=== PATIENT | male | born 1940 | race Caucasian/White ===

== ENCOUNTER → 2023-12-08 12:10 | Outpatient (REF) | payer MEDICARE, SELFPAY ==
[2023-12-08 13:30] LABS: INR 2.54; PT 27.3 Sec (11.4-14.6)
== END ==
LOC: OLABPV 12:10
PROVIDERS: ATTENDING PHYSICIAN Internal Medicine Geriatric Medicine
DX: Z79.01 Long term (current) use of anticoagulants (principal)
CPT/HCPCS: 36415; 85610

== ENCOUNTER → 2023-12-15 11:01 | Outpatient (REF) | payer MEDICARE, SELFPAY ==
[2023-12-15 11:54] LABS: % Eosinophils 4.8 % (0-6); % Immature Granulocytes 0.5 % (0-0.5); % Monocytes 12.6 % (1.7-9.3); % Neutrophils 71.1 % (42.2-75.2); Absolute Basophils 0.1 10^3/uL (0-0.2); Absolute Eosinophils 0.3 10^3/uL (0-0.7); Absolute Lymphocytes 0.6 10^3/uL (1.2-3.4); Absolute Monocytes 0.8 10^3/uL (0.1-0.6); Absolute Neutrophils 4.5 10^3/uL (1.4-6.5); Hematocrit 31.3 % (39.0-52.0); Hemoglobin 10.1 g/dL (13.0-18.0); Mean Corp Hgb Conc. 32.3 g/dL (33.0-37.0); Mean Corpuscular Hgb 29.7 pg (27.0-31.0); Mean Corpuscular Volume 92.1 fL (80.0-94.0); Mean Platelet Volume 11.3 fL (7.4-10.4); Nucleated Red Blood Cells % 0 % (-); Platelet Count 177 10^3/uL (130-400); Red Cell Dist. Width 18.1 % (11.5-14.5); White Blood Cell Count 6.3 10^3/uL (4.8-10.8)
[2023-12-15 12:10] LABS: ALT (SGPT) 73 U/L (0-50); AST (SGOT) 64 U/L (17-59); Albumin 3.7 g/dl (3.5-5.0); Alkaline Phosphatase 239 U/L (38-126); Blood Urea Nitrogen 58 mg/dl (9-20); Calcium 9.5 mg/dl (8.4-10.2); Carbon Dioxide 27 mmol/L (22-30); Chloride 99 mmol/L (98-107); Glucose 149 mg/dl (70-99); Potassium 3.6 mmol/L (3.5-5.1); Sodium 138 mmol/L (135-145); Total Protein 7.4 g/dl (6.3-8.2); eGFR 41.96
[2023-12-18 01:44] LABS: Albumin 3.95 g/dL (3.75-5.01); Alpha 1 Globulin 0.39 g/dL (0.19-0.46); Alpha 2 Globulin 0.58 g/dL (0.48-1.05); Free Kappa Light Chains,Quant 111.04 mg/L (3.30-19.40); Free Lambda Light Chains,Quant 53.42 mg/L (5.71-26.30); IgA 496 mg/dL (68-408); IgG 1403 mg/dL (768-1632); IgM 90 mg/dL (35-263); Immunofixation Electrophoresis IFE Done; Kappa/Lambda Fr Light Ratio 2.08 (0.26-1.65); Total Protein-Electrophoresis 7.4 g/dL (6.3-8.2)
== END ==
LOC: OLABPV 11:01
PROVIDERS: ATTENDING PHYSICIAN Internal Medicine Cardiovascular Disease; REFERRING PHYSICIAN Internal Medicine Hematology & Oncology
DX: I50.32 Chronic diastolic (congestive) heart failure (principal); D63.1 Anemia in chronic kidney disease; D47.2 Monoclonal gammopathy
CPT/HCPCS: 36415; 80053; 82232; 82784; 83521; 84155; 84165; 85025; 86334

== ENCOUNTER → 2024-01-05 09:55 | Outpatient (REF) | payer MEDICARE, SELFPAY ==
[2024-01-05 13:33] LABS: INR 3.33; PT 33.8 Sec (11.4-14.6)
[2024-01-05 13:36] LABS: % Basophils 0.7 % (0-2); % Eosinophils 3.7 % (0-6); % Immature Granulocytes 0.6 % (0-0.5); % Lymphocytes 7.6 % (20.5-51.1); % Monocytes 11.6 % (1.7-9.3); % Neutrophils 75.8 % (42.2-75.2); ALT (SGPT) 18 U/L (0-50); AST (SGOT) 35 U/L (17-59); Absolute Basophils 0.1 10^3/uL (0-0.2); Absolute Eosinophils 0.3 10^3/uL (0-0.7); Absolute Lymphocytes 0.6 10^3/uL (1.2-3.4); Absolute Monocytes 0.8 10^3/uL (0.1-0.6); Absolute Neutrophils 5.5 10^3/uL (1.4-6.5); Albumin 3.7 g/dl (3.5-5.0); Alkaline Phosphatase 212 U/L (38-126); Blood Urea Nitrogen 34 mg/dl (9-20); Calcium 7.8 mg/dl (8.4-10.2); Carbon Dioxide 21 mmol/L (22-30); Chloride 107 mmol/L (98-107); Glucose 151 mg/dl (70-99); HDL Cholesterol 45 mg/dl; Hematocrit 30.5 % (39.0-52.0); Hemoglobin 9.7 g/dL (13.0-18.0); LDL Cholesterol, Calculated 82 mg/dl; Mean Corp Hgb Conc. 31.8 g/dL (33.0-37.0); Mean Corpuscular Hgb 29.3 pg (27.0-31.0); Mean Corpuscular Volume 92.1 fL (80.0-94.0); Mean Platelet Volume 9.4 fL (7.4-10.4); Nucleated Red Blood Cells % 0 % (-); Platelet Count 171 10^3/uL (130-400); Potassium 4.3 mmol/L (3.5-5.1); Red Blood Cell Count 3.31 10^6/uL (4.70-6.10); Red Cell Dist. Width 21.4 % (11.5-14.5); Sodium 134 mmol/L (135-145); Total Bilirubin 2.2 mg/dl (0.2-1.3); Total Cholesterol 150 mg/dl (50-199); Total Protein 7.1 g/dl (6.3-8.2); Triglyceride 118 mg/dl (10-149); Very Low Density Lipoprotein 23 mg/dl (0-30); White Blood Cell Count 7.2 10^3/uL (4.8-10.8); eGFR 53.84
== END ==
LOC: OLABPV 09:55
PROVIDERS: ATTENDING PHYSICIAN Internal Medicine Geriatric Medicine
DX: Z79.01 Long term (current) use of anticoagulants (principal); E78.2 Mixed hyperlipidemia; I10 Essential (primary) hypertension; I48.21 Permanent atrial fibrillation; I50.32 Chronic diastolic (congestive) heart failure; N18.32 Chronic kidney disease, stage 3b; E11.9 Type 2 diabetes mellitus without complications; F41.9 Anxiety disorder, unspecified; I34.2 Nonrheumatic mitral (valve) stenosis; M81.0 Age-related osteoporosis without current pathological fracture; R17 Unspecified jaundice; K21.9 Gastro-esophageal reflux disease without esophagitis
CPT/HCPCS: 36415; 80053; 80061; 85025; 85610

== ENCOUNTER → 2024-02-19 10:32 | Outpatient (REF) | payer MEDICARE, SELFPAY ==
[2024-02-19 11:33] LABS: INR 2.06; PT 23.1 Sec (11.4-14.6)
== END ==
LOC: OLABPV 10:32
PROVIDERS: ATTENDING PHYSICIAN Internal Medicine Geriatric Medicine
DX: Z79.01 Long term (current) use of anticoagulants (principal)
CPT/HCPCS: 36415; 85610

== ENCOUNTER → 2024-02-25 10:05 | Outpatient (REF) | payer MEDICARE, SELFPAY | LOC: RAD 10:05 | PROVIDERS: ATTENDING PHYSICIAN Psychiatry & Neurology Neurology; FAMILY PHYSICIAN Internal Medicine Geriatric Medicine | DX: M54.6 Pain in thoracic spine (principal); M54.14 Radiculopathy, thoracic region; M47.816 Spondylosis without myelopathy or radiculopathy, lumbar region; M47.817 Spondylosis without myelopathy or radiculopathy, lumbosacral region; M54.50 Low back pain, unspecified | CPT/HCPCS: 72128; 72131 ==

== ENCOUNTER → 2024-03-04 09:53 | Outpatient (REF) | payer MEDICARE, SELFPAY ==
[2024-03-04 10:14] LABS: INR 2.44; PT 26.4 Sec (11.4-14.6)
== END ==
LOC: OLABPV 09:53
PROVIDERS: ATTENDING PHYSICIAN Family Medicine
DX: Z79.01 Long term (current) use of anticoagulants (principal)
CPT/HCPCS: 36415; 85610

== ENCOUNTER 2024-03-24 17:14 | Inpatient (IN) | payer MEDICARE, SELFPAY ==
[2024-03-24] VITALS (11 sets, daily range): BP systolic 105–128; BP diastolic 52–83; BMI 21.9; BMI 21.4
[2024-03-24 08:31] LABS: % Basophils 1.3 % (0-2); % Eosinophils 3.2 % (0-6); % Immature Granulocytes 0.6 % (0-0.5); % Lymphocytes 7.6 % (20.5-51.1); % Monocytes 12.3 % (1.7-9.3); Absolute Basophils 0.1 10^3/uL (0-0.2); Absolute Eosinophils 0.2 10^3/uL (0-0.7); Absolute Lymphocytes 0.5 10^3/uL (1.2-3.4); Absolute Monocytes 0.8 10^3/uL (0.1-0.6); Absolute Neutrophils 4.8 10^3/uL (1.4-6.5); Hematocrit 33.5 % (39.0-52.0); Mean Corp Hgb Conc. 29.9 g/dL (33.0-37.0); Mean Corpuscular Hgb 27.8 pg (27.0-31.0); Mean Corpuscular Volume 93.1 fL (80.0-94.0); Mean Platelet Volume 10.9 fL (7.4-10.4); Nucleated Red Blood Cells % 0.6 % (-); Platelet Count 160 10^3/uL (130-400); Red Cell Dist. Width 18.6 % (11.5-14.5); White Blood Cell Count 6.3 10^3/uL (4.8-10.8)
[2024-03-24 08:40] LABS: PT 40.4 Sec (11.4-14.6)
[2024-03-24 08:49] LABS: ALT (SGPT) 12 U/L (0-50); AST (SGOT) 22 U/L (17-59); Albumin 3.8 g/dl (3.5-5.0); Alkaline Phosphatase 127 U/L (38-126); Blood Urea Nitrogen 47 mg/dl (9-20); Calcium 8.6 mg/dl (8.4-10.2); Carbon Dioxide 23 mmol/L (22-30); Chloride 100 mmol/L (98-107); Glucose 243 mg/dl (70-99); Potassium 5.3 mmol/L (3.5-5.1); Sodium 135 mmol/L (135-145); Total Bilirubin 1.5 mg/dl (0.2-1.3); eGFR 39.02
[2024-03-24 08:51] LABS: Digoxin < 0.4 ng/ml (0.8-2.0)
[2024-03-24 08:58] LABS: NT-proBNP 4880 pg/ml; Troponin I 0.043 ng/ml
--- NOTE | 2024-03-24 11:33 | ED.GENMED ---
History of Present Illness
General
Chief Complaint: Breathing Problem
Source: patient and family
Exam Limitations: none
Time Seen by Provider: 03/24/24 11:04
Nursing documentation reviewed up to this point in time: agreed with
Travel History
Have you had any contact with someone who has COVID-19?: No
Do you have any symptoms of coronavirus? Fever > 100 degrees, chills, cough, shortness of breath, sore throat, loss of taste or smell, muscle aches, or headache?: No
History of Present Illness
History of Present Illness:
83-year-old male presenting to the emergency department today with concerns of worsening shortness of breath over the past few days. Has had some increasing nasal congestion as well. Upon arrival here and during initial assessment patient's pulse
ox in the 80s requiring 4 L nasal cannula but does not use oxygen at baseline. Does have a significant heart history of A-fib currently on Coumadin CHF hyperlipidemia. Patient was additionally seen in triage and had assessment ordered. Labs
showing slightly elevated troponin level however patient's chronically elevated in this regard patient's EKG without acute changes, ACS seems to be less likely. Patient did have an elevated BNP but below most of his previous levels over the past
few years. The daughter was concerned that she has noticed some weight gain over the past week or so. Patient was given dose of Lasix as well as an antibiotic for possible pneumonia seen on his x-ray.
Past History
Past History
ED Past Medical History: Arrthythmia (Atrial fibrillation), Cancer (Prostate), CHF, HTN, Hypercholesterolemia, Renal failure (Stage IIIb chronic kidney disease), Valvular disease, Psychiatric (Generalized anxiety disorder), Other (Rheumatoid
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
Negative COPD
ED Past Surgical History: Cardiac (Mitral valve repair, pacemaker October 2022)
Social History
Tobacco: Non-smoker
Alcohol: None
Drug: None
Personal: Single
Living: alone
Employment: Retired
Family History
Family History: Other (Reviewed and noncontributory)
Review of Systems
Review of Systems
Allergies reviewed?: Yes
All Other Systems: ROS reviewed and negative except as documented in HPI and ROS
Phy Exam
Physical Exam
Physical Exam:
GENERAL: Alert , in no apparent distress
EYE: pupils equal and reactive
NECK: Supple, no significant adenopathy.
ENT: o/p clr, mmm.
CARDIAC: Regular rate and rhythm .
LUNGS: Clear breath sounds bilaterally, no acute respiratory distress, no wheezes/rales/rhonchi
ABDOMEN: Soft, without focal tenderness, no r/g, no cvat
NEUROLOGICAL: Alert and oriented, no focal neuro deficits
SKIN: Warm and dry, skin intact.
MUSCULOSKELETAL: No edema, well perfused.
PSYCH: Normal and appropriate interaction.
Scores
Heart Failure Risk
Heart Failure Risk Score: Not Applicable
Course
Orders/Labs/Results
Orders:
Orders
03/24/24 08:15
Electrocardiogram (*1) Urgent
Reason for Study: Shortness of Breath
EKG- Treatment ONCE
CXR2 [CR Chest - 2 Views ] Urgent
Comment:
Reason For Exam: sob
03/24/24 08:18
Complete Blood Count/With Diff Urgent
Comprehensive Metabolic Panel Urgent
Digoxin Urgent
NT-proBNP Urgent
PT/INR [Prothrombin Time] Urgent
Troponin I Urgent
03/24/24 11:32
Azithromycin [Zithromax] 500 mg PO NOW STA
CefTRIAXone [Rocephin] 2,000 mg IV NOW STA
Furosemide [Lasix] 40 mg IV NOW STA
Abnormal Lab Results
03/24/24
08:18
RBC 3.60 L 10^6/uL
(4.70-6.10)
Hgb 10.0 L g/dL
(13.0-18.0)
Hct 33.5 L %
(39.0-52.0)
MCHC 29.9 L g/dL
(33.0-37.0)
RDW 18.6 H %
(11.5-14.5)
MPV 10.9 H fL
(7.4-10.4)
Absolute Lymphs (auto) 0.5 L 10^3/uL
(1.2-3.4)
Absolute Monos (auto) 0.8 H 10^3/uL
(0.1-0.6)
Immature Gran % 0.6 H %
(0-0.5)
Lymphocytes % 7.6 L %
(20.5-51.1)
Monocytes % 12.3 H %
(1.7-9.3)
PT 40.4 H Sec
(11.4-14.6)
Potassium 5.3 H mmol/L
(3.5-5.1)
BUN 47 H mg/dl
(9-20)
Creatinine 1.7 H mg/dL
(0.7-1.3)
Glucose 243 H mg/dl
(70-99)
Total Bilirubin 1.5 H mg/dl
(0.2-1.3)
Alkaline Phosphatase 127 H U/L
(38-126)
Troponin I 0.043 H* ng/ml
Digoxin < 0.4 L ng/ml
(0.8-2.0)
03/24/24 08:18
03/24/24 08:18
Vital Signs
Initial and Last Documented VS:
Initial Vital Signs
Temp Pulse Resp BP Pulse Ox
97.7 F 70 16 116/52 98
03/24/24 08:10 03/24/24 08:10 03/24/24 08:10 03/24/24 08:10 03/24/24 08:10
Last Documented Vital Signs
Temp Pulse Resp BP Pulse Ox
97.7 F 70 16 116/52 98
03/24/24 08:10 03/24/24 08:10 03/24/24 08:10 03/24/24 08:10 03/24/24 08:10
MDM/Problems Addressed
MDM/Problems Addressed:
83-year-old male presenting to the emergency department today with concerns of worsening shortness of breath. Here he was found to have potential pneumonia on the right side was started on antibiotics. Additionally had pleural effusions previously
has needed drainage of these in the past. He had elevations of troponin and BNP but at patient's baseline EKG without acute findings. Patient was hypoxic responding well to nasal cannula oxygen but does not use oxygen at baseline. Patient will be
admitted for further treatment and monitoring.
*Critical Care Note
Total Time (30-74mins, 75-104mins- exclusive of procedures): Not Applicable
ED Attending Note
-
Portions of this chart may have been created with voice recognition software.� Occasional wrong word or��sound alike� substitutions may have occurred due to the inherent limitations of voice recognition software.
Discharge Plan
Departure
Patient Disposition: Admit
Date of Disposition: 03/24/24
Time of Disposition: 11:38
Admit to: Telemetry
Admit to doctor: Chris
Presentation/result/management discussed w/ accepting MD/DO: Hospitalist
Patient with high blood pressure during this ER visit?: No
Condition: Good
Covid-19: Not Applicable
Discharge Problem:
Hypoxemia, Pneumonia, Pleural effusion
Prescriptions:
No Action
allopurinol 100 mg Tablet
450 mg PO DAILY
carvedilol 3.125 mg Tablet
3.125 mg PO BID Qty: 60 0RF
pantoprazole 40 mg Tablet,Delayed Release (Dr/Ec)
40 mg PO DAILY Qty: 30 0RF
docusate sodium [Colace] 100 mg Capsule
100 mg PO DAILY@1300
calcium carbonate-vitamin D3 600 mg-20 mcg (800 unit) Tablet
1 tab PO DAILY
warfarin 5 mg tablet
5 mg PO SUTUTHSA 30 Days Qty: 30 2RF
Patient Comments:
10/05/2023, patient takes this medication at bedtime on SuTuThSa.
warfarin 2.5 mg tablet
2.5 mg PO MOWEFR 30 Days Qty: 20 2RF
Patient Comments:
10/05/2023, patient takes this medication at bedtime on MoWeFr.
melatonin 5 mg Tablet
5 mg PO HS PRN (Reason: sleep)
cholestyramine (with sugar) [Questran] 4 gram Powder In Packet
4 g PO TID
hydroxyzine HCl 25 mg Tablet
25 mg PO QID PRN (Reason: itchy) Qty: 90 0RF
ursodiol 500 mg Tablet
500 mg PO BID Qty: 60 0RF
duloxetine [Cymbalta] 30 mg Capsule,Delayed Release(Dr/Ec)
30 mg PO DAILY
potassium chloride 20 mEq tablet,ER particles/crystals
20 meq PO QPM
polyethylene glycol 3350 [Miralax] 17 gram Powder In Packet
17 g PO DAILY
oxycodone-acetaminophen 5-325 mg tablet
1 tab PO TID
[place] Nasal Mist 0.65 % Aerosol,[place]
1 spray INTRANASAL BID
potassium chloride 20 mEq Tablet Extended Release
40 meq PO DAILY
torsemide 20 mg tablet
20 mg PO BID@0800,1600
Interventions
Interventions:
*ED COVID-19 Vaccine History Last Done: 03/24/24 08:10
Discharge Date and Time
Print Language: CYMRAES
[2024-03-24] MEDS: ZITHROMAX 500 MG PO (12:39)
[2024-03-24] MEDS: ROCEPHIN 2000 MG IV (12:39)
[2024-03-24] MEDS: LASIX 40 MG IV (12:39)
--- NOTE | 2024-03-24 16:02 | HPS.HSE ---
Addendum entered and electronically signed by Andrew Ley MD 03/24/24 22:21:
Attending Addendum-
I performed a history and physical exam of the patient and discussed his management with the resident. I reviewed the resident's note and agree with the documented findings and plan of care Came to ED for 10lb weight gain RITTER and extreme weakness.
seen with daughter and son present. Full 12 point ROS reviewed and negative except as documented Exam- vitals reviewed in chart GEN-NAD left JVD heart SM @ RUSB / SM @ apex lungs crackles at abses abd soft no HJR LE no edema Plan:
# AE HFpEF-
lasix IV BID
hold torsemide and metolazone for now
daily weights and strict I and Os
repeat BMP in am
cont coreg
echo 09/10 ef 44%
# RLL PNA-
start Rocephin/doxy
speech eval
# Supratherapeutic INR/A fib
- cont Coreg
- hold Coumadin
- repeat INR in am
# Non ischemic Myocardial injury
- trend trops
# Acute Hypoxemic Respiratory Failure-
wean o2 for sats > 94%
# Hyperkalemia
- hold k supplements
- repeat BMP in am
# MVR with TMRV
# Gout
- cont allopurinol
# Peripheral Neuropathy
- cont cymbalta
# Chronic Back Pain with Lumbar Compression fx-
- for vertebroplasty as OP
- cont percocet 1 po TID - reviewed PDMP
- add morphine prn
# CKD 3b-
- baseline cr @ 1.6
- avoid nephrotoxic agenets
- repeat BMP in am
CODE- Full- daughter and son present
DVTp- coumadin on hold
Dispo Eventual DC back to [place] SNF then back to [place]
Time spent coordinating care, review of plan of care with resident, review of records, med rec, consults, notes, labs, rads, d/w nursing, ED staff, POA - 80 mins
Original Note:
Family Physician
-
Family Physician: Min Curry
Chief Complaint
-
Monitor I's/O, weight daily
IV Lasix
IV ceftriaxone and p.o. doxycycline
History of Present Illness
83 year old male with history of atrial fibrillation, CHF, mitral valve repair, CKD stage IIIb, hypertension, HLD, pacemaker placed in 10/2022 presented to the ED with concerns of worsening shortness of breath over the past few days. He lives in
independent living facility at [facility]. The daughter is present in the room with the patient and she states that he has been having increasing nasal congestion along with cough. Cough is dry. Patient states that he is dyspneic on exertion,
orthopnea, while speaking. He denies RITTER at rest. Patient denies chest pain, palpitations, any recent illnesses. The daughter states that patient has gained some weight over the past week around 10 pounds his dry weight is 142 pounds and when he
weighed this week it was around 152. The daughter also stated that patient had compression fracture in his lower back in November due to which she has started using a walker. Patient denies history of COPD, smoking, using oxygen at home. Patient
sees a wastewater project engineer Dr. Weeks for history of CHF, A-fib. He was admitted to the ED in August 2023 for liver and kidney failure. Patient was switched from Lasix to oral torsemide 20 mg twice a day. Patient's daughter states that he usually has
fluid retention in his abdomen and not in his lower extremities.
Medical History
Past Medical History
Past Medical History: Reports Asthma, Cancer (Prostate), CHF, HTN, Hypercholesterolemia, Renal Failure and Valvular Disease; Denies COPD
Past Surgical History: Reports Cardiac (TAVR, mitral valve repair, pacemaker placement)
Social History
Tobacco: Non-smoker
Alcohol: None
Drug: None
Personal: Single
Living: Assisted Living
Employment: Retired
Family History
Family History: Not pertinent
Allergies / Home Medications
Allergies reflects when Allergies were last updated in [employer].
Home Medications with original date entered in [employer]
Allergy/Medication List:
Home Medications Table - record
�Medication �Instructions �Recorded �Confirmed
allopurinol 100 mg tablet 450 mg PO DAILY Gout 07/08/23 03/24/24
carvedilol 3.125 mg tablet 3.125 mg PO BID #60 tabs 07/20/23 03/24/24
pantoprazole 40 mg tablet,delayed 40 mg PO DAILY #30 tabs 07/20/23 03/24/24
release
calcium carbonate 600 mg-vitamin 1 tab PO DAILY Supplement 09/02/23 03/24/24
D3 20 mcg (800 unit) tablet
docusate sodium 100 mg capsule 100 mg PO DAILY@1300 09/02/23 03/24/24
(Colace)
melatonin 5 mg tablet 5 mg PO HSPRN PRN sleep 10/05/23 03/24/24
ursodiol 500 mg tablet 500 mg PO BID #60 tabs 10/10/23 03/24/24
acetaminophen 650 mg 1,300 mg PO Q8HPRN PRN mild pain 03/24/24 03/24/24
tablet,extended release (Tylenol
Arthritis Pain)
ceramides 1,3,6-II (CeraVe topical 1 applic topical DAILY 03/24/24 03/24/24
cream)
denosumab 60 mg/mL subcutaneous 60 mg SC [id number] 03/24/24 03/24/24
syringe
duloxetine 30 mg capsule,delayed 30 mg PO DAILY 03/24/24 03/24/24
release (Cymbalta)
oxycodone-acetaminophen 5 mg-325 1 tab PO TID 03/24/24 03/24/24
mg tablet
polyethylene glycol 3350 17 gram 17 g PO DAILY 03/24/24 03/24/24
oral powder packet (Miralax)
potassium chloride 20 mEq 40 meq PO DAILY 03/24/24 03/24/24
tablet,extended release
potassium chloride 20 mEq 20 meq PO QPM 03/24/24 03/24/24
tablet,extended release(part/cryst)
sodium chloride 0.65 % nasal spray 1 spray intranasal BID 03/24/24 03/24/24
aerosol
torsemide 20 mg tablet 20 mg PO BID@0800,1600 03/24/24 03/24/24
warfarin 2.5 mg tablet 2.5 mg PO SUTUWETHSA@1800 03/24/24 03/24/24
warfarin 5 mg tablet 5 mg PO MOFR@1800 03/24/24 03/24/24
Allergies
Allergy/AdvReac Type Severity Reaction Status Date / Time
No Known Allergies Allergy Verified 03/24/24 08:12
Review of Systems
-
History Source: Patient and Family
Constitutional: Reports Fatigue
Respiratory: Reports Trouble Breathing
Skin: Reports Itching
Physical Exam
Vital Signs
Vital Signs
Temp Pulse Resp BP Pulse Ox
97.7 F 70 19 125/83 96
03/24/24 08:10 03/24/24 14:45 03/24/24 14:45 03/24/24 14:00 03/24/24 14:15
Physical Exam
General: No Apparent Distress and Conversant
HEENT: NormoCephalic, Anicteric and Other (JVD on left, HJR while pressing on the abdomen )
Respiratory: Decreased Breath Sounds (Right lower base)
Cardiac: S1/S2, Regular Rhythm and Murmur
GI: Non Tender, Normal Bowel Sounds and Distended; No Soft (Fullness to palpation)
Musculoskeletal: No Edema
Neuro: AO x 3
Psych: Calm
Laboratory Results
-
03/24/24 08:18
03/24/24 08:18
Laboratory Results
PT 40.4 Sec (11.4-14.6) H 03/24/24 08:18
INR 4.10 03/24/24 08:18
Total Bilirubin 1.5 mg/dl (0.2-1.3) H 03/24/24 08:18
AST 22 U/L (17-59) 03/24/24 08:18
ALT 12 U/L (0-50) 03/24/24 08:18
Alkaline Phosphatase 127 U/L (38-126) H 03/24/24 08:18
Troponin I 0.043 ng/ml H* 03/24/24 08:18
Impression/Plan
-
IMPRESSION:
Acute congestive heart failure due to volume overload
Right lower lobe pneumonia
Acute hypoxic respiratory failure
Hyperkalemia
Atrial fibrillation
CKD stage IIIb
Hyperglycemia
Hyperbilirubinemia
PLAN:
Acute congestive heart failure due to volume overload/HFrEF
Patient is in mild apparent distress, comfortable conversant, looks fatigue
proBNP and Trop levels elevated
Start IV Lasix 40 mg daily
Continue to monitor I's/O's Daily
Continue to monitor weight, dry weight is 142 pounds. Patient has gained around 7 to 10 pounds in the past week
Trend troponin levels
Right lower lobe pneumonia
Confirmed with chest x-ray
Ordered strep pneumonia antigen, Legionella urine antigen, blood cultures x 2
IV ceftriaxone plus doxycycline p.o. to cover community-acquired pneumonia
Continue to monitor temperature curve and WBC count
Acute hypoxic respiratory failure
Possibly due to right lower lobe pneumonia
Plan to wean off oxygen
Currently on 3 L of oxygen
Hyperkalemia
Hold potassium chloride, patient was taking 60 mEq of KCl
Monitor BMP in a.m.
Atrial fibrillation/mitral valve repair
Continue Coumadin 2.5 and 5 mg
Monitor PT/INR
Hyperglycemia
Start low-dose ISS
Monitor glucose level
Check A1c
CKD stage IIIb
Current creatinine 1.7
Trend levels
Hyperbilirubinemia
Suspect due to acute CHF
Will trend down with diuresis
Continue ursodiol
If the LFTs are still elevated then we would do a liver ultrasound
DVT prophylaxis-warfarin
CODE STATUS-full code
[2024-03-24 16:47] LABS: Troponin I < 0.012 ng/ml
--- NOTE | 2024-03-24 20:30 | W.PN.UPDATE ---
Update Note
Progress Note Update
INR 4.1, INR goal per [employer] Person note from last admission is 2-3, will hold Coumadin.
[2024-03-24 21:18] LABS: Glucose - Point of Care 136 mg/dl (70-99)
[2024-03-24] MEDS: OCEAN, SALINE MIST 1 SPRAYS NASAL (21:44)
[2024-03-24] MEDS: VIBRAMYCIN 100 MG PO (21:45)
[2024-03-24] MEDS: COREG 3.125 MG PO (21:45)
[2024-03-24] MEDS: URSO 500 MG PO (21:46)
[2024-03-24] MEDS: COUMADIN PO (22:01)
[2024-03-24] MEDS: PERCOCET 5/325 1 TABLET PO (22:12)
[2024-03-24] MEDS: MELATONIN 5 MG PO (22:44)
[2024-03-24 22:50] LABS: Troponin I 0.046 ng/ml
[2024-03-25 03:51] VITALS: BP 112/64
[2024-03-25 04:36] LABS: % Basophils 1.3 % (0-2); % Immature Granulocytes 0.6 % (0-0.5); % Lymphocytes 10.7 % (20.5-51.1); % Monocytes 12.9 % (1.7-9.3); % Neutrophils 71.5 % (42.2-75.2); Absolute Basophils 0.1 10^3/uL (0-0.2); Absolute Eosinophils 0.2 10^3/uL (0-0.7); Absolute Lymphocytes 0.6 10^3/uL (1.2-3.4); Absolute Monocytes 0.7 10^3/uL (0.1-0.6); Absolute Neutrophils 3.8 10^3/uL (1.4-6.5); Hematocrit 30.7 % (39.0-52.0); Hemoglobin 9.7 g/dL (13.0-18.0); Mean Corp Hgb Conc. 31.6 g/dL (33.0-37.0); Mean Corpuscular Volume 88.5 fL (80.0-94.0); Mean Platelet Volume 10.5 fL (7.4-10.4); Nucleated Red Blood Cells % 0.4 % (-); Platelet Count 153 10^3/uL (130-400); Red Blood Cell Count 3.47 10^6/uL (4.70-6.10); Red Cell Dist. Width 18.6 % (11.5-14.5); White Blood Cell Count 5.4 10^3/uL (4.8-10.8)
[2024-03-25 04:42] LABS: ALT (SGPT) 10 U/L (0-50); AST (SGOT) 23 U/L (17-59); Albumin 3.5 g/dl (3.5-5.0); Alkaline Phosphatase 123 U/L (38-126); Blood Urea Nitrogen 50 mg/dl (9-20); Calcium 8.6 mg/dl (8.4-10.2); Carbon Dioxide 22 mmol/L (22-30); Chloride 102 mmol/L (98-107); Estimated Creatinine Clearance 30 ml/min; Glucose 176 mg/dl (70-99); Potassium 4.3 mmol/L (3.5-5.1); Sodium 137 mmol/L (135-145); Total Bilirubin 1.2 mg/dl (0.2-1.3); Total Protein 6.6 g/dl (6.3-8.2); eGFR 39.02
[2024-03-25 04:45] LABS: INR 3.68; PT 37.1 Sec (11.4-14.6)
[2024-03-25 04:46] LABS: APTT 63.6 Sec (23.4-35.0)
[2024-03-25 04:54] LABS: Troponin I 0.046 ng/ml
[2024-03-25 05:27] VITALS: BMI 21.4
--- NOTE | 2024-03-25 05:52 | PTCARENOTE ---
Patient received from ED via stretcher and was assisted to bed by staff. He was oriented to room and surroundings. Tele SR with PAC HRR irregular. +RITTER, 100% on 3lpm nasal cannula, breath sounds are decreased. Abdomen round and full. 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
covering house regarding Coumadin with INR 4.1 Coumadin placed on hold. Critical Troponin of 0.46 also TT to MINE [employer] DISPATCHER. Continue to trend. VSS. Call larios in reach
--- NOTE | 2024-03-25 07:29 | W.PN.HOSP.TC ---
Addendum entered and electronically signed by Andrew Ley MD 03/25/24 14:06:
Attending Addendum-I saw and evaluated the patient. I reviewed the resident�s note and agree with findings and plan as documented in the resident�s note. feels fatigued. still SOB 'i dont feel myself'. Full 12 point ROS reviewed and negative
except as documented Exam- vitals reviewed in chart GEN-NAD left JVD heart 3/6 SM @ RUSB 2/6 SM @ apex lungs crackles at bases abd soft no HJR distended with fluid wave. LE no edema Plan:
# AE HFmrEF-
lasix IV BID
hold torsemide and metolazone for now
daily weights and strict I and Os
repeat BMP in am
cont coreg
echo 09/10 ef 44%
c/s cards for eval
# RLL PNA
cont Rocephin/doxy day #2
speech eval
# Supratherapeutic INR/A fib
- cont Coreg
- hold Coumadin again tonight (2nd night)
- repeat INR in am
# Abdominal Distention
- check abd US
- check LFT's
- check ammonia
# Non ischemic Myocardial injury
- trend trops
# Acute Hypoxemic Respiratory Failure-
- wean o2 for sats > 94%
- on 3L
# Hyperkalemia
- resolved
- hold k supplements
- repeat BMP in am
# MVR with TMRV
# Gout
- cont allopurinol
# Peripheral Neuropathy
- cont cymbalta
# Chronic Back Pain with Lumbar Compression fx-
- for vertebroplasty as OP
- cont Percocet 1 po TID - reviewed PDMP
- cont morphine prn
# CKD 3b-
- baseline cr @ 1.6
- avoid nephrotoxic agenets
- repeat BMP in am
CODE- Full- daughter and son present
DVTp- Coumadin on hold
Dispo Eventual DC to [place] SNF then back to [place]
Time spent coordinating care, review of plan of care with resident, review of records, med rec, consults, notes, labs, rads, d/w nursing, POA - 56 mins
Original Note:
Today's Communication/Plan
-
Consult cardiology
Continue IV antibiotics
Daily weights and I's/O's
Complete abdominal ultrasound
Check ammonia levels
Hold Coumadin for tonight
INR in a.m.
Assessment / Plan
Assessment / Plan
IMPRESSION:
Acute exacerbation HFpEF
Right lower lobe pneumonia
Acute hypoxic respiratory failure
Hyperkalemia
Atrial fibrillation/ Subtherapeutic INR
TMVR
CKD stage IIIb
Hyperglycemia
Hyperbilirubinemia
Gout
Low back pain with lumbar compression fractures
PLAN:
Acute exacerbation HFpEF
Patient is in mild apparent distress, comfortable conversant, looks fatigue
proBNP and Trop levels elevated
IV Lasix 40 mg BID
Continue to monitor I's/O's Daily
Continue to monitor weight, dry weight is 142 pounds. Patient has gained around 7 to 10 pounds in the past week
Trend troponin levels
Right lower lobe pneumonia
Confirmed with chest x-ray
Pending strep pneumonia antigen, Legionella urine antigen, blood cultures x 2
IV ceftriaxone plus doxycycline p.o. to cover community-acquired pneumonia
Continue to monitor temperature curve and WBC count
Acute hypoxic respiratory failure
Possibly due to right lower lobe pneumonia
Plan to wean off oxygen
Currently on 3 L of oxygen
Hyperkalemia---- resolved
Hold potassium chloride, patient was taking 60 mEq of KCl
Monitor BMP in a.m.
Atrial fibrillation/Supratherapeutic INR
Goal INR 2-3
Hold Coumadin tonight, check INR in a.m.
If the INR is close to 3 then we could start with half the original dose
INR today is 3.68
MVR with TMRV
Hyperglycemia
Start low-dose ISS
Monitor glucose level
Check A1c
CKD stage IIIb
Current creatinine 1.7
Trend levels
Hyperbilirubinemia----- resolved
Suspect due to acute CHF
Will trend down with diuresis
Continue ursodiol
Alk phos 123- normal
Gout
Continue allopurinol
Chronic low back pain with lumbar compression fractures
Continue Percocet 1 p.o. 3 times daily
Morphine as needed
Abdominal distention
Suspect ongoing liver disease
Fetor Hepaticus
Check ammonia level
LFTs were normal but due to significant distention of the abdomen will order complete abdominal ultrasound
DVT prophylaxis-warfarin
CODE STATUS-full code
Anticipated Discharge: > 48 hours
Subjective/Interval History
-
Date of Service: March 25, 2024
Patient complains of feeling fatigued, low back pain.
Objective Data
-
Labs:
Laboratory Results
03/25/24
04:20
WBC 5.4
Hgb 9.7 L
Hct 30.7 L
Plt Count 153
PT 37.1 H
INR 3.68
APTT 63.6 H
Sodium 137
Potassium 4.3
Chloride 102
Carbon Dioxide 22
BUN 50 H
Creatinine 1.7 H
Glucose 176 H
Calcium 8.6
Total Bilirubin 1.2
AST 23
ALT 10
Alkaline Phosphatase 123
Vital Signs:
Vital Signs
Temp Pulse Resp BP Pulse Ox
97.5 F 72 18 112/64 95
03/25/24 03:51 03/25/24 03:51 03/25/24 03:51 03/25/24 03:51 03/25/24 03:51
I&O
03/24/24 03/25/24 03/26/24
06:59 06:59 06:59
Output Total 750 / 750
Balance -750 / -750
Review of Systems
-
History Source: Patient
All other systems: Reviewed and negative (Except mentioned)
Constitutional: Reports Fatigue
Physical Exam
-
General: Appears in Distress, Pain and Other (Distinctive breath odor )
HEENT: Normocephalic and Atraumatic
Respiratory: Crackles (Bilateral lung bases)
Cardiac: Regular Rhythm and S1/S2
GI: Nontender and Distended
Musculoskeletal: No Edema
Neuro: AO x 3
Psych: Calm
Data Reviewed
-
Labs: Labs Reviewed by me and Discussed with Physician
[2024-03-25 07:35] VITALS: BP 120/69
[2024-03-25 07:38] LABS: Glucose - Point of Care 218 mg/dl (70-99)
[2024-03-25] MEDS: PERCOCET 5/325 1 TABLET PO ×3 (09:31→22:44)
[2024-03-25] MEDS: PROTONIX 40 MG PO (09:31)
[2024-03-25] MEDS: COREG 3.125 MG PO ×2 (09:31→20:10)
[2024-03-25] MEDS: CYMBALTA DELAYED RELEASE 30 MG PO (09:31)
[2024-03-25] MEDS: URSO 500 MG PO ×2 (09:31→20:10)
[2024-03-25] MEDS: VIBRAMYCIN 100 MG PO ×2 (09:31→20:10)
[2024-03-25] MEDS: MIRALAX 17 GRAMS PO (09:31)
[2024-03-25] MEDS: OSCAL 500 + D 500 MG PO (09:32)
[2024-03-25] MEDS: ZYLOPRIM 450 MG PO (09:32)
[2024-03-25] MEDS: LASIX 40 MG IV (09:34)
[2024-03-25] MEDS: FLUSH (NSS) 1 FLUSH IV ×2 (09:35→12:17)
[2024-03-25] MEDS: NOVOLOG FLEXPEN-LOW RESISTANCE 2 UNITS SC ×2 (09:42→18:34)
[2024-03-25] MEDS: OCEAN, SALINE MIST 1 SPRAYS NASAL ×2 (09:45→20:10)
[2024-03-25 09:47] LABS: Glycohemoglobin (HgbA1c) 7.7 % (4.0-5.6)
[2024-03-25 11:11] VITALS: BP 116/65
[2024-03-25 11:30] LABS: Troponin I 0.041 ng/ml
[2024-03-25 11:47] LABS: Glucose - Point of Care 263 mg/dl (70-99)
[2024-03-25 12:01] VITALS: BMI 21.4
[2024-03-25] MEDS: COLACE 100 MG PO (12:17)
[2024-03-25] MEDS: STERILE WATER FOR INJECTION 10 ML IV (12:17)
[2024-03-25] MEDS: ROCEPHIN 1000 MG IV (12:17)
[2024-03-25] MEDS: NOVOLOG FLEXPEN-LOW RESISTANCE 3 UNITS SC (13:38)
[2024-03-25 14:00] LABS: Ammonia 10 umol/L (9-30)
--- NOTE | 2024-03-25 14:28 | CON.CAR ---
Addendum entered and electronically signed by Vishal Manzano MD 03/25/24 15:50:
I saw and examined the patient.
The Supervisor Corduroy Cutting's note was reviewed and I agree with the note.
Comment: Briefly, 83-year-old man past medical history of heart failure with mildly reduced ejection fraction, permanent atrial fibrillation on Coumadin and CKD 3 who presents with worsening dyspnea and weight gain concerning for acute decompensated
heart failure
Agree with IV diuresis, would increase dosing to 80 mg IV lasix twice daily
Wean oxygen as able
Monitor daily weights and I's/O's
For completeness, check transthoracic echocardiogram
On discharge we will plan to send on an increased dose of torsemide - consider 40mg torsemide qAM and 20mg qPM
Original Note:
Consultation
Consultation Request
Date/Time Consultation Performed: 03/25/24
Requesting Provider: Dr. Tobin
Performing Provider: Iva Jack PA-C for Dr. Manzano
Reason for Consultation: CHF
Medical History
-
Chief Complaint: weight gain, weakness
History of Present Illness:
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, single-chamber pacemaker placement 10/2022, permanent atrial fibrillation on chronic Coumadin therapy, cardiomyopathy
with EF 40 to 45%, chronic heart failure with mildly reduced EF, CKD stage III, chronic right bundle branch block who presents to [facility] due to worsening shortness of breath, weight gain, and fatigue. He does not believe he has had
recent changes in his medications. His torsemide was decreased from 40 mg twice daily to 20 mg twice daily after admission in September 2023. He denies chest discomfort or lower extremity edema. He does report some abdominal bloating. Denies
fever. proBNP 4880. Chest x-ray with evidence of a right-sided pneumonia as well as bilateral pleural effusions, right greater than left. Cardiology consulted for evaluation for acute CHF
PMH:
chronic HFmrEF
CM, EF 40-45% by echo Jun 2023
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 10/29/2022
CHB s/p single chamber Verma PPM placement 10/30/22
permanent atrial fibrillation on chronic Coumadin therapy for 31 years, managed by PCP
hypertension
mild aortic stenosis
CKD 3B
chronic right bundle branch block
PAD
MGUS
Osteoarthritis
Chronic back pain with lumbar compression fracture
Gout
Rheumatoid arthritis
History of liver injury from [facility] 08/2023
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
JESSY on CPAP
Past Medical History
Past Medical History: Other (in HPI)
Social History
Tobacco: Non-Smoker
Living: Alone (independent apartment at [facility])
Employment: Retired
Allergies / Home Medications
Allergy/AdvReac Type Severity Reaction Status Date / Time
No Known Allergies Allergy Verified 03/24/24 08:12
�Medication �Instructions �Recorded �Confirmed �Type
allopurinol 100 mg tablet 450 mg PO DAILY Gout 07/08/23 03/24/24 History
carvedilol 3.125 mg tablet 3.125 mg PO BID #60 tabs 07/20/23 03/24/24 Rx
pantoprazole 40 mg tablet,delayed 40 mg PO DAILY #30 tabs 07/20/23 03/24/24 Rx
release
calcium carbonate 600 mg-vitamin 1 tab PO DAILY Supplement 09/02/23 03/24/24 History
D3 20 mcg (800 unit) tablet
docusate sodium 100 mg capsule 100 mg PO DAILY@1300 Constipation 09/02/23 03/24/24 History
(Colace)
melatonin 5 mg tablet 5 mg PO HSPRN PRN sleep 10/05/23 03/24/24 History
ursodiol 500 mg tablet 500 mg PO BID #60 tabs 10/10/23 03/24/24 Rx
acetaminophen 650 mg 1,300 mg PO Q8HPRN PRN mild pain 03/24/24 03/24/24 History
tablet,extended release (Tylenol
Arthritis Pain)
ceramides 1,3,6-II (CeraVe topical 1 applic topical DAILY Skin Issues 03/24/24 03/24/24 History
cream)
denosumab 60 mg/mL subcutaneous 60 mg SC [id number] 03/24/24 03/24/24 History
syringe
duloxetine 30 mg capsule,delayed 30 mg PO DAILY Mental 03/24/24 03/24/24 History
release (Cymbalta) Health/Anxiety
metolazone 2.5 mg tablet 2.5 mg PO Q OTHER DAY PRN weight 03/24/24 03/24/24 History
gain
oxycodone-acetaminophen 5 mg-325 1 tab PO TID Pain 03/24/24 03/24/24 History
mg tablet
polyethylene glycol 3350 17 gram 17 g PO DAILY Constipation 03/24/24 03/24/24 History
oral powder packet (Miralax)
potassium chloride 20 mEq 40 meq PO DAILY Supplement 03/24/24 03/24/24 History
tablet,extended release
potassium chloride 20 mEq 20 meq PO QPM Supplement 03/24/24 03/24/24 History
tablet,extended release(part/cryst)
sodium chloride 0.65 % nasal spray 1 spray intranasal BID 03/24/24 03/24/24 History
aerosol
torsemide 20 mg tablet 20 mg PO BID@0800,1600 Fluid 03/24/24 03/24/24 History
Retention/Swelling
warfarin 2.5 mg tablet 2.5 mg PO SUTUWETHSA@1800 Blood 03/24/24 03/24/24 History
Clot Prevention/Tx
warfarin 5 mg tablet 5 mg PO MOFR@1800 Blood Clot 03/24/24 03/24/24 History
Prevention/Tx
Review of Systems
-
History Source: Patient and Family
All other systems: Negative unless noted
Physical Exam
Vital Signs
Temp Pulse Resp BP Pulse Ox
98.7 F 71 18 116/65 96
03/25/24 11:11 03/25/24 11:11 03/25/24 11:11 03/25/24 11:11 03/25/24 11:11
Lab Results
03/25/24 04:20
03/25/24 04:20
Troponin I 0.041 ng/ml H* 03/25/24 10:55
Vtf-[id number]-[id number] Pept 4880 pg/ml 03/24/24 08:18
Physical Exam
General: Other (appears chronically ill. breathing somewhat labored. on supp O2. sitting in chair)
HEENT: Normocephalic, Anicteric and Moist Mucous Membranes
Respiratory: Non Labored Respirations and Other (decreased BS B/L bases)
Cardiac: S1/S2, Irregular Rhythm and Murmur
GI: Soft, Non Tender and Distended (mild)
Musculoskeletal: No Clubbing, No Cyanosis and No Edema
Skin: Warm and Dry
Neuro: AO x 3
Impression / Plan
-
Primary Instructional Leader: Dr. GERRI Weeks
Assessment:
Presentation with weight gain, weakness
Acute on chronic HFmrEF
RLL PNA
Acute hypoxemic resp failure secondary to above
Hyperkalemia
Supratherapeutic INR
Elevated troponin, suspected nonischemic myocardial injury
CM, EF 40-45% by echo Jun 2023
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 10/29/2022
CHB s/p single chamber Verma PPM placement 10/30/22
permanent atrial fibrillation on chronic Coumadin therapy for 31 years, managed by PCP
hypertension
mild aortic stenosis
CKD 3B
chronic right bundle branch block
PAD
MGUS
Osteoarthritis
Chronic back pain with lumbar compression fracture, scheduled for upcoming vertebroplasty
Gout
Rheumatoid arthritis
History of hepatic failure from [facility] with peak bilirubin of 30 08/2023
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
JESSY on CPAP
ECHO 06/25/22: EF 50 to 55%, grade 3 diastolic dysfunction, septal contraction abnormality, severe biatrial enlargement, reduced RV function, status post full mitral annuloplasty ring from 1992, mean mitral gradient at average of 10 mmHg, concern for
possible moderate to severe MS, at least moderate MR noted, moderate to severe TR, severe pulmonary hypertension, PAP 69 mmHg, aortic sclerosis, ascites present
ECHO 01/20/23:�EF 35 to 40%, abnormal septal motion, moderate concentric LVH, enlarged RV size, pacer wire in right ventricle, status post #29 ANTONY mitral valve replacement with peak/mean gradients across valve of / with no MR seen, mild to
moderate eccentric AR, mild with peak mean gradients 23/12 mmHg, mild to moderate TR, PAP 52 mmHg, small ASD/PFO with [id number] shunt
Echo 07/09/2023:�EF 40-45%, dilated and hypokinetic RV, severe PAT, s/p� #29 Antony TMVR mean MV grad of 5 mmHg. No MR. Mild with peak/mean AV grad of 33/17 mmHg. Severe TR with dilated TV annulus, Severe PHTN with severely elevated pulmonary
pressures PasP 75-80 mmHg.
Plan:
-Patient presents with weight gain and weakness. He is noted by chest x-ray to have bilateral pleural effusions right greater than left as well as evidence of a right-sided pneumonia
-He is requiring supplemental oxygen, which he does not need at baseline. Continue to wean as able
-Treatment of pneumonia per primary service
-Cardiology consulted for evaluation of component of acute heart failure. proBNP 4880. Will attempt diuresis with IV Lasix. Is on torsemide 20 mg p.o. twice daily with metolazone 2.5 mg every other day PRN for weight gain. Presently on IV Lasix
40 mg twice daily without significant response per patient. Will increase IV dose to his outpatient equivalent of IV Lasix 80 mg twice daily. Follow creatinine closely, 1.7 on 03/25, approximately baseline
-Last echo from 06/2023 with results as above, EF 40 to 45%. Will repeat this admission to reassess
-CHF education
-Would consider placing on torsemide 40 mg every morning and 20 mg every afternoon versus 30 mg twice daily upon discharge
-In V paced rhythm on review of telemetry with PVCs and occasional couplets. Potassium stable. Consider device interrogation
-Continue Coreg. Not felt to be candidate for GARRICK/ARB/ARNI/SGLT2/aldactone due to baseline renal insufficiency
-INR elevated on arrival at 4.1, trending down today. Coumadin remains on hold. could consider for thoracentesis when INR normalizes
-Troponin stable at 0.04. No chest pain. Suspected non ischemic myocardial injury
-d/w patient and son at bedside
Data Reviewed
-
EKG: Tracing Personally Visualized and interpreted
Radiology: Report Reviewed by me
Medical Tests (Nuc Med, Echo etc): Report Reviewed by me
Labs: Labs Reviewed by me
Old Records: Reviewed
[2024-03-25 15:30] VITALS: BP 109/56
--- NOTE | 2024-03-25 16:08 | PTCARENOTE ---
Pt AAO x3, JOHN, OOB to BSC/chair with assist x1; kasie well. VSS. Telemetry: V-paced rhythm with PVC's. On nc 3 lpm- pulse ox 97%, pt with (+) slight RITTER/tachypnea; denies SOB. Abd large, soft, kasie PO well; pt aware of NPO past midnight for abd US
6/8. Voiding mod amts clear yellow urine in urinal. Resting in bed at present. Will continue to monitor.
[2024-03-25] MEDS: LASIX 80 MG IV (16:10)
[2024-03-25 16:42] LABS: Troponin I 0.039 ng/ml
[2024-03-25 16:46] LABS: Glucose - Point of Care 220 mg/dl (70-99)
[2024-03-25 19:49] VITALS: BP 117/70
[2024-03-25 21:19] LABS: Glucose - Point of Care 156 mg/dl (70-99)
[2024-03-25] MEDS: MELATONIN 5 MG PO (22:44)
[2024-03-25 23:39] VITALS: BP 113/60
[2024-03-26 03:18] VITALS: BP 108/61
[2024-03-26 06:00] VITALS: BMI 21.8
[2024-03-26 06:04] LABS: Glucose - Point of Care 151 mg/dl (70-99)
[2024-03-26 07:16] VITALS: BP 114/65
[2024-03-26 07:37] LABS: % Basophils 1.3 % (0-2); % Eosinophils 6.2 % (0-6); % Immature Granulocytes 0.5 % (0-0.5); % Lymphocytes 9.3 % (20.5-51.1); % Monocytes 13.3 % (1.7-9.3); % Neutrophils 69.4 % (42.2-75.2); Absolute Basophils 0.1 10^3/uL (0-0.2); Absolute Eosinophils 0.4 10^3/uL (0-0.7); Absolute Lymphocytes 0.6 10^3/uL (1.2-3.4); Absolute Monocytes 0.8 10^3/uL (0.1-0.6); Absolute Neutrophils 4.3 10^3/uL (1.4-6.5); Hematocrit 32.2 % (39.0-52.0); Hemoglobin 9.6 g/dL (13.0-18.0); Mean Corp Hgb Conc. 29.8 g/dL (33.0-37.0); Mean Corpuscular Hgb 27.7 pg (27.0-31.0); Mean Corpuscular Volume 93.1 fL (80.0-94.0); Mean Platelet Volume 10.6 fL (7.4-10.4); Nucleated Red Blood Cells % 0 % (-); Platelet Count 151 10^3/uL (130-400); Red Blood Cell Count 3.46 10^6/uL (4.70-6.10); Red Cell Dist. Width 18.6 % (11.5-14.5); White Blood Cell Count 6.2 10^3/uL (4.8-10.8)
[2024-03-26 07:40] LABS: INR 2.96; PT 31.2 Sec (11.4-14.6)
[2024-03-26 08:06] LABS: Blood Urea Nitrogen 48 mg/dl (9-20); Calcium 8.4 mg/dl (8.4-10.2); Carbon Dioxide 28 mmol/L (22-30); Chloride 102 mmol/L (98-107); Estimated Creatinine Clearance 35 ml/min; Glucose 144 mg/dl (70-99); Sodium 139 mmol/L (135-145); eGFR 45.34
--- NOTE | 2024-03-26 08:20 | W.PN.HOSP.TC ---
Today's Communication/Plan
-
diuresis
Assessment / Plan
Assessment / Plan
IMPRESSION:
Acute exacerbation HFpEF
Right lower lobe pneumonia
Acute hypoxic respiratory failure
Hyperkalemia
Atrial fibrillation/ Subtherapeutic INR
TMVR
CKD stage IIIb
Hyperglycemia
Hyperbilirubinemia
Gout
Low back pain with lumbar compression fractures
Echo 09/07/2023-normal LV size, mildly reduced LV systolic function. EF 44%. Global hypokinesis. T MVR, trace MR, severely dilated LA, mild , mild AI, severe TR, pulmonary pressure of 62 mmHg, severely dilated RA, enlarged RV with reduced RV
function
CVS: S1-S2 irregular
Chest: few rales
Abdomen: Soft, NT / Bowel sounds present
Extremities: edema
PLAN:
#Acute exacerbation HFREF
proBNP and Trop levels elevated
Continue IV Lasix 80 mg BID
Hold outpatient torsemide and metolazone
Continue to monitor I's/O's Daily and weight
Dry weight is 142 pounds.
Follow BMP
Nonischemic myocardial injury
On Coreg
# Valvular heart disease
History of mitral valve repair 29 years ago at [place]
This resulted in iatrogenic mitral stenosis and severe MR with TMVR at [facility] 10/29/2022
Mild aortic stenosis
Severe pulmonary hypertension
Severe TR
# Pacemaker placement October 2022
# Permanent atrial fibrillation/Supratherapeutic INR on admission
Goal INR 2-3
Follow daily INR and dose Coumadin
# Chronic RBBB
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
#Acute hypoxic respiratory insufficiency
Possibly due to right lower lobe pneumonia
Plan to wean off oxygen
Currently on 3 L of oxygen
# Right lower lobe pneumonia
Unclear whether this is consolidation because of pleural effusion versus other
Confirmed with chest x-ray
Strep pneumonia antigen, Legionella urine antigen, blood cultures x 2 -all negative
IV ceftriaxone plus doxycycline p.o. to cover community-acquired pneumonia
# Bilateral pleural effusions
follow with diuresis
#Abdominal distention
Possible ascites from CHF
ultrasound already ordered-will follow
History of liver injury from [facility] August 2023
On ursodiol
#Hyperkalemia-resolved
Hold potassium chloride, patient was taking 60 mEq of KCl
Monitor BMP in a.m.
# Permanent atrial fibrillation/Supratherapeutic INR on admission
Goal INR 2-3
Follow daily INR and dose Coumadin
# Hyperglycemia
Diabetes with hemoglobin A1c 7.7
Monitor glucose level and sliding scale
# Anemia-chronic
Check iron studies
#CKD stage IIIb
Current creatinine 1.7
Trend levels with the diuresis
#Gout
Continue allopurinol
# MGUS
# PAD
#Chronic low back pain with T12, L1 compression fractures
Continue Percocet 1 p.o. 3 times daily
Opiate dependence for pain control
# Rheumatoid arthritis
# Bilateral pleural calcifications
# Sleep apnea-on CPAP
# History of prostate cancer
# Insomnia-on melatonin
# Anxiety and depression-continue Cymbalta
# Hypoalbuminemia
#DVT prophylaxis-warfarin
#CODE STATUS-full code
D/W Son at bed side
Anticipated Discharge: 24 - 48 hours
Subjective/Interval History
-
Date of Service: March 26, 2024
Objective Data
-
Labs:
Laboratory Results
03/26/24
06:58
WBC 6.2
Hgb 9.6 L
Hct 32.2 L
Plt Count 151
PT 31.2 H
INR 2.96
Sodium 139
Potassium 4.0
Chloride 102
Carbon Dioxide 28
BUN 48 H
Creatinine 1.5 H
Glucose 144 H
Calcium 8.4
Vital Signs:
Vital Signs
Temp Pulse Resp BP Pulse Ox
97.5 F 75 16 114/65 100
03/26/24 07:16 03/26/24 07:16 03/26/24 07:16 03/26/24 07:16 03/26/24 07:16
I&O
03/25/24 03/26/24 03/27/24
06:59 06:59 06:59
Intake Total 1380 / 1380
Output Total 750 / 750 1655 / 1655
Balance -750 / -750 -275 / -275
[2024-03-26 09:15] LABS: Glucose - Point of Care 147 mg/dl (70-99)
[2024-03-26] MEDS: OCEAN, SALINE MIST 1 SPRAYS NASAL ×2 (09:19→20:41)
[2024-03-26] MEDS: MIRALAX PO (09:19)
[2024-03-26] MEDS: PROTONIX 40 MG PO (09:20)
[2024-03-26] MEDS: ZYLOPRIM 450 MG PO (09:20)
[2024-03-26] MEDS: NOVOLOG FLEXPEN-LOW RESISTANCE SC (09:23)
[2024-03-26] MEDS: COREG 3.125 MG PO ×2 (09:23→20:40)
[2024-03-26] MEDS: VIBRAMYCIN 100 MG PO ×2 (09:24→20:40)
[2024-03-26] MEDS: CYMBALTA DELAYED RELEASE 30 MG PO (09:24)
[2024-03-26] MEDS: URSO 500 MG PO ×2 (09:24→20:40)
[2024-03-26] MEDS: PERCOCET 5/325 1 TABLET PO ×3 (09:25→21:46)
[2024-03-26] MEDS: OSCAL 500 + D 500 MG PO (09:25)
[2024-03-26] MEDS: LASIX 80 MG IV ×2 (09:25→16:18)
[2024-03-26 09:54] LABS: Iron 30 ug/dl (49-181)
[2024-03-26 10:03] LABS: Percent Saturation 7 % (20-50); Total Iron Binding Capacity 398 ug/dl (261-462)
[2024-03-26 11:27] VITALS: BP 112/57
[2024-03-26 11:31] LABS: Ferritin 20.7 ng/ml (17.9-464.0)
[2024-03-26 11:40] LABS: Glucose - Point of Care 272 mg/dl (70-99)
--- NOTE | 2024-03-26 11:45 | CM ---
CM met with patient and daughter bedside, initial assessment completed. Patient resides in independent apartments at [facility], has been to [facility] in past. Patient history with [facility]. Patient currently on O2, not on home O2. Patient reports he
would like to go home, if recommended SNF, he does not want to go to [facility] and would prefer to go elsewhere. Patient confirms PCP Dr. Ignacio, pharmacy [facility] on [address] in [place]. Patient has prescription coverage. CM will continue to
follow for all discharge planning needs.
Plan; return to [facility] vs SNF, watch for PT/OT recommendations.
[2024-03-26] MEDS: NOVOLOG FLEXPEN-LOW RESISTANCE 3 UNITS SC (11:51)
[2024-03-26] MEDS: STERILE WATER FOR INJECTION 10 ML IV (12:33)
[2024-03-26] MEDS: ROCEPHIN 1000 MG IV (12:33)
[2024-03-26] MEDS: COLACE 100 MG PO (12:33)
[2024-03-26 12:44] LABS: Vitamin B12 916 pg/ml (239-931)
--- NOTE | 2024-03-26 13:31 | W.PN.CARDCBS ---
Today's Communication / Plan
-
Continue IV Lasix 80 mg twice daily
Wean oxygen as able
Resume home warfarin dosing
Impression / Plan
-
Primary Hand Cloth Folder: Dr. GERRI Weeks
Assessment:
Presentation with weight gain, weakness
Acute on chronic HFmrEF
RLL PNA
Acute hypoxemic resp failure secondary to above
Hyperkalemia
Supratherapeutic INR
Elevated troponin, suspected nonischemic myocardial injury
CM, EF 40-45% by echo Jun 2023
history of remote mitral valve repair surgery 1992 at [place] with iatrogenic mitral stenosis and recurrent severe MR status post TMVR (Antony valve placement x2) at [facility] 10/29/2022
CHB s/p single chamber Verma PPM placement 10/30/22
permanent atrial fibrillation on chronic Coumadin therapy for 31 years, managed by PCP
hypertension
mild aortic stenosis
CKD 3B
chronic right bundle branch block
PAD
MGUS
Osteoarthritis
Chronic back pain with lumbar compression fracture, scheduled for upcoming vertebroplasty
Gout
Rheumatoid arthritis
History of hepatic failure from [facility] with peak bilirubin of 30 08/2023
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
JESSY on CPAP
ECHO 06/25/22: EF 50 to 55%, grade 3 diastolic dysfunction, septal contraction abnormality, severe biatrial enlargement, reduced RV function, status post full mitral annuloplasty ring from 1992, mean mitral gradient at average of 10 mmHg, concern for
possible moderate to severe MS, at least moderate MR noted, moderate to severe TR, severe pulmonary hypertension, PAP 69 mmHg, aortic sclerosis, ascites present
ECHO 01/20/23:�EF 35 to 40%, abnormal septal motion, moderate concentric LVH, enlarged RV size, pacer wire in right ventricle, status post #29 ANTONY mitral valve replacement with peak/mean gradients across valve of / with no MR seen, mild to
moderate eccentric AR, mild with peak mean gradients 23/12 mmHg, mild to moderate TR, PAP 52 mmHg, small ASD/PFO with [id number] shunt
Echo 07/09/2023:�EF 40-45%, dilated and hypokinetic RV, severe PAT, s/p� #29 Antony TMVR mean MV grad of 5 mmHg. No MR. Mild with peak/mean AV grad of 33/17 mmHg. Severe TR with dilated TV annulus, Severe PHTN with severely elevated pulmonary
pressures PasP 75-80 mmHg.
Plan:
-Patient presents with weight gain and weakness. He is noted by chest x-ray to have bilateral pleural effusions right greater than left as well as possible right-sided pneumonia.
-He is requiring supplemental oxygen, which he does not need at baseline. Continue to wean as able.
-Plan for IV lasix 80mg BID
-Consider metolazone 2.5mg tomorrow is no significant improvement in volume status
-Follow Cr electrolytes and daily weights
-Last echo from 06/2023 with results as above, EF 40 to 45%. Will repeat this admission to reassess.
-Would consider placing on torsemide 40 mg every morning and 20 mg every afternoon on discharge
-Continue Coreg. Not felt to be candidate for GARRICK/ARB/ARNI/SGLT2/aldactone due to baseline renal insufficiency
-INR elevated on arrival at 4.1, back in therapeutic range, would resume home dosing and monitor going forward
-Troponin stable at 0.04. No chest pain. Suspected non ischemic myocardial injury
Progress Note - Hand Cloth Folder
Subjective
Date of Service: March 26, 2024
No acute overnight events. Tells me his breathing is improved today. Still requiring supplemental oxygen.
Objective
Labs:
03/26/24 06:58
03/26/24 06:58
Labs
Hgb 9.6 g/dL (13.0-18.0) L 03/26/24 06:58
Hct 32.2 % (39.0-52.0) L 03/26/24 06:58
Plt Count 151 10^3/uL (130-400) 03/26/24 06:58
PT 31.2 Sec (11.4-14.6) H 03/26/24 06:58
INR 2.96 03/26/24 06:58
APTT 63.6 Sec (23.4-35.0) H 03/25/24 04:20
Sodium 139 mmol/L (135-145) 03/26/24 06:58
Potassium 4.0 mmol/L (3.5-5.1) 03/26/24 06:58
BUN 48 mg/dl (9-20) H 03/26/24 06:58
Creatinine 1.5 mg/dL (0.7-1.3) H 03/26/24 06:58
Glucose 144 mg/dl (70-99) H 03/26/24 06:58
Digoxin < 0.4 ng/ml (0.8-2.0) L 03/24/24 08:18
Troponins
03/24/24 03/24/24 03/24/24
08:18 16:13 17:45
Troponin I 0.043 H* < 0.012 D Cancelled
03/24/24 03/24/24 03/24/24
19:24 22:14 23:45
Troponin I Cancelled 0.046 H* D Cancelled
03/25/24 03/25/24 03/25/24
04:20 10:55 16:08
Troponin I 0.046 H* 0.041 H* 0.039 H*
Vital Signs and I&O:
Vital Signs
Temp Pulse Resp BP Pulse Ox
97.4 F 70 16 112/57 98
03/26/24 11:27 03/26/24 11:27 03/26/24 11:27 03/26/24 11:27 03/26/24 11:27
Vital Signs
Temp Pulse Resp BP Pulse Ox
97.4 F 70 16 112/57 98
03/26/24 11:27 03/26/24 11:27 03/26/24 11:27 03/26/24 11:27 03/26/24 11:27
Intake & Output
03/24/24 03/25/24 03/26/24 03/27/24
06:59 06:59 06:59 06:59
Intake Total 1380 / 1380
Output Total 750 / 750 1655 / 1655
Balance -750 / -750 -275 / -275
Physical Exam
Physical Exam
Gen: NAD, AA
HEENT: NC/AT, sclera anicteric
Neck: No JVD
CV: RRR, NL s1/s2
Lungs: Crackles at the bases bilaterally on 3 L nasal cannula
Abd: S/distended
Ext: No LE edema
Skin: Warm, dry
Neuro: Non-focal
[2024-03-26 15:39] VITALS: BP 104/63
[2024-03-26 16:37] LABS: Glucose - Point of Care 176 mg/dl (70-99)
[2024-03-26] MEDS: NOVOLOG FLEXPEN-LOW RESISTANCE 1 UNITS SC (16:38)
[2024-03-26] MEDS: COUMADIN 2.5 MG PO (17:12)
[2024-03-26 19:31] VITALS: BP 106/56
[2024-03-26 21:39] LABS: Glucose - Point of Care 185 mg/dl (70-99)
[2024-03-26 23:32] VITALS: BP 117/68
[2024-03-27] VITALS (8 sets, daily range): BP systolic 105–123; BP diastolic 54–70; PULSE 72–83; BMI 21.5
[2024-03-27] MEDS: MELATONIN 5 MG PO (00:25)
[2024-03-27 07:22] LABS: Glucose - Point of Care 142 mg/dl (70-99)
[2024-03-27] MEDS: NOVOLOG FLEXPEN-LOW RESISTANCE SC (08:04)
[2024-03-27 08:12] LABS: PT 29.4 Sec (11.4-14.6)
[2024-03-27 08:20] LABS: Blood Urea Nitrogen 46 mg/dl (9-20); Calcium 8.5 mg/dl (8.4-10.2); Carbon Dioxide 24 mmol/L (22-30); Chloride 103 mmol/L (98-107); Estimated Creatinine Clearance 43 ml/min; Glucose 137 mg/dl (70-99); Magnesium 2.3 mg/dl (1.6-2.3); Potassium 3.4 mmol/L (3.5-5.1); Sodium 140 mmol/L (135-145); eGFR 59.26
[2024-03-27] MEDS: OSCAL 500 + D 500 MG PO (08:26)
[2024-03-27] MEDS: PROTONIX 40 MG PO (08:26)
[2024-03-27] MEDS: OCEAN, SALINE MIST 1 SPRAYS NASAL ×2 (08:27→19:57)
[2024-03-27] MEDS: MIRALAX PO (08:27)
[2024-03-27] MEDS: CYMBALTA DELAYED RELEASE 30 MG PO (08:27)
[2024-03-27] MEDS: VIBRAMYCIN 100 MG PO ×2 (08:28→19:56)
[2024-03-27] MEDS: URSO 500 MG PO ×2 (08:28→19:56)
[2024-03-27] MEDS: ZYLOPRIM 450 MG PO (08:33)
[2024-03-27] MEDS: PERCOCET 5/325 1 TABLET PO ×3 (08:35→21:59)
[2024-03-27] MEDS: COREG 3.125 MG PO ×2 (08:35→19:56)
[2024-03-27] MEDS: KCL 40 MEQ PO (09:49)
[2024-03-27] MEDS: LASIX IV ×2 (09:50→12:41)
[2024-03-27 11:09] LABS: Glucose - Point of Care 249 mg/dl (70-99)
[2024-03-27] MEDS: NOVOLOG FLEXPEN-LOW RESISTANCE 2 UNITS SC (12:04)
[2024-03-27] MEDS: STERILE WATER FOR INJECTION 10 ML IV (12:04)
[2024-03-27] MEDS: ROCEPHIN 1000 MG IV (12:04)
[2024-03-27] MEDS: COLACE PO (12:06)
--- NOTE | 2024-03-27 12:53 | W.PN.HOSP.TC ---
Today's Communication/Plan
-
orthostatic VS BID
ECHO in AM
follow labs
Assessment / Plan
Assessment / Plan
IMPRESSION:
Acute exacerbation HFpEF
Right lower lobe pneumonia--despite CXR result, not convinced pt has true pna--no cough, WBC WNL, not on O2--suspect more due to pleural effusion and CHF
Acute hypoxic respiratory failure
Hyperkalemia
Atrial fibrillation/ Subtherapeutic INR
TMVR
CKD stage IIIb
Hyperglycemia
Hyperbilirubinemia
Gout
Low back pain with lumbar compression fractures
Echo 09/07/2023-normal LV size, mildly reduced LV systolic function. EF 44%. Global hypokinesis. T MVR, trace MR, severely dilated LA, mild , mild AI, severe TR, pulmonary pressure of 62 mmHg, severely dilated RA, enlarged RV with reduced RV
function
PLAN:
#Acute exacerbation HFREF
proBNP and Trop levels elevated
Continue IV Lasix 80 mg BID-- weights not decreasing as expected--ECHO ordered--consideration for changing to another loop diuretic (i.e bumex) if CHF not improving with current treatments--check orthostatic BPs--await cards input
Hold outpatient torsemide and metolazone--maybe needs metolazone back
Continue to monitor I's/O's Daily and weight
Dry weight is 142 pounds.
Follow BMP
Nonischemic myocardial injury
On Coreg
# Valvular heart disease
History of mitral valve repair 29 years ago at [place]
This resulted in iatrogenic mitral stenosis and severe MR with TMVR at [facility] 10/29/2022
Mild aortic stenosis
Severe pulmonary hypertension
Severe TR
# Pacemaker placement October 2022
# Permanent atrial fibrillation/Supratherapeutic INR on admission
Goal INR 2-3
Follow daily INR and dose Coumadin
# Chronic RBBB
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
#Acute hypoxic respiratory insufficiency
Possibly due to right lower lobe pneumonia
Plan to wean off oxygen
Currently on 3 L of oxygen
# Right lower lobe pneumonia--consider stopping ABX
Unclear whether this is consolidation because of pleural effusion versus other
Confirmed with chest x-ray
Strep pneumonia antigen, Legionella urine antigen, blood cultures x 2 -all negative
IV ceftriaxone plus doxycycline p.o. to cover community-acquired pneumonia
# Bilateral pleural effusions--consider IR for thoracentesis
follow with diuresis
#Abdominal distention
Possible ascites from CHF
ultrasound already ordered-will follow
History of liver injury from [place] August 2023
On ursodiol
#Hyperkalemia-resolved
Hold potassium chloride, patient was taking 60 mEq of KCl--now hypokalemia--replete
Monitor BMP in a.m.
# Permanent atrial fibrillation/Supratherapeutic INR on admission
Goal INR 2-3
Follow daily INR and dose Coumadin
# Hyperglycemia
Diabetes with hemoglobin A1c 7.7
Monitor glucose level and sliding scale
# Anemia-chronic
Check iron studies
#CKD stage IIIb
Current creatinine 1.7--down to 1.2
Trend levels with the diuresis
#Gout
Continue allopurinol
# MGUS
# PAD
#Chronic low back pain with T12, L1 compression fractures
Continue Percocet 1 p.o. 3 times daily
Opiate dependence for pain control
# Rheumatoid arthritis
# Bilateral pleural calcifications
# Sleep apnea-on CPAP
# History of prostate cancer
# Insomnia-on melatonin
# Anxiety and depression-continue Cymbalta
# Hypoalbuminemia
#DVT prophylaxis-warfarin
#CODE STATUS-full code
Anticipated Discharge: > 48 hours
Subjective/Interval History
-
Date of Service: March 27, 2024
pt feels dizzy when he gets up--family at bedside indicates that his weight is NOT decreasing as expected, waiting on ECHO, and wants to know how pna is doing
Objective Data
-
Labs:
Laboratory Results
03/27/24
07:30
PT 29.4 H
INR 2.80
Sodium 140
Potassium 3.4 L
Chloride 103
Carbon Dioxide 24
BUN 46 H
Creatinine 1.2
Glucose 137 H
Calcium 8.5
Vital Signs:
max temp for 24 hours
03/26/24
15:39
Temp 98.2 F
Vital Signs
Temp Pulse Resp BP Pulse Ox
98.5 F 70 16 118/61 98
03/27/24 11:38 03/27/24 11:38 03/27/24 11:38 03/27/24 11:38 03/27/24 11:38
I&O
03/26/24 03/27/24 03/28/24
06:59 06:59 06:59
Intake Total 1380 / 1380 1680 / 1680
Output Total 1655 / 1655 1550 / 1550
Balance -275 / -275 130 / 130
Review of Systems
-
All other systems: Reviewed and negative
Neuro: Reports Dizzy (with standing)
Physical Exam
-
General: Well Developed, Well Nourished and No Apparent Distress
HEENT: Normocephalic and Atraumatic
Respiratory: Clear to Auscultation; Negative Wheezes, Rales, Rhonchi or Crackles
Cardiac: Regular Rhythm and S1/S2; Negative Murmur
GI: Soft, Nontender, Normal Bowel Sounds and Distended
Musculoskeletal: No Clubbing, No Cyanosis and No Edema
Neuro: Awake and Alert
Psych: Calm
--- NOTE | 2024-03-27 14:26 | W.PN.CARDCBS ---
Today's Communication / Plan
-
Continue IV diuresis, add metolazone today and monitor response
Impression / Plan
-
Primary Service Delivery Supervisor: Dr. GERRI Weeks
Assessment:
Presentation with weight gain, weakness
Acute on chronic HFmrEF
RLL PNA
Acute hypoxemic resp failure secondary to above
Hyperkalemia
Supratherapeutic INR
Elevated troponin, suspected nonischemic myocardial injury
CM, EF 40-45% by echo Jun 2023
history of remote mitral valve repair surgery 1992 at [place] with iatrogenic mitral stenosis and recurrent severe MR status post TMVR (Antony valve placement x2) at [facility] 10/29/2022
CHB s/p single chamber Verma PPM placement 10/30/22
permanent atrial fibrillation on chronic Coumadin therapy for 31 years, managed by PCP
hypertension
mild aortic stenosis
CKD 3B
chronic right bundle branch block
PAD
MGUS
Osteoarthritis
Chronic back pain with lumbar compression fracture, scheduled for upcoming vertebroplasty
Gout
Rheumatoid arthritis
History of hepatic failure from [facility] with peak bilirubin of 30 08/2023
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
JESSY on CPAP
ECHO 06/25/22: EF 50 to 55%, grade 3 diastolic dysfunction, septal contraction abnormality, severe biatrial enlargement, reduced RV function, status post full mitral annuloplasty ring from 1992, mean mitral gradient at average of 10 mmHg, concern for
possible moderate to severe MS, at least moderate MR noted, moderate to severe TR, severe pulmonary hypertension, PAP 69 mmHg, aortic sclerosis, ascites present
ECHO 01/20/23:�EF 35 to 40%, abnormal septal motion, moderate concentric LVH, enlarged RV size, pacer wire in right ventricle, status post #29 ANTONY mitral valve replacement with peak/mean gradients across valve of / with no MR seen, mild to
moderate eccentric AR, mild with peak mean gradients 23/12 mmHg, mild to moderate TR, PAP 52 mmHg, small ASD/PFO with inmr-rd-dfojj shunt
Echo 07/09/2023:�EF 40-45%, dilated and hypokinetic RV, severe PAT, s/p� #29 Antony TMVR mean MV grad of 5 mmHg. No MR. Mild with peak/mean AV grad of 33/17 mmHg. Severe TR with dilated TV annulus, Severe PHTN with severely elevated pulmonary
pressures PasP 75-80 mmHg.
Plan:
-Patient presents with weight gain and weakness. He is noted by chest x-ray to have bilateral pleural effusions right greater than left as well as possible right-sided pneumonia.
-Was requiring supplemental oxygen which has been weaned off
-With IV diuresis weight has not improved significantly
-Cont IV lasix 80mg BID
-Add metolazone 2.5mg today
-Would consider switch to IV bumex is not response today
-Follow Cr - improving with diuresis suggestive of cardiorenal syndrome
-Last echo from 06/2023 with results as above, EF 40 to 45%. Will repeat this admission to reassess.
-Would consider placing on torsemide 40 mg every morning and 20 mg every afternoon on discharge
-Continue Coreg. Not felt to be candidate for GARRICK/ARB/ARNI/SGLT2/aldactone due to baseline renal insufficiency
-INR elevated on arrival at 4.1, back in therapeutic range, would resume home warfarin dosing and monitor INR going forward
-Troponin stable at 0.04. No chest pain. Suspected non ischemic myocardial injury
Progress Note - Service Delivery Supervisor
Subjective
Date of Service: March 27, 2024
No acute overnight events. Patient's resting comfortably out of bed to chair this morning. Tells me no shortness of breath off of oxygen. No lower extremity edema however remains with significant abdominal distention.
Objective
Labs:
03/26/24 06:58
03/27/24 07:30
Labs
Hgb 9.6 g/dL (13.0-18.0) L 03/26/24 06:58
Hct 32.2 % (39.0-52.0) L 03/26/24 06:58
Plt Count 151 10^3/uL (130-400) 03/26/24 06:58
PT 29.4 Sec (11.4-14.6) H 03/27/24 07:30
INR 2.80 03/27/24 07:30
APTT 63.6 Sec (23.4-35.0) H 03/25/24 04:20
Sodium 140 mmol/L (135-145) 03/27/24 07:30
Potassium 3.4 mmol/L (3.5-5.1) L 03/27/24 07:30
BUN 46 mg/dl (9-20) H 03/27/24 07:30
Creatinine 1.2 mg/dL (0.7-1.3) 03/27/24 07:30
Glucose 137 mg/dl (70-99) H 03/27/24 07:30
Digoxin < 0.4 ng/ml (0.8-2.0) L 03/24/24 08:18
Troponins
03/24/24 03/24/24 03/24/24
16:13 17:45 19:24
Troponin I < 0.012 D Cancelled Cancelled
03/24/24 03/24/24 03/25/24
22:14 23:45 04:20
Troponin I 0.046 H* D Cancelled 0.046 H*
03/25/24 03/25/24
10:55 16:08
Troponin I 0.041 H* 0.039 H*
Vital Signs and I&O:
Vital Signs
Temp Pulse Resp BP Pulse Ox
98.5 F 70 16 118/61 98
03/27/24 11:38 03/27/24 11:38 03/27/24 11:38 03/27/24 11:38 03/27/24 11:38
Vital Signs
Temp Pulse Resp BP Pulse Ox
98.5 F 70 16 118/61 98
03/27/24 11:38 03/27/24 11:38 03/27/24 11:38 03/27/24 11:38 03/27/24 11:38
Intake & Output
03/25/24 03/26/24 03/27/24 03/28/24
06:59 06:59 06:59 06:59
Intake Total 1380 / 1380 1680 / 1680
Output Total 750 / 750 1655 / 1655 1550 / 1550
Balance -750 / -750 -275 / -275 130 / 130
Physical Exam
Physical Exam
Gen: NAD, AA
HEENT: NC/AT, sclera anicteric
Neck: No JVD
CV: RRR, NL s1/s2
Lungs: No increased work of breathing on room air, faint crackles at the bases bilaterally
Abd: S/distended
Ext: No LE edema
Skin: Warm, dry
Neuro: Non-focal
[2024-03-27] MEDS: ZAROXOLYN 2.5 MG PO (15:05)
[2024-03-27] MEDS: LASIX 80 MG IV (16:02)
[2024-03-27 16:07] LABS: Glucose - Point of Care 196 mg/dl (70-99)
[2024-03-27] MEDS: NOVOLOG FLEXPEN-LOW RESISTANCE 1 UNITS SC (16:08)
--- NOTE | 2024-03-27 16:22 | PTCARENOTE ---
Pt c/o this am of dizziness laying in bed, no worsening with change in position, OOBTC for most of the morning. Pt continued with dizziness throughout day orthostatic vitals negative, primary team and cards aware, morning lasix held and patient
given metolazone with 4pm lasix dose per cards to improve output/weight loss. Pt and family updated, Vitals stable continues on RA 96-98%. Pt wears Cpap at HS and when resting during the day, plan of care continues.
[2024-03-27] MEDS: COUMADIN 2.5 MG PO (17:09)
[2024-03-27 21:10] LABS: Glucose - Point of Care 203 mg/dl (70-99)
[2024-03-28] VITALS (7 sets, daily range): BP systolic 97–132; BP diastolic 56–77; PULSE 70–87; BMI 21.7
[2024-03-28] MEDS: OCEAN, SALINE MIST 1 SPRAYS NASAL ×2 (06:17→20:03)
--- NOTE | 2024-03-28 06:29 | PTCARENOTE ---
PT with frequent PVCs and runs of PVCs throughout the night. House WAREHOUSE EXAMINER aware- no new orders.
[2024-03-28 06:31] LABS: Hematocrit 30.7 % (39.0-52.0); Hemoglobin 9.5 g/dL (13.0-18.0); Mean Corp Hgb Conc. 30.9 g/dL (33.0-37.0); Mean Corpuscular Hgb 27.7 pg (27.0-31.0); Mean Corpuscular Volume 89.5 fL (80.0-94.0); Mean Platelet Volume 10.6 fL (7.4-10.4); Platelet Count 145 10^3/uL (130-400); Red Blood Cell Count 3.43 10^6/uL (4.70-6.10); Red Cell Dist. Width 18.6 % (11.5-14.5); White Blood Cell Count 6.1 10^3/uL (4.8-10.8)
[2024-03-28 06:40] LABS: INR 2.68; PT 28.4 Sec (11.4-14.6)
[2024-03-28 06:55] LABS: NT-proBNP 3960 pg/ml
[2024-03-28 07:01] LABS: ALT (SGPT) < 10 U/L (0-50); AST (SGOT) 22 U/L (17-59); Albumin 3.4 g/dl (3.5-5.0); Alkaline Phosphatase 123 U/L (38-126); Blood Urea Nitrogen 43 mg/dl (9-20); Calcium 8.7 mg/dl (8.4-10.2); Carbon Dioxide 30 mmol/L (22-30); Chloride 101 mmol/L (98-107); Estimated Creatinine Clearance 40 ml/min; Glucose 133 mg/dl (70-99); Magnesium 2.2 mg/dl (1.6-2.3); Potassium 3.2 mmol/L (3.5-5.1); Sodium 140 mmol/L (135-145); Total Protein 6.4 g/dl (6.3-8.2); eGFR 53.84
[2024-03-28 07:15] LABS: Glucose - Point of Care 136 mg/dl (70-99)
[2024-03-28] MEDS: NOVOLOG FLEXPEN-LOW RESISTANCE SC (08:26)
[2024-03-28] MEDS: MIRALAX PO (10:08)
[2024-03-28] MEDS: LASIX 80 MG IV ×2 (10:09→16:12)
[2024-03-28] MEDS: CYMBALTA DELAYED RELEASE 30 MG PO (10:09)
[2024-03-28] MEDS: COREG 3.125 MG PO (10:09)
[2024-03-28] MEDS: VIBRAMYCIN 100 MG PO ×2 (10:10→20:02)
[2024-03-28] MEDS: URSO 500 MG PO ×2 (10:10→20:02)
[2024-03-28] MEDS: PERCOCET 5/325 1 TABLET PO ×3 (10:10→21:45)
[2024-03-28] MEDS: ZYLOPRIM 450 MG PO (10:10)
[2024-03-28] MEDS: PROTONIX 40 MG PO (10:10)
[2024-03-28] MEDS: OSCAL 500 + D 500 MG PO (10:10)
[2024-03-28] MEDS: KCL 270 MEQ IV (10:12)
[2024-03-28 11:36] LABS: Glucose - Point of Care 241 mg/dl (70-99)
[2024-03-28] MEDS: NOVOLOG FLEXPEN-LOW RESISTANCE 2 UNITS SC (12:05)
[2024-03-28] MEDS: ROCEPHIN 1000 MG IV (12:06)
[2024-03-28] MEDS: STERILE WATER FOR INJECTION 10 ML IV (12:06)
--- NOTE | 2024-03-28 12:17 | W.PN.CARDCBS ---
Addendum entered and electronically signed by Morgan Zhang MD 03/28/24 13:19:
I saw and examined the patient.
The OPERATIONS MANAGER ASSISTANT or PA's note was reviewed and I agree with the note.
Comment: General: Well developed, well nourished in NAD.
Neck: Supple, no JVD, HJR, carotids +2 B/L, no bruits bilaterally.
Heart: Non displaced PMI, RRR, no murmurs, No S3, S4, no rubs.
Lungs: Scattered rhonchi at the bases
Extremities: No clubbing, cyanosis or edema bilaterally.
Neuro: Grossly nonfocal, awake, alert and oriented x3.
Discussed with patient and daughter in detail. Unclear if there is an element of CHF. Chest x-ray with persistent right pleural effusion and possible pneumonia. Will try higher dose of IV Lasix today and metolazone. Primary service to decide
about possible thoracentesis and/or antibiotic coverage.
Original Note:
Today's Communication / Plan
-
Replete K+ (ongoing)
Given additional dose of Metolazone this afternoon
Consider thoracentesis given moderate right pleural effusion
Impression / Plan
-
Primary Hide And Skin Classer: Dr. GERRI Weeks
Assessment:
Presentation with weight gain, weakness
Acute on chronic HFmrEF
RLL PNA
Acute hypoxemic resp failure secondary to above
Hyperkalemia
Supratherapeutic INR
Elevated troponin, suspected nonischemic myocardial injury
CM, EF 40-45% by echo Jun 2023
history of remote mitral valve repair surgery 1992 at [place] with iatrogenic mitral stenosis and recurrent severe MR status post TMVR (Atnony valve placement x2) at [facility] 10/29/2022
CHB s/p single chamber Verma PPM placement 10/30/22
permanent atrial fibrillation on chronic Coumadin therapy for 31 years, managed by PCP
hypertension
mild aortic stenosis
CKD 3B
chronic right bundle branch block
PAD
MGUS
Osteoarthritis
Chronic back pain with lumbar compression fracture, scheduled for upcoming vertebroplasty
Gout
Rheumatoid arthritis
History of hepatic failure from [facility] with peak bilirubin of 30 08/2023
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
JESSY on CPAP
ECHO 06/25/22: EF 50 to 55%, grade 3 diastolic dysfunction, septal contraction abnormality, severe biatrial enlargement, reduced RV function, status post full mitral annuloplasty ring from 1992, mean mitral gradient at average of 10 mmHg, concern for
possible moderate to severe MS, at least moderate MR noted, moderate to severe TR, severe pulmonary hypertension, PAP 69 mmHg, aortic sclerosis, ascites present
ECHO 01/20/23:�EF 35 to 40%, abnormal septal motion, moderate concentric LVH, enlarged RV size, pacer wire in right ventricle, status post #29 ANTONY mitral valve replacement with peak/mean gradients across valve of 08/23 with no MR seen, mild to
moderate eccentric AR, mild with peak mean gradients 23/12 mmHg, mild to moderate TR, PAP 52 mmHg, small ASD/PFO with hrbo-ni-rdabg shunt
Echo 07/09/2023:�EF 40-45%, dilated and hypokinetic RV, severe PAT, s/p� #29 Antony TMVR mean MV grad of 5 mmHg. No MR. Mild with peak/mean AV grad of 33/17 mmHg. Severe TR with dilated TV annulus, Severe PHTN with severely elevated pulmonary
pressures PasP 75-80 mmHg.
Echo 03/28/24: pending
Plan:
-Patient presents with weight gain and weakness. He is noted by chest x-ray to have bilateral pleural effusions right greater than left as well as possible right-sided pneumonia.
-Was requiring supplemental oxygen which has been weaned off
-With IV diuresis weight has not improved significantly; Did get a dose of Metolazone on 03/27/24 with little response.
-ProBNP was 4880, now improved to 3960 which is lower than recent/previous readings
-CXR with moderate right pleural effusion; still SOB consider thoracentesis
-Cont IV lasix 80mg BID; give additional dose of Metolazone 30 minutes this afternoon before pm lasix
-Follow Cr - improving with diuresis suggestive of cardiorenal syndrome, 1.7->1.5->1.2->1.3
-Last echo from 06/2023 with results as above, EF 40 to 45%. Will repeat this admission - pending
-Would consider placing on torsemide 40 mg every morning and 20 mg every afternoon on discharge
-Continue Coreg. Not felt to be candidate for GARRICK/ARB/ARNI/SGLT2/aldactone due to baseline renal insufficiency
-INR elevated on arrival at 4.1, back in therapeutic range, 2.68. Back on home warfarin dosing and monitor INR going forward
-Troponin stable at 0.04. No chest pain. Suspected non ischemic myocardial injury
Progress Note - Hide And Skin Classer
Subjective
Date of Service: March 28, 2024
Still SOB despite dose of zaroxolyn 03/27
Objective
Labs:
03/28/24 04:34
03/28/24 04:34
Labs
Hgb 9.5 g/dL (13.0-18.0) L 03/28/24 04:34
Hct 30.7 % (39.0-52.0) L 03/28/24 04:34
Plt Count 145 10^3/uL (130-400) 03/28/24 04:34
PT 28.4 Sec (11.4-14.6) H 03/28/24 04:34
INR 2.68 03/28/24 04:34
APTT 63.6 Sec (23.4-35.0) H 03/25/24 04:20
Sodium 140 mmol/L (135-145) 03/28/24 04:34
Potassium 3.2 mmol/L (3.5-5.1) L 03/28/24 04:34
BUN 43 mg/dl (9-20) H 03/28/24 04:34
Creatinine 1.3 mg/dL (0.7-1.3) 03/28/24 04:34
Glucose 133 mg/dl (70-99) H 03/28/24 04:34
Digoxin < 0.4 ng/ml (0.8-2.0) L 03/24/24 08:18
Troponins
03/25/24
16:08
Troponin I 0.039 H*
Vital Signs and I&O:
Vital Signs
Temp Pulse Resp BP Pulse Ox
97.4 F 81 16 117/72 98
03/28/24 11:55 03/28/24 11:55 03/28/24 11:55 03/28/24 11:55 03/28/24 11:55
Vital Signs
Temp Pulse Resp BP Pulse Ox
97.4 F 81 16 117/72 98
03/28/24 11:55 03/28/24 11:55 03/28/24 11:55 03/28/24 11:55 03/28/24 11:55
Intake & Output
03/26/24 03/27/24 03/28/24 03/29/24
06:59 06:59 06:59 06:59
Intake Total 1380 / 1380 1680 / 1680 1410 / 1410
Output Total 1655 / 1655 1550 / 1550 800 / 800
Balance -275 / -275 130 / 130 610 / 610
[2024-03-28] MEDS: COLACE PO (12:34)
--- NOTE | 2024-03-28 14:58 | W.PN.HOSP.TC ---
Today's Communication/Plan
-
USS chest
Diuresis
Assessment / Plan
Assessment / Plan
Echo 09/07/2023-normal LV size, mildly reduced LV systolic function. EF 44%. Global hypokinesis. T MVR, trace MR, severely dilated LA, mild , mild AI, severe TR, pulmonary pressure of 62 mmHg, severely dilated RA, enlarged RV with reduced RV
function
CVS: S1-S2 irregular
Chest: few rales
Abdomen: Soft, NT / Bowel sounds present
Extremities: edema
PLAN:
#Acute exacerbation HFREF
proBNP and Trop levels elevated
Continue IV Lasix 80 mg BID and metolazone
Hold outpatient torsemide
Continue to monitor I's/O's Daily and weight
Dry weight is 142 pounds.
Follow BMP
Nonischemic myocardial injury
On Coreg
USS chest and Get Thoracentesis if needed- Pt and son agreeing
# Valvular heart disease
History of mitral valve repair 29 years ago at [place]
This resulted in iatrogenic mitral stenosis and severe MR with TMVR at [facility] 10/29/2022
Mild aortic stenosis
Severe pulmonary hypertension
Severe TR
# Pacemaker placementt October 2022
# Permanent atrial fibrillation/Supratherapeutic INR on admission
Goal INR 2-3
Follow daily INR and dose Coumadin
# Chronic RBBB
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
#Acute hypoxic respiratory insufficiency
Possibly due to right lower lobe pneumonia
Plan to wean off oxygen
Currently on 3 L of oxygen
# Right lower lobe pneumonia
Unclear whether this is consolidation because of pleural effusion versus other
Confirmed with chest x-ray
Strep pneumonia antigen, Legionella urine antigen, blood cultures x 2 -all negative
IV ceftriaxone plus doxycycline p.o. to cover community-acquired pneumonia
# Bilateral pleural effusions
follow with diuresis
#Abdominal distention
Possible ascites from CHF
ultrasound already ordered-will follow
History of liver injury from [facility] August 2023
On ursodiol
#Hyperkalemia-resolved
Hold potassium chloride, patient was taking 60 mEq of KCl
Monitor BMP in a.m.
# Permanent atrial fibrillation/Supratherapeutic INR on admission
Goal INR 2-3
Follow daily INR and dose Coumadin
# Hyperglycemia
Diabetes with hemoglobin A1c 7.7
Monitor glucose level and sliding scale
# Anemia-chronic
Check iron studies
#CKD stage IIIb
Current creatinine 1.7
Trend levels with the diuresis
#Gout
Continue allopurinol
# MGUS
# PAD
#Chronic low back pain with T12, L1 compression fractures
Continue Percocet 1 p.o. 3 times daily
Opiate dependence for pain control
# Rheumatoid arthritis
# Bilateral pleural calcifications
# Sleep apnea-on CPAP
# History of prostate cancer
# Insomnia-on melatonin
# Anxiety and depression-continue Cymbalta
# Hypoalbuminemia
#DVT prophylaxis-warfarin
#CODE STATUS-full code
D/W Son at bed side
D/W cards
Anticipated Discharge: 24 - 48 hours
Subjective/Interval History
-
Date of Service: March 28, 2024
Objective Data
-
Labs:
Laboratory Results
03/28/24
04:34
WBC 6.1
Hgb 9.5 L
Hct 30.7 L
Plt Count 145
PT 28.4 H
INR 2.68
Sodium 140
Potassium 3.2 L
Chloride 101
Carbon Dioxide 30
BUN 43 H
Creatinine 1.3
Glucose 133 H
Calcium 8.7
Total Bilirubin 1.0
AST 22
ALT < 10
Alkaline Phosphatase 123
Vital Signs:
Vital Signs
Temp Pulse Resp BP Pulse Ox
97.4 F 81 16 117/72 98
03/28/24 11:55 03/28/24 11:55 03/28/24 11:55 03/28/24 11:55 03/28/24 11:55
I&O
03/27/24 03/28/24 03/29/24
06:59 06:59 06:59
Intake Total 1680 / 1680 1410 / 1410
Output Total 1550 / 1550 800 / 800
Balance 130 / 130 610 / 610
[2024-03-28] MEDS: ZAROXOLYN 2.5 MG PO (15:38)
[2024-03-28 16:17] LABS: Glucose - Point of Care 169 mg/dl (70-99)
[2024-03-28] MEDS: NOVOLOG FLEXPEN-LOW RESISTANCE 1 UNITS SC (16:17)
[2024-03-28] MEDS: COUMADIN 5 MG PO (18:40)
[2024-03-28] MEDS: KCL 20 MEQ PO (20:03)
[2024-03-28] MEDS: COREG PO (20:03)
[2024-03-28 21:06] LABS: Glucose - Point of Care 200 mg/dl (70-99)
[2024-03-28] MEDS: MELATONIN 5 MG PO (21:45)
[2024-03-29] VITALS (8 sets, daily range): BP systolic 63–144; BP diastolic 59–80; BMI 21.1
[2024-03-29 06:15] LABS: INR 2.86; PT 29.9 Sec (11.4-14.6)
[2024-03-29 06:31] LABS: Hematocrit 31.9 % (39.0-52.0); Hemoglobin 9.9 g/dL (13.0-18.0); Mean Corpuscular Hgb 27.4 pg (27.0-31.0); Mean Corpuscular Volume 88.4 fL (80.0-94.0); Mean Platelet Volume 11.4 fL (7.4-10.4); Platelet Count 171 10^3/uL (130-400); Red Blood Cell Count 3.61 10^6/uL (4.70-6.10); Red Cell Dist. Width 18.5 % (11.5-14.5); White Blood Cell Count 5.9 10^3/uL (4.8-10.8)
[2024-03-29 06:43] LABS: Blood Urea Nitrogen 43 mg/dl (9-20); Carbon Dioxide 28 mmol/L (22-30); Chloride 96 mmol/L (98-107); Estimated Creatinine Clearance 43 ml/min; Glucose 132 mg/dl (70-99); Potassium 2.9 mmol/L (3.5-5.1); Sodium 138 mmol/L (135-145); eGFR 59.26
[2024-03-29 07:35] LABS: Glucose - Point of Care 143 mg/dl (70-99)
[2024-03-29] MEDS: NOVOLOG FLEXPEN-LOW RESISTANCE SC (08:00)
[2024-03-29] MEDS: VIBRAMYCIN 100 MG PO ×2 (08:02→19:46)
[2024-03-29] MEDS: COREG 3.125 MG PO ×2 (08:02→19:46)
[2024-03-29] MEDS: PERCOCET 5/325 1 TABLET PO ×3 (08:02→21:51)
[2024-03-29] MEDS: ZYLOPRIM 450 MG PO (08:02)
[2024-03-29] MEDS: CYMBALTA DELAYED RELEASE 30 MG PO (08:02)
[2024-03-29] MEDS: URSO 500 MG PO ×2 (08:02→19:46)
[2024-03-29] MEDS: PROTONIX 40 MG PO (08:03)
[2024-03-29] MEDS: OSCAL 500 + D 500 MG PO (08:03)
[2024-03-29] MEDS: KCL 40 MEQ PO ×3 (08:04→21:51)
[2024-03-29] MEDS: KCL 20 MEQ PO ×2 (08:04→19:46)
[2024-03-29] MEDS: LASIX 80 MG IV ×2 (08:09→16:24)
[2024-03-29] MEDS: KCL 270 MEQ IV (08:11)
[2024-03-29] MEDS: OCEAN, SALINE MIST NASAL (08:18)
[2024-03-29] MEDS: MIRALAX PO (08:18)
--- NOTE | 2024-03-29 10:37 | W.PN.CARDCBS ---
Addendum entered and electronically signed by Morgan Zhang MD 03/29/24 13:46:
I saw and examined the patient.
The TREAD TUBER MACHINE OPERATOR or PA's note was reviewed and I agree with the note.
Comment: General: Well developed, well nourished in NAD.
Neck: Supple, no JVD, HJR, carotids +2 B/L, no bruits bilaterally.
Heart: Non displaced PMI, RRR, no murmurs, No S3, S4, no rubs.
Lungs: Decreased breath sounds at right base
Extremities: No clubbing, cyanosis or edema bilaterally.
Neuro: Grossly nonfocal, awake, alert and oriented x3.
Weight is down 4 pounds in the past 24 hours and feels better. Will give another dose of 160 mg IV Lasix with metolazone today. Will check renal profile in a.m. Will replete potassium. Ultrasound with moderate right pleural effusion and small
left pleural effusion. Consider thoracentesis. Consider change to oral Lasix on 03/30.
Original Note:
Today's Communication / Plan
-
Aggressively replete potassium
Continue diuresis with additional dose of metolazone prior to p.m. Lasix
PT/OT consultation
Impression / Plan
-
Primary Truck Driver Supervisor: Dr. GERRI Weeks
Assessment:
Presentation with weight gain, weakness
Acute on chronic HFmrEF
RLL PNA
Acute hypoxemic resp failure secondary to above
Hyperkalemia
Supratherapeutic INR
Elevated troponin, suspected nonischemic myocardial injury
CM, EF 40-45% by echo Jun 2023
history of remote mitral valve repair surgery 1992 at [place] with iatrogenic mitral stenosis and recurrent severe MR status post TMVR (Antony valve placement x2) at [facility] 10/29/2022
CHB s/p single chamber Verma PPM placement 10/30/22
permanent atrial fibrillation on chronic Coumadin therapy for 31 years, managed by PCP
hypertension
mild aortic stenosis
CKD 3B
chronic right bundle branch block
PAD
MGUS
Osteoarthritis
Chronic back pain with lumbar compression fracture, scheduled for upcoming vertebroplasty
Gout
Rheumatoid arthritis
History of hepatic failure from [facility] with peak bilirubin of 30 08/2023
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
JESSY on CPAP
ECHO 06/25/22: EF 50 to 55%, grade 3 diastolic dysfunction, septal contraction abnormality, severe biatrial enlargement, reduced RV function, status post full mitral annuloplasty ring from 1992, mean mitral gradient at average of 10 mmHg, concern for
possible moderate to severe MS, at least moderate MR noted, moderate to severe TR, severe pulmonary hypertension, PAP 69 mmHg, aortic sclerosis, ascites present
ECHO 01/20/23:�EF 35 to 40%, abnormal septal motion, moderate concentric LVH, enlarged RV size, pacer wire in right ventricle, status post #29 ANTONY mitral valve replacement with peak/mean gradients across valve of 08/23 with no MR seen, mild to
moderate eccentric AR, mild with peak mean gradients 23/12 mmHg, mild to moderate TR, PAP 52 mmHg, small ASD/PFO with uaoc-gd-djtih shunt
Echo 07/09/2023:�EF 40-45%, dilated and hypokinetic RV, severe PAT, s/p� #29 Antony TMVR mean MV grad of 5 mmHg. No MR. Mild with peak/mean AV grad of 33/17 mmHg. Severe TR with dilated TV annulus, Severe PHTN with severely elevated pulmonary
pressures PasP 75-80 mmHg.
Echo 03/28/24: EF 30-35%, Severely biatrial enlargement. S/p #21 Antony TMVR with peak/mean gradients of 13/6 mmHg respectively. No mitral regurgitation. Indexed LA volume is severely abnormal (> 48 mL/m2). Mild aortic stenosis. Peak/mean
gradients 18/9 mmHg respectively. Mild aortic regurgitation. Moderate tricuspid regurgitation. PAP 53 mmHg assuming mmHg .
Plan:
-Patient presented 03/24/24 with weight gain and weakness. He is noted by chest x-ray to have bilateral pleural effusions right greater than left as well as possible right-sided pneumonia.
-Was requiring supplemental oxygen which has been weaned off
-Weight down 4 lbs overnight after Metolazone 2.5 mg given 03/27 and 03/28 along with IV diuresis.
-Cont IV lasix 80mg BID; give additional dose of Metolazone 30 minutes this afternoon before pm lasix (this will be third dose)
-ProBNP was 4880, now improved to 3960 which is lower than recent/previous readings
-CXR with moderate right pleural effusion; still SOB consider thoracentesis
-Follow Cr - improving with diuresis suggestive of cardiorenal syndrome, 1.7->1.5->1.2->1.3->1.2
-Last echo from 06/2023 with results as above, EF 40 to 45%. EF now 30 to 35%. Appears to be waxing and waning.
-Continue Coreg. Previously not felt to be candidate for GARRICK/ARB/ARNI/SGLT2/aldactone due to baseline renal insufficiency; Consider addition of Aldactone or GARRICK-I if renal function remains stable and blood pressure allows
-INR elevated on arrival at 4.1, back in therapeutic range, 2.86. Back on home warfarin dosing and monitor INR going forward
-Troponin stable at 0.04. No chest pain. Suspected non ischemic myocardial injury
Discussed and updated with nursing and his daughter
Progress Note - Truck Driver Supervisor
Subjective
Date of Service: March 29, 2024
Patient seen and examined. Patient reports improved shortness of breath and is now off oxygen. Still feels a little bloated in the abdomen.
Objective
Labs:
03/29/24 05:14
03/29/24 05:14
Labs
Hgb 9.9 g/dL (13.0-18.0) L 03/29/24 05:14
Hct 31.9 % (39.0-52.0) L 03/29/24 05:14
Plt Count 171 10^3/uL (130-400) 03/29/24 05:14
PT 29.9 Sec (11.4-14.6) H 03/29/24 05:14
INR 2.86 03/29/24 05:14
APTT 63.6 Sec (23.4-35.0) H 03/25/24 04:20
Sodium 138 mmol/L (135-145) 03/29/24 05:14
Potassium 2.9 mmol/L (3.5-5.1) L 03/29/24 05:14
BUN 43 mg/dl (9-20) H 03/29/24 05:14
Creatinine 1.2 mg/dL (0.7-1.3) 03/29/24 05:14
Glucose 132 mg/dl (70-99) H 03/29/24 05:14
Digoxin < 0.4 ng/ml (0.8-2.0) L 03/24/24 08:18
Vital Signs and I&O:
Vital Signs
Temp Pulse Resp BP Pulse Ox
97.6 F 72 16 144/72 96
03/29/24 07:20 03/29/24 07:20 03/29/24 07:20 03/29/24 08:02 03/29/24 08:00
Vital Signs
Temp Pulse Resp BP Pulse Ox
97.6 F 72 16 144/72 96
03/29/24 07:20 03/29/24 07:20 03/29/24 07:20 03/29/24 08:02 03/29/24 08:00
Intake & Output
03/27/24 03/28/24 03/29/24 03/30/24
06:59 06:59 06:59 06:59
Intake Total 1680 / 1680 1410 / 1410 1230 / 1230
Output Total 1550 / 1550 800 / 800 2420 / 2420
Balance 130 / 130 610 / 610 -1190 / -1190
Physical Exam
Physical Exam
GEN: No distress, awake, Ox3
HEENT: supple, anicteric, mmm
LUNGS: Decreased breath sound at right base otherwise CTA, no wheezes/rales
CV: Reg, S1/S2, 2/6 syst murmur, no rubs or gallop
ABD: Mildly distended and firm, positive bowel sounds
EXT: No edema clubbing or cyanosis
NEURO: Gross non-focal
SKIN: No rash, warm, dry,
[2024-03-29 11:47] LABS: Glucose - Point of Care 231 mg/dl (70-99)
[2024-03-29] MEDS: NOVOLOG FLEXPEN-LOW RESISTANCE 2 UNITS SC (12:02)
[2024-03-29] MEDS: ROCEPHIN 1000 MG IV (12:04)
[2024-03-29] MEDS: STERILE WATER FOR INJECTION 10 ML IV (12:04)
[2024-03-29] MEDS: COLACE PO (12:14)
--- NOTE | 2024-03-29 13:34 | W.PN.HOSP.TC ---
Today's Communication/Plan
-
Thoracentesis
IV Diuretics
Consider additional imaging of GB if he has pain or LFTS go up.
Assessment / Plan
Assessment / Plan
Echo 09/07/2023-normal LV size, mildly reduced LV systolic function. EF 44%. Global hypokinesis. T MVR, trace MR, severely dilated LA, mild , mild AI, severe TR, pulmonary pressure of 62 mmHg, severely dilated RA, enlarged RV with reduced RV
function
CVS: S1-S2 irregular
Chest: few rales left , decreased right base
Abdomen: Soft, NT / Bowel sounds present
Extremities: No pedal edema
PLAN:
#Acute exacerbation HFREF
proBNP and Trop levels elevated
Continue IV Lasix 80 mg BID and metolazone
Hold outpatient torsemide
Continue to monitor I's/O's Daily and weight
Dry weight is 142 pounds.
Follow BMP
Nonischemic myocardial injury
On Coreg
USS chest noted- IR consult for Right Thoracentesis
Fluid studies ordered.
# Valvular heart disease
History of mitral valve repair 29 years ago at [place]
This resulted in iatrogenic mitral stenosis and severe MR with TMVR at [facility] 10/29/2022
Mild aortic stenosis
Severe pulmonary hypertension
Severe TR
# Permanent atrial fibrillation/Supratherapeutic INR on admission
Goal INR 2-3
Follow daily INR and dose Coumadin
#Hypokalemia- Replace
#Acute hypoxic respiratory insufficiency
Possibly due to right lower lobe pneumonia
Plan to wean off oxygen
Currently off O2
# Right lower lobe pneumonia
Unclear whether this is consolidation because of pleural effusion versus other
Confirmed with chest x-ray
Strep pneumonia antigen, Legionella urine antigen, blood cultures x 2 -all negative
IV ceftriaxone plus doxycycline p.o. to cover community-acquired pneumonia
# Bilateral pleural effusions-follow with diuresis
Right thoracentesis as above
# Boiwfe-buowbfa-MNP IV iron
#Abdominal distention
Ultrasound-CT with passive hepatic venous congestion with mild cardiogenic cirrhosis. Minimal perihepatic ascites. Mild diffuse gallbladder wall thickening and small gallbladder polyps. Mild chronic bilateral kidney disease.
No right upper quadrant tenderness.
LFTs are stable
History of liver injury from [place] August 2023
On ursodiol
# Pacemaker placementt October 2022
# Chronic RBBB
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
# Hyperglycemia-Hemoglobin A1c 7.7
#CKD stage IIIb-Trend levels with the diuresis
#Gout-Continue allopurinol
# MGUS
# PAD
#Chronic low back pain with T12, L1 compression fractures-Continue Percocet 1 p.o. 3 times daily.Opiate dependence for pain control
# Rheumatoid arthritis
# Bilateral pleural calcifications
# Sleep apnea-on CPAP
# History of prostate cancer
# Insomnia-on melatonin
# Anxiety and depression-continue Cymbalta
# Hypoalbuminemia
#DVT prophylaxis-warfarin
#CODE STATUS-full code
D/W Daughter at bed side
D/W cards
Anticipated Discharge: > 48 hours
Subjective/Interval History
-
Date of Service: March 29, 2024
Objective Data
-
Labs:
Laboratory Results
03/29/24
05:14
WBC 5.9
Hgb 9.9 L
Hct 31.9 L
Plt Count 171
PT 29.9 H
INR 2.86
Sodium 138
Potassium 2.9 L
Chloride 96 L
Carbon Dioxide 28
BUN 43 H
Creatinine 1.2
Glucose 132 H
Calcium 9.0
Vital Signs:
Vital Signs
Temp Pulse Resp BP Pulse Ox
97.7 F 73 16 125/60 99
06/11/24 11:05 03/29/24 11:05 03/29/24 11:05 03/29/24 11:05 03/29/24 11:05
I&O
03/28/24 03/29/24 03/30/24
06:59 06:59 06:59
Intake Total 1410 / 1410 1230 / 1230
Output Total 800 / 800 2420 / 2420
Balance 610 / 610 -1190 / -1190
[2024-03-29 14:14] LABS: LDH 246 U/L (120-246); Total Protein 6.7 g/dl (6.3-8.2)
[2024-03-29 15:10] LABS: Body Fluid pH 7.47
[2024-03-29 15:31] LABS: Body Fluid Glucose 174 mg/dl; Body Fluid LDH 107 U/L; Body Fluid Protein 2.7 g/dl
--- NOTE | 2024-03-29 15:41 | PTCARENOTE ---
Arrived from IR post R sided thoracentesis with site CHRISTOPHER. Band aid placed. Call larios with patient. Family at bedside.
[2024-03-29] MEDS: FERRLECIT 110 MG IV (15:52)
[2024-03-29] MEDS: ZAROXOLYN 2.5 MG PO (15:56)
[2024-03-29 16:10] LABS: Body Fluid WBC 105 /CUMM
[2024-03-29 16:11] LABS: Body Fluid Mononuclear 83.9 %; Body Fluid Polymorphonuclear 16.1 %
[2024-03-29 16:39] LABS: Glucose - Point of Care 197 mg/dl (70-99)
[2024-03-29] MEDS: NOVOLOG FLEXPEN-LOW RESISTANCE 1 UNITS SC (16:47)
[2024-03-29 17:01] LABS: Body Fluid Second Tech EYM
[2024-03-29] MEDS: COUMADIN 2.5 MG PO (17:10)
[2024-03-29] MEDS: OCEAN, SALINE MIST 1 SPRAYS NASAL (19:46)
[2024-03-29] MEDS: MELATONIN 5 MG PO (21:51)
[2024-03-29 21:52] LABS: Glucose - Point of Care 153 mg/dl (70-99)
[2024-03-30] VITALS (7 sets, daily range): BP systolic 94–124; BP diastolic 49–80; PULSE 74–80; O2SAT 98; BMI 20.4
[2024-03-30 05:35] LABS: Hematocrit 32.3 % (39.0-52.0); Hemoglobin 10.1 g/dL (13.0-18.0); Mean Corp Hgb Conc. 31.3 g/dL (33.0-37.0); Mean Corpuscular Hgb 27.3 pg (27.0-31.0); Mean Corpuscular Volume 87.3 fL (80.0-94.0); Mean Platelet Volume 11.2 fL (7.4-10.4); Platelet Count 158 10^3/uL (130-400); Red Cell Dist. Width 18.6 % (11.5-14.5); White Blood Cell Count 6.9 10^3/uL (4.8-10.8)
[2024-03-30 06:10] LABS: ALT (SGPT) 11 U/L (0-50); AST (SGOT) 25 U/L (17-59); Albumin 3.5 g/dl (3.5-5.0); Alkaline Phosphatase 128 U/L (38-126); Direct Bilirubin 1.2 mg/dl (0.0-0.4); Total Bilirubin 1.3 mg/dl (0.2-1.3); Total Protein 6.7 g/dl (6.3-8.2)
[2024-03-30 07:37] LABS: Glucose - Point of Care 142 mg/dl (70-99)
[2024-03-30] MEDS: NOVOLOG FLEXPEN-LOW RESISTANCE SC ×2 (07:40→16:21)
[2024-03-30 08:51] LABS: Blood Urea Nitrogen 45 mg/dl (9-20); Calcium 9.4 mg/dl (8.4-10.2); Carbon Dioxide 28 mmol/L (22-30); Chloride 97 mmol/L (98-107); Estimated Creatinine Clearance 38 ml/min; Glucose 142 mg/dl (70-99); Potassium 4.1 mmol/L (3.5-5.1); Sodium 136 mmol/L (135-145); eGFR 53.84
[2024-03-30] MEDS: OSCAL 500 + D 500 MG PO (08:59)
[2024-03-30] MEDS: VIBRAMYCIN 100 MG PO (08:59)
[2024-03-30] MEDS: URSO 500 MG PO ×2 (08:59→20:51)
[2024-03-30] MEDS: PROTONIX 40 MG PO (08:59)
[2024-03-30] MEDS: CYMBALTA DELAYED RELEASE 30 MG PO (09:00)
[2024-03-30] MEDS: COREG 3.125 MG PO ×2 (09:00→20:55)
[2024-03-30] MEDS: PERCOCET 5/325 1 TABLET PO ×3 (09:01→21:03)
[2024-03-30] MEDS: KCL 20 MEQ PO ×2 (09:01→20:51)
[2024-03-30] MEDS: MIRALAX PO (09:02)
[2024-03-30] MEDS: OCEAN, SALINE MIST 2 SPRAYS NASAL ×2 (09:03→20:51)
[2024-03-30] MEDS: ZYLOPRIM 450 MG PO (09:03)
--- NOTE | 2024-03-30 09:19 | W.PN.CARDCBS ---
Addendum entered and electronically signed by Marcio Montanez MD 03/30/24 12:29:
I saw and examined the patient.
The Escrow Closer's note was reviewed and I agree with the note.
Comment:
GEN: No distress, awake, Ox3
HEENT: supple, anicteric, mmm
LUNGS: scatt rhonchi
CV: Reg, S1/S2, 10/24 syst LSB, no gallop
ABD: soft, BS+, NT/ND
EXT: No edema
NEURO: Gross non-focal
SKIN: No rash
Plan:
Improved status post thoracentesis. Will switch over to torsemide 40 mg in the a.m. and 20 mg in the p.m.
Creatinine stable at 1.3. Potassium normal at 4.1.
Continue Coreg. If renal function remains stable could consider GARRICK/ARB as outpatient
Original Note:
Today's Communication / Plan
-
Transition to oral torsemide 40 mg in a.m. and 20 mg p.m.
Continue to monitor renal function and electrolytes
Consider addition of GARRICK/ARB if renal function remains stable
Impression / Plan
-
Primary Tinner Helper: Dr. GERRI Weeks
Assessment:
Presentation 03/24/24 with weight gain, weakness
Acute on chronic HFmrEF, proBNP 4880->3960
RLL PNA
Acute hypoxemic resp failure secondary to above
right pleural effusion s/p Rt thoracentesis 03/29/24 ~1400 cc clear yellow pleural flu
Hyperkalemia
Supratherapeutic INR
Elevated troponin, suspected nonischemic myocardial injury
CM, EF 40-45% by echo Jun 2023
history of remote mitral valve repair surgery 1992 at [place] with iatrogenic mitral stenosis and recurrent severe MR status post TMVR (Antony valve placement x2) at [facility] 10/29/2022
CHB s/p single chamber Verma PPM placement 10/30/22
permanent atrial fibrillation on chronic Coumadin therapy for 31 years, managed by PCP
hypertension
mild aortic stenosis
CKD 3B
chronic right bundle branch block
PAD
MGUS
Osteoarthritis
Chronic back pain with lumbar compression fracture, scheduled for upcoming vertebroplasty
Gout
Rheumatoid arthritis
History of hepatic failure from [facility] with peak bilirubin of 30 08/2023
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
JESSY on CPAP
ECHO 06/25/22: EF 50 to 55%, grade 3 diastolic dysfunction, septal contraction abnormality, severe biatrial enlargement, reduced RV function, status post full mitral annuloplasty ring from 1992, mean mitral gradient at average of 10 mmHg, concern for
possible moderate to severe MS, at least moderate MR noted, moderate to severe TR, severe pulmonary hypertension, PAP 69 mmHg, aortic sclerosis, ascites present
ECHO 01/20/23:�EF 35 to 40%, abnormal septal motion, moderate concentric LVH, enlarged RV size, pacer wire in right ventricle, status post #29 ANTONY mitral valve replacement with peak/mean gradients across valve of 08/23 with no MR seen, mild to
moderate eccentric AR, mild with peak mean gradients 23/12 mmHg, mild to moderate TR, PAP 52 mmHg, small ASD/PFO with [id number] shunt
Echo 07/09/2023:�EF 40-45%, dilated and hypokinetic RV, severe PAT, s/p� #29 Antony TMVR mean MV grad of 5 mmHg. No MR. Mild with peak/mean AV grad of 33/17 mmHg. Severe TR with dilated TV annulus, Severe PHTN with severely elevated pulmonary
pressures PasP 75-80 mmHg.
Echo 03/28/24: EF 30-35%, Severely biatrial enlargement. S/p #21 Antony TMVR with peak/mean gradients of 13/6 mmHg respectively. No mitral regurgitation. Indexed LA volume is severely abnormal (> 48 mL/m2). Mild aortic stenosis. Peak/mean
gradients 18/9 mmHg respectively. Mild aortic regurgitation. Moderate tricuspid regurgitation. PAP 53 mmHg assuming mmHg .
Plan:
-Patient presented 03/24/24 with weight gain and weakness. He is noted by chest x-ray to have bilateral pleural effusions right greater than left as well as possible right-sided pneumonia.
-Was requiring supplemental oxygen which has been weaned off
-Weight down 5 lbs overnight and ~10 lbs since admission after Metolazone 2.5 mg given 03/27, 03/28, 03/29 along with IV diuresis. Current weight 142 lbs. Hold on additional Zaroxolyn at this time.
-Transition to oral Torsemide 40 mg in and 20 mg in PM; May benefit from once a week Zaroxolyn 2.5 mg as outpt
-CXR with moderate right pleural effusion s/p Rt thoracentesis 03/29/24 ~1400 cc clear yellow pleural fluid
-Follow Cr - improving with diuresis suggestive of cardiorenal syndrome, 1.7->1.5->1.2->1.3->1.2->1.3
-Last echo from 06/2023 with results as above, EF 40 to 45%. EF now 30 to 35%. Appears to be waxing and waning EF
-Continue Coreg. Previously not felt to be candidate for GARRICK/ARB/ARNI/SGLT2/aldactone due to baseline renal insufficiency; Consider addition of Aldactone or GARRICK-I if renal function remains stable and blood pressure allows
-INR elevated on arrival at 4.1, back in therapeutic range, 2.86. Back on home warfarin dosing and monitor INR going forward; Goal INR 2-3 for Permanent Afib
-Troponin stable at 0.04. No chest pain. Suspected non ischemic myocardial injury due to acute HF
Discussed and updated with nursing
Progress Note - Tinner Helper
Subjective
Date of Service: March 30, 2024
Patient seen and examined. Patient sitting up in bed reporting he is feeling well. He is off oxygen and less short of breath status post right thoracentesis
Objective
Labs:
03/30/24 05:18
03/30/24 07:57
Labs
Hgb 10.1 g/dL (13.0-18.0) L 03/30/24 05:18
Hct 32.3 % (39.0-52.0) L 03/30/24 05:18
Plt Count 158 10^3/uL (130-400) 03/30/24 05:18
PT 29.9 Sec (11.4-14.6) H 03/29/24 05:14
INR 2.86 03/29/24 05:14
APTT 63.6 Sec (23.4-35.0) H 03/25/24 04:20
Sodium Cancelled 03/30/24 07:57
Potassium Cancelled 03/30/24 07:57
BUN Cancelled 03/30/24 07:57
Creatinine Cancelled 03/30/24 07:57
Glucose Cancelled 03/30/24 07:57
Digoxin < 0.4 ng/ml (0.8-2.0) L 03/24/24 08:18
Vital Signs and I&O:
Vital Signs
Temp Pulse Resp BP Pulse Ox
98.6 F 85 16 118/58 99
03/30/24 07:55 03/30/24 07:55 03/30/24 07:55 03/30/24 07:55 03/30/24 07:55
Vital Signs
Temp Pulse Resp BP Pulse Ox
98.6 F 85 16 118/58 99
03/30/24 07:55 03/30/24 07:55 03/30/24 07:55 03/30/24 07:55 03/30/24 07:55
Intake & Output
03/28/24 03/29/24 03/30/24 03/31/24
06:59 06:59 06:59 06:59
Intake Total 1410 / 1410 1230 / 1230 840 / 840
Output Total 800 / 800 2420 / 2420 1800 / 1800
Balance 610 / 610 -1190 / -1190 -960 / -960
Physical Exam
Physical Exam
GEN: No distress, awake, Ox3, sitting up in bed
HEENT: supple, anicteric, mmm
LUNGS: Crackles at bilateral bases otherwise CTA, no wheezes/rales
CV: Reg, S1/S2, 2/6 syst murmur, no rubs or gallop
ABD: Mildly distended and firm, positive bowel sounds
EXT: No edema clubbing or cyanosis
NEURO: Gross non-focal
SKIN: No rash, warm, dry, pink
--- NOTE | 2024-03-30 09:33 | W.PN.HOSP.TC ---
Today's Communication/Plan
-
see A/P
Assessment / Plan
Assessment / Plan
A/P:
# Acute exacerbation HFrEF
# Nonischemic myocardial injury
IV Lasix 80 mg BID -> PO torsemide 40 mg daily and 20 mg pm
s/p metolazone x3 doses
Continue to monitor I's/O's Daily and weight (142 pounds).
Follow BMP
Echo this admission 03/28: EF 30-35%. Diastolic function indeterminate. S/p #21 Antony TMVR. No mitral regurgitation.
Cont Coreg 3.125 BID
# BL pleural effusion, moderate right and small left pleural effusions.
s/p Right Thoracentesis 03/29 , removed 1400 cc of clear yellow pleural fluid.
Fluid studies suggest transudative effusion
# History of mitral valve repair 29 years ago at [place], this resulted in iatrogenic mitral stenosis and severe MR with TMVR (Antony valve placement x2) at [facility] 10/29/2022
# Mild aortic stenosis
# Severe pulmonary hypertension
# Severe TR
# Permanent atrial fibrillation
# Supratherapeutic INR on admission
INR goal per paper inspector
Follow daily INR and dose Coumadin
# Hypokalemia
Replaced
# Acute hypoxic respiratory insufficiency, resolved
Pt has been weaned off oxygen
# Possible Right lower lobe pneumonia on admission
Unclear whether this is consolidation versus pleural effusion
Strep pneumonia antigen, Legionella urine antigen, blood cultures x 2 all negative
Pt has received IV ceftriaxone plus doxycycline x6 days, he has completed course, stop further Abx
# Anemia, chronic
ALICIA IV iron
# Abdominal distention
Ultrasound noted passive hepatic venous congestion with mild cardiogenic cirrhosis. Minimal perihepatic ascites. Mild diffuse gallbladder wall thickening and small gallbladder polyps. Mild chronic bilateral renal disease.
LFTs are stable
History of liver injury from [place] August 2023
On ursodiol
# Pacemaker placementt October 2022
# Chronic RBBB
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
# Hyperglycemia-Hemoglobin A1c 7.7
# CKD stage IIIb-Trend levels with the diuresis
# Gout-Continue allopurinol
# MGUS
# PAD
# Chronic low back pain with T12, L1 compression fractures-Continue Percocet 1 p.o. 3 times daily.Opiate dependence for pain control
# Rheumatoid arthritis
# Bilateral pleural calcifications
# Sleep apnea-on CPAP
# History of prostate cancer
# Insomnia-on melatonin
# Anxiety and depression-continue Cymbalta
# Hypoalbuminemia
DVT prophylaxis-warfarin with daily INR
CODE STATUS-full code
D/W cards team
total time spent 51 min
Anticipated Discharge: 24 - 48 hours
Subjective/Interval History
-
Date of Service: March 30, 2024
Objective Data
-
Labs:
Laboratory Results
03/30/24 03/30/24
05:18 07:57
WBC 6.9
Hgb 10.1 L
Hct 32.3 L
Plt Count 158
Sodium 136 Cancelled
Potassium 4.1 D Cancelled
Chloride 97 L Cancelled
Carbon Dioxide 28 Cancelled
BUN 45 H Cancelled
Creatinine 1.3 Cancelled
Glucose 142 H Cancelled
Calcium 9.4 Cancelled
Total Bilirubin 1.3
AST 25
ALT 11
Alkaline Phosphatase 128 H
Vital Signs:
Vital Signs
Temp Pulse Resp BP Pulse Ox
37.0 C 85 16 118/58 99
03/30/24 07:55 03/30/24 07:55 03/30/24 07:55 03/30/24 07:55 03/30/24 07:55
I&O
03/29/24 03/30/24 03/31/24
06:59 06:59 06:59
Intake Total 1230 / 1230 840 / 840
Output Total 2420 / 2420 1800 / 1800
Balance -1190 / -1190 -960 / -960
Review of Systems
-
All other systems: Reviewed and negative
Physical Exam
-
General: Well Developed, Well Nourished, No Apparent Distress, Comfortable and Conversant
HEENT: Normocephalic, Atraumatic, Nose Appears Normal and Ears Appear Normal
Respiratory: Clear to Auscultation and Non Labored Respirations; Negative Accessory Resp Muscle Use
Cardiac: S1/S2 and Irregular Rhythm
GI: Soft, Nontender, Normal Bowel Sounds and Distended
Musculoskeletal: No Clubbing, No Cyanosis and No Edema
Neuro: Awake and Alert
Psych: Calm and Intact Judgement/Insight
Data Reviewed
-
Ultrasound: Report Reviewed by me
Labs: Labs Reviewed by me
[2024-03-30] MEDS: LASIX IV (09:47)
[2024-03-30] MEDS: DEMADEX 40 MG PO (09:47)
[2024-03-30 10:12] LABS: INR 3.36; PT 34.5 Sec (11.4-14.6)
[2024-03-30 11:49] LABS: Glucose - Point of Care 214 mg/dl (70-99)
[2024-03-30] MEDS: NOVOLOG FLEXPEN-LOW RESISTANCE 2 UNITS SC (11:51)
[2024-03-30] MEDS: STERILE WATER FOR INJECTION IV (11:55)
[2024-03-30] MEDS: COLACE PO (12:13)
[2024-03-30] MEDS: FERRLECIT 110 MG IV (13:19)
--- NOTE | 2024-03-30 15:10 | W.HF.CON ---
Heart Failure
- LV Function
Left ventricular function study result: LV Ejection fraction </= 35%
Ejection Fraction Percentage: 30-35
- ARNI
Patient already on ARNI: No
Heart Failure ARNI Contraindication: Acute Renal Failure, Hypotension
- ACEI/ARB
Patient already on ACEI/ARB: No
Heart Failure ACEI/ARB Contraindication: Acute Renal Failure, Hypotension
- Beta Myriam
Patient already on Evidence Based Beta Myriam: Yes
- Mineralocorticord Receptor Antagonist
Patient already on MRA: No
Heart Failure MRA Contraindication: Acute Renal Insufficiency, Hypotension
- SGLT-2 Inhibitor
Patient already on SGLT-2 Inhibitor: No
Heart Failure SGLT-2 Inhibitor Contraindication: Patient Refusal
- Afib Anticoagulation
Patient already on Anticoagulation for Afib: Yes
- NYHA CHF Classification
NYHA CHF Classification Level: Class III - Symptoms w/ min exertion, interferes w/ nml daily activity
- ACC/AHA Stage
ACC/AHA Stage: Stage C: Symptomatic Heart Failure
[2024-03-30] MEDS: DEMADEX 20 MG PO (15:57)
[2024-03-30 16:19] LABS: Glucose - Point of Care 136 mg/dl (70-99)
[2024-03-30 21:27] LABS: Glucose - Point of Care 172 mg/dl (70-99)
[2024-03-31 03:56] VITALS: BP 110/64
[2024-03-31 04:11] VITALS: BMI 20.7
[2024-03-31 05:42] LABS: Blood Urea Nitrogen 54 mg/dl (9-20); Calcium 9.3 mg/dl (8.4-10.2); Carbon Dioxide 30 mmol/L (22-30); Chloride 94 mmol/L (98-107); Estimated Creatinine Clearance 33 ml/min; Glucose 142 mg/dl (70-99); Potassium 3.3 mmol/L (3.5-5.1); Sodium 134 mmol/L (135-145); eGFR 45.34
[2024-03-31 07:48] LABS: Glucose - Point of Care 124 mg/dl (70-99)
[2024-03-31 07:55] VITALS: BP 133/66
[2024-03-31] MEDS: NOVOLOG FLEXPEN-LOW RESISTANCE SC (08:19)
[2024-03-31] MEDS: CYMBALTA DELAYED RELEASE 30 MG PO (08:26)
[2024-03-31] MEDS: ZYLOPRIM 450 MG PO (08:26)
[2024-03-31] MEDS: COREG 3.125 MG PO (08:27)
[2024-03-31] MEDS: KCL 20 MEQ PO (08:28)
[2024-03-31] MEDS: DEMADEX 40 MG PO (08:28)
[2024-03-31] MEDS: URSO 500 MG PO (08:28)
[2024-03-31] MEDS: PERCOCET 5/325 1 TABLET PO (08:28)
[2024-03-31] MEDS: PROTONIX 40 MG PO (08:28)
[2024-03-31] MEDS: OSCAL 500 + D 500 MG PO (08:28)
[2024-03-31] MEDS: OCEAN, SALINE MIST 1 SPRAYS NASAL (08:29)
--- NOTE | 2024-03-31 08:31 | W.PN.HOSP.TC ---
Addendum entered and electronically signed by Pamela Mercedes MD 03/31/24 18:12:
# RIGOBERTO
Addendum entered and electronically signed by Pamela Mercedes MD 03/31/24 15:55:
total DC time 45 min
Original Note:
Today's Communication/Plan
-
see A/P
DC after seen and cleared by card
Assessment / Plan
Assessment / Plan
A/P:
# Acute on chronic HFrEF
# Nonischemic myocardial injury
IV Lasix 80 mg BID -> PO torsemide 40 mg daily and 20 mg pm
s/p metolazone x3 doses
Continue to monitor I's/O's Daily and weight (142 pounds).
Follow BMP
Echo this admission 03/28: EF 30-35%. Diastolic function indeterminate. S/p #21 Antony TMVR. No mitral regurgitation.
Cont Coreg 3.125 BID
# BL pleural effusion, moderate right and small left pleural effusions.
s/p Right Thoracentesis 03/29 , removed 1400 cc of clear yellow pleural fluid.
Fluid studies suggest transudative effusion
# History of mitral valve repair 29 years ago at [place], this resulted in iatrogenic mitral stenosis and severe MR with TMVR (Antony valve placement x2) at [facility] 10/29/2022
# Mild aortic stenosis
# Severe pulmonary hypertension
# Severe TR
# Permanent atrial fibrillation
# Supratherapeutic INR on admission
INR goal 2-3 for Permanent Afib
Follow daily INR and dose Coumadin, would continue 2.5 mg HS going forward
# Hypokalemia
Replace
# Acute hypoxic respiratory insufficiency, resolved
Pt has been weaned off oxygen
# Possible Right lower lobe pneumonia on admission
Unclear whether this is consolidation versus pleural effusion
Strep pneumonia antigen, Legionella urine antigen, blood cultures x 2 all negative
Pt has received IV ceftriaxone plus doxycycline x6 days, he has completed course, stop further Abx
# Anemia, chronic
ALICIA IV iron
# Abdominal distention
Ultrasound noted passive hepatic venous congestion with mild cardiogenic cirrhosis. Minimal perihepatic ascites. Mild diffuse gallbladder wall thickening and small gallbladder polyps. Mild chronic bilateral renal disease.
LFTs are stable
History of liver injury from [place] August 2023
On ursodiol
# Pacemaker placementt October 2022
# Chronic RBBB
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
# Hyperglycemia-Hemoglobin A1c 7.7
# CKD stage IIIb-Trend levels with the diuresis
# Gout-Continue allopurinol
# MGUS
# PAD
# Chronic low back pain with T12, L1 compression fractures-Continue Percocet 1 p.o. 3 times daily.Opiate dependence for pain control
# Rheumatoid arthritis
# Bilateral pleural calcifications
# Sleep apnea-on CPAP
# History of prostate cancer
# Insomnia-on melatonin
# Anxiety and depression-continue Cymbalta
# Hypoalbuminemia
DVT prophylaxis-warfarin with daily INR
CODE STATUS-full code
DW Card
Anticipated Discharge: Today
Subjective/Interval History
-
Date of Service: March 31, 2024
Objective Data
-
Labs:
Laboratory Results
03/31/24
05:01
PT Pending
INR Pending
Sodium 134 L
Potassium 3.3 L
Chloride 94 L
Carbon Dioxide 30
BUN 54 H
Creatinine 1.5 H
Glucose 142 H
Calcium 9.3
Vital Signs:
Vital Signs
Temp Pulse Resp BP Pulse Ox
36.4 C 80 18 110/64 97
03/31/24 03:56 03/31/24 03:56 03/31/24 03:56 03/31/24 03:56 03/31/24 03:56
I&O
03/30/24 03/31/24 04/01/24
06:59 06:59 06:59
Intake Total 840 / 840 1260 / 1260
Output Total 1800 / 1800 950 / 950
Balance -960 / -960 310 / 310
Review of Systems
-
All other systems: Reviewed and negative
Physical Exam
-
General: Well Developed, Well Nourished, No Apparent Distress, Comfortable and Conversant
HEENT: Normocephalic, Atraumatic, Nose Appears Normal and Ears Appear Normal
Respiratory: Clear to Auscultation and Non Labored Respirations; Negative Accessory Resp Muscle Use
Cardiac: S1/S2 and Irregular Rhythm
GI: Soft, Nontender, Normal Bowel Sounds and Distended
Musculoskeletal: No Clubbing, No Cyanosis and No Edema
Neuro: Awake and Alert
Psych: Calm and Intact Judgement/Insight
Data Reviewed
-
Ultrasound: Report Reviewed by me
Labs: Labs Reviewed by me
[2024-03-31] MEDS: MIRALAX PO (08:34)
--- NOTE | 2024-03-31 08:39 | W.PN.CARDCBS ---
Addendum entered and electronically signed by Herb Weeks MD 03/31/24 12:29:
He offers no complaints
PMH/PSH/FH/SH: Reviewed
Allergies: None
Outpatient cardiac meds: Carvedilol 3.125 twice daily, metolazone 2.5 mg every other day, potassium 20 mill equivalents daily and 40 mill equivalents daily, torsemide 20 mg p.o. twice daily, warfarin
Current cardiac meds: Reviewed
ROS: Negative except as above
113/64, pulse 65, respirate 18, afebrile, weight is 65.4 kg, was 69.1 on admission, chronically ill-appearing, but no distress, head neck exam unremarkable, lungs are clear, cardiac regular rate and rhythm, systolic murmur, JVD okay, extremities
without edema
Hemoglobin 10.1 yesterday, BUN and creatinine 54 and 1.5, potassium 3.3, INR is 3.6
Chest x-ray cardiomegaly mild vascular congestion, left effusion,
Thoracentesis tapped for 1400 mL on right on the
Assessment:
Presentation 03/24/24 with weight gain, weakness
Acute on chronic HFmrEF, proBNP 4880->3960
RLL PNA
Acute hypoxemic resp failure secondary to above
right pleural effusion s/p Rt thoracentesis 03/29/24 ~1400 cc clear yellow pleural flu
Hyperkalemia
Supratherapeutic INR
Elevated troponin, suspected nonischemic myocardial injury
CM, EF 40-45% by echo Jun 2023
history of remote mitral valve repair surgery 1992 at [place] with iatrogenic mitral stenosis and recurrent severe MR status post TMVR (Antony valve placement x2) at [facility] 10/29/2022
CHB s/p single chamber Verma PPM placement 10/30/22
permanent atrial fibrillation on chronic Coumadin therapy for 31 years, managed by PCP
hypertension
mild aortic stenosis
CKD 3B
chronic right bundle branch block
PAD
MGUS
Osteoarthritis
Chronic back pain with lumbar compression fracture, scheduled for upcoming vertebroplasty
Gout
Rheumatoid arthritis
History of hepatic failure from [facility] with peak bilirubin of 30 08/2023
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
JESSY on CPAP
Plan:
Overall he looks well, okay for discharge. Discussed with daughter Sabiha.
Recommended cardiac medications at discharge:
Carvedilol 3.125 mg twice daily
Potassium 40 mEq twice daily on Thursday and , potassium 40 mg a.m., 20 mg p.m. other days of the week
Metolazone 2.5 mg on Mondays and
Torsemide 20 mg twice daily
No warfarin tonight
Warfarin 2.5 mg Thursday, Thursday, Thursday, Thursday
Warfarin 1.25 mg Thursday and
Please have patient get INR on Thursday
BMP in 1 week
Patient has follow-up to our office.
Original Note:
Today's Communication / Plan
-
Continue toresmide 40mg QAM, 20mg QPM
BMP in 1 week
Continue Coumadin 2.5mg QHS
Recheck INR in 3 days
Continue Coreg 3.125mg BID
Impression / Plan
-
Primary Nuclear Radiologist: Dr. GERRI Weeks
Assessment:
Presentation 03/24/24 with weight gain, weakness
Acute on chronic HFmrEF, proBNP 4880->3960
RLL PNA
Acute hypoxemic resp failure secondary to above
right pleural effusion s/p Rt thoracentesis 03/29/24 ~1400 cc clear yellow pleural flu
Hyperkalemia
Supratherapeutic INR
Elevated troponin, suspected nonischemic myocardial injury
CM, EF 40-45% by echo Jun 2023
history of remote mitral valve repair surgery 1992 at [place] with iatrogenic mitral stenosis and recurrent severe MR status post TMVR (Antony valve placement x2) at [facility] 10/29/2022
CHB s/p single chamber Verma PPM placement 10/30/22
permanent atrial fibrillation on chronic Coumadin therapy for 31 years, managed by PCP
hypertension
mild aortic stenosis
CKD 3B
chronic right bundle branch block
PAD
MGUS
Osteoarthritis
Chronic back pain with lumbar compression fracture, scheduled for upcoming vertebroplasty
Gout
Rheumatoid arthritis
History of hepatic failure from [facility] with peak bilirubin of 30 08/2023
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
JESSY on CPAP
ECHO 06/25/22: EF 50 to 55%, grade 3 diastolic dysfunction, septal contraction abnormality, severe biatrial enlargement, reduced RV function, status post full mitral annuloplasty ring from 1992, mean mitral gradient at average of 10 mmHg, concern for
possible moderate to severe MS, at least moderate MR noted, moderate to severe TR, severe pulmonary hypertension, PAP 69 mmHg, aortic sclerosis, ascites present
ECHO 01/20/23:�EF 35 to 40%, abnormal septal motion, moderate concentric LVH, enlarged RV size, pacer wire in right ventricle, status post #29 ANTONY mitral valve replacement with peak/mean gradients across valve of 08/23 with no MR seen, mild to
moderate eccentric AR, mild with peak mean gradients 23/12 mmHg, mild to moderate TR, PAP 52 mmHg, small ASD/PFO with [id number] shunt
Echo 07/09/2023:�EF 40-45%, dilated and hypokinetic RV, severe PAT, s/p� #29 Antony TMVR mean MV grad of 5 mmHg. No MR. Mild with peak/mean AV grad of 33/17 mmHg. Severe TR with dilated TV annulus, Severe PHTN with severely elevated pulmonary
pressures PasP 75-80 mmHg.
Echo 03/28/24: EF 30-35%, Severely biatrial enlargement. S/p #21 Antony TMVR with peak/mean gradients of 13/6 mmHg respectively. No mitral regurgitation. Indexed LA volume is severely abnormal (> 48 mL/m2). Mild aortic stenosis. Peak/mean
gradients 18/9 mmHg respectively. Mild aortic regurgitation. Moderate tricuspid regurgitation. PAP 53 mmHg assuming mmHg .
Plan:
-Patient presented 03/24/24 with weight gain and weakness. Was requiring supplemental oxygen which has been weaned off
-Weight down 8lbs this admission after Metolazone 2.5 mg given 03/27, 03/28, 03/29 along with IV diuresis. Current weight 144 lbs.
-Transitioned to PO Torsemide 40mg AM, 20mg PM. May benefit from once weekly Zaroxolyn 2.5 mg as OP, however will reassess at follow up appt.
-Creat 1.5 today. Has been fluctuating this admission. Repeat BMP in 1 week.
-EF now 30 to 35% by echo 03/28, continue to follow.
-Continue Coreg. Previously not felt to be candidate for GARRICK/ARB/ARNI/SGLT2/aldactone due to baseline renal insufficiency.
-INR elevated on arrival at 4.1, improved this admission, INR pending today, 03/31. Agree w/ discharging on Coumadin 2.5mg QHS. Goal INR 2-3 for Permanent Afib. Repeat INR in 3 days w/ PCP.
-Troponin stable at 0.04. No chest pain. Suspected non ischemic myocardial injury due to acute HF
-K 3.3, agree w/ repletion
-Follow up arranged
Progress Note - Nuclear Radiologist
Subjective
Date of Service: March 31, 2024
No complaints. Breathing improved
Objective
Labs:
03/30/24 05:18
03/31/24 05:01
Labs
Hgb 10.1 g/dL (13.0-18.0) L 03/30/24 05:18
Hct 32.3 % (39.0-52.0) L 03/30/24 05:18
Plt Count 158 10^3/uL (130-400) 03/30/24 05:18
PT 34.5 Sec (11.4-14.6) H 03/30/24 09:55
INR 3.36 03/30/24 09:55
APTT 63.6 Sec (23.4-35.0) H 03/25/24 04:20
Sodium 134 mmol/L (135-145) L 03/31/24 05:01
Potassium 3.3 mmol/L (3.5-5.1) L 03/31/24 05:01
BUN 54 mg/dl (9-20) H 03/31/24 05:01
Creatinine 1.5 mg/dL (0.7-1.3) H 03/31/24 05:01
Glucose 142 mg/dl (70-99) H 03/31/24 05:01
Digoxin < 0.4 ng/ml (0.8-2.0) L 03/24/24 08:18
Vital Signs and I&O:
Vital Signs
Temp Pulse Resp BP Pulse Ox
97.6 F 80 18 110/64 97
03/31/24 03:56 03/31/24 03:56 03/31/24 03:56 03/31/24 03:56 03/31/24 03:56
Vital Signs
Temp Pulse Resp BP Pulse Ox
97.6 F 80 18 110/64 97
03/31/24 03:56 03/31/24 03:56 03/31/24 03:56 03/31/24 03:56 03/31/24 03:56
Intake & Output
03/29/24 03/30/24 03/31/24 04/01/24
06:59 06:59 06:59 06:59
Intake Total 1230 / 1230 840 / 840 1260 / 1260
Output Total 2420 / 2420 1800 / 1800 950 / 950
Balance -1190 / -1190 -960 / -960 310 / 310
Physical Exam
Physical Exam
GEN: No distress, awake, alert, oriented x3
HEENT: supple, anicteric, mmm
LUNGS: Crackles at bilateral bases otherwise CTA, no wheezes/rales
CV: Reg, S1/S2, 2/6 syst murmur, no rubs or gallop
EXT: No edema, clubbing, or cyanosis
NEURO: Gross non-focal
SKIN: No rash, warm, dry, pink
[2024-03-31 09:13] LABS: PT 36.4 Sec (11.4-14.6)
--- NOTE | 2024-03-31 09:22 | CM ---
Addendum entered by Ashley Stahl 03/31/24 10:53:
Bryan's daughter is at bedside and will transport him home. Afia at [facility] ([phone]) is aware of planned return.
Original Note:
Bryan is being discharged to his ID apartment at [facility] today. Glenny Rizvi ([facility]) made aware of need for home care services.
Plan: Return to ID apartment at [facility] with [facility]. Family will transport home.
Patient confirms PCP:Dr. Ignacio
Pharmacy: [facility] on [address]
[2024-03-31 09:24] LABS: Magnesium 1.9 mg/dl (1.6-2.3)
--- NOTE | 2024-03-31 10:55 | VNURNOTE ---
Home Health Liaison met with patient at 1015 to discuss [facility] nurse/therapy, visits, schedule and homebound status. Patient is agreeable and understands that visits at home will be 2-3 x per week to assess and teach medical management. Patient has a
scale and is able to log a daily weight. Patient's daughter Sabiha entered at end of discussion and she is agreeable to above.
[facility] brochure provided with contact information. Patient is aware that [facility] will contact them for start of care in 1-2 days after discharge from .
[facility] referral completed in [facility].
[2024-03-31 11:00] VITALS: BP 117/67
[2024-03-31] MEDS: KCL 40 MEQ PO (11:32)
[2024-03-31 11:36] LABS: Glucose - Point of Care 276 mg/dl (70-99)
[2024-03-31] MEDS: NOVOLOG FLEXPEN-LOW RESISTANCE 3 UNITS SC (11:56)
--- NOTE | 2024-03-31 13:42 | PN.CDI ---
CDI
- -
CDI:
Physician Documentation Request
Admit Date: 03/24/24 17:14
Dear Doctor Mago,
Patient admitted for acute heart failure.
Laboratory Tests
03/29/24 03/30/24 03/31/24
05:14 05:18 05:01
Creatinine 1.2 1.3 1.5 H
Clarify which of the following accurately represents the patient's renal status:
RIGOBERTO
Rise in creatinine
Other
Criteria for RIGOBERTO*
1 Increase in serum creatinine by > or = to 0.3 mg/dL (> or = to 26.5 micromol/L) within 48 hours, OR
2 Increase in serum creatinine to > or = to 1.5 times baseline, which is known or presumed to have occurred within 7 days, OR
3 Urine volume < 0.5 nL/kg/hour for six hours
Use of terms such as suspected, likely, concern for, or probable (associated with a specific diagnosis that is being evaluated, monitored, or treated as if it exists) are acceptable and can be coded in the inpatient setting, when documented at the
time of discharge.
Thank you,
Darlene Villasenor RN, BSN
CDI Specialist
Available via [employer] text
Please use your independent medical judgment in providing your response.
*Source: Kidney Disease: Improving Global Outcomes (KDIGO) 2012
--- NOTE | 2024-03-31 14:48 | W.DCSUMMARY ---
Discharge Summary
Discharge Data
Date of Admission: 03/24/24
Date of Discharge: 03/31/24
-
Pending Results: No
Hospital Course
Principal Diagnosis:
Acute hypoxic respiratory insufficiency, resolved
Acute on chronic heart failure with reduced ejection fraction (HFrEF)
Abdominal distention due to heart failure
Bilateral pleural effusion, moderate right and small left pleural effusions, status post Right Thoracentesis 03/29
Supratherapeutic INR on admission, resolved
Chronic Diagnoses:�
Pacemaker placement October 2022
Chronic right bundle branch block
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
Chronic kidney disease stage IIIb
Gout on allopurinol
Monoclonal gammopathy of undetermined significance
Peripheral artery disease
Chronic low back pain with T12, L1 compression fractures
Rheumatoid arthritis
Bilateral pleural calcifications
Sleep apnea on CPAP
History of prostate cancer
Anxiety and depression on continue Cymbalta
History of mitral valve repair 29 years ago at [place], this resulted in iatrogenic mitral stenosis and severe mitral regurgitation with transcatheter mitral valve replacement (Antony valve placement x2) at [facility] 10/29/2022
Severe pulmonary hypertension
Permanent atrial fibrillation
Consultations:�
Cardiology
Procedures:�
Right Thoracentesis 03/29, removed 1400 cc of clear yellow pleural fluid.
Clinical course:�
This is a 83-year-old male, with past medical history as stated above, who presented with worsening shortness of breath.
Problem 1:
Acute hypoxic respiratory insufficiency, resolved.
Patient was weaned off of oxygen support prior to discharge.
Problem 2:
Acute on chronic HFrEF.
This was associated with nonischemic myocardial injury.
His echo this admission 03/28 noted: EF 30-35%. Diastolic function indeterminate. S/p #21 Antony TMVR. No mitral regurgitation.
The patient received IV Lasix 80 mg BID while in the hospital, and was discharged with Torsemide 20 mg twice daily along with Metolazone 2.5 mg on Mondays and .
He can continue Potassium supplement at 40 mEq twice daily on Thursday and , and potassium 40 mg a.m., 20 mg p.m. other days of the week.
He can also continue with Coreg 3.125 mg twice daily.
Follow-up with cardiology outpatient
Problem 3:
Abdominal distention due to acute CHF.
His abdominal ultrasound noted passive hepatic venous congestion with mild cardiogenic cirrhosis. Minimal perihepatic ascites. Mild diffuse gallbladder wall thickening and small gallbladder polyps. Mild chronic bilateral renal disease.
His LFTs were stable
Problem 4:
Bilateral pleural effusion, moderate right and small left pleural effusions.
He underwent Right Thoracentesis 03/29 and 1400 cc of clear yellow pleural fluid was removed.
Fluid studies suggest transudative effusion.
Problem 5:
Possible Right lower lobe pneumonia on admission.
His Strep pneumonia antigen, Legionella urine antigen, blood cultures x 2 were all negative.
He did receive IV ceftriaxone plus doxycycline x6 days and completed course.
Problem 6:
Permanent atrial fibrillation with Supratherapeutic INR on admission.
His INR was at 4.1 on admission.
Per cardiology, his INR goal is between 2-3 for Permanent Afib.
He can resume Warfarin 2.5 mg Thursday, Thursday, Thursday, Thursday, and Warfarin 1.25 mg Thursday and
He can check INR on Thursday.
As for the rest of his medical problems, they were stable during his hospital stay.
Discharge Plan
-
Patient Disposition: Home with Home Care
Discharge Diagnosis/Procedures: Acute on chronic heart failure with reduced ejection fraction; moderate right and small left pleural effusions status post right thoracentesis; Hypokalemia; resolved acute hypoxic respiratory insufficiency; Possible
Right lower lobe pneumonia on admission- completed antibiotic treatment
Condition: Fair
Diet: As tolerated, Low Fat, Low Cholesterol, Low Sodium and Restrict fluids to 48 oz
Activity: As tolerated
Driving Restrictions: Not until seen by your Dr
Blood Work: BMP in 1 week, result to PCP
INR on 04/04
Specialty Instructions: Weigh Daily- Call MD for wt gain/loss 3 lbs overnight/5 lbs in 1 week
Instructions: *[facility] Heart Failure Instructions
Referrals:
Min Curry MD [Family Provider] - 04/05/24 12:00 pm
Herb Weeks MD [Active] - 04/13/24 10:00 am (You have cardiology follow up with Dr. Weeks on April 13 at 10 am in [address] [facility] [address] [facility]. If you are unable to make this appointment please call [phone] to reschedule. )
Additional Discharge Medication Instructions: Torsemide will be 20mg twice daily
Take Metolazone 2.5mg on Mondays and ONLY
Do NOT take Warfarin tonight, (03/31).
Resume Warfain tomorrow, (04/01) and dosing will be 2.5mg Thursday, Thursday, Thursday, Thursday, and Thursday. On Thursday and , will take 1.25mg (0.5 tablet).
Potassium dosage will be 40 mEq on Mondays and (When taking metolazone). All other days, Potassium dosage will be 40 mEq in AM and 20 mEq in PM.
Recheck INR on 04/04.
Prescriptions:
New
torsemide 20 mg tablet
20 mg PO BID Qty: 60 0RF
warfarin 2.5 mg tablet
1.25 mg PO MOTH Qty: 60 4RF
Rx Instructions:
Take warfarin 2.5mg Thursday, Thursday, Thursday, Thursday, and Thursday. Take 1.25mg Thursday and .
potassium chloride 20 mEq Tablet,Er Particles/Crystals
See Rx Instructions .ROUTE .COMPLEX Qty: 1 0RF
Rx Instructions:
40 mEq orally twice daily on Thursday and . 40 mEq in AM, 20 mEq in PM Thursday, Thursday, Thursday, Thursday, and Thursday.
Continued
allopurinol 100 mg Tablet
450 mg PO DAILY
carvedilol 3.125 mg Tablet
3.125 mg PO BID Qty: 60 0RF
pantoprazole 40 mg Tablet,Delayed Release (Dr/Ec)
40 mg PO DAILY Qty: 30 0RF
docusate sodium [Colace] 100 mg Capsule
100 mg PO DAILY@1300
calcium carbonate-vitamin D3 600 mg-20 mcg (800 unit) Tablet
1 tab PO DAILY
melatonin 5 mg Tablet
5 mg PO HSPRN PRN (Reason: sleep)
ursodiol 500 mg Tablet
500 mg PO BID Qty: 60 0RF
duloxetine [Cymbalta] 30 mg Capsule,Delayed Release(Dr/Ec)
30 mg PO DAILY
potassium chloride 20 mEq tablet,ER particles/crystals
20 meq PO QPM
polyethylene glycol 3350 [Miralax] 17 gram Powder In Packet
17 g PO DAILY
oxycodone-acetaminophen 5-325 mg tablet
1 tab PO TID
sodium chloride 0.65 % Aerosol,Tyrone
1 spray INTRANASAL BID
potassium chloride 20 mEq Tablet Extended Release
40 meq PO DAILY
acetaminophen [Tylenol Arthritis Pain] 650 mg Tablet Extended Release
1,300 mg PO Q8HPRN PRN (Reason: mild pain)
ceramides 1,3,6-II [CeraVe] Cream
1 applic TOPICAL DAILY
denosumab 60 mg/mL Syringe
60 mg SC [id number]
Changed
metolazone 2.5 mg Tablet
2.5 mg PO MOTH Qty: 0 0RF
Rx Instructions:
Give weekly for CHF weight gain
warfarin 2.5 mg tablet
2.5 mg PO SUTUWEFRSA Qty: 0 0RF
Discontinued
torsemide 20 mg tablet
20 mg PO BID@0800,1600
warfarin 5 mg tablet
5 mg PO MOFR@1800
Discharge Orders:
Discharge Patient (As Directed); Ordered 03/31/24
Ordered By: Pamela Mercedes
Discharge Date and Time
Discharge Date/Time: 03/31/24 13:40
Print Language: URDU
== END 2024-03-31 13:40 | disposition home health service (06) | DRG 291 ==
LOC: 4 EAST ACU 17:14
PROVIDERS: Emergency Medicine; Hospitalist; Internal Medicine; Nurse Practitioner Family; Radiology Diagnostic Radiology; Student in an Organized Health Care Education/Training Program; ADMITTING PHYSICIAN Family Medicine; ATTENDING PHYSICIAN Internal Medicine; CONSULT PHYSICIAN Internal Medicine Cardiovascular Disease; EMERGENCY PHYSICIAN Student in an Organized Health Care Education/Training Program; FAMILY PHYSICIAN Internal Medicine Geriatric Medicine
PROC: 5A09357 Assistance with Respiratory Ventilation, Less than 24 Consecutive Hours, Continuous Positive Airway Pressure (ICD-10-PCS; 2024-03-27)
PROC: 0W993ZZ Drainage of Right Pleural Cavity, Percutaneous Approach (ICD-10-PCS; 2024-03-29)
DX: I13.0 Hypertensive heart and chronic kidney disease with heart failure and stage 1 through stage 4 chronic kidney disease, or unspecified chronic kidney disease (principal); I50.23 Acute on chronic systolic (congestive) heart failure; J18.9 Pneumonia, unspecified organism; I48.21 Permanent atrial fibrillation; J90 Pleural effusion, not elsewhere classified; M48.56XA Collapsed vertebra, not elsewhere classified, lumbar region, initial encounter for fracture; F11.20 Opioid dependence, uncomplicated; N17.9 Acute kidney failure, unspecified; E78.00 Pure hypercholesterolemia, unspecified; F41.1 Generalized anxiety disorder; N18.32 Chronic kidney disease, stage 3b; M06.9 Rheumatoid arthritis, unspecified; D47.2 Monoclonal gammopathy; G62.9 Polyneuropathy, unspecified; I27.20 Pulmonary hypertension, unspecified; I73.9 Peripheral vascular disease, unspecified; G47.33 Obstructive sleep apnea (adult) (pediatric); M10.9 Gout, unspecified; Z79.01 Long term (current) use of anticoagulants; Z87.19 Personal history of other diseases of the digestive system; I5A Non-ischemic myocardial injury (non-traumatic); R79.1 Abnormal coagulation profile; E87.5 Hyperkalemia; G89.29 Other chronic pain; R06.89 Other abnormalities of breathing; R09.02 Hypoxemia; G47.00 Insomnia, unspecified; D64.9 Anemia, unspecified; J45.909 Unspecified asthma, uncomplicated; E88.09 Other disorders of plasma-protein metabolism, not elsewhere classified; E87.6 Hypokalemia; I07.1 Rheumatic tricuspid insufficiency; R73.9 Hyperglycemia, unspecified; I45.10 Unspecified right bundle-branch block; M19.90 Unspecified osteoarthritis, unspecified site; Z60.2 Problems related to living alone; Z95.0 Presence of cardiac pacemaker; Z95.2 Presence of prosthetic heart valve; Z86.79 Personal history of other diseases of the circulatory system; Z85.46 Personal history of malignant neoplasm of prostate
CPT/HCPCS: 88305; 32555; 71045; 71046; 76604; 76700; 80048; 80053; 80076; 80162; 82140; 82607; 82728; 82945; 82962; 83036; 83540; 83550; 83615; 83735; 83880; 83986; 84155; 84157; 84484; 85025; 85027; 85610; 85730; 87015; 87040; 87070; 87116; 87205; 87449; 87899; 88112; 88341; 88342; 89051; 93005; 93306; 96374; 96375; 97162; 97166; 99285; J2916

== ENCOUNTER → 2024-04-05 09:18 | Outpatient (REF) | payer MEDICARE, SELFPAY ==
[2024-04-05 11:37] LABS: Blood Urea Nitrogen 68 mg/dl (9-20); Calcium 8.7 mg/dl (8.4-10.2); Carbon Dioxide 31 mmol/L (22-30); Chloride 90 mmol/L (98-107); Glucose 163 mg/dl (70-99); Potassium 3.1 mmol/L (3.5-5.1); Sodium 134 mmol/L (135-145); eGFR 36.43
[2024-04-05 11:38] LABS: INR 1.89; PT 21.5 Sec (11.4-14.6)
== END ==
LOC: OLABPV 09:18
PROVIDERS: ATTENDING PHYSICIAN Internal Medicine Geriatric Medicine
DX: I13.0 Hypertensive heart and chronic kidney disease with heart failure and stage 1 through stage 4 chronic kidney disease, or unspecified chronic kidney disease (principal); I48.21 Permanent atrial fibrillation
CPT/HCPCS: 36415; 80048; 85610

== ENCOUNTER → 2024-04-13 11:49 | Outpatient (REF) | payer MEDICARE, SELFPAY ==
[2024-04-13 13:58] LABS: % Basophils 0.9 % (0-2); % Eosinophils 7.2 % (0-6); % Immature Granulocytes 0.4 % (0-0.5); % Lymphocytes 11.3 % (20.5-51.1); % Monocytes 13.3 % (1.7-9.3); % Neutrophils 66.9 % (42.2-75.2); Absolute Basophils 0.1 10^3/uL (0-0.2); Absolute Eosinophils 0.5 10^3/uL (0-0.7); Absolute Lymphocytes 0.8 10^3/uL (1.2-3.4); Absolute Monocytes 0.9 10^3/uL (0.1-0.6); Absolute Neutrophils 4.5 10^3/uL (1.4-6.5); Hematocrit 34.9 % (39.0-52.0); Hemoglobin 10.3 g/dL (13.0-18.0); Mean Corp Hgb Conc. 29.5 g/dL (33.0-37.0); Mean Corpuscular Hgb 27.5 pg (27.0-31.0); Mean Corpuscular Volume 93.1 fL (80.0-94.0); Mean Platelet Volume 10.2 fL (7.4-10.4); Nucleated Red Blood Cells % 0.3 % (-); Platelet Count 179 10^3/uL (130-400); Red Blood Cell Count 3.75 10^6/uL (4.70-6.10); White Blood Cell Count 6.7 10^3/uL (4.8-10.8)
[2024-04-13 14:05] LABS: INR 2.79; PT 29.8 Sec (11.4-14.6)
[2024-04-13 14:06] LABS: Blood Urea Nitrogen 62 mg/dl (9-20); Calcium 9.3 mg/dl (8.4-10.2); Carbon Dioxide 35 mmol/L (22-30); Chloride 88 mmol/L (98-107); Glucose 143 mg/dl (70-99); Potassium 3.9 mmol/L (3.5-5.1); Sodium 134 mmol/L (135-145)
[2024-04-13 14:15] LABS: NT-proBNP 4360 pg/ml
[2024-04-13 14:34] LABS: Glycohemoglobin (HgbA1c) 7.6 % (4.0-5.6)
[2024-04-13 16:04] LABS: Microalbumin, Random Urine < 0.6 mg/dl (0.6-1.7)
== END ==
LOC: OLABPV 11:49
PROVIDERS: ATTENDING PHYSICIAN Internal Medicine Cardiovascular Disease; FAMILY PHYSICIAN Internal Medicine Geriatric Medicine
DX: I50.20 Unspecified systolic (congestive) heart failure (principal); Z79.01 Long term (current) use of anticoagulants; M06.9 Rheumatoid arthritis, unspecified; E11.9 Type 2 diabetes mellitus without complications; E78.2 Mixed hyperlipidemia; I10 Essential (primary) hypertension; I48.21 Permanent atrial fibrillation; I50.32 Chronic diastolic (congestive) heart failure; N18.32 Chronic kidney disease, stage 3b; F41.9 Anxiety disorder, unspecified; I34.2 Nonrheumatic mitral (valve) stenosis; M81.0 Age-related osteoporosis without current pathological fracture; R17 Unspecified jaundice; K21.9 Gastro-esophageal reflux disease without esophagitis
CPT/HCPCS: 36415; 80048; 82043; 82570; 83036; 83880; 85025; 85610

== ENCOUNTER → 2024-04-18 14:30 | Outpatient (REF) | payer MEDICARE, SELFPAY | LOC: RAD 14:30 | PROVIDERS: ATTENDING PHYSICIAN Internal Medicine Cardiovascular Disease; FAMILY PHYSICIAN Internal Medicine Geriatric Medicine | DX: I50.20 Unspecified systolic (congestive) heart failure (principal) | CPT/HCPCS: 71046 ==

== ENCOUNTER → 2024-04-19 08:33 | Outpatient (REF) | payer MEDICARE, SELFPAY ==
[2024-04-19 09:04] LABS: PT 17.9 Sec (11.4-14.6)
== END ==
LOC: REG 08:33
PROVIDERS: ATTENDING PHYSICIAN Psychiatry & Neurology Neurology; FAMILY PHYSICIAN Internal Medicine Geriatric Medicine
DX: Z79.01 Long term (current) use of anticoagulants (principal)
CPT/HCPCS: 36415; 85610

== ENCOUNTER 2024-04-25 18:58 | Inpatient (IN) | payer MEDICARE, SELFPAY ==
[2024-04-25] VITALS (15 sets, daily range): BP systolic 86–107; BP diastolic 57–84; PULSE 71–80; O2SAT 96; BMI 21.5
[2024-04-25 09:53] LABS: % Basophils 0.3 % (0-2); % Eosinophils 5.7 % (0-6); % Lymphocytes 5.4 % (20.5-51.1); % Monocytes 12.4 % (1.7-9.3); % Neutrophils 75.2 % (42.2-75.2); Absolute Eosinophils 0.4 10^3/uL (0-0.7); Absolute Immature Granulocytes 0.1 10^3/uL (0-0.05); Absolute Lymphocytes 0.4 10^3/uL (1.2-3.4); Absolute Monocytes 0.9 10^3/uL (0.1-0.6); Absolute Neutrophils 5.3 10^3/uL (1.4-6.5); Hematocrit 32.5 % (39.0-52.0); Hemoglobin 9.8 g/dL (13.0-18.0); Mean Corp Hgb Conc. 30.2 g/dL (33.0-37.0); Mean Corpuscular Hgb 27.5 pg (27.0-31.0); Mean Platelet Volume 10.4 fL (7.4-10.4); Nucleated Red Blood Cells % 1.7 % (-); Platelet Count 159 10^3/uL (130-400); Red Blood Cell Count 3.57 10^6/uL (4.70-6.10); Red Cell Dist. Width 23.1 % (11.5-14.5)
[2024-04-25 10:02] LABS: ALT (SGPT) 12 U/L (0-50); APTT 37.6 Sec (23.4-35.0); AST (SGOT) 24 U/L (17-59); Albumin 3.7 g/dl (3.5-5.0); Alkaline Phosphatase 139 U/L (38-126); Blood Urea Nitrogen 77 mg/dl (9-20); Calcium 9.3 mg/dl (8.4-10.2); Carbon Dioxide 26 mmol/L (22-30); Chloride 93 mmol/L (98-107); Glucose 183 mg/dl (70-99); Potassium 5.7 mmol/L (3.5-5.1); Sodium 131 mmol/L (135-145); Total Bilirubin 2.7 mg/dl (0.2-1.3); Total Protein 6.7 g/dl (6.3-8.2); eGFR 26.98
[2024-04-25 10:12] LABS: Troponin I 0.034 ng/ml
--- NOTE | 2024-04-25 10:21 | ED.GENMED ---
History of Present Illness
General
Chief Complaint: Failure to Thrive
Source: patient, family, ambulance crew and intermediate
Exam Limitations: none
Time Seen by Provider: 04/25/24 10:01
Nursing documentation reviewed up to this point in time: agreed with
History of Present Illness
History of Present Illness:
84-year-old male with past medical history of A-fib currently paced, typically taking Coumadin and has been on Lovenox due to recent epidural for back pain, CHF hypertension, diabetes presenting to the emergency department with multiple concerns
patient claims that over the past 4 days or so he is felt increasingly weak tired he has had tremors of his hands bilaterally that he typically does not have. Additionally claims that he had 3 minor falls over the past 3 days he believes he also
hit his left flank yesterday and is having some ongoing discomfort to the area. He does not claims that he been feeling some lightheadedness and some room spinning dizziness occasionally seems to be worse with movement not currently present at
rest. Patient also claims he is has some difficulty speaking and believes that his speech is slurred and this is confirmed by the family members at that his speech is less intelligible than usual. He claims that he lives independently but had
significant difficulty ambulating since. The family also claims that 2 days ago they went to wake him up at his home and he had difficulty waking up. Denies specific fevers vomiting chest pain, shortness of breath. He denies changes in bowel
movements or blood in the stool. Denies any focal numbness or weakness..
Past History
Past History
ED Past Medical History: Arrthythmia (Atrial fibrillation), Cancer (Prostate), CHF, HTN, Hypercholesterolemia, Renal failure (Stage IIIb chronic kidney disease), Valvular disease, Psychiatric (Generalized anxiety disorder), Other (Rheumatoid
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
Negative COPD
ED Past Surgical History: Cardiac (Mitral valve repair, pacemaker October 2022)
Social History
Tobacco: Non-smoker
Alcohol: None
Drug: None
Personal: Single
Living: alone
Employment: Retired
Family History
Family History: Other (Reviewed and noncontributory)
Review of Systems
Review of Systems
Allergies reviewed?: Yes
All Other Systems: ROS reviewed and negative except as documented in HPI and ROS
Phy Exam
Physical Exam
Physical Exam:
GENERAL: Alert , patient is slurring his speech claims that this is not typical for him.
EYE: pupils equal and reactive
NECK: Supple, no significant adenopathy.
ENT: o/p clr, mmm.
CARDIAC: Regular rate and rhythm .
LUNGS: Clear breath sounds bilaterally, no acute respiratory distress, no wheezes/rales/rhonchi
ABDOMEN: Discomfort to the left flank no overlying skin changes. There are some superficial bruising to the anterior abdomen at sites where he uses Lovenox otherwise the abdomen soft, without focal tenderness, no r/g, no cvat
NEUROLOGICAL: Alert and oriented, no focal neuro deficits, 5 out of 5 upper and lower extremity strength normal sensation palpated bilaterally.
SKIN: Warm and dry, skin intact.
MUSCULOSKELETAL: No edema, well perfused.
PSYCH: Normal and appropriate interaction.
Course
Orders/Labs/Results
Orders:
Orders
04/25/24 09:38
Electrocardiogram (*1) Urgent
Reason for Study: Vertigo / Dizzy
04/25/24 09:39
EKG- Treatment ONCE
04/25/24 09:40
CMP [Comprehensive Metabolic Panel] Urgent
Complete Blood Count/With Diff Urgent
Free T4 Urgent
Magnesium Urgent
Comment: ADD ON
PTT Urgent
Prothrombin Time Urgent
Comment: ADD ON
TSH Reflex To Free T4 Urgent
Comment: ADD ON
Troponin I Urgent
04/25/24 10:19
Add On- LAB Urgent
Tests Added?: PT inr
Add On- LAB Urgent
Tests Added?: tsh free t4, magnesium level
CT Head W/o Iv Contrast Urgent
Comment:
Reason For Exam: fall slurred speech on coumadin
Chest [CR Chest - 2 Views ] Urgent
Comment:
Reason For Exam: sob
04/25/24 10:20
Interrogate Pacemaker- Treatment ONCE
04/25/24 11:01
Urinalysis Reflex To Culture Urgent
Date Specimen was Collected: 04/25/24
Time Specimen was Collected: 10:49
04/25/24 11:04
0.9% Sodium Chloride 500 ml [Nss] 500 ml IV BOLUS
04/25/24 13:09
BMP [Basic Metabolic Panel] Urgent
04/25/24 13:58
CT Chest/abd/pel Wo Iv Cont Urgent
Comment:
Reason For Exam: fall left flank pain, left chest pain
04/25/24 14:18
Pt Eval And Treat Urgent
Activity Level: Ambulate
04/25/24 16:37
Sodium Zirconium Cyclosilicate [Lokelma] 10 gram PO NOW STA
Abnormal Lab Results
04/25/24 04/25/24 04/25/24
09:40 11:01 13:09
RBC 3.57 L 10^6/uL
(4.70-6.10)
Hgb 9.8 L g/dL
(13.0-18.0)
Hct 32.5 L %
(39.0-52.0)
MCHC 30.2 L g/dL
(33.0-37.0)
RDW 23.1 H %
(11.5-14.5)
Abs Immat Gran (auto) 0.1 H 10^3/uL
(0-0.05)
Absolute Lymphs (auto) 0.4 L 10^3/uL
(1.2-3.4)
Absolute Monos (auto) 0.9 H 10^3/uL
(0.1-0.6)
Immature Gran % 1.0 H %
(0-0.5)
Lymphocytes % 5.4 L %
(20.5-51.1)
Monocytes % 12.4 H %
(1.7-9.3)
PT 15.0 H Sec
(11.4-14.6)
APTT 37.6 H Sec
(23.4-35.0)
Sodium 131 L mmol/L 131 L mmol/L
(135-145) (135-145)
Potassium 5.7 H mmol/L 5.7 H mmol/L
(3.5-5.1) (3.5-5.1)
Chloride 93 L mmol/L 93 L mmol/L
(98-107) (98-107)
BUN 77 H mg/dl 79 H mg/dl
(9-20) (9-20)
Creatinine 2.3 H mg/dL 2.2 H mg/dL
(0.7-1.3) (0.7-1.3)
Glucose 183 H mg/dl 136 H mg/dl
(70-99) (70-99)
Magnesium 2.4 H mg/dl
(1.6-2.3)
Total Bilirubin 2.7 H mg/dl
(0.2-1.3)
Alkaline Phosphatase 139 H U/L
(38-126)
TSH (Reflex) 9.15 H uIU/ml
(0.47-4.68)
Urine Glucose Trace A
(Negative)
04/25/24 09:40
04/25/24 13:09
Vital Signs
Initial and Last Documented VS:
Initial Vital Signs
Temp Pulse Resp BP Pulse Ox
97.9 F 70 16 100/66 92
04/25/24 09:26 04/25/24 09:26 04/25/24 09:26 04/25/24 09:26 04/25/24 09:26
Last Documented Vital Signs
Temp Pulse Resp BP Pulse Ox
97.9 F 74 16 102/65 95
04/25/24 09:26 04/25/24 14:15 04/25/24 14:15 04/25/24 15:03 04/25/24 16:19
MDM/Problems Addressed
MDM/Problems Addressed:
84-year-old male presenting to the emergency department with multiple concerns mainly generalized weakness fatigue slurred multiple falls in the last few days difficulty ambulating also apparently had a pulse ox in the high 80s via EMS and upon
arrival here off of oxygen his pulse ox remains in the low 90s. Denies oxygen use at home. Patient does have reproducible tenderness to the left flank where he had a fall yesterday. Considering his anticoagulant plan for CT scan for assessment of
this as well as a CT scan of his head. Additionally we did a chest x-ray concerning the patient's hypoxemia. Initial labs showing elevated potassium 5.7 slightly low sodium of 131 creatinine 2.3 which is above patient's baseline. Patient
additionally had a head CT without acute abnormalities CT chest abdomen pelvis was performed that showed a left-sided rib fracture as well as a compression fracture of the lumbar spine additionally is a pericardial effusion and pleural effusion.
Patient has multiple abnormalities on labs as well as imaging patient will need to be admitted for further specialty consultation and management of these issues as well as potential placement of symptoms or not improving and ambulation has not
improved as well.
*Critical Care Note
Total Time (30-74mins, 75-104mins- exclusive of procedures): Not Applicable
ED Attending Note
-
Portions of this chart may have been created with voice recognition software.� Occasional wrong word or��sound alike� substitutions may have occurred due to the inherent limitations of voice recognition software.
Discharge Plan
Departure
Patient Disposition: Admit
Date of Disposition: 04/25/24
Time of Disposition: 17:12
Admit to: Med/Surg
Admit to doctor: Faisla
Presentation/result/management discussed w/ accepting MD/DO: Hospitalist
Patient with high blood pressure during this ER visit?: No
Condition: Good
Covid-19: Not Applicable
Discharge Problem:
Acute hyperkalemia, Elevated serum creatinine, Fracture of rib, Compression fx, lumbar spine, Ambulatory dysfunction
Prescriptions:
No Action
allopurinol 100 mg Tablet
450 mg PO DAILY
carvedilol 3.125 mg Tablet
3.125 mg PO BID Qty: 60 0RF
pantoprazole 40 mg Tablet,Delayed Release (Dr/Ec)
40 mg PO DAILY Qty: 30 0RF
docusate sodium [Colace] 100 mg Capsule
100 mg PO DAILYPRN PRN (Reason: constipation)
calcium carbonate-vitamin D3 600 mg-20 mcg (800 unit) Tablet
1 tab PO DAILY
melatonin 5 mg Tablet
5 mg PO HSPRN PRN (Reason: sleep)
ursodiol 500 mg Tablet
500 mg PO BID Qty: 60 0RF
duloxetine [Cymbalta] 30 mg Capsule,Delayed Release(Dr/Ec)
30 mg PO DAILY
potassium chloride 20 mEq tablet,ER particles/crystals
20 meq PO SUTUWEFRSA@1400
polyethylene glycol 3350 [Miralax] 17 gram Powder In Packet
17 g PO DAILYPRN PRN (Reason: constipation)
oxycodone-acetaminophen 5-325 mg tablet
1 tab PO TID
sodium chloride 0.65 % Aerosol,[facility] [place]
1 spray INTRANASAL DAILYPRN PRN (Reason: dry nose)
potassium chloride 20 mEq Tablet Extended Release
40 meq PO DAILY
acetaminophen [Tylenol Arthritis Pain] 650 mg Tablet Extended Release
1,300 mg PO Q8HPRN PRN (Reason: mild pain)
ceramides 1,3,6-II [CeraVe] Cream
1 applic TOPICAL DAILYPRN PRN (Reason: dry skin)
denosumab 60 mg/mL Syringe
60 mg SC [id number]
torsemide 20 mg tablet
20 mg PO BID Qty: 60 0RF
metolazone 2.5 mg Tablet
2.5 mg PO MOTH Qty: 0 0RF
enoxaparin 40 mg/0.4 mL Syringe
40 mg SC DAILY
digoxin 62.5 mcg (0.0625 mg) Tablet
62.5 mcg PO SUTUWEFRSA
Jardiance 10 mg Tablet
10 mg PO DAILY
potassium chloride 20 mEq tablet,ER particles/crystals
40 meq PO MOTH@1400
gabapentin 300 mg Capsule
300 mg PO TID
Referrals:
Ravi Kirk MD [Family Provider] -
Interventions
Interventions:
*Risk Screen - Suicide Last Done: 04/25/24 09:26
*General Assessment Last Done: 04/25/24 09:26
*Neglect/Abuse Screening Last Done: 04/25/24 12:25
ED- Fall Risk Assessment Last Done: 04/25/24 09:36
*ED COVID-19 Vaccine History Last Done: 04/25/24 09:26
Discharge Date and Time
Print Language: SENEGALESE
[2024-04-25 10:31] LABS: Anisocytosis 1+; Hypochromasia 1+; Normal RBC Morphology No; Ovalocytes 1+; Polychromasia 1+; Stomatocytes 1+; Target Cells FEW
[2024-04-25 10:32] LABS: INR 1.18
[2024-04-25 10:37] LABS: Magnesium 2.4 mg/dl (1.6-2.3)
[2024-04-25] MEDS: NSS 500 IV (11:24)
[2024-04-25 11:26] LABS: Urine Albumin Negative (Neg - Trace); Urine Bilirubin Negative (Negative); Urine Character Clear (Clear); Urine Color Yellow; Urine Glucose Trace (Negative); Urine Ketone Negative (Negative); Urine Leukocyte Negative (Negative); Urine Nitrite Negative (Negative); Urine Occult Blood Negative (Negative); Urine Specific Gravity 1.005 (<1.030); Urine Urobilinogen 1+ (Neg - 1+)
[2024-04-25 11:36] LABS: TSH Reflex To Free T4 9.15 uIU/ml (0.47-4.68)
[2024-04-25 12:06] LABS: Free T4 1.11 ng/dl (0.78-2.19)
[2024-04-25 13:39] LABS: Blood Urea Nitrogen 79 mg/dl (9-20); Calcium 9.2 mg/dl (8.4-10.2); Carbon Dioxide 29 mmol/L (22-30); Chloride 93 mmol/L (98-107); Glucose 136 mg/dl (70-99); Potassium 5.7 mmol/L (3.5-5.1); Sodium 131 mmol/L (135-145); eGFR 28.46
--- NOTE | 2024-04-25 17:15 | HPS.HSE ---
Addendum entered and electronically signed by Bud Edward MD 04/25/24 18:47:
I saw and examined the patient.
The AGRONOMY TEACHER or PA's note was reviewed and I agree with the note.
Comment:
see separate addendum
Original Note:
Family Physician
<DUSTY Verdin - Last Filed: 04/25/24 18:42>
-
Family Physician: Ravi Kirk MD
Chief Complaint
<DUSTY Verdin - Last Filed: 04/25/24 18:42>
-
Fall, bilateral leg weakness, left hip pain
History of Present Illness
84-year-old male from home who states he typically takes Coumadin for permanent A-fib although has been on Lovenox due to recent epidural injection for his back that was due today. He took his last dose of Lovenox on Thursday 2 days ago. He
presents to the ER claiming of feeling weak, tired with tremors to hands bilaterally over the past 4 days. He also reports 3 minor falls over the past 3 days was complaining of some left-sided buttocks, pelvic pain, feeling lightheaded and dizzy.
He reports when he stands he has weakness to his lower extremities and he feels dizzy. He reports he lives independently and uses a walker to walk. His family states that he is slightly more slurred today with talking. Patient denies head injury
, headache or one-sided deficit
The patient had a recent admission 03/24 - 03/31/2024 for acute on chronic heart failure with chronic hypoxic respiratory insufficiency bilateral pleural effusions moderate right small left status post right thoracentesis 03/29 along with
supratherapeutic INR on admission resolved. During this admission he had metolazone added to his diuretic regimen. It was noted in the ER his systolic pressures are 95-102 systolic. Likely contributing to lightheadedness and falls
He has past medical history of permanent pacemaker October 2022, chronic RBBB, endocarditis in his 50s, CKD stage IIIb, gout, monoclonal gammopathy of undetermined significance, PAD, chronic low back pain with T12, L1 compression fractures, RA,
bilateral pleural calcifications, sleep apnea on CPAP, prostate cancer, anxiety/depression, mitral valve repair 29 years ago at [place] mitral stenosis and severe mitral regurgitation with transcatheter MVR ANTONY valve replacement x 2 [facility]
10/29/2022, severe pulm HTN, permanent A-fib
Medical History
<DUSTY Verdin - Last Filed: 04/25/24 18:42>
Past Medical History
Past Medical History: Reports Other
Additional Past Medical History:
Acute hypoxic respiratory insufficiency, resolved
Acute on chronic heart failure with reduced ejection fraction (HFrEF)
Abdominal distention due to heart failure 04/07/2024
Bilateral pleural effusion, moderate right and small left pleural effusions, status post Right Thoracentesis 03/29/2024
Supratherapeutic INR on admission, resolved
Pacemaker placement October 2022
Chronic right bundle branch block
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
Chronic kidney disease stage IIIb
Gout on allopurinol
Monoclonal gammopathy of undetermined significance
Peripheral artery disease
Chronic low back pain with T12, L1 compression fractures
Rheumatoid arthritis
Bilateral pleural calcifications
Sleep apnea on CPAP
History of prostate cancer
Anxiety and depression on continue Cymbalta
History of mitral valve repair 29 years ago at [place], this resulted in iatrogenic mitral stenosis and severe mitral regurgitation with transcatheter mitral valve replacement (Antony valve placement x2) at [facility] 10/29/2022
Severe pulmonary hypertension
Permanent atrial fibrillation
Past Surgical History: Reports Other
Additional Past Surgical History:
History of mitral valve repair 29 years ago at [place], this resulted in iatrogenic mitral stenosis and severe mitral regurgitation with transcatheter mitral valve replacement (Antony valve placement x2) at [facility] 10/29/2022
Hernia repair
Permanent pacemaker
Social History
Tobacco: Non-smoker
Alcohol: None
Drug: None
Personal: Single
Living: Alone
Employment: Retired
Family History
Family History: Not pertinent
Allergies / Home Medications
Allergies reflects when Allergies were last updated in [employer].
Home Medications with original date entered in [employer]
Allergy/Medication List:
Allergies
Allergy/AdvReac Type Severity Reaction Status Date / Time
No Known Allergies Allergy Verified 03/24/24 08:12
Home Medications
allopurinol 100 mg tablet 450 mg PO DAILY Gout 07/08/23
carvedilol 3.125 mg tablet 3.125 mg PO BID #60 tabs 07/20/23
pantoprazole 40 mg tablet,delayed release 40 mg PO DAILY #30 tabs 07/20/23
calcium carbonate 600 mg-vitamin D3 20 mcg (800 unit) tablet 1 tab PO DAILY Supplement 09/02/23
docusate sodium 100 mg capsule (Colace) 100 mg PO DAILYPRN PRN constipation 09/02/23
melatonin 5 mg tablet 5 mg PO HSPRN PRN sleep 10/05/23
ursodiol 500 mg tablet 500 mg PO BID #60 tabs 10/10/23
acetaminophen 650 mg tablet,extended release (Tylenol Arthritis Pain) 1,300 mg PO Q8HPRN PRN mild pain 03/24/24
ceramides 1,3,6-II (CeraVe topical cream) 1 applic topical DAILYPRN PRN dry skin 03/24/24
denosumab 60 mg/mL subcutaneous syringe 60 mg SC [id number] 03/24/24
duloxetine 30 mg capsule,delayed release (Cymbalta) 30 mg PO DAILY Mental Health/Anxiety 03/24/24
oxycodone-acetaminophen 5 mg-325 mg tablet 1 tab PO TID severe pain 03/24/24
polyethylene glycol 3350 17 gram oral powder packet (Miralax) 17 g PO DAILYPRN PRN constipation 03/24/24
potassium chloride 20 mEq tablet,extended release 40 meq PO DAILY Supplement 03/24/24
potassium chloride 20 mEq tablet,extended release(part/cryst) 20 meq PO SUTUWEFRSA@1400 Supplement 03/24/24
sodium chloride 0.65 % nasal spray aerosol 1 spray intranasal DAILYPRN PRN dry nose 03/24/24
metolazone 2.5 mg tablet 2.5 mg PO MOTH #0 tabs 03/31/24
torsemide 20 mg tablet 20 mg PO BID #60 tabs 03/31/24
digoxin 62.5 mcg (0.0625 mg) tablet 62.5 mcg PO SUTUWEFRSA 04/25/24
empagliflozin 10 mg tablet (Jardiance) 10 mg PO DAILY 04/25/24
enoxaparin 40 mg/0.4 mL subcutaneous syringe 40 mg SC DAILY 04/25/24
gabapentin 300 mg capsule 300 mg PO TID 04/25/24
potassium chloride 20 mEq tablet,extended release(part/cryst) 40 meq PO MOTH@1400 04/25/24
Review of Systems
<DUSTY Verdin - Last Filed: 04/25/24 18:42>
-
History Source: Patient and Family (sofie and duagther )
Constitutional: Reports Fatigue; Denies Fever
EENT: Denies Sore Throat or Runny Nose
Respiratory: Denies Cough
Cardiac: Reports Other; Denies Chest Pain, Diaphoresis, Palpitations or Syncope
Abdomen/GI: Denies Abdominal Pain, Nausea, Vomiting, Diarrhea, Constipated or Bloody Stools
: Denies Dysuria, Frequency, Flank Pain or Incontinence
Musculoskeletal: Reports Joint Pain (Left hip pain to left buttocks); Denies Joint Swelling or Edema
Skin: Denies Itching or Rash
Neurological: Reports Dizzy and Weakness (Generalized); Denies Headache
Endocrine: Reports No Symptoms
Hematologic/Lymphatic: Reports No Symptoms
Psych: Reports Calm
<Bud Edward MD - Last Filed: 04/25/24 18:47>
-
A 12 point ROS was completed and negative except as noted: Yes
Physical Exam
<DUSTY Verdin - Last Filed: 04/25/24 18:42>
Vital Signs
Vital Signs
Temp Pulse Resp BP Pulse Ox
97.9 F 74 16 102/65 95
04/25/24 09:26 04/25/24 14:15 04/25/24 14:15 04/25/24 15:03 04/25/24 16:19
Physical Exam
General: Comfortable, Conversant and Obese; No Pain, Fever or Chills
HEENT: NormoCephalic, Anicteric, Moist mucous membranes, PERRLA, [place] Conjunctivae and No Ptosis
Respiratory: Clear and Other (Diminished throughout right lung field); No Wheezes, Rales or Rhonchi
Cardiac: S1/S2 and Other (Paced on rhythm); No Murmur, Rub, Gallop, Peripheral Edema or JVD
Breast: Deferred by me
GI: Soft, Non Tender, Non Distended and Normal Bowel Sounds
Rectal: Deferred by Provider
Genito-urinary: Deferred by me
Musculoskeletal: No Clubbing, No Cyanosis and No Edema
Skin: Warm and Dry; No Rash or Jaundice
Neuro: AO x 3, No Motor Deficits, Nonfocal/grossly intact, Cranial Nerves Intact, No Sensory Deficits and Other; No Slurred Speech, Facial Droop or Tremors
Psych: Calm
Laboratory Results
<DUSTY Verdin - Last Filed: 04/25/24 18:42>
-
04/25/24 09:40
04/25/24 13:09
Laboratory Results
PT 15.0 Sec (11.4-14.6) H 04/25/24 09:40
INR 1.18 04/25/24 09:40
APTT 37.6 Sec (23.4-35.0) H 04/25/24 09:40
Total Bilirubin 2.7 mg/dl (0.2-1.3) H 04/25/24 09:40
AST 24 U/L (17-59) 04/25/24 09:40
ALT 12 U/L (0-50) 04/25/24 09:40
Alkaline Phosphatase 139 U/L (38-126) H 04/25/24 09:40
Troponin I 0.034 ng/ml 04/25/24 09:40
Data Reviewed
<DUSTY Verdin - Last Filed: 04/25/24 18:42>
-
Diagnostic Radiology: Report Reviewed by me
CT Scan: Report Reviewed by me
Lab Data: Labs Reviewed by me
Impression/Plan
<DUSTY Verdin - Last Filed: 04/25/24 18:42>
-
Impression/plan:
Admit to telemetry
#Weakness/fatigue with falls likely secondary to orthostatic hypotension
BP systolic 95�102
-IV NSS 1 L given in ER
Follow orthostatic vital signs
-Hold diuretics,
Continue Coreg, carvedilol with hold parameters SBP less than 95
-PT/OT/case management consult
#Fall with Left-sided 11th posterior rib fracture
�Apply lidoderm patch
-Use Tylenol as needed oxycodone for severe pain
#Recurrent right-sided pleural effusion
s/p right thoracentesis 03/29 1400 cc yellow pleural fluid
Monitor pulse ox
-Ultrasound thorax to assess fluid volume
PT/OT/case management consult
#New small to moderate pericardial effusion
EKG: Ventricular paced with PVCs 72 bpm
-Check 2D echo he followed
-Consult [facility]ology
#RIGOBERTO on CKD 3B
Creat 2.2/bun 79�baseline appears 1
0.9 NSS 1 L given in ER, follow BMP
-Hold metolazone, torsemide 20 mg twice daily
#Acute hyperkalemia 2/2 KCl supplementation, volume depletion
K5.7 given Lokelma 10 g in ER
-Follow BMP
-Hold potassium supplementation
#Mechanical fall with L1., L3 vertebral compression fracture and Known T12 vertebral compression fracture
-was due for epidural injection today by Dr. Mccoy
Has been taking Lovenox 40 mg until 04/23/[address] Coumadin
-Place patient on IV heparin drip
May follow-up with Dr. Mccoy as outpatient to be scheduled procedure
#Elevated TSH
TSH 9.15, free T4 was 1.11
Chronic heart failure with reduced EF
#Weight 68.3 > 65.4 on 03/31/2024 wt gain 3.1 kg in 3 weeks
I/O, daily weights
-Consult [facility]
-Hold torsemide 20 mg twice daily with potassium supplementation, metolazone 2.5 mg Thursday
Hx MVR 29 years ago [place] resulted in iatrogenic mitral stenosis and severe MR with ANTONY valve placement x 2 at [facility] 10/29/2022
Hx mild aortic stenosis
Hx severe pulm HTN
Hx severe TR
#Permanent A-fib
-Follow INR daily with goal of 2-3
Coumadin has been on hold supplementing with Lovenox 40 mg daily last dose 04/23/2024 for upcoming lumbar epidural injection today 04/26/2024 that did not occur
-IV heparin drip no bolus
#Permanent pacemaker October 2022
-Continue digoxin 62.5 mcg p.o. Thursday, with hold parameters
-Hold carvedilol 3.125 mg p.o. twice daily with hold parameters
#Chronic RBBB
#History of endocarditis in his 50s
#DM 2
Recent A1c 7.25 March 2024
Accu-Cheks with SSI
-Continue Jardiance 10 mg daily
#Gout continue allopurinol
#Hx liver injury from [place] August 2023
-Continue Uracid [place]
Had ultrasound abdomen March 2024 showing hepatic venous congestion mild cardiogenic cirrhosis minimal perihepatic ascites mild chronic bilateral renal disease
#Chronic anemia/iron deficiency
-Status post IV iron recent admission
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
#PAD
#Chronic low back pain with T12, L1 compression fractures
Continue Tylenol arthritis, gabapentin 300 mg p.o. 3 times daily
Continue oxycodone/acetaminophen 1 tab p.o. 3 times daily severe pain
#Chronic anemia normocytic
Hgb 9.8
#Rheumatoid arthritis
#Bilateral pleural calcifications
#Sleep apnea on CPAP
-Uses nasal CPAP unsure setting
#Anxiety/depression
-Continue Cymbalta
#Hx prostate cancer
#Hx insomnia
-Continue melatonin
DVT prophylaxis
IV heparin drip
Full code
--- NOTE | 2024-04-25 17:18 | W.PN.UPDATE ---
Update Note
Progress Note Update
84-year-old male came to the hospital feeling tired and weak. He has had 3 falls , last one today, His tone of voice was low. Shaking on the hands .
CT scan of the chest abdomen pelvis without contrast-nondisplaced left posterior 11th rib fracture. Marked T12 vertebral compression fracture. Small to moderate right pleural effusion with accompanying right lower lobe consolidation/atelectasis.
I saw and examined the patient.
The STOCK COUNTER or PA's note was reviewed and I agree with the note.
Comment:
CVS: S1-S2 normal sm at apex and RHB
Chest: Decreased right base, rales left side
Chest wall tenderness left.
Abdomen: Soft, mild left sided tenderness, Bowel sounds present
Extremities: No edema
NAPKIN MACHINE OPERATOR: Non focal exam,asterixis, confused
# Falls- Likely from orthostatic Hypotension vs mechanical
# Asterixis from uremia- Watch with renal function getting better. Also check Ammonia.
# TME-Likely from Above. Check ammonia
# Left posterior 11th rib fracture-Traumatic
Pain control, incentive spirometry
# Small to moderate right pleural effusion-May need thoracentesis
Traumatic vs other
# Moderate pericardial effusion-check echo
# Acute kidney injury creatinine has been rising since March 2024
CKD stage 3
Check urine sodium
Metabolic acidosis noted
Bladder scan
Hold torsemide, Jardiance, metolazone
# Hyperkalemia-Lokelma given
Repeat BMP
Hold potassium
# Hyponatremia- Hypovolumic Hyponatremia. IVF
# Chronic heart failure with preserved ejection fraction
Continue Coreg. Hold torsemide and potassium
# Permanent atrial fibrillation-on Coumadin normally on bridging with Lovenox because of epidural injection to the back.
Also on digoxin as outpatient. Check levels
With acute kidney injury will switch to heparin drip
# Valvular heart disease
Mitral valve repair 29 years ago at [place],Mitral stenosis and severe MR with transcatheter mitral valve replacement at [facility] [address] 10/29/2022
Severe pulmonary hypertension
# Elevated TSH-repeat before adding medicines. Normal T4. Repeat .
# Anemia-check iron studies
# DM- Hold Jardiance . SSI
# Chronic right bundle branch block
# Permanent pacemaker placement October 2022
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
# MGUS
# History of gout-continue allopurinol. Check uric acid level.
# Gastroesophageal reflux disease--PPI
# Chronic back pain with T12 and L1 compression fractures. On Cymbalta, Neurontin. Narcotic dependent.
# Rheumatoid arthritis
# Bilateral pleural calcifications
# Sleep apnea on CPAP
# History of prostate cancer
# Anxiety depression-Cymbalta
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
# Insomnia on melatonin
# Hypoalbuminemia
# DVT prophylaxis-Heparin drip
# CODE STATUS-FULL CODE
Discussed with 2 daughters at bed side in detail
Time spent over 75 min
[2024-04-25] MEDS: LOKELMA 10 GRAM PO (17:56)
[2024-04-25 18:07] LABS: Osmolality Serum 308 mOsm/kg (275-300)
[2024-04-25 18:11] LABS: Osmolality Urine 333 mOsm/kg (300-900); Urine Sodium < 5 mmol/L (30-90)
[2024-04-25 18:23] LABS: Total Iron Binding Capacity 384 ug/dl (261-462)
[2024-04-25 18:35] LABS: Uric Acid 3.5 mg/dl (3.5-8.5)
[2024-04-25 18:36] LABS: Digoxin < 0.4 ng/ml (0.8-2.0)
[2024-04-25 18:40] LABS: Cortisol, Random 24.9 ug/dl
[2024-04-25 18:43] LABS: Ferritin 19.9 ng/ml (17.9-464.0)
[2024-04-25 18:59] LABS: Vitamin B12 873 pg/ml (239-931)
[2024-04-25 19:20] LABS: NT-proBNP 6360 pg/ml
[2024-04-25 19:57] LABS: Hematocrit 31.3 % (39.0-52.0); Hemoglobin 9.7 g/dL (13.0-18.0); Mean Corpuscular Hgb 28.1 pg (27.0-31.0); Mean Corpuscular Volume 90.7 fL (80.0-94.0); Mean Platelet Volume 10.8 fL (7.4-10.4); Platelet Count 151 10^3/uL (130-400); Red Blood Cell Count 3.45 10^6/uL (4.70-6.10); Red Cell Dist. Width 23.4 % (11.5-14.5); White Blood Cell Count 7.1 10^3/uL (4.8-10.8)
[2024-04-25 20:13] LABS: Ammonia < 9 umol/L (9-30)
[2024-04-25] MEDS: NSS 1000 IV (20:20)
[2024-04-25 20:27] LABS: APTT 38.6 Sec (23.4-35.0)
[2024-04-25] MEDS: COREG PO (21:18)
[2024-04-25] MEDS: PERCOCET 5/325 1 TABLET PO (21:19)
[2024-04-25] MEDS: NEURONTIN 300 MG PO (21:19)
[2024-04-25] MEDS: HEPARIN 25000 UNITS/250 ML IV (21:21)
[2024-04-25] MEDS: URSO 500 MG PO (21:22)
[2024-04-25] MEDS: LIDOCAINE 4% PATCH 1 PATCH TOPICAL (21:23)
[2024-04-25 22:48] LABS: Glucose - Point of Care 219 mg/dl (70-99)
[2024-04-26] VITALS (14 sets, daily range): BP systolic 78–117; BP diastolic 47–70; PULSE 73–86; BMI 20.9
[2024-04-26 03:30] LABS: % Basophils 0.3 % (0-2); % Eosinophils 8.5 % (0-6); % Lymphocytes 7.7 % (20.5-51.1); % Neutrophils 70.5 % (42.2-75.2); Absolute Eosinophils 0.5 10^3/uL (0-0.7); Absolute Immature Granulocytes 0.1 10^3/uL (0-0.05); Absolute Lymphocytes 0.5 10^3/uL (1.2-3.4); Absolute Monocytes 0.7 10^3/uL (0.1-0.6); Absolute Neutrophils 4.2 10^3/uL (1.4-6.5); Hematocrit 29.9 % (39.0-52.0); Hemoglobin 9.3 g/dL (13.0-18.0); Mean Corp Hgb Conc. 31.1 g/dL (33.0-37.0); Mean Corpuscular Hgb 27.8 pg (27.0-31.0); Mean Corpuscular Volume 89.5 fL (80.0-94.0); Mean Platelet Volume 9.4 fL (7.4-10.4); Nucleated Red Blood Cells % 2.2 % (-); Platelet Count 136 10^3/uL (130-400); Red Blood Cell Count 3.34 10^6/uL (4.70-6.10); Red Cell Dist. Width 23.2 % (11.5-14.5)
[2024-04-26 03:48] LABS: APTT 54.6 Sec (23.4-35.0)
[2024-04-26 04:00] LABS: ALT (SGPT) 10 U/L (0-50); AST (SGOT) 24 U/L (17-59); Albumin 3.4 g/dl (3.5-5.0); Alkaline Phosphatase 134 U/L (38-126); Blood Urea Nitrogen 76 mg/dl (9-20); Carbon Dioxide 28 mmol/L (22-30); Chloride 94 mmol/L (98-107); Estimated Creatinine Clearance 24 ml/min; Glucose 126 mg/dl (70-99); HDL Cholesterol 17 mg/dl; LDL Cholesterol, Calculated 47 mg/dl; Potassium 4.5 mmol/L (3.5-5.1); Sodium 132 mmol/L (135-145); Total Bilirubin 2.5 mg/dl (0.2-1.3); Total Cholesterol 82 mg/dl (50-199); Total Protein 6.2 g/dl (6.3-8.2); Triglyceride 93 mg/dl (10-149); Very Low Density Lipoprotein 18 mg/dl (0-30); eGFR 30.09
--- NOTE | 2024-04-26 04:35 | PTCARENOTE ---
Pt. arrived to unit on 2L NC at beginning of shift. Pt. AOx3, HR in the 80s, BP and O2 stable with complaints of 10/10 lower left hip and back pain r/t pre-admission fall. Pt. assessed and taken to xray. Pt. back on unit, received pain medication
and lidocaine patch placed on lower left hip and back. Continuing to monitor the patient.
--- NOTE | 2024-04-26 07:31 | CON.CAR ---
Addendum entered and electronically signed by Marcio Montanez MD 04/26/24 09:57:
I saw and examined the patient.
The Dam Operator's note was reviewed and I agree with the note.
Comment:
GEN: No distress, awake, tired
HEENT: supple, anicteric, mmm
LUNGS: dec BS R base
CV: irreg, S1/S2, / syst LSB, S3+
ABD: soft, BS+, NT, mild distended
EXT: No edema
NEURO: Gross non-focal
SKIN: No rash
Plan:
He is a complex patient with mitral valve repair and then subsequent TMVR October 2022 at [facility], permanent A-fib, pacemaker, chronic heart failure with reduced ejection fraction, CKD 3 who presents to the hospital status post multiple falls,
hyperkalemia, and progressive acute on chronic renal failure. He was taking torsemide and metolazone as an outpatient. Last admission he had a thoracentesis and digoxin was added.
CT scan reveals recurrent right pleural effusion and small to moderate pericardial effusion.
Would hold diuretics for 24 hours and then reassess electrolytes and volume status. He will need to have his diuretics restarted over the next 24 hours.
Potassium is now improved status post Lokelma. Creatinine is slightly improved at 2.1
Will repeat echocardiogram to reevaluate for pericardial effusion.
Continue carvedilol. Okay to continue low-dose digoxin but if has recurrent hyperkalemia would stop.
Coumadin on hold with plans for another attempt at epidural. Continue IV heparin for now.
Original Note:
Consultation
Consultation Request
Date/Time Consultation Performed: 04/26/24
Requesting Provider: Dr. Edward
Performing Provider: Iva Jack PA-C for Dr. Braden
Reason for Consultation: falls, pericardial effusion by CT
Medical History
-
Chief Complaint: weight gain, weakness
History of Present Illness:
Patient is an 83 yo M with PMH of remote mitral valve repair in 1992 with recurrent severe MR status post TMVR 10/2022 at [facility], single-chamber pacemaker placement 10/2022, permanent atrial fibrillation on chronic Coumadin therapy, cardiomyopathy
with EF 35% by most recent echo 03/2024, chronic heart failure with reduced EF, CKD stage III, chronic right bundle branch block who presents to [facility] due to falls. He was supposed to have an epidural injection with Dr. Mccoy
yesterday however upon arriving to office reported multiple falls and was tremulous and procedure was cancelled. He was brought to [facility] for evaluation. Patient is unable to provide much history at this time. He believes at least his most recent fall
was related to tripping although he cannot recall details. On arrival, noted to have RIGOBERTO with hyperkalemia. He is listed as taking torsemide 20mg BID with metolazone 2.5mg MoTh. CT in ER shows small to mod pericardial effusion and R pleural
effusion. He was treated for acute CHF and did undergo R thora last admission 03/2024 and digoxin was added to med regimen. dig level low. He reports back pain but otherwise cannot answer ROS questions.
PMH:
chronic HFrEF
CM, EF 35% by echo 03/2024
s/p R thoracentesis 03/29/24
history of remote mitral valve repair surgery 1992 at [place] with iatrogenic mitral stenosis and recurrent severe MR status post TMVR (Antoyn valve placement x2) at [facility] 10/29/2022
CHB s/p single chamber Verma PPM placement 10/30/22
permanent atrial fibrillation on chronic Coumadin therapy for 31 years, managed by PCP
hypertension
mild aortic stenosis
CKD 3B
chronic right bundle branch block
PAD
MGUS
Osteoarthritis
Chronic back pain with lumbar compression fracture
Gout
Rheumatoid arthritis
History of liver injury from [facility] 08/2023
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
JESSY on CPAP
Past Medical History
Past Medical History: Other (in HPI)
Social History
Tobacco: Non-Smoker
Living: Alone (independent apartment at [address])
Employment: Retired
Allergies / Home Medications
Allergy/AdvReac Type Severity Reaction Status Date / Time
No Known Allergies Allergy Verified 03/24/24 08:12
�Medication �Instructions �Recorded �Confirmed �Type
allopurinol 100 mg tablet 450 mg PO DAILY Gout 07/08/23 04/25/24 History
carvedilol 3.125 mg tablet 3.125 mg PO BID #60 tabs 07/20/23 04/25/24 Rx
pantoprazole 40 mg tablet,delayed 40 mg PO DAILY #30 tabs 07/20/23 04/25/24 Rx
release
calcium carbonate 600 mg-vitamin 1 tab PO DAILY Supplement 09/02/23 04/25/24 History
D3 20 mcg (800 unit) tablet
docusate sodium 100 mg capsule 100 mg PO DAILYPRN PRN constipation 09/02/23 04/25/24 History
(Colace)
melatonin 5 mg tablet 5 mg PO HSPRN PRN sleep 10/05/23 04/25/24 History
ursodiol 500 mg tablet 500 mg PO BID #60 tabs 10/10/23 04/25/24 Rx
acetaminophen 650 mg 1,300 mg PO Q8HPRN PRN mild pain 03/24/24 04/25/24 History
tablet,extended release (Tylenol
Arthritis Pain)
ceramides 1,3,6-II (CeraVe topical 1 applic topical DAILYPRN PRN dry 03/24/24 04/25/24 History
cream) skin
denosumab 60 mg/mL subcutaneous 60 mg SC [id number] 03/24/24 04/25/24 History
syringe
duloxetine 30 mg capsule,delayed 30 mg PO DAILY Mental 03/24/24 04/25/24 History
release (Cymbalta) Health/Anxiety
oxycodone-acetaminophen 5 mg-325 1 tab PO TID severe pain 03/24/24 04/25/24 History
mg tablet
polyethylene glycol 3350 17 gram 17 g PO DAILYPRN PRN constipation 03/24/24 04/25/24 History
oral powder packet (Miralax)
potassium chloride 20 mEq 40 meq PO DAILY Supplement 03/24/24 04/25/24 History
tablet,extended release
potassium chloride 20 mEq 20 meq PO SUTUWEFRSA@1400 03/24/24 04/25/24 History
tablet,extended release(part/cryst) Supplement
sodium chloride 0.65 % nasal spray 1 spray intranasal DAILYPRN PRN 03/24/24 04/25/24 History
aerosol dry nose
metolazone 2.5 mg tablet 2.5 mg PO MOTH #0 tabs 03/31/24 04/25/24 Rx
torsemide 20 mg tablet 20 mg PO BID #60 tabs 03/31/24 04/25/24 Rx
digoxin 62.5 mcg (0.0625 mg) tablet 62.5 mcg PO SUTUWEFRSA 04/25/24 04/25/24 History
empagliflozin 10 mg tablet 10 mg PO DAILY 04/25/24 04/25/24 History
(Jardiance)
enoxaparin 40 mg/0.4 mL 40 mg SC DAILY 04/25/24 04/25/24 History
subcutaneous syringe
gabapentin 300 mg capsule 300 mg PO TID 04/25/24 04/25/24 History
potassium chloride 20 mEq 40 meq PO MOTH@1400 04/25/24 04/25/24 History
tablet,extended release(part/cryst)
Review of Systems
-
History Source: Patient
All other systems: Negative unless noted
Physical Exam
Vital Signs
Temp Pulse Resp BP Pulse Ox
98.8 F 82 20 99/63 95
04/26/24 03:42 04/26/24 03:30 04/26/24 03:42 04/26/24 03:29 04/26/24 03:42
Lab Results
04/26/24 03:22
04/26/24 03:22
Troponin I 0.034 ng/ml 04/25/24 09:40
Arv-I-Opvsrxbvxzl Pept 6360 pg/ml 04/25/24 09:40
Physical Exam
General: Other (appears frail. chronically ill appearing. on supp O2)
HEENT: Normocephalic, Anicteric and Moist Mucous Membranes
Respiratory: Non Labored Respirations and Other (decreased BS RLB)
Cardiac: S1/S2, Irregular Rhythm and Murmur
GI: Soft, Non Tender, Non Distended and Normal Bowel Sounds
Musculoskeletal: No Clubbing, No Cyanosis and No Edema
Skin: Warm and Dry
Neuro: Awake
Impression / Plan
-
Primary Pig Sticker: Dr. GERRI Weeks
Assessment:
Presentation with falls
Asterixis
Posterior 11th rib fracture
T12 compression fracture
L1 compression fracture
Right pleural effusion s/p Rt thoracentesis 03/29/24 ~1400 cc clear yellow pleural flu, recurrent by imaging 04/25/24
Small to mod pericardial effusion by CT
Hyperkalemia
Hyponatremia
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
CM, EF 30-35% by echo 03/2024
history of remote mitral valve repair surgery 1992 at [place] with iatrogenic mitral stenosis and recurrent severe MR status post TMVR (Antony valve placement x2) at [facility] 10/29/2022
CHB s/p single chamber Verma PPM placement 10/30/22
permanent atrial fibrillation on chronic Coumadin therapy for 31 years, managed by PCP
hypertension
mild aortic stenosis
chronic right bundle branch block
PAD
MGUS/Chronic anemia
Osteoarthritis
Chronic back pain with lumbar compression fracture, scheduled for upcoming vertebroplasty
Gout
Rheumatoid arthritis
History of hepatic failure from [facility] with peak bilirubin of 30 08/2023
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
JESSY on CPAP
ECHO 06/25/22: EF 50 to 55%, grade 3 diastolic dysfunction, septal contraction abnormality, severe biatrial enlargement, reduced RV function, status post full mitral annuloplasty ring from 1992, mean mitral gradient at average of 10 mmHg, concern for
possible moderate to severe MS, at least moderate MR noted, moderate to severe TR, severe pulmonary hypertension, PAP 69 mmHg, aortic sclerosis, ascites present
ECHO 01/20/23:�EF 35 to 40%, abnormal septal motion, moderate concentric LVH, enlarged RV size, pacer wire in right ventricle, status post #29 ANTONY mitral valve replacement with peak/mean gradients across valve of 11/5 with no MR seen, mild to
moderate eccentric AR, mild with peak mean gradients 23/12 mmHg, mild to moderate TR, PAP 52 mmHg, small ASD/PFO with [id number]-gd-[id number] shunt
Echo 07/09/2023:�EF 40-45%, dilated and hypokinetic RV, severe PAT, s/p� #29 Antony TMVR mean MV grad of 5 mmHg. No MR. Mild with peak/mean AV grad of 33/17 mmHg. Severe TR with dilated TV annulus, Severe PHTN with severely elevated pulmonary
pressures PasP 75-80 mmHg.
Echo 03/28/24: EF 30-35%, Severely biatrial enlargement. S/p #21 Antony TMVR with peak/mean gradients of 13/6 mmHg respectively. No mitral regurgitation. Indexed LA volume is severely abnormal (> 48 mL/m2). Mild aortic stenosis. Peak/mean
gradients 18/9 mmHg respectively. Mild aortic regurgitation. Moderate tricuspid regurgitation. PAP 53 mmHg assuming mmHg .
Plan:
-Patient presented from Dr. Mccoy's office due to falls and tremors. He was supposed to have a back injection yesterday, however instead was referred to ER
-Noted to have hyperkalemia, hyponatremia, RIGOBERTO on arrival. seems to be failing at home
-Volume status difficult to determine, and patient unable to provide much detail on recent weight changes, edema, symptoms at this time. follow mental status
-proBNP higher than last admission at 6300. OP diuretics and jardiance currently on hold, follow volume status.
-CT with evidence of recurrent R pleural effusion. for US to assess fluid volume and determine if candidate for repeat thora (last was 03/29/24).
-K improved s/p lokelma 04/25
-check echo to eval pericardial effusion noted on CT, small to moderate. last echo from 03/2024 with new EF reduction, 30-35%
-coumadin on hold due to recent plan for epidural. started on IV heparin in ER, continue for now
-remains in vpaced rhythm with PVCs on review of EKG and tele overnight
-dig level <0.4, unclear if best drug for patient given recent worsening of renal status. continue OP coreg with hold parameters
-PT/OT evals
-check ortho VS
-pain mgmt of fractures, back pain
-will likely need placement upon DC
-d/w nursing
Data Reviewed
-
EKG: Tracing Personally Visualized and interpreted
CT Scan: Report Reviewed by me
Medical Tests (Nuc Med, Echo etc): Report Reviewed by me
Labs: Labs Reviewed by me
Old Records: Reviewed
[2024-04-26 08:18] LABS: Glucose - Point of Care 147 mg/dl (70-99)
[2024-04-26] MEDS: NOVOLOG FLEXPEN-LOW RESISTANCE SC (08:22)
[2024-04-26] MEDS: NEURONTIN 300 MG PO ×2 (08:22→20:12)
[2024-04-26] MEDS: PROTONIX 40 MG PO (08:23)
[2024-04-26] MEDS: OSCAL 500 + D 500 MG PO (08:23)
[2024-04-26] MEDS: PERCOCET 5/325 1 TABLET PO ×3 (08:23→23:22)
[2024-04-26] MEDS: ZYLOPRIM 450 MG PO (08:24)
[2024-04-26] MEDS: CYMBALTA DELAYED RELEASE 30 MG PO (08:27)
[2024-04-26] MEDS: COREG 3.125 MG PO (08:27)
[2024-04-26] MEDS: LIDOCAINE 4% PATCH 1 PATCH TOPICAL ×2 (09:22)
[2024-04-26] MEDS: URSO 500 MG PO ×2 (10:52→20:12)
--- NOTE | 2024-04-26 11:16 | CM ---
Reviewed chart. Met with Mr. Posadas to review discharge plans. He states prior to admission he resides alone at [facility]. He staes he has been there for three years. He states prior to admission he ambulates with a rolling
walker. He states he has been at [facility] in the past. Telephone call to [facility] Admission to make the referral. Sent referral. Medical work-up in progress. The discharge plan is to go to [facility] if bed available
when medically stable.
[2024-04-26 11:25] LABS: APTT 81.4 Sec (23.4-35.0)
--- NOTE | 2024-04-26 11:45 | PTCARENOTE ---
Pt very weak, unable to keep his eyes open for long periods of time. He is unable to feed himself. Pt had good appetite and ate 80% of breakfast when assisted with eating. He is JOHN, but his arms and legs are weak. He said this weakness has been
going on for days and maybe a week. He answers questions appropriately, pleasant and cooperative, but falls asleep at times. 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 His abdomen is
distended, soft, + BS. He has pain in his L side and back upon movement. He is incontinent at times.
--- NOTE | 2024-04-26 13:13 | W.PN.HOSP.TC ---
Today's Communication/Plan
-
Monitor vitals
See plan
Continue IV heparin
Echo
Ultrasound chest
PT/OT
Assessment / Plan
Assessment / Plan
CVS: S1-S2 normal,+murmur
Chest: Decreased right base, rales left side
Chest wall tenderness left.
Abdomen: Soft, mild left sided tenderness, Bowel sounds present
Extremities: No edema
HOSPITAL UNIT COORDINATOR: Non focal exam,asterixis, confused
Falls- Likely from orthostatic Hypotension vs mechanical
check orthos
monitor
Asterixis from uremia-ammonia normal
Continue to monitor renal function
TME-Likely from Above. Ammonia normal
Left posterior 11th rib fracture-Traumatic
Pain control, incentive spirometry
Small to moderate right pleural effusion-May need thoracentesis
Traumatic vs other
Ultrasound chest
Moderate pericardial effusion-check echo
Cardiology following
Acute kidney injury creatinine has been rising since March 2024
CKD stage 3
Metabolic acidosis noted
Bladder scan
Hold torsemide, Jardiance, metolazone
Hyperkalemia-Lokelma given
Hold potassium
Hyponatremia- Hypovolumic Hyponatremia. IVF
Chronic heart failure with preserved ejection fraction
Continue Coreg. Hold torsemide and potassium
Permanent atrial fibrillation-on Coumadin normally which is on hold; on bridging with Lovenox because of epidural injection to the back.
Also on digoxin as outpatient.
With acute kidney injury will switch to heparin drip
Valvular heart disease
Mitral valve repair 29 years ago at [place],Mitral stenosis and severe MR with transcatheter mitral valve replacement at [facility] 10/29/2022
Severe pulmonary hypertension
# Elevated TSH-repeat before adding medicines. Normal T4. Repeat .
# Anemia-check iron studies
# DM- Hold Jardiance . SSI
# Chronic right bundle branch block
# Permanent pacemaker placement October 2022
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
# MGUS
# History of gout-continue allopurinol. Check uric acid level.
# Gastroesophageal reflux disease--PPI
# Chronic back pain with T12 and L1 compression fractures. On Cymbalta, Neurontin. Narcotic dependent.
# Rheumatoid arthritis
# Bilateral pleural calcifications
# Sleep apnea on CPAP
# History of prostate cancer
# Anxiety depression-Cymbalta
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 August 2023,on ursodiol
# Insomnia on melatonin
# Hypoalbuminemia
# DVT prophylaxis-Heparin drip
# CODE STATUS-FULL CODE
I spent a total of 53 minutes with the patient or on the floor. More than 50% of this time involved counseling and coordination of care.
Anticipated Discharge: > 48 hours
Subjective/Interval History
-
Date of Service: April 26, 2024
denies pain
Objective Data
-
Labs:
Laboratory Results
04/26/24 04/26/24
03:22 10:49
WBC 6.0
Hgb 9.3 L
Hct 29.9 L
Plt Count 136
APTT 54.6 H 81.4 H
Sodium 132 L
Potassium 4.5
Chloride 94 L
Carbon Dioxide 28
BUN 76 H
Creatinine 2.1 H
Glucose 126 H
Calcium 9.0
Total Bilirubin 2.5 H
AST 24
ALT 10
Alkaline Phosphatase 134 H
Vital Signs:
Vital Signs
Temp Pulse Resp BP Pulse Ox
97.7 F 82 18 117/60 95
04/26/24 11:14 04/26/24 11:15 04/26/24 11:14 04/26/24 10:54 04/26/24 11:21
I&O
07/06/1104/26/24 04/27/24
06:59 06:59 06:59
Intake Total 500 / 500
Output Total 550 / 550
Balance -50 / -50
[2024-04-26] MEDS: LANOXIN 62.5 MCG PO (13:45)
[2024-04-26 14:13] LABS: Glucose - Point of Care 200 mg/dl (70-99)
[2024-04-26] MEDS: NOVOLOG FLEXPEN-LOW RESISTANCE 2 UNITS SC ×2 (14:52→17:42)
[2024-04-26 17:36] LABS: Glucose - Point of Care 220 mg/dl (70-99)
[2024-04-26] MEDS: NSS IV (17:44)
--- NOTE | 2024-04-26 19:11 | PTCARENOTE ---
Attempted to obtain Orthostatic VS. VS supine BP 95/60, HR 71, VS sitting BP 78/47, HR 72, Pt feeling slightly dizzy, did not stand for VS.
[2024-04-26] MEDS: COREG PO (20:11)
[2024-04-26] MEDS: TYLENOL 650 MG PO (20:12)
[2024-04-26] MEDS: HEPARIN 25000 UNITS/250 ML IV (20:15)
[2024-04-26 22:03] LABS: Glucose - Point of Care 131 mg/dl (70-99)
--- NOTE | 2024-04-26 22:38 | PTCARENOTE ---
Pt seems more confused this evening. AAOx2- not to time. BP soft. Pt resting intermittent thought shift so far. Bedrest. bed alarm in place for safety. POC discussed- Heparin gtt running as documented.
[2024-04-27] VITALS (15 sets, daily range): BP systolic 84–121; BP diastolic 47–79; PULSE 75–89; O2SAT 95; BMI 21.4
[2024-04-27] MEDS: TYLENOL 650 MG PO (01:46)
[2024-04-27 03:13] LABS: % Basophils 0.6 % (0-2); % Eosinophils 9.9 % (0-6); % Immature Granulocytes 0.9 % (0-0.5); % Lymphocytes 9.6 % (20.5-51.1); % Monocytes 11.3 % (1.7-9.3); % Neutrophils 67.7 % (42.2-75.2); Absolute Eosinophils 0.6 10^3/uL (0-0.7); Absolute Immature Granulocytes 0.1 10^3/uL (0-0.05); Absolute Lymphocytes 0.6 10^3/uL (1.2-3.4); Absolute Monocytes 0.7 10^3/uL (0.1-0.6); Absolute Neutrophils 4.4 10^3/uL (1.4-6.5); Hematocrit 30.5 % (39.0-52.0); Hemoglobin 9.4 g/dL (13.0-18.0); Mean Corp Hgb Conc. 30.8 g/dL (33.0-37.0); Mean Corpuscular Hgb 27.9 pg (27.0-31.0); Mean Corpuscular Volume 90.5 fL (80.0-94.0); Mean Platelet Volume 10.2 fL (7.4-10.4); Nucleated Red Blood Cells % 1.9 % (-); Platelet Count 138 10^3/uL (130-400); Red Blood Cell Count 3.37 10^6/uL (4.70-6.10); Red Cell Dist. Width 23.7 % (11.5-14.5); White Blood Cell Count 6.5 10^3/uL (4.8-10.8)
[2024-04-27 03:27] LABS: APTT 119.7 Sec (23.4-35.0)
[2024-04-27 03:37] LABS: ALT (SGPT) 10 U/L (0-50); AST (SGOT) 24 U/L (17-59); Albumin 3.4 g/dl (3.5-5.0); Alkaline Phosphatase 136 U/L (38-126); Blood Urea Nitrogen 71 mg/dl (9-20); Calcium 8.6 mg/dl (8.4-10.2); Carbon Dioxide 26 mmol/L (22-30); Chloride 93 mmol/L (98-107); Estimated Creatinine Clearance 23 ml/min; Glucose 128 mg/dl (70-99); Potassium 4.2 mmol/L (3.5-5.1); Sodium 131 mmol/L (135-145); Total Bilirubin 2.6 mg/dl (0.2-1.3); Total Protein 6.3 g/dl (6.3-8.2); eGFR 28.46
[2024-04-27 06:50] LABS: Glucose - Point of Care 150 mg/dl (70-99)
[2024-04-27] MEDS: CYMBALTA DELAYED RELEASE 30 MG PO (09:18)
[2024-04-27] MEDS: NEURONTIN 300 MG PO ×2 (09:18→21:36)
[2024-04-27] MEDS: LIDOCAINE 4% PATCH 1 PATCH TOPICAL ×2 (09:18)
[2024-04-27] MEDS: PERCOCET 5/325 1 TABLET PO ×3 (09:18→23:18)
[2024-04-27] MEDS: NOVOLOG FLEXPEN-LOW RESISTANCE 1 UNITS SC ×3 (09:19→16:53)
[2024-04-27] MEDS: OSCAL 500 + D 500 MG PO (09:19)
[2024-04-27] MEDS: PROTONIX 40 MG PO (09:19)
[2024-04-27] MEDS: URSO 500 MG PO ×2 (09:19→21:36)
[2024-04-27] MEDS: COREG 3.125 MG PO ×2 (09:19→21:36)
[2024-04-27] MEDS: ZYLOPRIM 450 MG PO (09:20)
--- NOTE | 2024-04-27 09:44 | W.PN.CARDCBS ---
Addendum entered and electronically signed by Marcio Montanez MD 04/27/24 13:20:
I saw and examined the patient.
The Organizational Effectiveness Director's note was reviewed and I agree with the note.
Comment:
GEN: No distress, awake, Ox3
HEENT: supple, anicteric, mmm
LUNGS: dec Bs at bases R>L
CV: Irreg, S1/S2, 10/24 syst LSB, no gallop
ABD: soft, BS+, NT/ND
EXT: No edema
NEURO: Gross non-focal
SKIN: No rash
Plan:
Plan for thoracentesis today.
Creatinine remains about the same at 2.2. Will plan for right heart catheterization in a.m. to better assess volume status.
Will add midodrine to help with renal perfusion.
Agree with plan to stop digoxin, Jardiance and reduce gabapentin.
Continue to hold diuretics. Volume status is difficult to assess although I suspect he is volume overloaded.
Remains off full anticoagulation and will continue IV heparin for now.
Original Note:
Today's Communication / Plan
-
IRAD consult for R kath, may consider US to assess for paracentesis due to free fluid noted in abd on CT imaging 04/25
consider stopping dig given RI. also consider benefit of jardiance in setting of RI
consider midodrine
consider benefit of amiodarone for rate/rhythm control with afib and PVCs
interrogate device
diuretics remain on hold
PT/OT
IV heparin for now
Impression / Plan
-
Primary Osteopathic Physician: Dr. GERRI Weeks
Assessment:
Presentation with falls
Asterixis
Posterior 11th rib fracture
T12 compression fracture
L1 compression fracture
Right pleural effusion s/p Rt thoracentesis 03/29/24 ~1400 cc clear yellow pleural flu, recurrent by imaging 04/25/24
Small to mod pericardial effusion by CT
Hyperkalemia
Hyponatremia
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
CM, EF 30-35% by echo 03/2024
history of remote mitral valve repair surgery 1992 at [place] with iatrogenic mitral stenosis and recurrent severe MR status post TMVR (Antony valve placement x2) at [facility] 10/29/2022
CHB s/p single chamber Verma PPM placement 10/30/22
permanent atrial fibrillation on chronic Coumadin therapy for 31 years, managed by PCP
hypertension
mild aortic stenosis
chronic right bundle branch block
PAD
MGUS/Chronic anemia
Osteoarthritis
Chronic back pain with lumbar compression fracture, scheduled for upcoming vertebroplasty
Gout
Rheumatoid arthritis
History of hepatic failure from [facility] with peak bilirubin of 30 08/2023
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
JESSY on CPAP
ECHO 06/25/22: EF 50 to 55%, grade 3 diastolic dysfunction, septal contraction abnormality, severe biatrial enlargement, reduced RV function, status post full mitral annuloplasty ring from 1992, mean mitral gradient at average of 10 mmHg, concern for
possible moderate to severe MS, at least moderate MR noted, moderate to severe TR, severe pulmonary hypertension, PAP 69 mmHg, aortic sclerosis, ascites present
ECHO 01/20/23:�EF 35 to 40%, abnormal septal motion, moderate concentric LVH, enlarged RV size, pacer wire in right ventricle, status post #29 ANTONY mitral valve replacement with peak/mean gradients across valve of 08/23 with no MR seen, mild to
moderate eccentric AR, mild with peak mean gradients 23/12 mmHg, mild to moderate TR, PAP 52 mmHg, small ASD/PFO with [id number] shunt
Echo 07/09/2023:�EF 40-45%, dilated and hypokinetic RV, severe PAT, s/p� #29 Antony TMVR mean MV grad of 5 mmHg. No MR. Mild with peak/mean AV grad of 33/17 mmHg. Severe TR with dilated TV annulus, Severe PHTN with severely elevated pulmonary
pressures PasP 75-80 mmHg.
Echo 03/28/24: EF 30-35%, Severely biatrial enlargement. S/p #21 Antony TMVR with peak/mean gradients of 13/6 mmHg respectively. No mitral regurgitation. Indexed LA volume is severely abnormal (> 48 mL/m2). Mild aortic stenosis. Peak/mean
gradients 18/9 mmHg respectively. Mild aortic regurgitation. Moderate tricuspid regurgitation. PAP 53 mmHg assuming mmHg
ECHO 04/26/24: EF 30 to 35%, global hypokinesis, enlarged RV size, severe biatrial enlargement, TMVR with peak/mean gradient 8/4 mmHg, no MR, mild , peak/mean gradient 21/30 mmHg, mild AR, moderate TR, PAP 45 to 50 mmHg, small pericardial effusion,
pleural effusion present.
Plan:
-Patient presented from Dr. Mccoy's office due to falls and tremors. He was supposed to have a back injection 04/25, however instead was referred to ER. seems to be failing at home
-he appears clearer today. off supp O2. he states he has been having issues with dizziness and falls at home, no syncope
-ortho VS positive from lying to sitting. standing not completed due to SBP drop to 70s with sitting. may need to consider addition of midodrine
-Cr 2.2 on 04/27. holding OP diuretics, jardiance.
-echo with results as above. EF 30-35%, no significant change compared to prior
-imaging with mod R pleural effusion by chest US. would complete thoracentesis if able by IRAD. also with evidence by imaging of free fluid in abd/pelvis by CT. ? eval for paracentesis, patient does complain of some abd bloating
-in vpaced rhythm with frequent PVCs. one 10-beat run of NSVT this AM, asymptomatic. will interrogate device. K stable. check mag. continue low dose coreg with hold parameters
-dig level <0.4, but unclear if best drug for patient given recent worsening of renal status.
-coumadin on hold due to recent plan for epidural. started on IV heparin in ER, continue for now. hgb stable at 9.4
-PT/OT evals
-pain mgmt of fractures, back/hip pain
-will likely need placement upon DC, he was living alone independently prior to admission
-snf prognosis appears poor. presently full code
-d/w nursing
Progress Note - Osteopathic Physician
Subjective
Date of Service: April 27, 2024
Reports left hip as well as back pain. Denies chest pain, shortness of breath, palpitations. Does report some abdominal bloating
Objective
Labs:
04/27/24 02:52
04/27/24 02:52
Labs
Hgb 9.4 g/dL (13.0-18.0) L 04/27/24 02:52
Hct 30.5 % (39.0-52.0) L 04/27/24 02:52
Plt Count 138 10^3/uL (130-400) 04/27/24 02:52
PT 15.0 Sec (11.4-14.6) H 04/25/24 09:40
INR 1.18 04/25/24 09:40
APTT 119.7 Sec (23.4-35.0) H 04/27/24 02:52
Sodium 131 mmol/L (135-145) L 04/27/24 02:52
Potassium 4.2 mmol/L (3.5-5.1) 04/27/24 02:52
BUN 71 mg/dl (9-20) H 04/27/24 02:52
Creatinine 2.2 mg/dL (0.7-1.3) H 04/27/24 02:52
Glucose 128 mg/dl (70-99) H 04/27/24 02:52
Digoxin < 0.4 ng/ml (0.8-2.0) L 04/25/24 13:09
Troponins
04/25/24
09:40
Troponin I 0.034
Vital Signs and I&O:
Vital Signs
Temp Pulse Resp BP Pulse Ox
97.8 F 84 20 98/58 93
04/27/24 06:45 04/27/24 09:19 04/27/24 06:45 04/27/24 09:19 04/27/24 06:45
Vital Signs
Temp Pulse Resp BP Pulse Ox
97.8 F 84 20 98/58 93
04/27/24 06:45 04/27/24 09:19 04/27/24 06:45 04/27/24 09:19 04/27/24 06:45
Intake & Output
04/25/24 04/26/24 04/27/24 04/28/24
07:59 07:59 07:59 07:59
Intake Total 500 / 500 1040 / 1040
Output Total 550 / 550 1050 / 1050
Balance -50 / -50 -10 / -10
Physical Exam
Physical Exam
GEN: No distress, awake, alert, oriented x3. chronically ill appearing, frail
HEENT: supple, anicteric, mmm, eomi
LUNGS: Decreased RLB, no wheezes
CV: Irreg, S1/S2, 1/6 syst LSB
ABD: soft, BS+, mild distended
EXT: No cyanosis, clubbing, edema
NEURO: Gross non-focal
SKIN: Warm, pink, dry. No rash. Scattered ecchymoses of B/L UE
[2024-04-27 09:52] LABS: Magnesium 2.4 mg/dl (1.6-2.3)
--- NOTE | 2024-04-27 10:19 | PN.CDI ---
CDI
- -
CDI:
Physician Documentation Request
Admit Date: 04/25/24 18:58
Dear Chris,
Patient admitted with fall and RIGOBERTO.
04/25 Nursing skin assessment, 'Stage 1 sacral pressure injury, POA.'
Physician documentation of the type and location of wounds is required for compliant documentation. Based on the above clinical findings and your assessment, please provide the following in your progress note:
Type (etiology) of ulcer/wound:
- Pressure (decubitus) ulcer
- Other
- Unable to determine
If a pressure ulcer, please also include the stage* of the ulcer:
- Stage 1 - Skin intact, non-blanchable redness
- Stage 2 - Partial thickness loss of dermis, includes intact or open blister
- Stage 3 - Full thickness tissue not including bone, tendon or muscle
- Stage 4 - Full thickness tissue loss, including exposed bone, tendon or muscle
- Unstageable - Full thickness loss in which the base of the ulcer is covered by slough (yellow, ibarra, frank, green or brown) and/or eschar (ibarra, brown or black) in the wound bed.
- Unable to determine
Use of terms such as suspected, likely, concern for, or probable (associated with a specific diagnosis that is being evaluated, monitored, or treated as if it exists) are acceptable and can be coded in the inpatient setting, when documented at the
time of discharge.
Thank you,
Mckenzie JONES,RN,CCDS
CDI Specialist
Available via [place] text
Please use your independent medical judgment in providing your response.
*Source: National Pressure Ulcer Advisory Panel (NPUAP)
--- NOTE | 2024-04-27 10:33 | W.CON.NEPH ---
Consultation
-
Date/Time Consultation Requested: 04/27/2024 9:00AM
Date/Time Consultation Performed: 04/27/2024 10:30 AM
Requesting Provider: Dr. Perez
Performing Provider: Dr. Craig
Reason for Consultation: Acute kidney injury
Medical History
-
Chief Complaint: Acute kidney injury
History of Present Illness:
The patient is an 84-year-old male with a past medical history of congestive heart failure. His EF is between 30 to 35% and in the outpatient setting he is maintained on the combination of carvedilol digoxin, Jardiance, and torsemide 20 mg twice
daily and metolazone, in the setting of his congestive heart failure. He has a history of chronic kidney disease and maintains a baseline creatinine of 2.0 (6.24) who is followed by myself. He has a history of severe MR has undergone previous
mitral valve replacement and also has indwelling single chamber pacemaker placement since October 2022. He presents to the hospital due to falls. He was supposed to have an epidural injection with Dr. Mccoy yesterday however upon arriving to
office reported multiple falls and was tremulous and procedure was cancelled. He was brought to [facility] for evaluation. Patient is unable to provide much history at this time. He believes at least his most recent fall was related to tripping although
he cannot recall details. On arrival, noted to have RIGOBERTO with hyperkalemia.. CT of chest in ER shows small to mod pericardial effusion and R pleural effusion. Nephrology was consulted for acute renal failure with a creatinine of 2.2 and a potassium
of 5.7.
Past Medical History
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
CKD stage IIIb
history of remote mitral valve repair surgery 1992 at [place] with iatrogenic mitral stenosis and recurrent severe MR status post TMVR (Antony valve placement x2) at [facility] 10/29/2022
CHB s/p single chamber Verma PPM placement 10/30/22
permanent atrial fibrillation on chronic Coumadin therapy for 31 years, managed by PCP
hypertension
mild aortic stenosis
chronic right bundle branch block
PAD
MGUS/Chronic anemia
Osteoarthritis
Chronic back pain with lumbar compression fracture, scheduled for upcoming vertebroplasty
Gout
Rheumatoid arthritis
History of hepatic failure from [facility] with peak bilirubin of 30 08/2023
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
JESSY on CPAP
Pacer
Social History
Tobacco: Non-Smoker
Alcohol: None
Allergies / Home Medications
Allergy/AdvReac Type Severity Reaction Status Date / Time
No Known Allergies Allergy Verified 03/24/24 08:12
�Medication �Instructions �Recorded �Confirmed �Type
allopurinol 100 mg tablet 450 mg PO DAILY Gout 07/08/23 04/25/24 History
carvedilol 3.125 mg tablet 3.125 mg PO BID #60 tabs 07/20/23 04/25/24 Rx
pantoprazole 40 mg tablet,delayed 40 mg PO DAILY #30 tabs 07/20/23 04/25/24 Rx
release
calcium carbonate 600 mg-vitamin 1 tab PO DAILY Supplement 09/02/23 04/25/24 History
D3 20 mcg (800 unit) tablet
docusate sodium 100 mg capsule 100 mg PO DAILYPRN PRN constipation 09/02/23 04/25/24 History
(Colace)
melatonin 5 mg tablet 5 mg PO HSPRN PRN sleep 10/05/23 04/25/24 History
ursodiol 500 mg tablet 500 mg PO BID #60 tabs 10/10/23 04/25/24 Rx
acetaminophen 650 mg 1,300 mg PO Q8HPRN PRN mild pain 03/24/24 04/25/24 History
tablet,extended release (Tylenol
Arthritis Pain)
ceramides 1,3,6-II (CeraVe topical 1 applic topical DAILYPRN PRN dry 03/24/24 04/25/24 History
cream) skin
denosumab 60 mg/mL subcutaneous 60 mg SC [id number] 03/24/24 04/25/24 History
syringe
duloxetine 30 mg capsule,delayed 30 mg PO DAILY Mental 03/24/24 04/25/24 History
release (Cymbalta) Health/Anxiety
oxycodone-acetaminophen 5 mg-325 1 tab PO TID severe pain 03/24/24 04/25/24 History
mg tablet
polyethylene glycol 3350 17 gram 17 g PO DAILYPRN PRN constipation 03/24/24 04/25/24 History
oral powder packet (Miralax)
potassium chloride 20 mEq 40 meq PO DAILY Supplement 03/24/24 04/25/24 History
tablet,extended release
potassium chloride 20 mEq 20 meq PO SUTUWEFRSA@1400 03/24/24 04/25/24 History
tablet,extended release(part/cryst) Supplement
sodium chloride 0.65 % nasal spray 1 spray intranasal DAILYPRN PRN 03/24/24 04/25/24 History
aerosol dry nose
metolazone 2.5 mg tablet 2.5 mg PO MOTH #0 tabs 03/31/24 04/25/24 Rx
torsemide 20 mg tablet 20 mg PO BID #60 tabs 03/31/24 04/25/24 Rx
digoxin 62.5 mcg (0.0625 mg) tablet 62.5 mcg PO SUTUWEFRSA 04/25/24 04/25/24 History
empagliflozin 10 mg tablet 10 mg PO DAILY 04/25/24 04/25/24 History
(Jardiance)
enoxaparin 40 mg/0.4 mL 40 mg SC DAILY 04/25/24 04/25/24 History
subcutaneous syringe
gabapentin 300 mg capsule 300 mg PO TID 04/25/24 04/25/24 History
potassium chloride 20 mEq 40 meq PO MOTH@1400 04/25/24 04/25/24 History
tablet,extended release(part/cryst)
Review of Systems
-
History Source: Family
All other systems: Negative unless noted
Constitutional: No Symptoms (Weight stable) and Fatigue
EENT: No Symptoms
Respiratory: Other (Respiratory status at baseline)
Cardiac: No Symptoms
Abdomen/GI: No Symptoms
: No Symptoms
Musculoskeletal: Joint Swelling, Muscle Pain and Other (Lower extremity weakness, back pain)
Skin: No Symptoms
Neurological: Other (Confusion)
Endocrine: No Symptoms
Hematologic/Lymphatic: No Symptoms
Physical Exam
Vital Signs
Vital Signs
Temp Pulse Resp BP Pulse Ox
97.8 F 84 20 98/58 93
04/27/24 06:45 04/27/24 09:19 04/27/24 06:45 04/27/24 09:19 04/27/24 06:45
Lab Results
WBC 6.5 10^3/uL (4.8-10.8) 04/27/24 02:52
RBC 3.37 10^6/uL (4.70-6.10) L 04/27/24 02:52
Hgb 9.4 g/dL (13.0-18.0) L 04/27/24 02:52
Hct 30.5 % (39.0-52.0) L 04/27/24 02:52
Plt Count 138 10^3/uL (130-400) 04/27/24 02:52
Sodium 131 mmol/L (135-145) L 04/27/24 02:52
Potassium 4.2 mmol/L (3.5-5.1) 04/27/24 02:52
Chloride 93 mmol/L (98-107) L 04/27/24 02:52
Carbon Dioxide 26 mmol/L (22-30) 04/27/24 02:52
BUN 71 mg/dl (9-20) H 04/27/24 02:52
Creatinine 2.2 mg/dL (0.7-1.3) H 04/27/24 02:52
eGFR 28.46 04/27/24 02:52
Glucose 128 mg/dl (70-99) H 04/27/24 02:52
Calcium 8.6 mg/dl (8.4-10.2) 04/27/24 02:52
Ors-B-Pxerjztgera Pept 6360 pg/ml 04/25/24 09:40
Albumin 3.4 g/dl (3.5-5.0) L 04/27/24 02:52
Physical Exam
General: AOx2, Nontoxic , lethargic , answers most questions appropriatly
HEENT: PERRL, EOMI, Anicteric, Conjunctivae Clear, Ear/Nose Intact, Hearing Normal, Oropharynx Clear/dry, Facial Symmetry, Neck Supple, Neck: Trachea Midline, No JVD and No Thyromegaly, no Bruits
Respiratory: coarse to auscultation , decreased breathsounds R>L bilaterally with normal lung exersion
Cardiac: S1/S2 irregular with soft ejection murmur
Breast: Deferred by me
Abdomen: Soft, Nontender, Nondistended, Normal Bowel Sounds and No Hepatosplenomegaly
Rectal: Deferred by Provider
Genito-urinary: No Costovertebral Tenderness
Extremities: No Clubbing, No Cyanosis and No Edema
Skin: No Rash or open lesions
Neuro: Nonfocal/Grossly Intact, CN II-XII (Intact) and Strength (Musculoskeletal exam 5 out of 5 both upper and lower extremities)
Hematologic/Lymphatic: No Cervical Lymphadenopathy, No Submandibular Lymphadenopathy and No Supraclavicular Lymphadenopathy
Psych: Mood/afflect pleasant, lethargic, answers most questions appropriate
Vascular: plus 1 pedal and radial pulses
Data Reviewed
-
Radiology: Image Personally Visualized and interpreted (Chest x-ray notes enlarged heart and mild interstitial edema, right pleural effusion)
Labs: Labs Reviewed by me (CBC BMP urinalysis urine sodium)
Old Records: Reviewed (Creatinine reviewed from March 31, 2024 1.5)
Assessment/Plan
-
Impression:
CKD 3b with Azotemia
Presentation with falls/orthostasis/lethargy
Right pleural effusion
Anemia
Asterixis
Posterior 11th rib fracture
T12 compression fracture
L1 compression fracture
Right pleural effusion s/p Rt thoracentesis 03/29/24 ~1400 cc clear yellow pleural flu, recurrent by imaging 04/25/24
Small to mod pericardial effusion by CT
Hyperkalemia
Hyponatremia
CM, EF 30-35% by echo 03/2024
history of remote mitral valve repair surgery 1992 at [place] with iatrogenic mitral stenosis and recurrent severe MR status post TMVR (Antony valve placement x2) at [facility] 10/29/2022
CHB s/p single chamber Verma PPM placement 10/30/22
permanent atrial fibrillation on chronic Coumadin therapy for 31 years, managed by PCP
hypertension
mild aortic stenosis
chronic right bundle branch block
PAD
MGUS/Chronic anemia
Osteoarthritis
Chronic back pain with lumbar compression fracture, scheduled for upcoming vertebroplasty
Gout
Rheumatoid arthritis
History of hepatic failure from [facility] with peak bilirubin of 30 08/2023
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
JESSY on CPAP
Hyponatremia
Plan:
-Low urine sodium consistent with prerenal stimulus, (CHF) UA bland
-creatinine with escalation off baseline of 1.4 baseline but noted azotemia
-follow i/os
-hold jardiance, and diuretics (patient hypotensive)
-Maintain midodrine for hemodynamic support
-Patient appears to be volume overloaded and would initiate diuresis
-If azotemia and/or renal failure exacerbates with diuresis that I would suggest right heart cath to help confirm volume status and prognosis
-Discussed case with cardiology Re: right heart cath plan
-Would hold gabapentin and narcotics given confusion
-Hyponatremia likely a function of elevated ADH in setting of congestive heart failure, add fluid restriction ~480z
-Bladder scan to assess for obstructive component
-For right thoracentesis
[2024-04-27 11:26] LABS: APTT 75.9 Sec (23.4-35.0)
--- NOTE | 2024-04-27 12:15 | W.CARD.DEVCH ---
Cardiac Device Check
-
Device: Pacemaker
Lath Tier: [employer]
The patient's device was interrogated with assistance of the device medical claims representative. Single chamber PPM. The device had normal function. No abnormalities seen however limited ability to detect arrhythmia as single chamber device. Patient not PPM
dependent.
[2024-04-27 12:16] LABS: Glucose - Point of Care 194 mg/dl (70-99)
--- NOTE | 2024-04-27 12:46 | CM ---
Reviewed chart. Met with Katharina Hoffmann and his daughter to review recommendations of the SNF/Rehab. Reviewed SNF/Rehab. options and they would like to explore SNF/Rehab. at [facility], [facility] and [place]
[facility]. Sent referrals to the above SNF/Rehab. to check on bed availability. Medical work-up in progress. The discharge plan is to go to SNF/Rehab. when medically stable.
[2024-04-27] MEDS: ProAmatine 5 MG PO (13:21)
[2024-04-27 14:16] LABS: Urine Sodium < 5 mmol/L (30-90)
--- NOTE | 2024-04-27 14:51 | W.PN.HOSP.TC ---
Today's Communication/Plan
-
monitor vitals
see plan
IR for thora
NPO tomorrow for possible RHC
Monitor renal function
PT/OT
Daughter updated at bedside
Assessment / Plan
Assessment / Plan
CVS: S1-S2 normal,+murmur
Chest: Decreased right base, rales left side
Chest wall tenderness left.
Abdomen: Soft, mild left sided tenderness, Bowel sounds present
Extremities: No edema
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
Falls- Likely from orthostatic Hypotension vs mechanical
Orthosis currently negative however blood pressure remains low. Were checked after fluids so not sure if accurate
monitor
Asterixis from uremia-ammonia normal
Continue to monitor renal function
TME-Likely from Above. Ammonia normal
Left posterior 11th rib fracture-Traumatic
Pain control, incentive spirometry
Small to moderate right pleural effusion-May need thoracentesis
Traumatic vs other
Ultrasound chest with mod effusion
IR consulted for thora; ordered labs
Now periods of hypotension, midodrine added
Moderate pericardial effusion
Cardiology following
Echo 04/26 with EF 30 to 35%, global hypokinesis. Small pericardial effusion
Management per cardiology
Acute kidney injury creatinine has been rising since March 2024
CKD stage 3
Metabolic acidosis noted
Bladder scan
Hold torsemide, Jardiance, metolazone
Volume status at this time very difficult to assess; plan for RHC 04/28
Nephrology following
Hyperkalemia-s/p Lokelma
Hold potassium
Hyponatremia
Suspect some SIADH
Fluid restriction
Nephrology following
Chronic heart failure with preserved ejection fraction
Continue Coreg. Hold torsemide and potassium
Permanent atrial fibrillation-on Coumadin normally which is on hold; was on bridging with Lovenox because of epidural injection to the back.
digoxin dc'ed
With acute kidney injury switched to heparin drip; will eventually start back coumadin if no procedures planned
Valvular heart disease
Mitral valve repair 29 years ago at [place],Mitral stenosis and severe MR with transcatheter mitral valve replacement at [facility] 10/29/2022
Severe pulmonary hypertension
# Elevated TSH-repeat before adding medicines. Normal T4. Repeat .
# Anemia-check iron studies
# DM- Hold Jardiance . SSI
# Chronic right bundle branch block
# Permanent pacemaker placement October 2022
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
# MGUS
# History of gout-continue allopurinol. Check uric acid level.
# Gastroesophageal reflux disease--PPI
# Chronic back pain with T12 and L1 compression fractures. On Cymbalta, Neurontin. Narcotic dependent.
# Rheumatoid arthritis
# Bilateral pleural calcifications
# Sleep apnea on CPAP
# History of prostate cancer
# Anxiety depression-Cymbalta
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,on ursodiol
# Insomnia on melatonin
# Hypoalbuminemia
# DVT prophylaxis-Heparin drip
# CODE STATUS-FULL CODE
Spoke with patient and daughter in length. Patient at this time wants to remain full code.
I spent a total of 53 minutes with the patient or on the floor. More than 50% of this time involved counseling and coordination of care.
Anticipated Discharge: > 48 hours
Subjective/Interval History
-
Date of Service: April 27, 2024
denies pain
Objective Data
-
Labs:
Laboratory Results
04/27/24 04/27/24 04/27/24
02:52 10:59 17:00
WBC 6.5
Hgb 9.4 L
Hct 30.5 L
Plt Count 138
APTT 119.7 H 75.9 H Pending
Sodium 131 L
Potassium 4.2
Chloride 93 L
Carbon Dioxide 26
BUN 71 H
Creatinine 2.2 H
Glucose 128 H
Calcium 8.6
Total Bilirubin 2.6 H
AST 24
ALT 10
Alkaline Phosphatase 136 H
Vital Signs:
Vital Signs
Temp Pulse Resp BP Pulse Ox
97.4 F 71 20 97/71 93
04/27/24 12:12 04/27/24 13:21 04/27/24 12:12 04/27/24 13:21 04/27/24 12:12
I&O
04/26/24 04/27/24 04/28/24
06:59 06:59 06:59
Intake Total 500 / 500 1040 / 1040
Output Total 550 / 550 1050 / 1050
Balance -50 / -50 -10 / -10
[2024-04-27] MEDS: MAALOX 30 ML PO (16:51)
[2024-04-27 16:53] LABS: Glucose - Point of Care 184 mg/dl (70-99)
[2024-04-27 17:47] LABS: APTT 75.6 Sec (23.4-35.0)
[2024-04-27 18:49] LABS: Body Fluid pH 7.44
[2024-04-27 18:56] LABS: Body Fluid WBC 251 /CUMM
[2024-04-27 18:57] LABS: Body Fluid Mononuclear 54.6 %; Body Fluid Polymorphonuclear 45.4 %
[2024-04-27 19:01] LABS: Body Fluid Amylase 50 U/L; Body Fluid Glucose 146 mg/dl; Body Fluid LDH 169 U/L; Body Fluid Protein 2.8 g/dl; Body Fluid Triglycerides < 30 mg/dl
[2024-04-27 19:19] LABS: Body Fluid Second Tech EYM
[2024-04-27 21:59] LABS: Glucose - Point of Care 141 mg/dl (70-99)
[2024-04-28] VITALS (16 sets, daily range): BP systolic 88–113; BP diastolic 53–81; PULSE 70–72; BMI 21.1
[2024-04-28 04:23] LABS: % Basophils 0.6 % (0-2); % Eosinophils 9.3 % (0-6); % Immature Granulocytes 0.9 % (0-0.5); % Lymphocytes 5.9 % (20.5-51.1); % Monocytes 10.3 % (1.7-9.3); Absolute Eosinophils 0.6 10^3/uL (0-0.7); Absolute Immature Granulocytes 0.1 10^3/uL (0-0.05); Absolute Lymphocytes 0.4 10^3/uL (1.2-3.4); Absolute Monocytes 0.7 10^3/uL (0.1-0.6); Hematocrit 33.6 % (39.0-52.0); Hemoglobin 10.4 g/dL (13.0-18.0); Mean Corpuscular Hgb 28.6 pg (27.0-31.0); Mean Corpuscular Volume 92.3 fL (80.0-94.0); Mean Platelet Volume 10.1 fL (7.4-10.4); Nucleated Red Blood Cells % 1.7 % (-); Platelet Count 136 10^3/uL (130-400); Red Blood Cell Count 3.64 10^6/uL (4.70-6.10); Red Cell Dist. Width 23.6 % (11.5-14.5); White Blood Cell Count 6.9 10^3/uL (4.8-10.8)
[2024-04-28 04:43] LABS: APTT 79.5 Sec (23.4-35.0)
[2024-04-28 04:49] LABS: ALT (SGPT) 11 U/L (0-50); AST (SGOT) 25 U/L (17-59); Albumin 3.5 g/dl (3.5-5.0); Alkaline Phosphatase 142 U/L (38-126); Blood Urea Nitrogen 69 mg/dl (9-20); Calcium 8.8 mg/dl (8.4-10.2); Carbon Dioxide 27 mmol/L (22-30); Chloride 93 mmol/L (98-107); Estimated Creatinine Clearance 25 ml/min; Glucose 133 mg/dl (70-99); Magnesium 2.5 mg/dl (1.6-2.3); Potassium 4.5 mmol/L (3.5-5.1); Sodium 131 mmol/L (135-145); Total Bilirubin 3.2 mg/dl (0.2-1.3); Total Protein 6.4 g/dl (6.3-8.2)
--- NOTE | 2024-04-28 05:12 | PTCARENOTE ---
Received patient at change of shift resting in bed. VSS. VPaced with PVCs on monitor. Patient with intermittent episodes of confusion. Attempted to reorient patient to place and situation. Patient requires assist x2 and frequent ques to use
bedside commode. CC#30 replaced, skin intact. Turned Q2Hr while in bed in order to prevent skin breakdown. Sacral foam remains intact. Bed alarm activated.
[2024-04-28 06:54] LABS: Glucose - Point of Care 138 mg/dl (70-99)
[2024-04-28] MEDS: NOVOLOG FLEXPEN-LOW RESISTANCE SC ×3 (07:46→16:30)
[2024-04-28] MEDS: CYMBALTA DELAYED RELEASE 30 MG PO (08:16)
[2024-04-28] MEDS: COREG 3.125 MG PO ×2 (08:16→20:08)
[2024-04-28] MEDS: URSO 500 MG PO ×2 (08:17→20:08)
[2024-04-28] MEDS: ZYLOPRIM 450 MG PO (08:17)
[2024-04-28] MEDS: OSCAL 500 + D 500 MG PO (08:21)
[2024-04-28] MEDS: ProAmatine 5 MG PO ×2 (08:21→12:13)
[2024-04-28] MEDS: PROTONIX 40 MG PO (08:21)
[2024-04-28] MEDS: LIDOCAINE 4% PATCH 1 PATCH TOPICAL ×2 (09:19→09:20)
[2024-04-28] MEDS: TYLENOL 650 MG PO (09:21)
[2024-04-28] MEDS: NEURONTIN 300 MG PO (09:28)
--- NOTE | 2024-04-28 09:48 | PTCARENOTE ---
Pt drowsy, awakens to voice, Percocet held. Pt med with Tylenol 650 mg po for all over body aches.
[2024-04-28] MEDS: PERCOCET 5/325 PO (09:53)
--- NOTE | 2024-04-28 09:57 | W.PN.NEPH.PH ---
Today's Communication / Plan
-
For right heart cath
Holding diuretics in setting of kidney dysfunction and hypotension
Assessment/Plan
-
Impression:
CKD 3b with Azotemia
Presentation with falls/orthostasis/lethargy
Right pleural effusion
Anemia
Asterixis
Posterior 11th rib fracture
T12 compression fracture
L1 compression fracture
Right pleural effusion s/p Rt thoracentesis 03/29/24 ~1400 cc clear yellow pleural flu, recurrent by imaging 04/25/24
Small to mod pericardial effusion by CT
Hyperkalemia
Hyponatremia
CM, EF 30-35% by echo 03/2024
history of remote mitral valve repair surgery 1992 at [place] with iatrogenic mitral stenosis and recurrent severe MR status post TMVR (Antony valve placement x2) at [facility] 10/29/2022
CHB s/p single chamber Verma PPM placement 10/30/22
permanent atrial fibrillation on chronic Coumadin therapy for 31 years, managed by PCP
hypertension
mild aortic stenosis
chronic right bundle branch block
PAD
MGUS/Chronic anemia
Osteoarthritis
Chronic back pain with lumbar compression fracture, scheduled for upcoming vertebroplasty
Gout
Rheumatoid arthritis
History of hepatic failure from [facility] with peak bilirubin of 30 08/2023
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
JESSY on CPAP
Hyponatremia
Plan:
-Low urine sodium consistent with prerenal stimulus, (CHF) UA bland
-creatinine with escalation off baseline of 1.4 baseline but noted azotemia, creatinine unchanged at 2
-follow i/os
-holding jardiance, and diuretics (patient hypotensive)
-Maintain midodrine for hemodynamic support
-Patient appears to be volume overloaded and would initiate diuresis
-If azotemia and/or renal failure exacerbates with diuresis that I would suggest right heart cath to help confirm volume status and prognosis
-Discussed case with cardiology Re: right heart cath plan
-Would hold gabapentin and narcotics given confusion
-Hyponatremia likely a function of elevated ADH in setting of congestive heart failure, add fluid restriction ~48oz
-Bladder scan to assess for obstructive component
-Status right thoracentesis for ~1 liter obtained on 04/27/24
-
-
Date of Service: April 28, 2024
CC / HPI / ROS
-
Chief Complaint:
Acute kidney injury
History of Present Illness:
Creatinine stable at 2
Hemodynamically labile on midodrine support
Status post right thoracentesis performed on 04/27/2024 for approximately 1 L
Review of Systems:
Urine output not recorded
Weights down
No chest pain or shortness of breath
Confusion persists
Labs
-
Labs:
WBC 6.9 10^3/uL (4.8-10.8) 04/28/24 04:04
RBC 3.64 10^6/uL (4.70-6.10) L 04/28/24 04:04
Hgb 10.4 g/dL (13.0-18.0) L 04/28/24 04:04
Hct 33.6 % (39.0-52.0) L 04/28/24 04:04
Plt Count 136 10^3/uL (130-400) 04/28/24 04:04
Sodium 131 mmol/L (135-145) L 04/28/24 04:04
Potassium 4.5 mmol/L (3.5-5.1) 04/28/24 04:04
Chloride 93 mmol/L (98-107) L 04/28/24 04:04
Carbon Dioxide 27 mmol/L (22-30) 04/28/24 04:04
BUN 69 mg/dl (9-20) H 04/28/24 04:04
Creatinine 2.0 mg/dL (0.7-1.3) H 04/28/24 04:04
eGFR 31.90 04/28/24 04:04
Glucose 133 mg/dl (70-99) H 04/28/24 04:04
Calcium 8.8 mg/dl (8.4-10.2) 04/28/24 04:04
Xnn-S-Jamzksdlaow Pept 6360 pg/ml 04/25/24 09:40
Albumin 3.5 g/dl (3.5-5.0) 04/28/24 04:04
Physical Exam
-
Vital Signs:
Vital Signs
Temp Pulse Resp BP Pulse Ox
96.6 F L 72 20 106/68 94
04/28/24 07:41 04/28/24 08:33 04/28/24 07:41 04/28/24 08:33 04/28/24 07:41
Cardiovascular:: Regular rate and rhythm
Respiratory:: Bilateral: Coarse (Decreased breath sounds to right base)
Lung Excursion:: Normal
Abdomen:: Nontender and Soft
Bowel Sounds:: Normal
Extremity Edema:: None: Bilateral:
Mccormick Catheter: No
--- NOTE | 2024-04-28 10:50 | PTCARENOTE ---
When Pt more awake, attempted to sit at side of bed with 2 assist. BP check initially while Pt lying in bed 95/56, HR 70. Pt sat at side of bed needing assist of 2, BP 88/69, HR 70, Pt felt dizzy/ lightheaded, assisted back into bed.
--- NOTE | 2024-04-28 11:31 | CM ---
Reviewed chart. [facility], [facility] and [facility] has accept him pending bed availability when medically stable. Updated daughter with accepting SNFG/Rehab. Awaiting family decision regarding SNF/Rehab. Medical work-up in progress.
The discharge plan is to go to SNF/Rehab. when medically stable and bed available.
[2024-04-28 11:51] LABS: Glucose - Point of Care 157 mg/dl (70-99)
[2024-04-28 12:24] LABS: LDH 243 U/L (120-246)
--- NOTE | 2024-04-28 12:32 | W.PN.HOSP.TC ---
Addendum entered and electronically signed by Pritesh Perez MD 04/28/24 15:17:
Change in mental status suspect likely secondary to acute delirium with worsening cognitive impairment
when i evaluated him again this afternoon; mental status appears to be improving. Speech is yet to see. Spoke with son at bedside in length regarding code status. He will be speaking to his siblings regarding goals of care. Patient has had multiple
hospitalization lately and progressively getting worse.
Addendum entered and electronically signed by Pritesh Perez MD 04/28/24 13:45:
Chest x-ray with possible pneumonia, partially loculated effusion. Start antibiotics. Consult pulmonary. Might need CT chest to better characterize effusion. speech to see
Original Note:
Today's Communication/Plan
-
monitor vitals
see plan
RHC per cardiology
appears lethargic this morning; check CXR
check bladder scan,ua
midodrine
hold gabapentin; Percocet made prn with holding parameter
Assessment / Plan
Assessment / Plan
CVS: S1-S2 normal,+murmur
Chest: Decreased right base, rales left side
Chest wall tenderness left.
Abdomen: Soft, mild left sided tenderness, Bowel sounds present
Extremities: No edema
BELL TIER: Non focal exam,asterixis, confused
Falls- Likely from orthostatic Hypotension vs mechanical
Orthosis currently negative however blood pressure remains low. Were checked after fluids so not sure if accurate
monitor
Asterixis from uremia-ammonia normal
Continue to monitor renal function
TME-Likely from Above. Ammonia normal
bladder scan; hold gabapentin; make percocet PRN with hold if sedated
Left posterior 11th rib fracture-Traumatic
Pain control, incentive spirometry
Small to moderate right pleural effusion
Traumatic vs other
Ultrasound chest with mod effusion
s/p IR thora 04/27 with 65272 cc removal; Appears exudative by LDH however appears pseudoexudate; cx so far neg;
Now periods of hypotension, midodrine added
Moderate pericardial effusion
Cardiology following
Echo 04/26 with EF 30 to 35%, global hypokinesis. Small pericardial effusion
Management per cardiology
Acute renal insufficiency; creatinine has been rising since March 2024
CKD stage 3
Metabolic acidosis noted
Bladder scan
Hold torsemide, Jardiance, metolazone
Volume status at this time very difficult to assess; plan for RHC 04/28
Nephrology following
Hyperkalemia-s/p Lokelma
Hold potassium
Stage 1 sacral pressure injury, POA
Hyponatremia
Suspect some SIADH
Fluid restriction
Nephrology following
Chronic heart failure with preserved ejection fraction
Continue Coreg. Hold torsemide and potassium
Permanent atrial fibrillation-on Coumadin normally which is on hold; was on bridging with Lovenox because of epidural injection to the back.
digoxin dc'ed
With acute kidney injury switched to heparin drip; will eventually start back coumadin if no procedures planned
Valvular heart disease
Mitral valve repair [address],Mitral stenosis and severe MR with transcatheter mitral valve replacement at [facility] 10/29/2022
Severe pulmonary hypertension
# Elevated TSH-repeat before adding medicines. Normal T4. Repeat .
# Anemia-check iron studies
# DM- Hold Jardiance . SSI
# Chronic right bundle branch block
# Permanent pacemaker placement October 2022
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
# MGUS
# History of gout-continue allopurinol. Check uric acid level.
# Gastroesophageal reflux disease--PPI
# Chronic back pain with T12 and L1 compression fractures. On Cymbalta, Neurontin. Narcotic dependent.
# Rheumatoid arthritis
# Bilateral pleural calcifications
# Sleep apnea on CPAP
# History of prostate cancer
# Anxiety depression-Cymbalta
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
# Insomnia on melatonin
# Hypoalbuminemia
# DVT prophylaxis-Heparin drip
# CODE STATUS-FULL CODE
Spoke with patient and daughter in length 04/27. Patient at this time wants to remain full code.
I spent a total of 52 minutes with the patient or on the floor. More than 50% of this time involved counseling and coordination of care.
Anticipated Discharge: > 48 hours
Subjective/Interval History
-
Date of Service: April 28, 2024
lethargic
Objective Data
-
Labs:
Laboratory Results
04/28/24
04:04
WBC 6.9
Hgb 10.4 L
Hct 33.6 L
Plt Count 136
APTT 79.5 H
Sodium 131 L
Potassium 4.5
Chloride 93 L
Carbon Dioxide 27
BUN 69 H
Creatinine 2.0 H
Glucose 133 H
Calcium 8.8
Total Bilirubin 3.2 H
AST 25
ALT 11
Alkaline Phosphatase 142 H
Vital Signs:
Vital Signs
Temp Pulse Resp BP Pulse Ox
97.6 F 70 20 97/63 90
04/28/24 12:02 04/28/24 12:07 04/28/24 12:02 04/28/24 12:10 04/28/24 12:02
I&O
04/27/24 04/28/24 04/29/24
06:59 06:59 06:59
Intake Total 1040 / 1040 108 / 108
Output Total 1050 / 1050
Balance - 108 / 108
--- NOTE | 2024-04-28 13:01 | W.PN.UPDATE ---
Update Note
Progress Note Update
Interventional cardiology note
Patient was brought down to the heart catheterization lab for a right heart catheterization to assess invasive hemodynamics to help guide management however when staff went to pick him up in the room patient is disoriented and significantly
confused. He could not even tell us his name or date of . He could tell us that he is in [facility] however he cannot tell us why he is in the hospital or what is going on. Family including his daughter is at bedside. After
discussion with the referring protective services social worker, Dr. Blayne Montanez, we decided on holding off on proceeding given concern for significant somnolence and confusion preprocedurally as patient is not consentable himself and the fact that this is not an
urgent or emergent procedure. We can reassess once mental status has improved. Will discuss with primary team in regards to further workup as warranted for ongoing confusion that appears to be worse and disorientation and possible consideration
for goals of care discussion given overall prognosis appears quite guarded.
Kirstie Vela MD, FACC, [facility]
--- NOTE | 2024-04-28 14:32 | CON.PUL ---
Consultation
Consultation Request
Date/Time Consultation Requested: 04/28/2024 - 1341
Date/Time Consultation Performed: 04/28/2024 - 1420
Requesting Provider: Dr. Perez
Performing Provider: Dr. Rucker
Reason for Consultation: Pleural effusion
Medical History
-
Chief Complaint: Multiple falls, confusion, weakness
History of Present Illness:
84-year-old male with a past medical history of CAD s/p CABG, hypertension, hyperlipidemia, A-fib on Coumadin, depression, JESSY on CPAP, CKD, history of prostate cancer, RA, chronic HFpEF and valvular heart disease who presents with multiple falls,
confusion and generalized weakness. HPI obtained from daughter as patient is more lethargic today and unable to fully cooperate in HPI. Patient lives at [facility], [place] at [facility] living. He has been walking with a walker since this past December 2023.
This Thursday/Thursday (04/22-04/23/2024) he started having twitching in his hands/arms. Over the weekend he had lower extremity weakness with confusion and fell on Thursday, Thursday and Thursday. He became increasingly more forgetful, forgetting events
that happened earlier in that same day, having difficulty feeding himself and ambulating in general. Because this had worsened he came to the ER for further evaluation. In triage she was afebrile to 97.9 �F, pulse rate 70 (paced), respiratory rate
16, BP 100/66, and SpO2 92% on room air. He was placed onto 2 L/min nasal cannula with SpO2 rising to 95%. Labs showed Hb 9.8, INR 1.18, creatinine 2.3, potassium 5.7, sodium 131, magnesium 2.4, T. bili 2.7, troponin negative at 0.034, proBNP
elevated at 6360, albumin 3.7, TSH 9.15, free T4 WNL at 1.11, urinalysis negative for UTI, and urine sodium was <5L. CXR showed moderate loculated right-sided pleural effusion which was confirmed on CT chest, abdomen pelvis which also showed a left
posterior 11th rib fracture as well as vertebral fractures, a new small�moderate pericardial effusion, free fluid in his abdomen and true pelvis and a right-sided inguinal hernia. Patient was admitted to the IVU with cardiology and nephrology
consulted. Echo performed on 04/26/2024 showed a small pericardial effusion without tamponade. Chest ultrasound on 04/26/2024 showed moderate right-sided pleural effusion with no significant septations or loculations sonographically. Patient
underwent a right-sided thoracentesis on 04/27/2024 removing 1.15 L of yellow exudative fluid with normal pH and normal glucose. CXR performed today showed partially loculated moderate size right sided pleural effusion. The patient was post go down
for right heart cath today but he was very confused and procedure was postponed. Pulmonary service now consulted for additional management/recommendations.
When I saw the patient he was sitting in a chair with his daughter at bedside. The patient did awaken to voice but then would fall back asleep very easily. I answered all the daughter's questions. The patient is currently on 2 L/min nasal
cannula, saturating 97%. Heart rate 73. He is in no acute distress; occasionally having arm twitching.
Of note patient last saw us in the office on 11/16/2023 for history of JESSY. No records were available as patient moved from [place]. There was poor compliance on smartcard information although AHI was 6 events per hour. Full compliance was
reinforced to his ASVauto CPAP. He was told to follow-up within 1 year for CPAP compliance visit.
PMHx: Atrial fibrillation previously on Coumadin, hypertension, hyperlipidemia, CAD s/p CABG, JESSY on CPAP, CKD, history of prostate cancer, rheumatoid arthritis previously on Orencia c/b DILI, anxiety, depression, chronic diastolic heart failure,
MGUS, PAD, valvular heart disease with severe TR and history of MR s/p MVR (10/2022), history of RV dysfunction with HFmrEF, and s/p PPM
PSHx: hernia repair, s/p TMVR
Past Medical History
Past Medical History: Other (Above as per HPI)
Past Surgical History: Other (Above as per HPI)
Social History
Tobacco: Non-smoker
Alcohol: Occasional
Drug: None
Living: Assisted Living ([facility])
Family History
Family History: CAD (Sister) and Cancer (Sister: Breast cancer)
Allergies / Home Medications
Allergies
Allergy/AdvReac Type Severity Reaction Status Date / Time
No Known Allergies Allergy Verified 03/24/24 08:12
Home Medications
�Medication �Instructions �Recorded �Confirmed �Last Taken �Type
allopurinol 100 mg tablet 450 mg PO DAILY Gout 07/08/23 04/25/24 04/25/24 History
carvedilol 3.125 mg tablet 3.125 mg PO BID #60 tabs 07/20/23 04/25/24 04/25/24 Rx
pantoprazole 40 mg tablet,delayed 40 mg PO DAILY #30 tabs 07/20/23 04/25/24 04/25/24 Rx
release
calcium carbonate 600 mg-vitamin 1 tab PO DAILY Supplement 09/02/23 04/25/24 04/25/24 History
D3 20 mcg (800 unit) tablet
docusate sodium 100 mg capsule 100 mg PO DAILYPRN PRN constipation 09/02/23 04/25/24 1 Week Ago History
(Colace) ~04/18/24
melatonin 5 mg tablet 5 mg PO HSPRN PRN sleep 10/05/23 04/25/24 Unknown History
ursodiol 500 mg tablet 500 mg PO BID #60 tabs 10/10/23 04/25/24 04/25/24 Rx
acetaminophen 650 mg 1,300 mg PO Q8HPRN PRN mild pain 03/24/24 04/25/24 04/24/24 History
tablet,extended release (Tylenol
Arthritis Pain)
ceramides 1,3,6-II (CeraVe topical 1 applic topical DAILYPRN PRN dry 03/24/24 04/25/24 03/23/24 History
cream) skin
denosumab 60 mg/mL subcutaneous 60 mg SC [id number] 03/24/24 04/25/24 12/29/23 History
syringe
duloxetine 30 mg capsule,delayed 30 mg PO DAILY Mental 03/24/24 04/25/24 04/25/24 History
release (Cymbalta) Health/Anxiety
oxycodone-acetaminophen 5 mg-325 1 tab PO TID severe pain 03/24/24 04/25/24 04/24/24 History
mg tablet
polyethylene glycol 3350 17 gram 17 g PO DAILYPRN PRN constipation 03/24/24 04/25/24 1 Week Ago History
oral powder packet (Miralax) ~04/18/24
potassium chloride 20 mEq 40 meq PO DAILY Supplement 03/24/24 04/25/24 04/25/24 History
tablet,extended release
potassium chloride 20 mEq 20 meq PO SUTUWEFRSA@1400 03/24/24 04/25/24 04/24/24 History
tablet,extended release(part/cryst) Supplement
sodium chloride 0.65 % nasal spray 1 spray intranasal DAILYPRN PRN 03/24/24 04/25/24 04/24/24 History
aerosol dry nose
metolazone 2.5 mg tablet 2.5 mg PO MOTH #0 tabs 03/31/24 04/25/24 04/21/24 Rx
torsemide 20 mg tablet 20 mg PO BID #60 tabs 03/31/24 04/25/24 04/25/24 Rx
digoxin 62.5 mcg (0.0625 mg) tablet 62.5 mcg PO SUTUWEFRSA 04/25/24 04/25/24 04/24/24 History
empagliflozin 10 mg tablet 10 mg PO DAILY 04/25/24 04/25/24 04/25/24 History
(Jardiance)
enoxaparin 40 mg/0.4 mL 40 mg SC DAILY 04/25/24 04/25/24 2 Days Ago History
subcutaneous syringe ~04/23/24
gabapentin 300 mg capsule 300 mg PO TID 04/25/24 04/25/24 04/25/24 History
potassium chloride 20 mEq 40 meq PO MOTH@1400 04/25/24 04/25/24 04/21/24 History
tablet,extended release(part/cryst)
Review of Systems
-
Unable to Obtain full review of systems at this time due to: Other (Lethargic)
Vitals / Labs / Diagnostic Testing
Vital Signs
Temp Pulse Resp BP Pulse Ox
97.6 F 70 20 97/63 90
04/28/24 12:02 04/28/24 12:07 04/28/24 12:02 04/28/24 12:10 04/28/24 12:02
Lab Data
04/28/24 04:04
04/28/24 04:04
Laboratory Results
04/27/24 04/28/24
17:23 04:04
APTT 75.6 H 79.5 H
Microbiology
04/27/24 17:59 Pleural Fluid Body Fluid Culture - Preliminary
No Growth After 18-24 Hours
04/27/24 17:59 Pleural Fluid Gram Stain - Preliminary
Diagnostic Testing:
Physical Exam
-
HEENT: Normocephalic and Anicteric
Cardiovascular: Peripheral Edema (Negative) and Other (Normal rate)
Respiratory: Wheeze (Negative), Rales (Bibasilar), Rhonchi (Negative), Accessory Resp Muscle Use (Negative) and Other (Reduced breath sounds bilaterally)
GI: Soft, Distended, Non Tender and Normal Bowel Sounds
Neurology: Tremors (Occasional tremors seen in bilateral upper extremities) and Other (Lethargic although awakens to voice and tactile stimuli)
General: Respiratory Distress (Negative), Comfortable and Other (Awakens to voice and answers my questions although he does fall back asleep very quickly)
Assessment
-
Assessment: 84-year-old male with a past medical history of CAD s/p CABG, hypertension, hyperlipidemia, A-fib on Coumadin, depression, JESSY on CPAP, CKD, history of prostate cancer, RA, chronic HFpEF and valvular heart disease who presents with
multiple falls, confusion and generalized weakness. HPI obtained from daughter as patient is more lethargic today and unable to fully cooperate in HPI. Patient lives at [facility], [place] at independent living. He has been walking with a walker since this
past December 2023. This Thursday/Thursday (04/22-04/23/2024) he started having twitching in his hands/arms. Over the weekend he had lower extremity weakness with confusion and fell on Thursday, Thursday and Thursday. He became increasingly more forgetful,
forgetting events that happened earlier in that same day, having difficulty feeding himself and ambulating in general. Because this had worsened he came to the ER for further evaluation. In triage she was afebrile to 97.9 �F, pulse rate 70
(paced), respiratory rate 16, BP 100/66, and SpO2 92% on room air. He was placed onto 2 L/min nasal cannula with SpO2 rising to 95%. Labs showed Hb 9.8, INR 1.18, creatinine 2.3, potassium 5.7, sodium 131, magnesium 2.4, T. bili 2.7, troponin
negative at 0.034, proBNP elevated at 6360, albumin 3.7, TSH 9.15, free T4 WNL at 1.11, urinalysis negative for UTI, and urine sodium was <5L. CXR showed moderate loculated right-sided pleural effusion which was confirmed on CT chest, abdomen
pelvis which also showed a left posterior 11th rib fracture as well as vertebral fractures, a new small�moderate pericardial effusion, free fluid in his abdomen and true pelvis and a right-sided inguinal hernia. Patient was admitted to the IVU with
cardiology and nephrology consulted. Echo performed on 04/26/2024 showed a small pericardial effusion without tamponade. Chest ultrasound on 04/26/2024 showed moderate right-sided pleural effusion with no significant septations or loculations
sonographically. Patient underwent a right-sided thoracentesis on 04/27/2024 removing 1.15 L of yellow exudative fluid with normal pH and normal glucose. CXR performed today showed partially loculated moderate size right sided pleural effusion.
The patient was post go down for right heart cath today but he was very confused and procedure was postponed. Pulmonary service now consulted for additional management/recommendations.
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
heart failure, MGUS, PAD, valvular heart disease with severe TR and history of MR s/p MVR (10/2022), history of RV dysfunction with HFmrEF, and s/p PPM
Impression:
#Recurrent right-sided loculated pleural effusion s/p thoracentesis -recurrence of right-sided loculated effusion about 16 hours after thoracentesis, likely due to acute HFrEF in the setting of RIGOBERTO
#Volume overload with new pericardial effusion + ascites seen on CT chest, abdomen, pelvis from 04/25/2024
#Acute respiratory failure with hypoxia due to acute cardiogenic pulmonary edema in the setting of compressive atelectasis + hypoventilation with AMS
#Altered mental status with hallucinations since admission (? Gabapentin toxicity in the setting of RIGOBERTO)
#RIGOBERTO
#Ambulatory dysfunction with generalized weakness
#Frequent falls with nondisplaced left posterior 11th rib fracture
#History of JESSY on ASVauto
Plan:
- Recheck CXR tomorrow AM
- If right-sided likely effusion persists/worsens then we will check chest ultrasound to further evaluate effusion, and he may need repeat thoracentesis versus chest tube
- He is awaiting a right heart catheterization and hopefully this will occur tomorrow to help us better understand volume status and pulmonary pressure severities
- Hold off on diuresis for now given that patient is hypotensive on midodrine; trend BNP and follow-up RHC
- Cardiology on board and recommendations appreciated
-In the meantime, maintain aspiration precautions, avoid any medications that could worsen mental status
- Empirically continue antibiotics (started on Zosyn today)
- Follow-up pleural fluid culture + cytology from thoracentesis on 04/27/2024
- Check blood gas --> if pt hypercapneic and he still is not awake enough to use BiPAP or CPAP, then he may need to be intubated; will keep a close eye on this patient and trend his blood gas
- Maintain SpO2 >90-94% with supplemental O2 + wean as tolerated
- Incentive spirometer - unfortunately he is too altered right now to use this effectively
- Replete electrolytes with K>4, Mg>2
- Maintain euglycemia with goal BG >100 and <180
- prn nebulized bronchodilators
- He will need PT/OT; continue fall precautions for now as well
- DVT ppx
Pulmonary service will continue to follow along.
Total time spent today was 75 minutes for this encounter. Time includes reviewing laboratory test/imaging results, reviewing pertinent medical records, obtaining and reviewing medical history, performing an appropriate exam, ordering medications,
tests and procedures. Time also includes documentation of this encounter, coordinating patient care and communicating with other healthcare professionals. Total time does not include separately billed tests performed on this date of service.
Data:
CXR 04-28-2024:
1).There is moderate partially loculated right-sided pleural effusion, new when compared with the prior study
2). There is mild coarsening of the interstitial markings in the right perihilar region and right lower lung suggesting possible interstitial pneumonia
3). There is confluent parenchymal density in the retrocardiac left lung base consistent with small pleural effusion with underlying atelectasis versus pneumonia
4). Cardiomegaly with stable postoperative changes
Right Chest US 04-26-2024: Moderate right pleural effusion is identified sonographically.
CT Chest/Abd/Pelvis without Contrast 04-25-2024:
Essentially nondisplaced left posterior 11th rib fracture.
Marked T12 vertebral compression fracture, stable.
Mild to moderate L1 vertebral compression fracture new in the interval since prior study but most likely remote.
Small to moderate right pleural effusion with accompanying right lower lobe consolidation/atelectasis.
Marked cardiomegaly, especially right and left atria.
Tiny left pleural effusion with some left lower lobe subsegmental atelectasis.
No findings to suggest pneumothorax.
New small to moderate pericardial effusion.
Small to moderate volume simple free fluid in the abdomen significantly increased from prior study and new small to moderate volume free fluid in the dependent true pelvis.
Markedly limited evaluation of the organs of the abdomen without intravenous contrast in this setting of trauma. Unfortunately, on the basis of this study, small hepatic laceration although unlikely, cannot be entirely excluded.
Small right inguinal hernia containing fat and small volume free fluid.
Pertinent cardiac studies:
TTE 04-26-2024:
Mild concentric left ventricular hypertrophy. Normal left ventricular chamber
size. Moderately reduced left ventricular systolic function. Left ventricular
ejection fraction is 30-35%. Global hypokinesis.
Enlarged right ventricular size. Reduced right ventricular systolic function.
Pacer wire seen.
Severe biatrial enlargement.
TMVR with peak/mean gradients across the mitral valve are 8/4 mmHg. No mitral
regurgitation is seen.
Mild aortic stenosis. Peak/mean gradients across the aortic valve are 21/13
mmHg. Mild aortic regurgitation.
Moderate tricuspid regurgitation. Pulmonary artery pressure 45-50 mmHg
Small pericardial effusion. Pleural effusion present.
Compared to the previous echo from March 2024, there is no significant change.
--- NOTE | 2024-04-28 14:43 | PTCARENOTE ---
Percocet not given this morning due to Pt's drowsiness. R heart cath not done today due to Pt somnolence and confusion. Dr Perez aware. Gabepentin on hold. Percocet d/c'd. Bladder scan ordered, Pt scanned for 198 mlDr Perez aware, st cath ordered
for UA. attemped to st cath Pt x2 unsuccessful. Pt voided small amt, sent UA.
--- NOTE | 2024-04-28 16:01 | PTOTSP ---
Dysphagia Evaluation
Patient presents with mild oral stage differences impacted by xerostomia and confusion. No complaints of pharyngeal dysphagia or overt s/s of aspiration observed.
Family reported history of prior dysphagia diet (puree and thickened liquids with eventual advancement to regular thin liquids) and recent PNA 1 month ago. Video swallow study would be required to rule out silent aspiration. Family declined.
Recommend:
1. Regular (pick soft/moist foods), Thin Liquids
2. Full supervision, assist as needed
3. Strategies: upright to 90 degrees, PO only when awake/alert, single sips/bites, slow rate, check for pocketing
4. Oral care 3x daily
5. No dysphagia tx warranted. Please reconsult as appropriate.
[2024-04-28 16:13] LABS: Urine Albumin Trace (Neg - Trace); Urine Bilirubin 1+ (Negative); Urine Character Slightly Cloudy (Clear); Urine Glucose Negative (Negative); Urine Ketone Negative (Negative); Urine Leukocyte Negative (Negative); Urine Nitrite Negative (Negative); Urine Occult Blood 2+ (Negative); Urine Urobilinogen 1+ (Neg - 1+)
[2024-04-28] MEDS: ProAmatine PO (16:13)
[2024-04-28 16:14] LABS: Urine Color Yellow
[2024-04-28] MEDS: ZOSYN 50 IV ×2 (16:14→20:08)
[2024-04-28 16:25] LABS: Urine Squamous Cell 0-2 /LPF (Few)
[2024-04-28 16:27] LABS: Urine Bacteria Moderate (Negative); Urine Epithelial Cast 0-2 /LPF
[2024-04-28 16:29] LABS: Glucose - Point of Care 149 mg/dl (70-99)
--- NOTE | 2024-04-28 17:50 | PTCARENOTE ---
Pt wanting to get up to commode to have BM. BP 105/53. Pt assisted to sit at edge of bed, sitting BP checked= 99/50. Pt assist of 2 to BSC. He voided and had BM. Then Pt assisted to chair, kasie well. Pt had swallow eval by speech while sitting up in
chair.
[2024-04-28] MEDS: HEPARIN 25000 UNITS/250 ML IV (18:19)
[2024-04-28 21:32] LABS: Glucose - Point of Care 153 mg/dl (70-99)
[2024-04-29] VITALS (20 sets, daily range): BP systolic 93–124; BP diastolic 59–94; PULSE 71–74; BMI 20.8
[2024-04-29] MEDS: ZOSYN 50 IV ×2 (02:32→10:14)
[2024-04-29 04:42] LABS: Venous Blood Gas B.E. 0.1 mmol/L (-4 to +4); Venous Blood Gas HCO3 24.7 mmol/L (22-27); Venous Blood Gas O2 Sat % 99.3 %; Venous Blood Gas pCO2 39 mmHg (35-48); Venous Blood Gas pH 7.41 (7.32-7.43); Venous Blood Gas pO2 91 mmHg (30-50)
[2024-04-29 04:43] LABS: Venous Blood Gas O2 Therapy 2L/min
[2024-04-29 05:06] LABS: Hematocrit 31.3 % (39.0-52.0); Hemoglobin 9.7 g/dL (13.0-18.0); Mean Corpuscular Hgb 28.2 pg (27.0-31.0); Mean Platelet Volume 10.8 fL (7.4-10.4); Platelet Count 128 10^3/uL (130-400); Red Blood Cell Count 3.44 10^6/uL (4.70-6.10); Red Cell Dist. Width 23.8 % (11.5-14.5); White Blood Cell Count 6.5 10^3/uL (4.8-10.8)
[2024-04-29 05:30] LABS: ALT (SGPT) 10 U/L (0-50); APTT 88.4 Sec (23.4-35.0); AST (SGOT) 25 U/L (17-59); Albumin 3.3 g/dl (3.5-5.0); Alkaline Phosphatase 131 U/L (38-126); Blood Urea Nitrogen 66 mg/dl (9-20); Calcium 8.4 mg/dl (8.4-10.2); Carbon Dioxide 24 mmol/L (22-30); Chloride 95 mmol/L (98-107); Estimated Creatinine Clearance 27 ml/min; Glucose 123 mg/dl (70-99); Magnesium 2.4 mg/dl (1.6-2.3); Potassium 4.2 mmol/L (3.5-5.1); Sodium 131 mmol/L (135-145); Total Bilirubin 3.2 mg/dl (0.2-1.3); Total Protein 6.1 g/dl (6.3-8.2); eGFR 36.21
--- NOTE | 2024-04-29 05:56 | PTCARENOTE ---
Pt initially received very drowsy, difficult to keep pt awake, oriented to 'hospital' but not which one. Disoriented to time. After sleeping several hours pt awake and oriented x3 but confused at times. Able to tell me he needed to go to the
bathroom. Assisted onto BSC with 2 people. Pt very weak. Pt agreeable to wear CPAP tonight and is tolerating well. Assessment as charted.
[2024-04-29 07:39] LABS: Glucose - Point of Care 153 mg/dl (70-99)
[2024-04-29] MEDS: NOVOLOG FLEXPEN-LOW RESISTANCE SC ×2 (07:40→12:49)
--- NOTE | 2024-04-29 08:49 | W.PN.CARDCBS ---
Today's Communication / Plan
-
RHC today
Impression / Plan
-
Primary Senior Biostatistician: Dr. GERRI Weeks
Assessment:
Presentation with falls
Asterixis
Posterior 11th rib fracture
T12 compression fracture
L1 compression fracture
Right pleural effusion s/p Rt thoracentesis 03/29/24 ~1400 cc clear yellow pleural flu, recurrent by imaging 04/25/24
Small to mod pericardial effusion by CT
Hyperkalemia
Hyponatremia
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
CM, EF 30-35% by echo 03/2024
history of remote mitral valve repair surgery 1992 at [place] with iatrogenic mitral stenosis and recurrent severe MR status post TMVR (Antony valve placement x2) at [facility] 10/29/2022
CHB s/p single chamber Verma PPM placement 10/30/22
permanent atrial fibrillation on chronic Coumadin therapy for 31 years, managed by PCP
hypertension
mild aortic stenosis
chronic right bundle branch block
PAD
MGUS/Chronic anemia
Osteoarthritis
Chronic back pain with lumbar compression fracture, scheduled for upcoming vertebroplasty
Gout
Rheumatoid arthritis
History of hepatic failure from [facility] with peak bilirubin of 30 08/2023
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
JESSY on CPAP
ECHO 06/25/22: EF 50 to 55%, grade 3 diastolic dysfunction, septal contraction abnormality, severe biatrial enlargement, reduced RV function, status post full mitral annuloplasty ring from 1992, mean mitral gradient at average of 10 mmHg, concern for
possible moderate to severe MS, at least moderate MR noted, moderate to severe TR, severe pulmonary hypertension, PAP 69 mmHg, aortic sclerosis, ascites present
ECHO 01/20/23:�EF 35 to 40%, abnormal septal motion, moderate concentric LVH, enlarged RV size, pacer wire in right ventricle, status post #29 ANTONY mitral valve replacement with peak/mean gradients across valve of 08/23 with no MR seen, mild to
moderate eccentric AR, mild with peak mean gradients 23/12 mmHg, mild to moderate TR, PAP 52 mmHg, small ASD/PFO with [id number] shunt
Echo 07/09/2023:�EF 40-45%, dilated and hypokinetic RV, severe PAT, s/p� #29 Antony TMVR mean MV grad of 5 mmHg. No MR. Mild with peak/mean AV grad of 33/17 mmHg. Severe TR with dilated TV annulus, Severe PHTN with severely elevated pulmonary
pressures PasP 75-80 mmHg.
Echo 03/28/24: EF 30-35%, Severely biatrial enlargement. S/p #21 Antony TMVR with peak/mean gradients of 13/6 mmHg respectively. No mitral regurgitation. Indexed LA volume is severely abnormal (> 48 mL/m2). Mild aortic stenosis. Peak/mean
gradients 18/9 mmHg respectively. Mild aortic regurgitation. Moderate tricuspid regurgitation. PAP 53 mmHg assuming mmHg
ECHO 04/26/24: EF 30 to 35%, global hypokinesis, enlarged RV size, severe biatrial enlargement, TMVR with peak/mean gradient 8/4 mmHg, no MR, mild , peak/mean gradient 21/30 mmHg, mild AR, moderate TR, PAP 45 to 50 mmHg, small pericardial effusion,
pleural effusion present.
Plan:
-Patient presented from Dr. Mccoy's office due to falls and tremors. He was supposed to have a back injection 04/25, however instead was referred to ER. seems to be failing at home
-Was noted to be confused at time of right heart cath yesterday, so procedure canceled. He appears to be clearer today. This morning he is able to tell me his name, date of , location, current month and year. Will attempt to complete right
heart cath today
-Continue midodrine 5 mg twice daily. Remains with relative hypotension limiting GDMT
-Creatinine down to 1.8. Continue to hold outpatient diuretics and Jardiance
-echo with results as above. EF 30-35%, no significant change compared to prior
-He underwent right thoracentesis on 04/27 for 1150 cc of fluid. wean supp O2 as able.
-also with evidence by imaging of free fluid in abd/pelvis by CT. ? eval for paracentesis, patient does complain of some abd bloating
-in vpaced rhythm with frequent PVCs. continue coreg. K/mag stable
-dig stopped this admission due to RI
-coumadin on hold due to recent plan for epidural. started on IV heparin in ER, continue for now. hgb stable at 9.7
-PT/OT evals
-pain mgmt of fractures, back/hip pain
-will likely need placement upon DC, he was living alone independently prior to admission
-[facility] prognosis appears poor. presently full code
-d/w nursing
Progress Note - Senior Biostatistician
Subjective
Date of Service: April 29, 2024
Denies issues. Appears tired.
Objective
Labs:
04/29/24 04:38
04/29/24 04:38
Labs
Hgb 9.7 g/dL (13.0-18.0) L 04/29/24 04:38
Hct 31.3 % (39.0-52.0) L 04/29/24 04:38
Plt Count 128 10^3/uL (130-400) L 04/29/24 04:38
PT 15.0 Sec (11.4-14.6) H 04/25/24 09:40
INR 1.18 04/25/24 09:40
APTT 88.4 Sec (23.4-35.0) H 04/29/24 04:38
Sodium 131 mmol/L (135-145) L 04/29/24 04:38
Potassium 4.2 mmol/L (3.5-5.1) 04/29/24 04:38
BUN 66 mg/dl (9-20) H 04/29/24 04:38
Creatinine 1.8 mg/dL (0.7-1.3) H 04/29/24 04:38
Glucose 123 mg/dl (70-99) H 04/29/24 04:38
Digoxin < 0.4 ng/ml (0.8-2.0) L 04/25/24 13:09
Vital Signs and I&O:
Vital Signs
Temp Pulse Resp BP Pulse Ox
97.6 F 80 18 110/94 99
04/29/24 04:30 04/29/24 04:39 04/29/24 04:30 04/29/24 04:39 04/29/24 04:30
Vital Signs
Temp Pulse Resp BP Pulse Ox
97.6 F 80 18 110/94 99
04/29/24 04:30 04/29/24 04:39 04/29/24 04:30 04/29/24 04:39 04/29/24 04:30
Intake & Output
04/27/24 04/28/24 04/29/24 04/30/24
07:59 07:59 07:59 07:59
Intake Total 1040 / 1040 108 / 108 732 / 732
Output Total 1050 / 1050 700 / 700
Balance -10 / -10 108 / 108 32 / 32
Physical Exam
Physical Exam
GEN: No distress, awake but lethargic, oriented x3. on supp O2
HEENT: supple, anicteric, mmm, eomi
LUNGS: Scattered rhonchi, no wheezes
CV: Irreg, S1/S2, 1/6 syst LSB
EXT: No cyanosis, clubbing, edema
NEURO: somewhat lethargic however answers questions appropriately
SKIN: Warm, pink, dry. No rash
--- NOTE | 2024-04-29 09:46 | W.PN.NEPH.PH ---
Today's Communication / Plan
-
RHC
Assessment/Plan
-
Impression:
CKD 3b with Azotemia
Presentation with falls/orthostasis/lethargy
Right pleural effusion
Anemia
Asterixis
Posterior 11th rib fracture
T12 compression fracture
L1 compression fracture
Right pleural effusion s/p Rt thoracentesis 03/29/24 ~1400 cc clear yellow pleural flu, recurrent by imaging 04/25/24
Small to mod pericardial effusion by CT
Hyperkalemia
Hyponatremia
CM, EF 30-35% by echo 03/2024
history of remote mitral valve repair surgery 1992 at [place] with iatrogenic mitral stenosis and recurrent severe MR status post TMVR (Antony valve placement x2) at [facility] 10/29/2022
CHB s/p single chamber Verma PPM placement 10/30/22
permanent atrial fibrillation on chronic Coumadin therapy for 31 years, managed by PCP
hypertension
mild aortic stenosis
chronic right bundle branch block
PAD
MGUS/Chronic anemia
Osteoarthritis
Chronic back pain with lumbar compression fracture, scheduled for upcoming vertebroplasty
Gout
Rheumatoid arthritis
History of hepatic failure from [facility] with peak bilirubin of 30 08/2023
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
JESSY on CPAP
Hyponatremia
Plan:
for RHC to help determine diuretics
follow BMP
continue midodrine
-
-
Date of Service: April 29, 2024
CC / HPI / ROS
-
Chief Complaint:
Acute kidney injury
History of Present Illness:
Creatinine stable at 1.8
Hemodynamically labile on midodrine support
Status post right thoracentesis performed on 04/27/2024 for approximately 1 L
Na stable 131
Review of Systems:
Urine output not recorded
weights variable
No chest pain or shortness of breath
awake and oriented
Labs
-
Labs:
WBC 6.5 10^3/uL (4.8-10.8) 04/29/24 04:38
RBC 3.44 10^6/uL (4.70-6.10) L 04/29/24 04:38
Hgb 9.7 g/dL (13.0-18.0) L 04/29/24 04:38
Hct 31.3 % (39.0-52.0) L 04/29/24 04:38
Plt Count 128 10^3/uL (130-400) L 04/29/24 04:38
Sodium 131 mmol/L (135-145) L 04/29/24 04:38
Potassium 4.2 mmol/L (3.5-5.1) 04/29/24 04:38
Chloride 95 mmol/L (98-107) L 04/29/24 04:38
Carbon Dioxide 24 mmol/L (22-30) 04/29/24 04:38
BUN 66 mg/dl (9-20) H 04/29/24 04:38
Creatinine 1.8 mg/dL (0.7-1.3) H 04/29/24 04:38
eGFR 36.21 04/29/24 04:38
Glucose 123 mg/dl (70-99) H 04/29/24 04:38
Calcium 8.4 mg/dl (8.4-10.2) 04/29/24 04:38
Dsa-V-Ltwhzdmaxxv Pept 6360 pg/ml 04/25/24 09:40
Albumin 3.3 g/dl (3.5-5.0) L 04/29/24 04:38
Physical Exam
-
Vital Signs:
Vital Signs
Temp Pulse Resp BP Pulse Ox
98.4 F 75 16 101/61 100
04/29/24 07:30 04/29/24 08:53 04/29/24 07:30 04/29/24 08:53 04/29/24 07:30
Cardiovascular:: Regular rate and rhythm
Respiratory:: Bilateral: Coarse
Lung Excursion:: Normal
Abdomen:: Nontender and Soft
Bowel Sounds:: Normal
Extremity Edema:: None: Bilateral:
[2024-04-29] MEDS: FLUSH (NSS) 2 FLUSH IV ×2 (10:14→11:48)
[2024-04-29] MEDS: CYMBALTA DELAYED RELEASE 30 MG PO (10:15)
[2024-04-29] MEDS: ProAmatine 5 MG PO ×3 (10:15→17:11)
[2024-04-29] MEDS: URSO 500 MG PO ×2 (10:15→20:34)
[2024-04-29] MEDS: PROTONIX 40 MG PO (10:15)
[2024-04-29] MEDS: ZYLOPRIM 450 MG PO (10:15)
[2024-04-29] MEDS: COREG 3.125 MG PO ×2 (10:16→20:34)
[2024-04-29] MEDS: OSCAL 500 + D 500 MG PO (10:16)
[2024-04-29] MEDS: LIDOCAINE 4% PATCH 1 PATCH TOPICAL ×2 (10:21→10:22)
--- NOTE | 2024-04-29 10:41 | ITS.CL.CATH ---
Government Affairs Researcher - Catheterization
Cardiac Catheterization
Procedure Report:
RIGHT HEART CATHETERIZATION
Date of Procedure: April 29, 2024
Referring: Blayne Montanez
INDICATION: Assess invasive hemodynamics
Hemodynamics (mmHg):
RA (m) : 23
RV (s/d,m) : 65/14, 23
PA (s/d, m) : 67/31, 43
PCWP (m) : Given significantly dilated right atria despite multiple attempts, and using wire to guide into distal PA, [place] catheter Prolapsing within the RA/RV could not be advanced to a wedge position.
PA saturation: 53.1% on room air
AO saturation: 97.0% on room air
RA saturation: 51.8% on room air
Cardiac Output : 3.70 L/min
Cardiac Index : 2.0 L/min/m-2
Systemic vascular resistance: 1059 dsc^(-5)
Pulmonary vascular resistance: 3 vasquez unit (calculated using PA diastolic pressure is an estimate of pulmonary capillary wedge pressure)
Heart rate: 80 bpm
RADIATION SUMMARY: Fluoro Time (min): 6.9, Dose (mGy): 61, DAP (Gy.cm2) : 10.8
CONCLUSION:
1. Significantly elevated right and left-sided filling pressures with severe pulmonary hypertension and normal cardiac output
Copy to: Blayne Montanez, Gildardo Craig, Pritesh Perez
Kirstie Vela MD, [facility], [facility]
--- NOTE | 2024-04-29 10:47 | PTCARENOTE ---
Received the patient form the chemical processing laborer in his bed. The patient is aaox3, vitals signs are stable, 95% on RA. 100% v-paced on the monitor. His right groin dressing is c/d/i. A positive right pedal pulse is noted. I instructed the patient on his
activity restrictions and expected oob time, His call larios is within reach. His daughter is at the bedside.
--- NOTE | 2024-04-29 11:40 | W.PN.UPDATE ---
Update Note
Progress Note Update
discussed with interventional cardiology and hospitalist. based on results of RHC, will place on IV lasix 80mg BID and assess response. given hypotension, will increase midodrine to 5mg TID. if remains hypotensive, could consider inotrope however
will vasodilate so may be better served by initiation of levophed to allow IV diuresis.
patient on chronic coumadin 2.5mg SuTuWeFrSa and 1.25mg MoTh. this had been on hold preadmission due to plan for back injection which was cancelled and patient referred here. as no further procedures planned this admission, will plan to resume IV
heparin to coumadin. will give 4mg tonight and assess INR in AM to determine further dosing.
he is now a DNR code status after discussion with primary service.
d/w nursing
[2024-04-29] MEDS: LASIX 80 MG IV (11:49)
[2024-04-29 12:46] LABS: Glucose - Point of Care 149 mg/dl (70-99)
[2024-04-29] MEDS: HEPARIN 25000 UNITS/250 ML IV (13:03)
--- NOTE | 2024-04-29 13:17 | W.PN.PUL3 ---
Today's Communication / Plan
-
Re-check CXR on Thursday to re-assess R-pleural effusion size
Aggressive diuresis
Trend BP on midodrine
Trend sCr and keep MAP>70 to help perfuse kidneys
CPAP with sleep
Fall + aspiration precautions
PT/OT
Assessment
-
Assessment: 84-year-old male with a past medical history of CAD s/p CABG, hypertension, hyperlipidemia, A-fib on Coumadin, depression, JESSY on CPAP, CKD, history of prostate cancer, RA, chronic HFpEF and valvular heart disease who presents with
multiple falls, confusion and generalized weakness. HPI obtained from daughter as patient is more lethargic today and unable to fully cooperate in HPI. Patient lives at [facility] at [facility]. He has been walking with a walker since this
past December 2023. This Thursday/Thursday (04/22-04/23/2024) he started having twitching in his hands/arms. Over the weekend he had lower extremity weakness with confusion and fell on Thursday, Thursday and Thursday. He became increasingly more forgetful,
forgetting events that happened earlier in that same day, having difficulty feeding himself and ambulating in general. Because this had worsened he came to the ER for further evaluation. In triage she was afebrile to 97.9 �F, pulse rate 70
(paced), respiratory rate 16, BP 100/66, and SpO2 92% on room air. He was placed onto 2 L/min nasal cannula with SpO2 rising to 95%. Labs showed Hb 9.8, INR 1.18, creatinine 2.3, potassium 5.7, sodium 131, magnesium 2.4, T. bili 2.7, troponin
negative at 0.034, proBNP elevated at 6360, albumin 3.7, TSH 9.15, free T4 WNL at 1.11, urinalysis negative for UTI, and urine sodium was <5L. CXR showed moderate loculated right-sided pleural effusion which was confirmed on CT chest, abdomen
pelvis which also showed a left posterior 11th rib fracture as well as vertebral fractures, a new small�moderate pericardial effusion, free fluid in his abdomen and true pelvis and a right-sided inguinal hernia. Patient was admitted to the IVU with
cardiology and nephrology consulted. Echo performed on 04/26/2024 showed a small pericardial effusion without tamponade. Chest ultrasound on 04/26/2024 showed moderate right-sided pleural effusion with no significant septations or loculations
sonographically. Patient underwent a right-sided thoracentesis on 04/27/2024 removing 1.15 L of yellow exudative fluid with normal pH and normal glucose. CXR performed today showed partially loculated moderate size right sided pleural effusion.
The patient was supposed to go down for right heart cath on 04/28, but he was very confused and procedure was postponed. Pulmonary service consulted for additional management/recommendations.
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
heart failure, MGUS, PAD, valvular heart disease with severe TR and history of MR s/p MVR (10/2022), history of RV dysfunction with HFmrEF, and s/p PPM
Impression:
#Recurrent right-sided loculated pleural effusion s/p thoracentesis - recurrence of right-sided loculated effusion about 16 hours after thoracentesis, due to acute decompensated heart failure/acute HFrEF in the setting of RIGOBERTO
#Volume overload with new pericardial effusion + ascites seen on CT chest, abdomen, pelvis from 04/25/2024
#Acute respiratory failure with hypoxia due to acute cardiogenic pulmonary edema in the setting of compressive atelectasis + hypoventilation with AMS
#Altered mental status with hallucinations since admission (? Gabapentin toxicity in the setting of RIGOBERTO)
#RIGOBERTO likely due to cardiorenal syndrome
#Ambulatory dysfunction with generalized weakness
#Frequent falls with nondisplaced left posterior 11th rib fracture
#History of JESSY on ASVauto
Plan:
- Right heart catheterization performed today showing left-sided heart failure with moderate pulmonary hypertension with mPAP of 43mmHg, PADP: 31mmHg. Unable to wedge.
- CXR repeated today shows worsening R-pleural effusion although the patient is not in respiratory distress, and is on room air breathing comfortably denying shortness of breath or chest pain
- No need for thoracentesis at this time
- Re-check 2V-CXR this weekend to monitor R-effusion
- He may need repeat thoracentesis versus chest tube --> given that this is due to heart failure, chest tube is not ideal as this will continue to drain until pt is euvolemic
- Aggressively diurese as BP tolerates; need to re-assess volume status daily; [place] may be useful if Cr starts to rise again earlier than expected
- Trend BNP
- Continue midodrine with goal MAP>65-70 (aim for higher MAP value to help perfuse kidney) - may need to raise dose to 10mg TID
- Cardiology on board and recommendations appreciated
- Continue aspiration precautions, avoid any medications that could worsen mental status
- Stop antibiotics (started on Zosyn on 04/28)
- Follow-up pleural fluid culture + cytology from thoracentesis on 04/27/2024
- Blood gas checked this morning shows preserved ventilation with pH 7.41, pCO2 39 --> no need for BiPAP or intubation at this time (initially there was concern given his altered mental status))
- Continue CPAP with sleep
- Maintain SpO2 >90-94% with supplemental O2 if needed
- Incentive spirometer encouraged now that he is more awake than yesterday
- Replete electrolytes with K>4, Mg>2
- Maintain euglycemia with goal BG >100 and <180
- prn nebulized bronchodilators
- He will need PT/OT; continue fall precautions for now as well
- DVT ppx
Pulmonary service will continue to briefly follow along.
Total time spent today was 50 minutes for this encounter. Time includes reviewing laboratory test/imaging results, reviewing pertinent medical records, obtaining and reviewing medical history, performing an appropriate exam, ordering medications,
tests and procedures. Time also includes documentation of this encounter, coordinating patient care and communicating with other healthcare professionals. Total time does not include separately billed tests performed on this date of service.
Data:
CXR 04-29-2024: Small right pleural effusion without significant change; pulmonary vascularity at least top normal; Cardiomegaly, stable; No pneumothorax.
CXR 04-28-2024:
1).There is moderate partially loculated right-sided pleural effusion, new when compared with the prior study
2). There is mild coarsening of the interstitial markings in the right perihilar region and right lower lung suggesting possible interstitial pneumonia
3). There is confluent parenchymal density in the retrocardiac left lung base consistent with small pleural effusion with underlying atelectasis versus pneumonia
4). Cardiomegaly with stable postoperative changes
Right Chest US 04-26-2024: Moderate right pleural effusion is identified sonographically.
CT Chest/Abd/Pelvis without Contrast 04-25-2024:
Essentially nondisplaced left posterior 11th rib fracture.
Marked T12 vertebral compression fracture, stable.
Mild to moderate L1 vertebral compression fracture new in the interval since prior study but most likely remote.
Small to moderate right pleural effusion with accompanying right lower lobe consolidation/atelectasis.
Marked cardiomegaly, especially right and left atria.
Tiny left pleural effusion with some left lower lobe subsegmental atelectasis.
No findings to suggest pneumothorax.
New small to moderate pericardial effusion.
Small to moderate volume simple free fluid in the abdomen significantly increased from prior study and new small to moderate volume free fluid in the dependent true pelvis.
Markedly limited evaluation of the organs of the abdomen without intravenous contrast in this setting of trauma. Unfortunately, on the basis of this study, small hepatic laceration although unlikely, cannot be entirely excluded.
Small right inguinal hernia containing fat and small volume free fluid.
Pertinent cardiac studies:
Right Heart Catheterization 04-29-2024: Significantly elevated right and left-sided filling pressures with severe pulmonary hypertension and normal cardiac output
TTE 04-26-2024:
Mild concentric left ventricular hypertrophy. Normal left ventricular chamber
size. Moderately reduced left ventricular systolic function. Left ventricular
ejection fraction is 30-35%. Global hypokinesis.
Enlarged right ventricular size. Reduced right ventricular systolic function.
Pacer wire seen.
Severe biatrial enlargement.
TMVR with peak/mean gradients across the mitral valve are 8/4 mmHg. No mitral
regurgitation is seen.
Mild aortic stenosis. Peak/mean gradients across the aortic valve are 21/13
mmHg. Mild aortic regurgitation.
Moderate tricuspid regurgitation. Pulmonary artery pressure 45-50 mmHg
Small pericardial effusion. Pleural effusion present.
Compared to the previous echo from March 2024, there is no significant change.
Subjective Data
-
Date of Service:
Date of Service: April 29, 2024
Chief Complaint: Pulmonary Follow Up
Subjective:
Patient seen and evaluated today at bedside. Wore CPAP overnight at 6 cmH2O bled with 2 L/min. Patient's son at bedside � I answered all of his questions. Patient easily awakens, answers questions appropriately but then falls back asleep. He is
on room air breathing comfortably. SBP in low 90s - per son, pt's baseline SBP is in 110-115s. Right heart catheterization performed today showing left-sided heart failure with moderate pulmonary hypertension with mPAP of 43mmHg, PADP: 31mmHg.
Unable to wedge. Patient denies SOB at rest, chest pain, abdominal pain, fevers or chills.
Review of Systems
General: Other (Negative unless mentioned above)
Objective Data
Data Reviewed
Vital Signs / I&O / Oxygen:
Vital Signs
Temp Pulse Resp BP Pulse Ox
98.2 F 75 16 112/64 94
04/29/24 11:36 04/29/24 12:30 04/29/24 11:36 04/29/24 12:30 04/29/24 11:36
Intake and Output
04/28/24 04/29/24 04/30/24
06:59 06:59 06:59
Intake Total 108 / 108 732 / 732 50 / 50
Output Total 700 / 700 50 / 50
Balance 108 / 108 32 / 32 0 / 0
SaO2 94
Nasal Cannula flow liters per 2
minute
Physical Exam
General: Respiratory Distress (Negative) and Comfortable
HEENT: Normocephalic and Anicteric
Cardiovascular: Peripheral Edema (Negative) and Other (Normal rate)
Respiratory: Wheeze (Negative), Crackles (Bibasilar (R >L)), Rhonchi (Negative) and Non-Labored Respirations
GI: Soft, Distended, Non Tender and Normal Bowel Sounds
Neurology: Lethargic (Easily arousable to verbal and tactile stimuli, answering questions appropriately)
Skin: Warm, Dry, Cyanosis (Negative) and Jaundice (Negative)
Labs/Micro/Reports
Lab Data
04/29/24 04:38
04/29/24 04:38
Laboratory Results
04/28/24 04/29/24
23:02 04:38
APTT 88.4 H
pH Cancelled
pCO2 Cancelled
pO2 Cancelled
HCO3 Cancelled
O2 Delivery Level Cancelled
Microbiology
04/28/24 15:13 Urine Urine Culture - Final
NO GROWTH
04/27/24 17:59 Pleural Fluid Body Fluid Culture - Preliminary
No Growth After 48 Hours
04/27/24 17:59 Pleural Fluid Gram Stain - Preliminary
--- NOTE | 2024-04-29 13:53 | CM ---
Reviewed chart. Met with Mr. Posadas and his daughter to review discharge plans. He just came back form his Cardiac Cath. Family and patient exploring SNF/Rehab. options. Referral made to [facility], [facility], [facility] and [facility]. [facility], [facility] and [facility] accepted him pending bed availability. Prior to admission he resides alone in an apartment at [facility]. He has been in the [facility] for three years.
Prior to admission he was ambulating with a rolling walker. He has been in [facility] in the past. Medical work-up in progress. The discharge plan is to go to SNF/Rehab. when medically stable and bed available.
--- NOTE | 2024-04-29 16:38 | W.PN.HOSP.TC ---
Today's Communication/Plan
-
IV diuresis
Standing dose of midodrine.
Stop antibiotics
Goals of care discussion
Assessment / Plan
Assessment / Plan
Impression
Acute CHF reduced EF.
Cardiomyopathy.
Recurrent pleural effusion
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
TME, multifactorial
Persistent hypotension
Presentation with falls
Asterixis.
Traumatic posterior 11th rib fracture.
T12/L1 compression fracture.
Conditions prior to admission:
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
Complete heart block status post pacemaker.
Permanent atrial fibrillation
Anticoagulation with Coumadin
Hypertension
Obstructive sleep apnea on CPAP
PAD
And gout/chronic anemia.
Rheumatoid arthritis
History of hepatic injury from Orencia
Plan
Acute CHF reduced EF
ECHO 04/26/24: EF 30 to 35%, global hypokinesis, enlarged RV size, severe biatrial enlargement, TMVR with peak/mean gradient 8/4 mmHg, no MR, mild , peak/mean gradient 21/30 mmHg, mild AR, moderate TR, PAP 45 to 50 mmHg, small pericardial effusion,
pleural effusion present.
RHC 04/29:
Significantly elevated right and left-sided filling pressures with severe pulmonary hypertension and normal cardiac output
Initiate IV diuresis with Lasix 80 mg twice daily
Follow renal function, daily weights.
Standing dose of midodrine to support blood pressure. May require vasopressors
RIGOBERTO on CKD with azotemia
Metabolic acidosis
Suspect cardiorenal state.
Baseline creatinine 1.5.
Monitor with diuresis
Hyperkalemia treated with Lokelma
Hyponatremia suspect due to volume overload. Monitor with diuresis. Free water restriction.
Pleural effusion
Suspect secondary to CHF
Ultrasound chest with mod effusion
s/p IR thora 04/27 with 1100 cc removal; Appears exudative by LDH however appears pseudoexudate; cx so far neg;
Low clinical suspicion for infection. Antibiotics/Zosyn discontinued on 04/29
Permanent atrial fibrillation
Rate control with Coreg.
Digoxin discontinued.
Anticoagulation with Coumadin held on admission with heparin bridge. Will transition back to Coumadin starting on 04/29. Daily INR.
Falls- Likely from orthostatic Hypotension vs mechanical
Orthosis currently negative however blood pressure remains low. Were checked after fluids so not sure if accurate
monitor
TME-Likely from Above. Ammonia normal
bladder scan; hold gabapentin; make percocet PRN with hold if sedated
Asterixis from uremia-ammonia normal
Continue to monitor renal function
Left posterior 11th rib fracture-Traumatic
Pain control, incentive spirometry
Monitor for oversedation while on oxycodone
Stage 1 sacral pressure injury, POA
Elevated TSH-repeat before adding medicines. Normal T4. Repeat .
CODE STATUS. DNR
Discussed with with patient and daughter at the bedside
According to patient wishes not to use any heroic measures and treatment in the with pain and suffering CODE STATUS changed to DNR.
Anticipated Discharge: > 48 hours
Subjective/Interval History
-
Date of Service: April 29, 2024
Objective Data
-
Labs:
Laboratory Results
04/29/24
04:38
WBC 6.5
Hgb 9.7 L
Hct 31.3 L
Plt Count 128 L
APTT 88.4 H
Sodium 131 L
Potassium 4.2
Chloride 95 L
Carbon Dioxide 24
BUN 66 H
Creatinine 1.8 H
Glucose 123 H
Calcium 8.4
Total Bilirubin 3.2 H
AST 25
ALT 10
Alkaline Phosphatase 131 H
Vital Signs:
Vital Signs
Temp Pulse Resp BP Pulse Ox
98.2 F 78 16 93/67 95
04/29/24 15:45 04/29/24 15:00 04/29/24 15:45 04/29/24 15:00 04/29/24 15:45
I&O
04/28/24 04/29/24 04/30/24
06:59 06:59 06:59
Intake Total 108 / 108 732 / 732 710 / 710
Output Total 700 / 700 50 / 50
Balance 108 / 108 32 / 32 660 / 660
Physical Exam
-
General: Well Developed, Well Nourished, No Apparent Distress, Comfortable and Conversant
HEENT: Normocephalic, Atraumatic, Nose Appears Normal and Ears Appear Normal
Respiratory: Clear to Auscultation and Non Labored Respirations; Negative Accessory Resp Muscle Use
Cardiac: S1/S2 and Irregular Rhythm
GI: Soft, Nontender, Normal Bowel Sounds and Distended
Musculoskeletal: No Clubbing, No Cyanosis and No Edema
Neuro: Awake and Alert
Psych: Calm and Intact Judgement/Insight
--- NOTE | 2024-04-29 16:55 | PTCARENOTE ---
Addendum entered by Ana Conroy RN 04/29/24 17:20:
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
Original Note:
Since the patient has come back from the labels molder he has been drowsy but easily aroused. His vital signs remain stable and he has been on room air all shift. V-pacing has been noted on the monitor.
[2024-04-29 17:09] LABS: Glucose - Point of Care 173 mg/dl (70-99)
[2024-04-29] MEDS: COUMADIN 4 MG PO (17:11)
[2024-04-29] MEDS: TYLENOL 650 MG PO (17:12)
[2024-04-29] MEDS: NOVOLOG FLEXPEN-LOW RESISTANCE 1 UNITS SC (17:59)
[2024-04-29 21:35] LABS: Glucose - Point of Care 132 mg/dl (70-99)
[2024-04-30] VITALS (19 sets, daily range): BP systolic 67–110; BP diastolic 56–76; PULSE 70–78; O2SAT 98; BMI 20.7
[2024-04-30 03:22] LABS: INR 1.24; PT 15.4 Sec (11.4-14.6)
[2024-04-30 03:24] LABS: APTT 95.7 Sec (23.4-35.0)
[2024-04-30 03:27] LABS: Blood Urea Nitrogen 63 mg/dl (9-20); Calcium 8.2 mg/dl (8.4-10.2); Carbon Dioxide 24 mmol/L (22-30); Chloride 95 mmol/L (98-107); Estimated Creatinine Clearance 25 ml/min; Glucose 128 mg/dl (70-99); Potassium 3.6 mmol/L (3.5-5.1); Sodium 131 mmol/L (135-145)
--- NOTE | 2024-04-30 03:37 | PTCARENOTE ---
Patient resting comfortable with CPAP on. Heparin gtt per DEC, labs collected. Condom cathether intact. Call larios in reach
[2024-04-30 07:25] LABS: Glucose - Point of Care 152 mg/dl (70-99)
[2024-04-30] MEDS: NOVOLOG FLEXPEN-LOW RESISTANCE 1 UNITS SC (07:53)
[2024-04-30] MEDS: CYMBALTA DELAYED RELEASE 30 MG PO (07:53)
[2024-04-30] MEDS: PROTONIX 40 MG PO (07:54)
[2024-04-30] MEDS: ProAmatine 5 MG PO ×2 (07:54→10:42)
[2024-04-30] MEDS: URSO 500 MG PO ×2 (07:54→21:25)
[2024-04-30] MEDS: ZYLOPRIM 450 MG PO (07:59)
[2024-04-30] MEDS: COREG 3.125 MG PO (08:00)
[2024-04-30] MEDS: OSCAL 500 + D 500 MG PO (08:00)
[2024-04-30] MEDS: LIDOCAINE 4% PATCH 1 PATCH TOPICAL ×2 (08:01→08:02)
[2024-04-30] MEDS: FLUSH (NSS) 2 FLUSH IV ×2 (08:02→16:08)
[2024-04-30] MEDS: LASIX 80 MG IV ×2 (08:02→16:07)
--- NOTE | 2024-04-30 08:54 | W.PN.NEPH.PH ---
Today's Communication / Plan
-
diurese
Assessment/Plan
-
Impression:
CKD 3b with Azotemia
Right pleural effusion
Anemia
Asterixis
Posterior 11th rib fracture
T12 compression fracture
L1 compression fracture
Small to mod pericardial effusion by CT
Hyponatremia
CM, EF 30-35% by echo 03/2024
history of remote mitral valve repair surgery 1992 at [facility] with iatrogenic mitral stenosis and recurrent severe MR status post TMVR (Antony valve placement x2) at [facility] 10/29/2022
CHB s/p single chamber Verma PPM placement 10/30/22
permanent atrial fibrillation on chronic Coumadin therapy for 31 years, managed by PCP
hypertension
mild aortic stenosis
chronic right bundle branch block
PAD
MGUS/Chronic anemia
Chronic back pain with lumbar compression fracture, scheduled for upcoming vertebroplasty
Gout
Rheumatoid arthritis
Plan:
RHC with high pressures
continue to diurese slowly with IV lasix
follow BMP
Prognosis is guarded
-
-
Date of Service: April 30, 2024
CC / HPI / ROS
-
Chief Complaint:
Acute kidney injury
History of Present Illness:
Cr up to 2.0
BP stable low on midodrine support
Status post right thoracentesis on 04/27/2024 for approximately 1 L
Na stable 131
Review of Systems:
weights slightly lower
No chest pain or shortness of breath
awake and oriented
Labs
-
Labs:
WBC 6.5 10^3/uL (4.8-10.8) 04/29/24 04:38
RBC 3.44 10^6/uL (4.70-6.10) L 04/29/24 04:38
Hgb 9.7 g/dL (13.0-18.0) L 04/29/24 04:38
Hct 31.3 % (39.0-52.0) L 04/29/24 04:38
Plt Count 128 10^3/uL (130-400) L 04/29/24 04:38
Sodium 131 mmol/L (135-145) L 04/30/24 02:59
Potassium 3.6 mmol/L (3.5-5.1) 04/30/24 02:59
Chloride 95 mmol/L (98-107) L 04/30/24 02:59
Carbon Dioxide 24 mmol/L (22-30) 04/30/24 02:59
BUN 63 mg/dl (9-20) H 04/30/24 02:59
Creatinine 2.0 mg/dL (0.7-1.3) H 04/30/24 02:59
eGFR 31.90 04/30/24 02:59
Glucose 128 mg/dl (70-99) H 04/30/24 02:59
Calcium 8.2 mg/dl (8.4-10.2) L 04/30/24 02:59
Ooz-B-Bvufpnctacp Pept 6360 pg/ml 04/25/24 09:40
Albumin 3.3 g/dl (3.5-5.0) L 04/29/24 04:38
Physical Exam
-
Vital Signs:
Vital Signs
Temp Pulse Resp BP Pulse Ox
97.4 F 71 18 104/59 97
04/30/24 07:25 04/30/24 07:25 04/30/24 07:25 04/30/24 07:25 04/30/24 07:25
Cardiovascular:: Regular rate and rhythm
Respiratory:: Bilateral: Coarse
Lung Excursion:: Normal
Abdomen:: Nontender and Soft
Bowel Sounds:: Normal
Extremity Edema:: +2: Bilateral:
--- NOTE | 2024-04-30 09:06 | W.PN.PUL3 ---
Today's Communication / Plan
-
Patient stable on RA, CXR showing small stable R effusion/some loculations present
Continue medical management with diuresis, do not see need for thoracentesis at this time
Encouraged OOB/PT, OT, IS
Ongoing management per cards
We will sign off at this time, please call with questions
Assessment
-
84-year-old male with a past medical history of CAD s/p CABG, hypertension, hyperlipidemia, A-fib on Coumadin, depression, JESSY on CPAP, CKD, history of prostate cancer, RA, chronic HFpEF and valvular heart disease who presents with multiple falls,
confusion and generalized weakness. HPI obtained from daughter as patient is more lethargic today and unable to fully cooperate in HPI. Patient lives at [facility] at independent living. He has been walking with a walker since this past December 2023.
This Thursday/Thursday (04/22-04/23/2024) he started having twitching in his hands/arms. Over the weekend he had lower extremity weakness with confusion and fell on Thursday, Thursday and Thursday. He became increasingly more forgetful, forgetting events
that happened earlier in that same day, having difficulty feeding himself and ambulating in general. Because this had worsened he came to the ER for further evaluation. In triage she was afebrile to 97.9 �F, pulse rate 70 (paced), respiratory rate
16, BP 100/66, and SpO2 92% on room air. He was placed onto 2 L/min nasal cannula with SpO2 rising to 95%. Labs showed Hb 9.8, INR 1.18, creatinine 2.3, potassium 5.7, sodium 131, magnesium 2.4, T. bili 2.7, troponin negative at 0.034, proBNP
elevated at 6360, albumin 3.7, TSH 9.15, free T4 WNL at 1.11, urinalysis negative for UTI, and urine sodium was <5L. CXR showed moderate loculated right-sided pleural effusion which was confirmed on CT chest, abdomen pelvis which also showed a left
posterior 11th rib fracture as well as vertebral fractures, a new small�moderate pericardial effusion, free fluid in his abdomen and true pelvis and a right-sided inguinal hernia. Patient was admitted to the IVU with cardiology and nephrology
consulted. Echo performed on 04/26/2024 showed a small pericardial effusion without tamponade. Chest ultrasound on 04/26/2024 showed moderate right-sided pleural effusion with no significant septations or loculations sonographically. Patient
underwent a right-sided thoracentesis on 04/27/2024 removing 1.15 L of yellow exudative fluid with normal pH and normal glucose. CXR performed today showed partially loculated moderate size right sided pleural effusion. The patient was supposed to
go down for right heart cath on 04/28, but he was very confused and procedure was postponed. Pulmonary service consulted for additional management/recommendations.
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
heart failure, MGUS, PAD, valvular heart disease with severe TR and history of MR s/p MVR (10/2022), history of RV dysfunction with HFmrEF, and s/p PPM
Impression:
#Recurrent right-sided loculated pleural effusion s/p thoracentesis - recurrence of right-sided loculated effusion about 16 hours after thoracentesis, due to acute decompensated heart failure/acute HFrEF in the setting of RIGOBERTO
#Volume overload with new pericardial effusion + ascites seen on CT chest, abdomen, pelvis from 04/25/2024
#Acute respiratory failure with hypoxia due to acute cardiogenic pulmonary edema in the setting of compressive atelectasis + hypoventilation with AMS
#Altered mental status with hallucinations since admission (? Gabapentin toxicity in the setting of RIGOBERTO)
#RIGOBERTO likely due to cardiorenal syndrome
#Ambulatory dysfunction with generalized weakness
#Frequent falls with nondisplaced left posterior 11th rib fracture
#History of JESSY on ASVauto
Plan:
Right heart catheterization performed today showing left-sided heart failure with moderate pulmonary hypertension with mPAP of 43mmHg, PADP: 31mmHg. Unable to wedge.
CXR repeated today shows small R-pleural effusion although the patient is not in respiratory distress, and is on room air breathing comfortably denying shortness of breath or chest pain
- No need for thoracentesis at this time
- Re-check 2V-CXR as needed to evaluate if symptoms change
Prefer medical management for now
Aggressively diurese as BP tolerates; need to re-assess volume status daily
Trend BNP
- Continue midodrine with goal MAP>65-70 (aim for higher MAP value to help perfuse kidney) - may need to raise dose to 10mg TID
- Cardiology on board and recommendations appreciated
- Continue aspiration precautions, avoid any medications that could worsen mental status
- Stop antibiotics (started on Zosyn on 04/28)
- Follow-up pleural fluid culture + cytology from thoracentesis on 04/27/2024
- Blood gas checked this morning shows preserved ventilation with pH 7.41, pCO2 39 --> no need for BiPAP or intubation at this time (initially there was concern given his altered mental status))
- Continue CPAP with sleep
- Maintain SpO2 >90-94% with supplemental O2 if needed
- Incentive spirometer encouraged now that he is more awake than yesterday
- Replete electrolytes with K>4, Mg>2
- Maintain euglycemia with goal BG >100 and <180
- prn nebulized bronchodilators
- He will need PT/OT; continue fall precautions for now as well
- DVT ppx
Diagnostic Data
CXR 04-29-2024: Small right pleural effusion without significant change; pulmonary vascularity at least top normal; Cardiomegaly, stable; No pneumothorax.
CXR 04-28-2024:
1).There is moderate partially loculated right-sided pleural effusion, new when compared with the prior study
2). There is mild coarsening of the interstitial markings in the right perihilar region and right lower lung suggesting possible interstitial pneumonia
3). There is confluent parenchymal density in the retrocardiac left lung base consistent with small pleural effusion with underlying atelectasis versus pneumonia
4). Cardiomegaly with stable postoperative changes
Right Chest US 04-26-2024: Moderate right pleural effusion is identified sonographically.
CT Chest/Abd/Pelvis without Contrast 04-25-2024: Essentially nondisplaced left posterior 11th rib fracture. Marked T12 vertebral compression fracture, stable. Mild to moderate L1 vertebral compression fracture new in the interval since prior study but
most likely remote.
Small to moderate right pleural effusion with accompanying right lower lobe consolidation/atelectasis. Marked cardiomegaly, especially right and left atria. Tiny left pleural effusion with some left lower lobe subsegmental atelectasis. No findings
to suggest pneumothorax. New small to moderate pericardial effusion.
Small to moderate volume simple free fluid in the abdomen significantly increased from prior study and new small to moderate volume free fluid in the dependent true pelvis.
Markedly limited evaluation of the organs of the abdomen without intravenous contrast in this setting of trauma. Unfortunately, on the basis of this study, small hepatic laceration although unlikely, cannot be entirely excluded. Small right inguinal
hernia containing fat and small volume free fluid.
Pertinent cardiac studies: Right Heart Catheterization 04-29-2024: Significantly elevated right and left-sided filling pressures with severe pulmonary hypertension and normal cardiac output
TTE 04-26-2024: Mild concentric left ventricular hypertrophy. Normal left ventricular chamber size. Moderately reduced left ventricular systolic function. Left ventricular ejection fraction is 30-35%. Global hypokinesis. Enlarged right ventricular
size. Reduced right ventricular systolic function. Pacer wire seen. Severe biatrial enlargement. TMVR with peak/mean gradients across the mitral valve are 8/4 mmHg. No mitral regurgitation is seen. Mild aortic stenosis. Peak/mean gradients across
the aortic valve are 21/13 mmHg. Mild aortic regurgitation. Moderate tricuspid regurgitation. Pulmonary artery pressure 45-50 mmHg Small pericardial effusion. Pleural effusion present. Compared to the previous echo from March 2024, there is no
significant change.
Total time spent today was 50 minutes for this encounter. Time includes reviewing laboratory test/imaging results, reviewing pertinent medical records, obtaining and reviewing medical history, performing an appropriate exam, ordering medications,
tests and procedures. Time also includes documentation of this encounter, coordinating patient care and communicating with other healthcare professionals. Total time does not include separately billed tests performed on this date of service.
Subjective Data
-
Date of Service:
Date of Service: April 30, 2024
Chief Complaint: Pulmonary Follow Up
Subjective:
no new events ON, stable on RA
sleeping, no new complaints
Objective Data
Data Reviewed
Vital Signs / I&O / Oxygen:
Vital Signs
Temp Pulse Resp BP Pulse Ox
97.4 F 71 18 104/59 97
04/30/24 07:25 04/30/24 07:25 04/30/24 07:25 04/30/24 07:25 04/30/24 07:25
Intake and Output
04/29/24 04/30/24 05/01/24
06:59 06:59 06:59
Intake Total 732 / 732 1418 / 1418
Output Total 700 / 700 850 / 850
Balance 32 / 32 568 / 568
SaO2 97
Nasal Cannula flow liters per 2
minute
Physical Exam
General: Respiratory Distress (Negative) and Comfortable
HEENT: Normocephalic and Anicteric
Cardiovascular: Peripheral Edema (Negative) and Other (Normal rate)
Respiratory: Wheeze (Negative), Crackles (Bibasilar (R >L), minimal), Rhonchi (Negative) and Non-Labored Respirations
GI: Soft, Distended, Non Tender and Normal Bowel Sounds
Neurology: Awake, Alert and Lethargic (Sleeping, but easily arousable to verbal and tactile stimuli, answering questions appropriately)
Skin: Warm, Dry, Cyanosis (Negative) and Jaundice (Negative)
Labs/Micro/Reports
Lab Data
04/29/24 04:38
04/30/24 02:59
Laboratory Results
04/30/24
02:59
PT 15.4 H
INR 1.24
APTT 95.7 H
Microbiology
04/27/24 17:59 Pleural Fluid Body Fluid Culture - Final
No Growth After 72 Hours
04/27/24 17:59 Pleural Fluid Gram Stain - Final
04/28/24 15:13 Urine Urine Culture - Final
NO GROWTH
--- NOTE | 2024-04-30 09:15 | W.PN.CARDCBS ---
Addendum entered and electronically signed by Marcio Montanez MD 04/30/24 09:56:
I saw and examined the patient.
The Showroom Consultant's note was reviewed and I agree with the note.
Comment:
GEN: No distress, awake, Ox3
HEENT: supple, anicteric, mmm
LUNGS: scatt rhonchi
CV: Irreg, S1/S2, 1/6 syst LSB, no murmur
ABD: soft, BS+, NT/ND
EXT: No edema
NEURO: Gross non-focal
SKIN: No rash
Plan:
will continue to try to diurese with Lasix 80 mg IV twice daily. If this does not help we could consider adding dobutamine or milrinone.
Long-term prognosis is very poor.
Creatinine at 2.0. Continue to follow. His hyponatremia remains about the same. replete K
Back on Coumadin and follow INR.
Continue midodrine.
Continue to hold Jardiance. Will discuss with nephrology long-term plan for SLG 2 inhibitor
Original Note:
Today's Communication / Plan
-
Coumadin 4 mg tonight
Continue to monitor and trend INR
Continue diuresis with Lasix 80 mg IV twice daily
Replete potassium
Impression / Plan
-
Primary Agent Based Modeler: Dr. GERRI Weeks
Assessment:
Presentation 04/25/2024 with falls
Asterixis
Posterior 11th rib fracture
T12 compression fracture
L1 compression fracture
Right pleural effusion
s/p Rt thoracentesis 03/29/24 ~1400 cc clear yellow pleural flu, recurrent by imaging 04/25/24
s/p right thoracentesis on 04/27 for 1150 cc of fluid.
Small to mod pericardial effusion by CT;small on echo 04/26/24
Hyperkalemia
Hyponatremia
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
CM, EF 30-35% by echo 03/2024
history of remote mitral valve repair surgery 1992 at [place] with iatrogenic mitral stenosis and recurrent severe MR status post TMVR (Antony valve placement x2) at [facility] 10/29/2022
CHB s/p single chamber Verma PPM placement 10/30/22
permanent atrial fibrillation on chronic Coumadin therapy for 31 years, managed by PCP
hypertension
mild aortic stenosis
chronic right bundle branch block
PAD
MGUS/Chronic anemia
Osteoarthritis
Chronic back pain with lumbar compression fracture, scheduled for upcoming vertebroplasty
Gout
Rheumatoid arthritis
History of hepatic failure from [facility] with peak bilirubin of 30 08/2023
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
JESSY on CPAP
ECHO 06/25/22: EF 50 to 55%, grade 3 diastolic dysfunction, septal contraction abnormality, severe biatrial enlargement, reduced RV function, status post full mitral annuloplasty ring from 1992, mean mitral gradient at average of 10 mmHg, concern for
possible moderate to severe MS, at least moderate MR noted, moderate to severe TR, severe pulmonary hypertension, PAP 69 mmHg, aortic sclerosis, ascites present
ECHO 01/20/23:�EF 35 to 40%, abnormal septal motion, moderate concentric LVH, enlarged RV size, pacer wire in right ventricle, status post #29 ANTONY mitral valve replacement with peak/mean gradients across valve of 11/5 with no MR seen, mild to
moderate eccentric AR, mild with peak mean gradients 23/12 mmHg, mild to moderate TR, PAP 52 mmHg, small ASD/PFO with [id number] shunt
Echo 07/09/2023:�EF 40-45%, dilated and hypokinetic RV, severe PAT, s/p� #29 Antony TMVR mean MV grad of 5 mmHg. No MR. Mild with peak/mean AV grad of 33/17 mmHg. Severe TR with dilated TV annulus, Severe PHTN with severely elevated pulmonary
pressures PasP 75-80 mmHg.
Echo 03/28/24: EF 30-35%, Severely biatrial enlargement. S/p #21 Antony TMVR with peak/mean gradients of 13/6 mmHg respectively. No mitral regurgitation. Indexed LA volume is severely abnormal (> 48 mL/m2). Mild aortic stenosis. Peak/mean
gradients 18/9 mmHg respectively. Mild aortic regurgitation. Moderate tricuspid regurgitation. PAP 53 mmHg assuming mmHg
ECHO 04/26/24: EF 30 to 35%, global hypokinesis, enlarged RV size, severe biatrial enlargement, TMVR with peak/mean gradient 8/4 mmHg, no MR, mild , peak/mean gradient 21/30 mmHg, mild AR, moderate TR, PAP 45 to 50 mmHg, small pericardial effusion,
pleural effusion present.
[facility] 04/30/2024: Hemodynamics (mmHg): RA (m) : 23; RV (s/d,m) : 65/14, 23; PA (s/d, m) : 67/31, 43; PCWP (m) : Given significantly dilated right atria despite multiple attempts, and using wire to guide into distal PA, [place] catheter Prolapsing
within the RA/RV could not be advanced to a wedge position. PA saturation: 53.1% on room air; AO saturation: 97.0% on room air; RA saturation: 51.8% on room air; Cardiac Output : 3.70 L/min
Cardiac Index : 2.0 L/min/m-2; Systemic vascular resistance: 1059 dsc^(-5)
Pulmonary vascular resistance: 3 vasquez unit (calculated using PA diastolic pressure is an estimate of pulmonary capillary wedge pressure); Heart rate: 80 bpm
CONCLUSION: Significantly elevated right and left-sided filling pressures with severe pulmonary hypertension and normal cardiac output
Plan:
-Patient presented 04/25/[address] Mccoy's office due to falls and tremors. He was supposed to have a back injection 04/25, however instead was referred to ER. seems to be failing at home
-Underwent right heart catheterization which showed significantly elevated right and left-sided filling pressures with severe pulmonary hypertension and normal cardiac output
-Got 80 mg IV Lasix on 04/29/2024. Weight down 6 pounds since admission and 1 pound overnight. Continue diuresis with IV Lasix 80 mg twice daily (resumed 04/30/24)
-Creatinine 1.8->2.0 04/30/24. Continue to hold Jardiance
-Potassium 3.6 will replete with ongoing diuresis
-echo with results as above. EF 30-35%, no significant change compared to prior
-Continue midodrine 5 mg twice daily. Remains with relative hypotension limiting GDMT
-Recurrent right pleural effusion. He underwent right thoracentesis on 04/27 for 1150 cc of fluid. Chest x-ray from 04/29/2024 shows small right pleural effusion. Continue diuresis. Now on room air
-also with evidence by imaging of free fluid in abd/pelvis by CT. ? eval for paracentesis, patient does complain of some abd bloating
-in vpaced rhythm with frequent PVCs. continue coreg. K/mag stable
-dig stopped this admission due to RI
-Permanent atrial fibrillation on Coumadin as outpatient. Coumadin initially held due to recent epidural and right heart cath. Resumed Coumadin 4 mg on 04/29/2024. Will give 4 mg 04/30/2024. Follow INRs. hgb stable at 9.7
-PT/OT evals
-pain mgmt of fractures, back/hip pain
-will likely need placement upon DC, he was living alone independently prior to admission
-snf prognosis appears poor. presently full code
-d/w nursing
Progress Note - Agent Based Modeler
Subjective
Date of Service: April 30, 2024
Patient seen and examined. Resting comfortably in bed, now on room air.
Objective
Labs:
04/29/24 04:38
04/30/24 02:59
Labs
Hgb 9.7 g/dL (13.0-18.0) L 04/29/24 04:38
Hct 31.3 % (39.0-52.0) L 04/29/24 04:38
Plt Count 128 10^3/uL (130-400) L 04/29/24 04:38
PT 15.4 Sec (11.4-14.6) H 04/30/24 02:59
INR 1.24 04/30/24 02:59
APTT 95.7 Sec (23.4-35.0) H 04/30/24 02:59
Sodium 131 mmol/L (135-145) L 04/30/24 02:59
Potassium 3.6 mmol/L (3.5-5.1) 04/30/24 02:59
BUN 63 mg/dl (9-20) H 04/30/24 02:59
Creatinine 2.0 mg/dL (0.7-1.3) H 04/30/24 02:59
Glucose 128 mg/dl (70-99) H 04/30/24 02:59
Digoxin < 0.4 ng/ml (0.8-2.0) L 04/25/24 13:09
Vital Signs and I&O:
Vital Signs
Temp Pulse Resp BP Pulse Ox
97.4 F 71 18 104/59 97
04/30/24 07:25 04/30/24 07:25 04/30/24 07:25 04/30/24 07:25 04/30/24 07:25
Vital Signs
Temp Pulse Resp BP Pulse Ox
97.4 F 71 18 104/59 97
04/30/24 07:25 04/30/24 07:25 04/30/24 07:25 04/30/24 07:25 04/30/24 07:25
Intake & Output
04/28/24 04/29/24 04/30/24 05/01/24
06:59 06:59 06:59 06:59
Intake Total 108 / 108 732 / 732 1418 / 1418
Output Total 700 / 700 850 / 850
Balance 108 / 108 32 / 32 568 / 568
Physical Exam
Physical Exam
GEN: No distress, awake, Ox3, lying in bed
HEENT: supple, anicteric, mmm
LUNGS: Decreased breath sounds at right base CTA, no wheezes/rales; on room air
CV: Irregularly irregular, S1/S2, 2/6 syst LSB murmur, no rubs or gallops
ABD: soft, BS+, NT/ND
: Mccormick indwelling with yellow urine
EXT: No edema, clubbing or cyanosis
NEURO: Gross non-focal
SKIN: No rash, warm, dry, pink
[2024-04-30] MEDS: KCL 40 MEQ PO ×2 (09:57→16:07)
--- NOTE | 2024-04-30 10:22 | PTCARENOTE ---
Addendum entered by Ana Conroy RN 04/30/24 10:28:
BP recovered to 100/7
Original Note:
Attempted to get the patient oob. Orthostatic BPs were done first. Lying down BP was 98/59 with a HR of 78. Sitting up his BP was 67/56 with a HR of 77. I asked the patient if he was dizzy or light headed and he stated ' I always feel a little dizzy
and lightheaded.' I had the patient lie back down in his bed. His call larios is within reach.
--- NOTE | 2024-04-30 10:30 | PTCARENOTE ---
Attempted to get the patient oob. Orthostatic BPs were done first. Lying down BP was 98/59 with a HR of 78. Sitting up his BP was 67/56 with a HR of 77. I asked the patient if he was dizzy or light headed and he stated ' I always feel a little dizzy
and lightheaded.' I had the patient lie back down in his bed. His call larios is within reach.
BP recovered to 100/70 with a HR of 81. Aebba Fletcher notified.
[2024-04-30] MEDS: TYLENOL 650 MG PO (10:44)
[2024-04-30 11:57] LABS: Glucose - Point of Care 252 mg/dl (70-99)
[2024-04-30] MEDS: NOVOLOG FLEXPEN-LOW RESISTANCE 3 UNITS SC (12:18)
[2024-04-30] MEDS: ProAmatine 10 MG PO ×2 (13:27→17:52)
--- NOTE | 2024-04-30 13:56 | W.PN.HOSP.TC ---
Today's Communication/Plan
-
Attempt of IV diuresis, although with soft BP.
Midodrine dose increased.
Hold Coreg.
Anticoagulation transitioned off heparin to Coumadin. Follow daily INR
Discussed with cardiology
Discussed with patient family at the bedside.
Assessment / Plan
Assessment / Plan
Impression
Acute CHF reduced EF.
Cardiomyopathy.
Recurrent pleural effusion
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
TME, multifactorial
Persistent hypotension
Presentation with falls
Asterixis.
Traumatic posterior 11th rib fracture.
T12/L1 compression fracture.
Conditions prior to admission:
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
Complete heart block status post pacemaker.
Permanent atrial fibrillation
Anticoagulation with Coumadin
Hypertension
Obstructive sleep apnea on CPAP
PAD
And gout/chronic anemia.
Rheumatoid arthritis
History of hepatic injury from O[place]
Plan
Acute CHF reduced EF
ECHO 04/26/24: EF 30 to 35%, global hypokinesis, enlarged RV size, severe biatrial enlargement, TMVR with peak/mean gradient 8/4 mmHg, no MR, mild , peak/mean gradient 21/30 mmHg, mild AR, moderate TR, PAP 45 to 50 mmHg, small pericardial effusion,
pleural effusion present.
RHC 04/29:
Significantly elevated right and left-sided filling pressures with severe pulmonary hypertension and normal cardiac output
Initiate IV diuresis with Lasix 80 mg twice daily
Follow renal function, daily weights.
Standing dose of midodrine to support blood pressure. May require vasopressors
RIGOBERTO on CKD with azotemia
Metabolic acidosis
Suspect cardiorenal state.
Baseline creatinine 1.5.
Monitor with diuresis
Hyperkalemia treated with Lokelma
Hyponatremia suspect due to volume overload. Monitor with diuresis. Free water restriction.
Pleural effusion
Suspect secondary to CHF
Ultrasound chest with mod effusion
s/p IR thora 04/27 with 1100 cc removal; Appears exudative by LDH however appears pseudoexudate; cx so far neg;
Low clinical suspicion for infection. Antibiotics/Zosyn discontinued on 04/29
Permanent atrial fibrillation
Rate control with Coreg. Hold with hypotension.
Digoxin discontinued.
Anticoagulation with Coumadin held on admission with heparin bridge. Will transition back to Coumadin starting on 04/29. Daily INR.
Falls- Likely from orthostatic Hypotension vs mechanical
Orthosis currently negative however blood pressure remains low. Were checked after fluids so not sure if accurate
monitor
TME-Likely from Above. Ammonia normal
bladder scan; hold gabapentin; make percocet PRN with hold if sedated
Asterixis from uremia-ammonia normal
Continue to monitor renal function
Left posterior 11th rib fracture-Traumatic
Pain control, incentive spirometry
Monitor for oversedation while on oxycodone
Stage 1 sacral pressure injury, POA
Elevated TSH-repeat before adding medicines. Normal T4. Repeat .
CODE STATUS. DNR
Discussed with with patient and daughter at the bedside
According to patient wishes not to use any heroic measures and treatment in the with pain and suffering CODE STATUS changed to DNR.
Anticipated Discharge: > 48 hours
Subjective/Interval History
-
Date of Service: April 30, 2024
Objective Data
-
Labs:
Laboratory Results
04/30/24
02:59
PT 15.4 H
INR 1.24
APTT 95.7 H
Sodium 131 L
Potassium 3.6
Chloride 95 L
Carbon Dioxide 24
BUN 63 H
Creatinine 2.0 H
Glucose 128 H
Calcium 8.2 L
Vital Signs:
Vital Signs
Temp Pulse Resp BP Pulse Ox
97.3 F 70 20 90/65 95
04/30/24 11:33 04/30/24 11:33 04/30/24 11:33 04/30/24 11:33 04/30/24 11:33
I&O
04/29/24 04/30/24 05/01/24
06:59 06:59 06:59
Intake Total 732 / 732 1418 / 1418 720 / 720
Output Total 700 / 700 850 / 850
Balance 32 / 32 568 / 568 720 / 720
Physical Exam
-
General: Well Developed, Well Nourished, No Apparent Distress, Comfortable and Conversant
HEENT: Normocephalic, Atraumatic, Nose Appears Normal and Ears Appear Normal
Respiratory: Clear to Auscultation and Non Labored Respirations; Negative Accessory Resp Muscle Use
Cardiac: S1/S2 and Irregular Rhythm
GI: Soft, Nontender, Normal Bowel Sounds and Distended
Musculoskeletal: No Clubbing, No Cyanosis and No Edema
Neuro: Awake and Alert
Psych: Calm and Intact Judgement/Insight
[2024-04-30] MEDS: HEPARIN 25000 UNITS/250 ML IV (15:38)
[2024-04-30 16:47] LABS: Glucose - Point of Care 229 mg/dl (70-99)
[2024-04-30] MEDS: COUMADIN 4 MG PO (17:52)
[2024-04-30] MEDS: NOVOLOG FLEXPEN-LOW RESISTANCE 2 UNITS SC (17:54)
[2024-04-30 21:46] LABS: Glucose - Point of Care 165 mg/dl (70-99)
[2024-05-01] VITALS (16 sets, daily range): BP systolic 96–116; BP diastolic 62–81; PULSE 71–89; O2SAT 98; BMI 20.8
[2024-05-01] MEDS: TYLENOL 650 MG PO ×2 (01:36→13:36)
[2024-05-01] MEDS: PERCOCET 5/325 1 TABLET PO (02:38)
--- NOTE | 2024-05-01 02:46 | PTCARENOTE ---
Patient restless. 'Has pain all over and feeling itchy'. Was given Tylenol no relief. Percocet given, bed bath completed, no rash. VSS, call larios in reach
[2024-05-01 03:55] LABS: Hematocrit 31.2 % (39.0-52.0); Hemoglobin 9.8 g/dL (13.0-18.0); Mean Corp Hgb Conc. 31.4 g/dL (33.0-37.0); Mean Corpuscular Hgb 28.4 pg (27.0-31.0); Mean Corpuscular Volume 90.4 fL (80.0-94.0); Mean Platelet Volume 10.5 fL (7.4-10.4); Platelet Count 143 10^3/uL (130-400); Red Blood Cell Count 3.45 10^6/uL (4.70-6.10); Red Cell Dist. Width 24.3 % (11.5-14.5); White Blood Cell Count 7.4 10^3/uL (4.8-10.8)
[2024-05-01 04:09] LABS: INR 1.25; PT 15.5 Sec (11.4-14.6)
[2024-05-01 04:17] LABS: Blood Urea Nitrogen 62 mg/dl (9-20); Calcium 8.4 mg/dl (8.4-10.2); Carbon Dioxide 21 mmol/L (22-30); Chloride 97 mmol/L (98-107); Estimated Creatinine Clearance 25 ml/min; Glucose 151 mg/dl (70-99); Potassium 4.3 mmol/L (3.5-5.1); Sodium 130 mmol/L (135-145)
--- NOTE | 2024-05-01 05:59 | PTCARENOTE ---
Patient appears more confotable. Increasing pain all over last evening, having trouble getting comfrtable in bed. AO 2-3, confused to time, speech slightly garbled and soft. CPAP tolerated overnight. Condom catheter #35 dark yellow urine. V-Paced
with PVC's. Call larios in reach and bed alarm is audible
--- NOTE | 2024-05-01 08:04 | W.PN.NEPH.PH ---
Today's Communication / Plan
-
Metolazone
Assessment/Plan
-
Impression:
CKD 3b with Azotemia
Right pleural effusion
Anemia
Asterixis
Posterior 11th rib fracture
T12 compression fracture
L1 compression fracture
Small to mod pericardial effusion by CT
Hyponatremia
CM, EF 30-35% by echo 03/2024
history of remote mitral valve repair surgery 1992 at [place] with iatrogenic mitral stenosis and recurrent severe MR status post TMVR (Antony valve placement x2) at [facility] 10/29/2022
CHB s/p single chamber Verma PPM placement 10/30/22
permanent atrial fibrillation on chronic Coumadin therapy for 31 years, managed by PCP
hypertension
mild aortic stenosis
chronic right bundle branch block
PAD
MGUS/Chronic anemia
Chronic back pain with lumbar compression fracture, scheduled for upcoming vertebroplasty
Gout
Rheumatoid arthritis
Plan:
RHC with high pressures
continue to diurese slowly with IV lasix
Add metolazone today
follow BMP
Prognosis is guarded
-
-
Date of Service: May 01, 2024
CC / HPI / ROS
-
Chief Complaint:
Acute kidney injury
History of Present Illness:
Cr stable at 2.0
BP stable low on midodrine support
Status post right thoracentesis on 04/27/2024 for approximately 1 L
Na stable 130
Mild metabolic acidosis
Review of Systems:
weights marginally better
No chest pain or shortness of breath
awake and oriented
Labs
-
Labs:
WBC 7.4 10^3/uL (4.8-10.8) 05/01/24 03:27
RBC 3.45 10^6/uL (4.70-6.10) L 05/01/24 03:27
Hgb 9.8 g/dL (13.0-18.0) L 05/01/24 03:27
Hct 31.2 % (39.0-52.0) L 05/01/24 03:27
Plt Count 143 10^3/uL (130-400) 05/01/24 03:27
Sodium 130 mmol/L (135-145) L 05/01/24 03:33
Potassium 4.3 mmol/L (3.5-5.1) 05/01/24 03:33
Chloride 97 mmol/L (98-107) L 05/01/24 03:33
Carbon Dioxide 21 mmol/L (22-30) L 05/01/24 03:33
BUN 62 mg/dl (9-20) H 05/01/24 03:33
Creatinine 2.0 mg/dL (0.7-1.3) H 05/01/24 03:33
eGFR 31.90 05/01/24 03:33
Glucose 151 mg/dl (70-99) H 05/01/24 03:33
Calcium 8.4 mg/dl (8.4-10.2) 05/01/24 03:33
Pai-F-Wvqbyfwwcii Pept 6360 pg/ml 04/25/24 09:40
Albumin 3.3 g/dl (3.5-5.0) L 04/29/24 04:38
Physical Exam
-
Vital Signs:
Vital Signs
Temp Pulse Resp BP Pulse Ox
97.7 F 73 18 107/62 97
05/01/24 02:44 05/01/24 06:00 05/01/24 02:44 05/01/24 02:37 05/01/24 02:44
Cardiovascular:: Regular rate and rhythm
Respiratory:: Bilateral: Coarse
Lung Excursion:: Normal
Abdomen:: Nontender and Soft
Bowel Sounds:: Normal
Extremity Edema:: +1: Bilateral:
--- NOTE | 2024-05-01 08:30 | W.PN.HOSP.TC ---
Today's Communication/Plan
-
cont diuresis
PT/OT
treat lytes
conversion to coumadin
Assessment / Plan
Assessment / Plan
Impression
Acute CHF reduced EF.
Cardiomyopathy.
Recurrent pleural effusion
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
TME, multifactorial
Persistent hypotension
Presentation with falls
Asterixis.
Traumatic posterior 11th rib fracture.
T12/L1 compression fracture.
Conditions prior to admission:
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
Complete heart block status post pacemaker.
Permanent atrial fibrillation
Anticoagulation with Coumadin
Hypertension
Obstructive sleep apnea on CPAP
PAD
And gout/chronic anemia.
Rheumatoid arthritis
History of hepatic injury from [place]cia
Plan
05/01/24 -- apprec renal/cards--adding metolazone today to augment diuresis--creat still 2.0 (? new baseline)--cont IV lasix--follow and treat lytes as needed
Acute CHF reduced EF
ECHO 04/26/24: EF 30 to 35%, global hypokinesis, enlarged RV size, severe biatrial enlargement, TMVR with peak/mean gradient 8/4 mmHg, no MR, mild , peak/mean gradient 21/30 mmHg, mild AR, moderate TR, PAP 45 to 50 mmHg, small pericardial effusion,
pleural effusion present.
RHC 04/29:
Significantly elevated right and left-sided filling pressures with severe pulmonary hypertension and normal cardiac output
Initiate IV diuresis with Lasix 80 mg twice daily
Follow renal function, daily weights.
Standing dose of midodrine to support blood pressure. May require vasopressors
RIGOBERTO on CKD with azotemia
Metabolic acidosis
Suspect cardiorenal state.
Baseline creatinine 1.5.
Monitor with diuresis
Hyperkalemia treated with Lokelma
Hyponatremia suspect due to volume overload. Monitor with diuresis. Free water restriction.
Pleural effusion
Suspect secondary to CHF
Ultrasound chest with mod effusion
s/p IR thora 04/27 with 1100 cc removal; Appears exudative by LDH however appears pseudoexudate; cx so far neg;
Low clinical suspicion for infection. Antibiotics/Zosyn discontinued on 04/29
Permanent atrial fibrillation
Rate control with Coreg. Hold with hypotension.
Digoxin discontinued.
Anticoagulation with Coumadin held on admission with heparin bridge. Will transition back to Coumadin starting on 04/29. Daily INR.
Falls- Likely from orthostatic Hypotension vs mechanical--PT/OT
Orthosis currently negative however blood pressure remains low. Were checked after fluids so not sure if accurate
monitor
TME-Likely from Above. Ammonia normal
bladder scan; hold gabapentin; make percocet PRN with hold if sedated
Asterixis from uremia-ammonia normal
Continue to monitor renal function
Left posterior 11th rib fracture-Traumatic
Pain control, incentive spirometry
Monitor for oversedation while on oxycodone
Stage 1 sacral pressure injury, POA
Elevated TSH-repeat before adding medicines. Normal T4. Repeat .
CODE STATUS. DNR
Discussed with with patient and daughter at the bedside
According to patient wishes not to use any heroic measures and treatment in the with pain and suffering CODE STATUS changed to DNR.
Anticipated Discharge: > 48 hours
Subjective/Interval History
-
Date of Service: May 01, 2024
pt without c/o
Objective Data
-
Labs:
Laboratory Results
05/01/24 05/01/24
03:27 03:33
WBC 7.4
Hgb 9.8 L
Hct 31.2 L
Plt Count 143
PT 15.5 H
INR 1.25
APTT 89.0 H
Sodium 130 L
Potassium 4.3
Chloride 97 L
Carbon Dioxide 21 L
BUN 62 H
Creatinine 2.0 H
Glucose 151 H
Calcium 8.4
Vital Signs:
max temp for 24 hours
04/30/24
22:32
Temp 97.9 F
Vital Signs
Temp Pulse Resp BP Pulse Ox
98.8 F 72 20 115/67 97
05/01/24 08:09 05/01/24 08:11 05/01/24 08:09 05/01/24 08:11 05/01/24 08:09
I&O
04/30/24 05/01/24 05/02/24
06:59 06:59 06:59
Intake Total 1418 / 1418 840 / 840
Output Total 850 / 850 425 / 425
Balance 568 / 568 415 / 415
Review of Systems
-
All other systems: Reviewed and negative
Physical Exam
-
General: Appears Chronically Ill
HEENT: Normocephalic, Atraumatic and Other (has CPAP in place)
Respiratory: Clear to Auscultation; Negative Wheezes or Rhonchi
Cardiac: Irregular Rhythm and Murmur
GI: Soft, Nontender, Nondistended and Normal Bowel Sounds
Musculoskeletal: No Clubbing, No Cyanosis and No Edema
Neuro: Awake and Alert
Psych: Calm
[2024-05-01] MEDS: ZAROXOLYN 5 MG PO (08:49)
[2024-05-01] MEDS: LIDOCAINE 4% PATCH 1 PATCH TOPICAL ×2 (08:49)
[2024-05-01] MEDS: ProAmatine 10 MG PO ×3 (08:50→17:47)
[2024-05-01] MEDS: FLUSH (NSS) 2 FLUSH IV ×2 (08:50→16:38)
[2024-05-01] MEDS: LASIX 80 MG IV ×2 (08:50→16:39)
[2024-05-01] MEDS: CYMBALTA DELAYED RELEASE 30 MG PO (08:51)
[2024-05-01] MEDS: PROTONIX 40 MG PO (08:54)
[2024-05-01] MEDS: URSO 500 MG PO ×2 (08:54→20:25)
[2024-05-01] MEDS: ZYLOPRIM 450 MG PO (08:55)
[2024-05-01] MEDS: OSCAL 500 + D 500 MG PO (08:56)
[2024-05-01] MEDS: KCL 40 MEQ PO ×2 (09:17→17:47)
[2024-05-01] MEDS: NOVOLOG FLEXPEN-LOW RESISTANCE SC (09:43)
[2024-05-01 09:44] LABS: Glucose - Point of Care 149 mg/dl (70-99)
--- NOTE | 2024-05-01 11:04 | W.PN.CARDCBS ---
Today's Communication / Plan
-
Will continue to try to diurese. If no response we could consider inotrope although cardiac index was overall okay during right heart cath. Would likely consider dobutamine as option.
Creatinine stable at 2.0. Continue midodrine. Blood pressure is acceptable.
Back on Coumadin. Continue IV heparin for now.
Try to increase activity although long-term prognosis is poor.
Jardiance and digoxin have been held.
Impression / Plan
-
Primary Soil Technologist: Dr. GERRI Weeks
Assessment:
Presentation 04/25/2024 with falls
Asterixis
Posterior 11th rib fracture
T12 compression fracture
L1 compression fracture
Right pleural effusion
s/p Rt thoracentesis 03/29/24 ~1400 cc clear yellow pleural flu, recurrent by imaging 04/25/24
s/p right thoracentesis on 04/27 for 1150 cc of fluid.
Small to mod pericardial effusion by CT;small on echo 04/26/24
Hyperkalemia
Hyponatremia
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
CM, EF 30-35% by echo 03/2024
history of remote mitral valve repair surgery 1992 at [place] with iatrogenic mitral stenosis and recurrent severe MR status post TMVR (Antony valve placement x2) at [facility] 10/29/2022
CHB s/p single chamber Verma PPM placement 10/30/22
permanent atrial fibrillation on chronic Coumadin therapy for 31 years, managed by PCP
hypertension
mild aortic stenosis
chronic right bundle branch block
PAD
MGUS/Chronic anemia
Osteoarthritis
Chronic back pain with lumbar compression fracture, scheduled for upcoming vertebroplasty
Gout
Rheumatoid arthritis
History of hepatic failure from O[place]cia with peak bilirubin of 30 08/2023
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
JESSY on CPAP
ECHO 06/25/22: EF 50 to 55%, grade 3 diastolic dysfunction, septal contraction abnormality, severe biatrial enlargement, reduced RV function, status post full mitral annuloplasty ring from 1992, mean mitral gradient at average of 10 mmHg, concern for
possible moderate to severe MS, at least moderate MR noted, moderate to severe TR, severe pulmonary hypertension, PAP 69 mmHg, aortic sclerosis, ascites present
ECHO 01/20/23:�EF 35 to 40%, abnormal septal motion, moderate concentric LVH, enlarged RV size, pacer wire in right ventricle, status post #29 ANTONY mitral valve replacement with peak/mean gradients across valve of 11/5 with no MR seen, mild to
moderate eccentric AR, mild with peak mean gradients 23/12 mmHg, mild to moderate TR, PAP 52 mmHg, small ASD/PFO with [id number] shunt
Echo 07/09/2023:�EF 40-45%, dilated and hypokinetic RV, severe PAT, s/p� #29 Antony TMVR mean MV grad of 5 mmHg. No MR. Mild with peak/mean AV grad of 33/17 mmHg. Severe TR with dilated TV annulus, Severe PHTN with severely elevated pulmonary
pressures PasP 75-80 mmHg.
Echo 03/28/24: EF 30-35%, Severely biatrial enlargement. S/p #21 Antony TMVR with peak/mean gradients of 13/6 mmHg respectively. No mitral regurgitation. Indexed LA volume is severely abnormal (> 48 mL/m2). Mild aortic stenosis. Peak/mean
gradients 18/9 mmHg respectively. Mild aortic regurgitation. Moderate tricuspid regurgitation. PAP 53 mmHg assuming mmHg
ECHO 04/26/24: EF 30 to 35%, global hypokinesis, enlarged RV size, severe biatrial enlargement, TMVR with peak/mean gradient 8/4 mmHg, no MR, mild , peak/mean gradient 21/30 mmHg, mild AR, moderate TR, PAP 45 to 50 mmHg, small pericardial effusion,
pleural effusion present.
RH 04/30/2024: Hemodynamics (mmHg): RA (m) : 23; RV (s/d,m) : 65/14, 23; PA (s/d, m) : 67/31, 43; PCWP (m) : Given significantly dilated right atria despite multiple attempts, and using wire to guide into distal PA, [place] catheter Prolapsing
within the RA/RV could not be advanced to a wedge position. PA saturation: 53.1% on room air; AO saturation: 97.0% on room air; RA saturation: 51.8% on room air; Cardiac Output : 3.70 L/min
Cardiac Index : 2.0 L/min/m-2; Systemic vascular resistance: 1059 dsc^(-5)
Pulmonary vascular resistance: 3 vasquez unit (calculated using PA diastolic pressure is an estimate of pulmonary capillary wedge pressure); Heart rate: 80 bpm
CONCLUSION: Significantly elevated right and left-sided filling pressures with severe pulmonary hypertension and normal cardiac output
Plan:
-Patient presented 04/25/[address] Mccoy's office due to falls and tremors. He was supposed to have a back injection 04/25, however instead was referred to ER. seems to be failing at home
-Underwent right heart catheterization which showed significantly elevated right and left-sided filling pressures with severe pulmonary hypertension and normal cardiac output
-Got 80 mg IV Lasix on 04/29/2024. Weight down 6 pounds since admission. Continue diuresis with IV Lasix 80 mg twice daily (resumed 04/30/24)
-Creatinine 1.8->2.0 04/30/24. Continue to hold Jardiance
-Potassium 3.6 will replete with ongoing diuresis
-echo with results as above. EF 30-35%, no significant change compared to prior
-Continue midodrine 5 mg twice daily. Remains with relative hypotension limiting GDMT
-Recurrent right pleural effusion. He underwent right thoracentesis on 04/27 for 1150 cc of fluid. Chest x-ray from 04/29/2024 shows small right pleural effusion. Continue diuresis. Now on room air
-in vpaced rhythm with frequent PVCs. continue coreg. K/mag stable
-dig stopped this admission due to RI
-Permanent atrial fibrillation on Coumadin as outpatient. Coumadin initially held due to recent epidural and right heart cath. Resumed Coumadin 4 mg/. Follow INRs. hgb stable at 9.8
-PT/OT evals
-pain mgmt of fractures, back/hip pain
-will likely need placement upon DC, he was living alone independently prior to admission
-skilled nursing prognosis appears poor. presently full code
-d/w nursing
Progress Note - Soil Technologist
Subjective
Date of Service: May 01, 2024
He remains very weak and fatigued. Having difficulty with diuresis.
Objective
Labs:
05/01/24 03:27
05/01/24 03:33
Labs
Hgb 9.8 g/dL (13.0-18.0) L 05/01/24 03:27
Hct 31.2 % (39.0-52.0) L 05/01/24 03:27
Plt Count 143 10^3/uL (130-400) 05/01/24 03:27
PT 15.5 Sec (11.4-14.6) H 05/01/24 03:27
INR 1.25 05/01/24 03:27
APTT 89.0 Sec (23.4-35.0) H 05/01/24 03:27
Sodium 130 mmol/L (135-145) L 05/01/24 03:33
Potassium 4.3 mmol/L (3.5-5.1) 05/01/24 03:33
BUN 62 mg/dl (9-20) H 05/01/24 03:33
Creatinine 2.0 mg/dL (0.7-1.3) H 05/01/24 03:33
Glucose 151 mg/dl (70-99) H 05/01/24 03:33
Digoxin < 0.4 ng/ml (0.8-2.0) L 04/25/24 13:09
Vital Signs and I&O:
Vital Signs
Temp Pulse Resp BP Pulse Ox
98.8 F 72 20 115/67 97
05/01/24 08:09 05/01/24 08:11 05/01/24 08:09 05/01/24 08:11 05/01/24 08:09
Vital Signs
Temp Pulse Resp BP Pulse Ox
98.8 F 72 20 115/67 97
05/01/24 08:09 05/01/24 08:11 05/01/24 08:09 05/01/24 08:11 05/01/24 08:09
Intake & Output
04/29/24 04/30/24 05/01/24 05/02/24
06:59 06:59 06:59 06:59
Intake Total 732 / 732 1418 / 1418 840 / 840
Output Total 700 / 700 850 / 850 425 / 425
Balance 32 / 32 568 / 568 415 / 415
Physical Exam
Physical Exam
GEN: No distress, awake, tired
HEENT: supple, anicteric, mmm
LUNGS: CTA, no wheezes/rales
CV: Irreg, S1/S2, 1/6 syst LSB, no gallop
ABD: soft, BS+, NT/ND
EXT: No edema
NEURO: Gross non-focal
SKIN: No rash
--- NOTE | 2024-05-01 12:00 | PTCARENOTE ---
The patient's orthostatic BPs were lying 113/67 with a HR of 71, sitting 110/80 with a HR of 74, standing 107/69 with a HR of 89. He stated that he was a 'little dizzy.' afterward.
[2024-05-01 12:06] LABS: Glucose - Point of Care 217 mg/dl (70-99)
[2024-05-01] MEDS: NOVOLOG FLEXPEN-LOW RESISTANCE 2 UNITS SC (13:17)
[2024-05-01 17:44] LABS: Glucose - Point of Care 167 mg/dl (70-99)
[2024-05-01] MEDS: COUMADIN 5 MG PO (17:48)
[2024-05-01] MEDS: NOVOLOG FLEXPEN-LOW RESISTANCE 1 UNITS SC (17:59)
[2024-05-01] MEDS: HEPARIN 25000 UNITS/250 ML IV (19:09)
[2024-05-01 22:04] LABS: Glucose - Point of Care 179 mg/dl (70-99)
[2024-05-02] VITALS (24 sets, daily range): BP systolic 85–125; BP diastolic 48–77; PULSE 73–84; BMI 20.6
[2024-05-02 05:11] LABS: Hematocrit 31.2 % (39.0-52.0); Hemoglobin 9.9 g/dL (13.0-18.0); Mean Corp Hgb Conc. 31.7 g/dL (33.0-37.0); Mean Corpuscular Hgb 28.2 pg (27.0-31.0); Mean Corpuscular Volume 88.9 fL (80.0-94.0); Mean Platelet Volume 10.1 fL (7.4-10.4); Platelet Count 155 10^3/uL (130-400); Red Blood Cell Count 3.51 10^6/uL (4.70-6.10); Red Cell Dist. Width 24.8 % (11.5-14.5); White Blood Cell Count 6.9 10^3/uL (4.8-10.8)
[2024-05-02 05:30] LABS: INR 1.49; PT 17.8 Sec (11.4-14.6)
[2024-05-02 05:32] LABS: APTT 78.7 Sec (23.4-35.0)
[2024-05-02 05:34] LABS: Blood Urea Nitrogen 59 mg/dl (9-20); Calcium 8.4 mg/dl (8.4-10.2); Carbon Dioxide 26 mmol/L (22-30); Chloride 96 mmol/L (98-107); Estimated Creatinine Clearance 25 ml/min; Glucose 111 mg/dl (70-99); Potassium 3.7 mmol/L (3.5-5.1); Sodium 132 mmol/L (135-145)
[2024-05-02] MEDS: NOVOLOG FLEXPEN-LOW RESISTANCE SC (08:17)
[2024-05-02 08:18] LABS: Glucose - Point of Care 128 mg/dl (70-99)
[2024-05-02] MEDS: OSCAL 500 + D 500 MG PO (08:18)
[2024-05-02] MEDS: ZYLOPRIM 450 MG PO (08:18)
[2024-05-02] MEDS: CYMBALTA DELAYED RELEASE 30 MG PO (08:19)
[2024-05-02] MEDS: URSO 500 MG PO ×2 (08:19→20:21)
[2024-05-02] MEDS: ProAmatine 10 MG PO ×3 (08:19→17:09)
[2024-05-02] MEDS: PROTONIX 40 MG PO (08:19)
[2024-05-02] MEDS: LASIX 80 MG IV ×2 (08:19→17:08)
[2024-05-02] MEDS: LIDOCAINE 4% PATCH 1 PATCH TOPICAL ×2 (08:20→08:22)
[2024-05-02] MEDS: TYLENOL 650 MG PO ×2 (08:29→20:20)
--- NOTE | 2024-05-02 10:08 | W.PN.CARDCBS ---
Addendum entered and electronically signed by Morgan Zhang MD 05/02/24 11:34:
I saw and examined the patient.
The ENTRY LEVEL DRAFTER or PA's note was reviewed and I agree with the note.
Comment: General: Well developed, well nourished in NAD.
Neck: Supple, no JVD, HJR, carotids +2 B/L, no bruits bilaterally.
Heart: Non displaced PMI, RRR, no murmurs, No S3, S4, no rubs.
Lungs: Scattered rhonchi
Extremities: No clubbing, cyanosis or edema bilaterally.
Neuro: Grossly nonfocal, awake, alert and oriented x3.
Will continue diuresis with help from nephrology. He has lost weight since admission. Continue IV heparin to Coumadin
Original Note:
Today's Communication / Plan
-
Continue IV diuresis
Consider dobutamine gtt
Give Warfarin 5 mg tonight
Continue IV Heparin for now
Jardiance and Dig on hold
Impression / Plan
-
Primary Assembler Corncob Pipes: Dr. GERRI Weeks
Assessment:
Presentation 04/25/2024 with falls
Asterixis
Posterior 11th rib fracture
T12 compression fracture
L1 compression fracture
Right pleural effusion
s/p Rt thoracentesis 03/29/24 ~1400 cc clear yellow pleural flu, recurrent by imaging 04/25/24
s/p right thoracentesis on 04/27 for 1150 cc of fluid.
Small to mod pericardial effusion by CT;small on echo 04/26/24
Hyperkalemia
Hyponatremia
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
CM, EF 30-35% by echo 03/2024
history of remote mitral valve repair surgery [address] [facility] with iatrogenic mitral stenosis and recurrent severe MR status post TMVR (Antony valve placement x2) at [facility] 10/29/2022
CHB s/p single chamber Verma PPM placement 10/30/22
permanent atrial fibrillation on chronic Coumadin therapy for 31 years, managed by PCP
hypertension
mild aortic stenosis
chronic right bundle branch block
PAD
MGUS/Chronic anemia
Osteoarthritis
Chronic back pain with lumbar compression fracture, scheduled for upcoming vertebroplasty
Gout
Rheumatoid arthritis
History of hepatic failure from [facility] with peak bilirubin of 30 08/2023
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
JESSY on CPAP
ECHO 06/25/22: EF 50 to 55%, grade 3 diastolic dysfunction, septal contraction abnormality, severe biatrial enlargement, reduced RV function, status post full mitral annuloplasty ring from 1992, mean mitral gradient at average of 10 mmHg, concern for
possible moderate to severe MS, at least moderate MR noted, moderate to severe TR, severe pulmonary hypertension, PAP 69 mmHg, aortic sclerosis, ascites present
ECHO 01/20/23:�EF 35 to 40%, abnormal septal motion, moderate concentric LVH, enlarged RV size, pacer wire in right ventricle, status post #29 ANTONY mitral valve replacement with peak/mean gradients across valve of 11/ with no MR seen, mild to
moderate eccentric AR, mild with peak mean gradients 23/12 mmHg, mild to moderate TR, PAP 52 mmHg, small ASD/PFO with [id number] shunt
Echo 07/09/2023:�EF 40-45%, dilated and hypokinetic RV, severe PAT, s/p� #29 Antony TMVR mean MV grad of 5 mmHg. No MR. Mild with peak/mean AV grad of 33/17 mmHg. Severe TR with dilated TV annulus, Severe PHTN with severely elevated pulmonary
pressures PasP 75-80 mmHg.
Echo 03/28/24: EF 30-35%, Severely biatrial enlargement. S/p #21 Antony TMVR with peak/mean gradients of 13/6 mmHg respectively. No mitral regurgitation. Indexed LA volume is severely abnormal (> 48 mL/m2). Mild aortic stenosis. Peak/mean
gradients 18/9 mmHg respectively. Mild aortic regurgitation. Moderate tricuspid regurgitation. PAP 53 mmHg assuming mmHg
ECHO 04/26/24: EF 30 to 35%, global hypokinesis, enlarged RV size, severe biatrial enlargement, TMVR with peak/mean gradient 8/4 mmHg, no MR, mild , peak/mean gradient 21/30 mmHg, mild AR, moderate TR, PAP 45 to 50 mmHg, small pericardial effusion,
pleural effusion present.
RHC 04/30/2024: Hemodynamics (mmHg): RA (m) : 23; RV (s/d,m) : 65/14, 23; PA (s/d, m) : 67/31, 43; PCWP (m) : Given significantly dilated right atria despite multiple attempts, and using wire to guide into distal PA, [place] catheter Prolapsing
within the RA/RV could not be advanced to a wedge position. PA saturation: 53.1% on room air; AO saturation: 97.0% on room air; RA saturation: 51.8% on room air; Cardiac Output : 3.70 L/min
Cardiac Index : 2.0 L/min/m-2; Systemic vascular resistance: 1059 dsc^(-5)
Pulmonary vascular resistance: 3 vasquez unit (calculated using PA diastolic pressure is an estimate of pulmonary capillary wedge pressure); Heart rate: 80 bpm
CONCLUSION: Significantly elevated right and left-sided filling pressures with severe pulmonary hypertension and normal cardiac output
Plan:
-Patient presented 04/25/[address] Mccoy's office due to falls and tremors. He was supposed to have a back injection 04/25, however instead was referred to ER. seems to be failing at home
-Underwent right heart catheterization which showed significantly elevated right and left-sided filling pressures with severe pulmonary hypertension and normal cardiac output
-Weight down 7 pounds since admission. Continue diuresis with IV Lasix 80 mg twice daily. He did Metolazone 5 mg x 1 on 05/01/24 and only lost 1 lb overnight. Consider dobutamine gtt. Nephrology following
-Creatinine 1.8->2.0 05/02/24. Jardiance and Dig on hold
-Potassium 3.7; continue to follow. Patient was hyperkalemic on admission and did require multiple doses of Lokelma. This was discontinued 04/30/2024
-echo with results as above. EF 30-35%, no significant change compared to prior
-Continue midodrine 10 mg TID. Coreg has been on hold since 04/30/2024. Blood pressure stable on increased dose and with holding Coreg. Hypotension limiting GDMT
-Recurrent right pleural effusion. He underwent right thoracentesis on 04/27 for 1150 cc of fluid. Chest x-ray from 04/29/2024 shows small right pleural effusion. Continue diuresis. Now on room air
-in v-paced rhythm with frequent PVCs. Resume Coreg when BP allows. Monitor K/mag
-dig stopped this admission due to RI
-Permanent atrial fibrillation on Coumadin as outpatient. Coumadin initially held due to recent epidural and right heart cath. Resumed Coumadin 04/29. INRs slowly drifting up 1.49. Give 5 mg tonight. Follow INRs. Still on IV Heparin. hgb stable at
9.9.
-PT/OT evals recommending skilled rehab
-Pain mgmt of fractures, back/hip pain
-will likely need placement upon DC, he was living alone independently prior to admission
-[facility] prognosis appears poor. Code status changed to DNR
-d/w hospitalist, nursing and daughter at bedside
Progress Note - Assembler Corncob Pipes
Subjective
Date of Service: May 02, 2024
Patient seen and examined. Patient lying in bed. Patient's daughter at bedside. She reports he is more interactive and alert today than yesterday. Unfortunately has had several episodes of diarrhea.
Objective
Labs:
05/02/24 04:52
05/02/24 04:52
Labs
Hgb 9.9 g/dL (13.0-18.0) L 05/02/24 04:52
Hct 31.2 % (39.0-52.0) L 05/02/24 04:52
Plt Count 155 10^3/uL (130-400) 05/02/24 04:52
PT 17.8 Sec (11.4-14.6) H 05/02/24 04:52
INR 1.49 05/02/24 04:52
APTT 78.7 Sec (23.4-35.0) H 05/02/24 04:52
Sodium 132 mmol/L (135-145) L 05/02/24 04:52
Potassium 3.7 mmol/L (3.5-5.1) 05/02/24 04:52
BUN 59 mg/dl (9-20) H 05/02/24 04:52
Creatinine 2.0 mg/dL (0.7-1.3) H 05/02/24 04:52
Glucose 111 mg/dl (70-99) H 05/02/24 04:52
Digoxin < 0.4 ng/ml (0.8-2.0) L 04/25/24 13:09
Vital Signs and I&O:
Vital Signs
Temp Pulse Resp BP Pulse Ox
98.2 F 77 16 114/74 96
05/02/24 07:55 05/02/24 08:19 05/02/24 07:55 05/02/24 08:19 05/02/24 07:55
Vital Signs
Temp Pulse Resp BP Pulse Ox
98.2 F 77 16 114/74 96
05/02/24 07:55 05/02/24 08:19 05/02/24 07:55 05/02/24 08:19 05/02/24 07:55
Intake & Output
04/30/24 05/01/24 05/02/24 05/03/24
06:59 06:59 06:59 06:59
Intake Total 1418 / 1418 840 / 840 489 / 489
Output Total 850 / 850 425 / 425 1000 / 1000 200 / 200
Balance 568 / 568 415 / 415 -511 / -511 -200 / -200
Physical Exam
Physical Exam
GEN: No distress, awake, Ox3, lying in bed
HEENT: supple, anicteric, mmm
LUNGS: Scattered crackles at bases Lt>Rt, no wheezes/rales; on room air
CV: Irregularly irregular, S1/S2, 2/6 syst LSB murmur, no rubs or gallops
ABD: Distended but soft, BS+, NT
EXT: No edema, clubbing or cyanosis
NEURO: Gross non-focal
SKIN: No rash, warm, dry, pink
[2024-05-02] MEDS: NOVOLOG FLEXPEN-LOW RESISTANCE 2 UNITS SC ×2 (12:00→17:06)
[2024-05-02 12:01] LABS: Glucose - Point of Care 270 mg/dl (70-99)
[2024-05-02] MEDS: COREG 3.125 MG PO (12:20)
--- NOTE | 2024-05-02 13:07 | PTCARENOTE ---
Patient worked with PT/OT and RN to go to bathroom with rolling walker. Pt is orthostatic- see flowsheets. Bp is much better this shift so coreg restarted. Pt had two runs of v-tach (5-6 beats) that cards and hospitalist were made aware of.
--- NOTE | 2024-05-02 13:37 | W.PN.NEPH.PH ---
Today's Communication / Plan
-
continue diuresis
Assessment/Plan
-
Impression:
CKD 3b with Azotemia
Right pleural effusion
Anemia
Asterixis
Posterior 11th rib fracture
T12 compression fracture
L1 compression fracture
Small to mod pericardial effusion by CT
Hyponatremia
CM, EF 30-35% by echo 03/2024
history of remote mitral valve repair surgery 1992 at [place] with iatrogenic mitral stenosis and recurrent severe MR status post TMVR (Antony valve placement x2) at [facility] 10/29/2022
CHB s/p single chamber Verma PPM placement 10/30/22
permanent atrial fibrillation on chronic Coumadin therapy for 31 years, managed by PCP
hypertension
mild aortic stenosis
chronic right bundle branch block
PAD
MGUS/Chronic anemia
Chronic back pain with lumbar compression fracture, scheduled for upcoming vertebroplasty
Gout
Rheumatoid arthritis
Plan:
RHC with high pressures
continue to diurese slowly with IV lasix
c/w metolazone
follow BMP
Prognosis is guarded
-
-
Date of Service: May 02, 2024
CC / HPI / ROS
-
Chief Complaint:
Acute kidney injury
History of Present Illness:
Cr stable at 2.0
BP stable low on midodrine support
Status post right thoracentesis on 04/27/2024 for approximately 1 L
Na stable 132
Mild metabolic acidosis
Review of Systems:
weights marginally better
No chest pain or shortness of breath
awake and oriented
Labs
-
Labs:
WBC 6.9 10^3/uL (4.8-10.8) 05/02/24 04:52
RBC 3.51 10^6/uL (4.70-6.10) L 05/02/24 04:52
Hgb 9.9 g/dL (13.0-18.0) L 05/02/24 04:52
Hct 31.2 % (39.0-52.0) L 05/02/24 04:52
Plt Count 155 10^3/uL (130-400) 05/02/24 04:52
Sodium 132 mmol/L (135-145) L 05/02/24 04:52
Potassium 3.7 mmol/L (3.5-5.1) 05/02/24 04:52
Chloride 96 mmol/L (98-107) L 05/02/24 04:52
Carbon Dioxide 26 mmol/L (22-30) 05/02/24 04:52
BUN 59 mg/dl (9-20) H 05/02/24 04:52
Creatinine 2.0 mg/dL (0.7-1.3) H 05/02/24 04:52
eGFR 31.90 05/02/24 04:52
Glucose 111 mg/dl (70-99) H 05/02/24 04:52
Calcium 8.4 mg/dl (8.4-10.2) 05/02/24 04:52
Dnf-L-Rbjxnffsoam Pept 6360 pg/ml 04/25/24 09:40
Albumin 3.3 g/dl (3.5-5.0) L 04/29/24 04:38
Physical Exam
-
Vital Signs:
Vital Signs
Temp Pulse Resp BP Pulse Ox
98.3 F 81 16 110/63 96
05/02/24 11:53 05/02/24 12:20 05/02/24 11:53 05/02/24 12:20 05/02/24 11:53
Cardiovascular:: Regular rate and rhythm
Respiratory:: Bilateral: Coarse
Lung Excursion:: Normal
Abdomen:: Nontender and Soft
Bowel Sounds:: Normal
Extremity Edema:: None: Bilateral:
Mccormick Catheter: No
--- NOTE | 2024-05-02 13:46 | CM ---
Reviewed chart. Met with Mr. Posadas to review discharge plans. He states is feeling a little better. We reviewed the post hospital plan is to go to SNFG/Rehab. Reviewed the SNF/Rehab. family has selected: [facility], [facility], [facility] and [facility]. [facility], [facility] and [facility] has accepted pending bed availability when ready for transfer. He states he has [employer] Insurance also but does not know ehat it will cover. Medical work-up in progress.
The discharge plan is to go to SNF/Rehab. when medically stable.
--- NOTE | 2024-05-02 16:28 | W.PN.HOSP.TC ---
Today's Communication/Plan
-
IV diuresis monitor renal function.
Physical therapy
Assessment / Plan
Assessment / Plan
Impression
Acute CHF reduced EF.
Cardiomyopathy.
Recurrent pleural effusion
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
TME, multifactorial
Persistent hypotension
Presentation with falls
Asterixis.
Traumatic posterior 11th rib fracture.
T12/L1 compression fracture.
Conditions prior to admission:
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
Complete heart block status post pacemaker.
Permanent atrial fibrillation
Anticoagulation with Coumadin
Hypertension
Obstructive sleep apnea on CPAP
PAD
And gout/chronic anemia.
Rheumatoid arthritis
History of hepatic injury from [place]
Plan
Acute CHF reduced EF
ECHO 04/26/24: EF 30 to 35%, global hypokinesis, enlarged RV size, severe biatrial enlargement, TMVR with peak/mean gradient 8/4 mmHg, no MR, mild , peak/mean gradient 21/30 mmHg, mild AR, moderate TR, PAP 45 to 50 mmHg, small pericardial effusion,
pleural effusion present.
RHC 04/29:
Significantly elevated right and left-sided filling pressures with severe pulmonary hypertension and normal cardiac output
Initiate IV diuresis with Lasix 80 mg twice daily with addition of metolazone
Follow renal function, daily weights.
Standing dose of midodrine to support blood pressure. May require vasopressors
RIGOBERTO on CKD with azotemia
Metabolic acidosis
Suspect cardiorenal state.
Baseline creatinine 1.5.
Monitor with diuresis
Hyperkalemia treated with Lokelma
Hyponatremia suspect due to volume overload. Monitor with diuresis. Free water restriction.
Pleural effusion
Suspect secondary to CHF
Ultrasound chest with mod effusion
s/p IR thora 04/27 with 1100 cc removal; Appears exudative by LDH however appears pseudoexudate; cx so far neg;
Low clinical suspicion for infection. Antibiotics/Zosyn discontinued on 04/29
Permanent atrial fibrillation
Rate control with Coreg. Hold with hypotension.
Digoxin discontinued.
Anticoagulation with Coumadin held on admission with heparin bridge. Will transition back to Coumadin starting on 04/29. Daily INR.
Falls- Likely from orthostatic Hypotension vs mechanical--PT/OT
Orthosis currently negative however blood pressure remains low. Were checked after fluids so not sure if accurate
monitor
TME-Likely from Above. Ammonia normal
bladder scan; hold gabapentin; make percocet PRN with hold if sedated
Asterixis from uremia-ammonia normal
Continue to monitor renal function
Left posterior 11th rib fracture-Traumatic
Pain control, incentive spirometry
Monitor for oversedation while on oxycodone
Stage 1 sacral pressure injury, POA
Elevated TSH-repeat before adding medicines. Normal T4. Repeat .
CODE STATUS. DNR
Discussed with with patient and daughter at the bedside
According to patient wishes not to use any heroic measures and treatment in the with pain and suffering CODE STATUS changed to DNR.
Anticipated Discharge: > 48 hours
Subjective/Interval History
-
Date of Service: May 02, 2024
Objective Data
-
Labs:
Laboratory Results
05/02/24
04:52
WBC 6.9
Hgb 9.9 L
Hct 31.2 L
Plt Count 155
PT 17.8 H
INR 1.49
APTT 78.7 H
Sodium 132 L
Potassium 3.7
Chloride 96 L
Carbon Dioxide 26
BUN 59 H
Creatinine 2.0 H
Glucose 111 H
Calcium 8.4
Vital Signs:
Vital Signs
Temp Pulse Resp BP Pulse Ox
98.3 F 81 16 110/63 96
05/02/24 11:53 05/02/24 12:20 05/02/24 11:53 05/02/24 12:20 05/02/24 11:53
I&O
05/01/24 05/02/24 05/03/24
06:59 06:59 06:59
Intake Total 840 / 840 489 / 489
Output Total 425 / 425 1000 / 1000 200 / 200
Balance 415 / 415 -511 / -511 -200 / -200
Physical Exam
-
General: Appears Chronically Ill
HEENT: Normocephalic, Atraumatic and Other (has CPAP in place)
Respiratory: Clear to Auscultation; Negative Wheezes or Rhonchi
Cardiac: Irregular Rhythm and Murmur
GI: Soft, Nontender, Nondistended and Normal Bowel Sounds
Musculoskeletal: No Clubbing, No Cyanosis and No Edema
Neuro: Awake and Alert
Psych: Calm
[2024-05-02 17:07] LABS: Glucose - Point of Care 231 mg/dl (70-99)
[2024-05-02] MEDS: COUMADIN 5 MG PO (17:20)
[2024-05-02] MEDS: HEPARIN 25000 UNITS/250 ML IV (21:52)
[2024-05-02] MEDS: OCEAN, SALINE MIST 1 SPRAYS NASAL (21:59)
[2024-05-02 22:35] LABS: Glucose - Point of Care 146 mg/dl (70-99)
--- NOTE | 2024-05-02 23:53 | PTCARENOTE ---
Patient comfortable in bed, [employer]. Bruising left ribs, hips, arms and legs. Heparin infusing at 900 units/hr. Ortho VS obtained, denied feelings of lightheadedness.
[2024-05-03] VITALS (16 sets, daily range): BP systolic 93–183; BP diastolic 52–166; PULSE 76–90; BMI 20.6
[2024-05-03] MEDS: MELATONIN 5 MG PO (01:07)
--- NOTE | 2024-05-03 03:10 | PTCARENOTE ---
Unable to sleep or tolerate using CPAP tonight, removed. Melatonin given earlier to help. BP 93/54, V-paced BBB, PVC's. Condom catheter intact, emptied bag for 650 cc of yellow urine. Labs collected, lights dimmed, call larios in reach
[2024-05-03 03:48] LABS: Hematocrit 29.7 % (39.0-52.0); Hemoglobin 9.6 g/dL (13.0-18.0); Mean Corp Hgb Conc. 32.3 g/dL (33.0-37.0); Mean Corpuscular Hgb 28.2 pg (27.0-31.0); Mean Corpuscular Volume 87.4 fL (80.0-94.0); Mean Platelet Volume 9.7 fL (7.4-10.4); Platelet Count 150 10^3/uL (130-400); Red Cell Dist. Width 25.2 % (11.5-14.5)
[2024-05-03 04:00] LABS: INR 1.84; PT 21.1 Sec (11.4-14.6)
[2024-05-03 04:02] LABS: APTT 92.8 Sec (23.4-35.0)
[2024-05-03 04:04] LABS: Blood Urea Nitrogen 59 mg/dl (9-20); Calcium 8.3 mg/dl (8.4-10.2); Carbon Dioxide 25 mmol/L (22-30); Chloride 94 mmol/L (98-107); Estimated Creatinine Clearance 24 ml/min; Glucose 126 mg/dl (70-99); Sodium 131 mmol/L (135-145)
[2024-05-03 07:14] LABS: Glucose - Point of Care 143 mg/dl (70-99)
[2024-05-03] MEDS: NOVOLOG FLEXPEN-LOW RESISTANCE SC (08:11)
[2024-05-03] MEDS: PROTONIX 40 MG PO (08:12)
[2024-05-03] MEDS: URSO 500 MG PO ×2 (08:12→21:12)
[2024-05-03] MEDS: CYMBALTA DELAYED RELEASE 30 MG PO (08:12)
[2024-05-03] MEDS: ZYLOPRIM 450 MG PO (08:13)
[2024-05-03] MEDS: OSCAL 500 + D 500 MG PO (08:14)
[2024-05-03] MEDS: ProAmatine 10 MG PO ×3 (08:14→17:27)
[2024-05-03] MEDS: LASIX 80 MG IV ×2 (08:15→16:17)
[2024-05-03] MEDS: LIDOCAINE 4% PATCH 1 PATCH TOPICAL ×2 (08:18)
[2024-05-03] MEDS: FLUSH (NSS) 1 FLUSH IV (08:21)
[2024-05-03] MEDS: KCL 40 MEQ PO ×2 (09:49→12:47)
[2024-05-03 10:42] LABS: Magnesium 2.2 mg/dl (1.6-2.3)
--- NOTE | 2024-05-03 11:11 | W.PN.CARDCBS ---
Addendum entered and electronically signed by Morgan Zhang MD 05/03/24 12:21:
I saw and examined the patient.
The INSTRUMENTAL MUSIC TEACHER or PA's note was reviewed and I agree with the note.
Comment: General: Well developed, well nourished in NAD.
Neck: Supple, no JVD, HJR, carotids +2 B/L, no bruits bilaterally.
Heart: Non displaced PMI, RRR, no murmurs, No S3, S4, no rubs.
Lungs: Scattered rhonchi
Extremities: No clubbing, cyanosis or edema bilaterally.
Neuro: Grossly nonfocal, awake, alert and oriented x3.
He is on room air and appears comfortable. He may have reached his dry weight. Family agrees to meet with palliative care/hospice. Will check BMP as well as chest x-ray and replete potassium
Original Note:
Today's Communication / Plan
-
Replete potassium
Check BMP this afternoon
Check chest x-ray
Goals of care discussion with family agree to meeting with palliative care/hospice
Impression / Plan
-
Primary Content Publisher: Dr. GERRI Weeks
Assessment:
Presentation 04/25/2024 with falls
Asterixis
Posterior 11th rib fracture
T12 compression fracture
L1 compression fracture
Right pleural effusion
s/p Rt thoracentesis 03/29/24 ~1400 cc clear yellow pleural flu, recurrent by imaging 04/25/24
s/p right thoracentesis on 04/27 for 1150 cc of fluid.
Small to mod pericardial effusion by CT;small on echo 04/26/24
Hyperkalemia
Hyponatremia
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
CM, EF 30-35% by echo 03/2024
history of remote mitral valve repair surgery 1992 at [place] with iatrogenic mitral stenosis and recurrent severe MR status post TMVR (Antony valve placement x2) at [facility] 10/29/2022
CHB s/p single chamber Verma PPM placement 10/30/22
permanent atrial fibrillation on chronic Coumadin therapy for 31 years, managed by PCP
hypertension
mild aortic stenosis
chronic right bundle branch block
PAD
MGUS/Chronic anemia
Osteoarthritis
Chronic back pain with lumbar compression fracture, scheduled for upcoming vertebroplasty
Gout
Rheumatoid arthritis
History of hepatic failure from [facility] with peak bilirubin of 30 08/2023
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
JESSY on CPAP
ECHO 06/25/22: EF 50 to 55%, grade 3 diastolic dysfunction, septal contraction abnormality, severe biatrial enlargement, reduced RV function, status post full mitral annuloplasty ring from 1992, mean mitral gradient at average of 10 mmHg, concern for
possible moderate to severe MS, at least moderate MR noted, moderate to severe TR, severe pulmonary hypertension, PAP 69 mmHg, aortic sclerosis, ascites present
ECHO 01/20/23:�EF 35 to 40%, abnormal septal motion, moderate concentric LVH, enlarged RV size, pacer wire in right ventricle, status post #29 ANTONY mitral valve replacement with peak/mean gradients across valve of 08/23 with no MR seen, mild to
moderate eccentric AR, mild with peak mean gradients 23/12 mmHg, mild to moderate TR, PAP 52 mmHg, small ASD/PFO with [id number]-uz-[id number] shunt
Echo 07/09/2023:�EF 40-45%, dilated and hypokinetic RV, severe PAT, s/p� #29 Antony TMVR mean MV grad of 5 mmHg. No MR. Mild with peak/mean AV grad of 33/17 mmHg. Severe TR with dilated TV annulus, Severe PHTN with severely elevated pulmonary
pressures PasP 75-80 mmHg.
Echo 03/28/24: EF 30-35%, Severely biatrial enlargement. S/p #21 Antony TMVR with peak/mean gradients of 13/6 mmHg respectively. No mitral regurgitation. Indexed LA volume is severely abnormal (> 48 mL/m2). Mild aortic stenosis. Peak/mean
gradients 18/9 mmHg respectively. Mild aortic regurgitation. Moderate tricuspid regurgitation. PAP 53 mmHg assuming mmHg
ECHO 04/26/24: EF 30 to 35%, global hypokinesis, enlarged RV size, severe biatrial enlargement, TMVR with peak/mean gradient 8/4 mmHg, no MR, mild , peak/mean gradient 21/30 mmHg, mild AR, moderate TR, PAP 45 to 50 mmHg, small pericardial effusion,
pleural effusion present.
RHC 04/30/2024: Hemodynamics (mmHg): RA (m) : 23; RV (s/d,m) : 65/14, 23; PA (s/d, m) : 67/31, 43; PCWP (m) : Given significantly dilated right atria despite multiple attempts, and using wire to guide into distal PA, Warfield-Nan catheter Prolapsing
within the RA/RV could not be advanced to a wedge position. PA saturation: 53.1% on room air; AO saturation: 97.0% on room air; RA saturation: 51.8% on room air; Cardiac Output : 3.70 L/min
Cardiac Index : 2.0 L/min/m-2; Systemic vascular resistance: 1059 dsc^(-5)
Pulmonary vascular resistance: 3 vasquez unit (calculated using PA diastolic pressure is an estimate of pulmonary capillary wedge pressure); Heart rate: 80 bpm
CONCLUSION: Significantly elevated right and left-sided filling pressures with severe pulmonary hypertension and normal cardiac output
Plan:
-Patient presented 04/25/[address] Mccoy's office due to falls and tremors. He was supposed to have a back injection 04/25, however instead was referred to ER. seems to be failing at home
-Underwent right heart catheterization which showed significantly elevated right and left-sided filling pressures with severe pulmonary hypertension and normal cardiac output
-Weight down 7 pounds since admission. Although no weight loss overnight and 2 lbs weight loss in past 3 days. Nephrology assisting in diuresis. Continue diuresis with IV Lasix 80 mg twice daily. He did Metolazone 5 mg x 1 on 05/01/24
-Creatinine 1.8->2.0 05/03/24. Jardiance and Dig on hold
-Potassium 3.0; Will replete give 40 meq BID. Repeat BMP this afternoon and if remains low then may need K-rider. Of note patient was hyperkalemic on admission and did require multiple doses of Lokelma. This was discontinued 04/30/2024
-echo with results as above. EF 30-35%, no significant change compared to prior
-Continue midodrine 10 mg TID. Coreg held since 04/30/2024. Did get 1 dose of Coreg 05/02 but blood pressure remains hypotensive today. Could consider Toprol instead but unclear if he would tolerate. Hypotension limiting GDMT
-Recurrent right pleural effusion. He underwent right thoracentesis on 04/27 for 1150 cc of fluid. Chest x-ray from 04/29/2024 shows small right pleural effusion. He has absent breath sounds at right base again. Would repeat chest x-ray to see if
reaccumulation.
-in v-paced rhythm with frequent PVCs. Also runs of nonsustained ventricular tachycardia noted. Ongoing repletion of electrolytes
-dig stopped this admission due to RI
-Permanent atrial fibrillation on Coumadin as outpatient. Coumadin initially held due to recent epidural and right heart cath. Resumed Coumadin 04/29. INRs slowly drifting up 1.84. Give 5 mg tonight. Follow INRs. Still on IV Heparin. hgb stable at
9.6.
-PT/OT evals recommending skilled rehab
-Pain mgmt of fractures, back/hip pain
-will likely need placement upon DC, he was living alone independently prior to admission
-prison prognosis appears poor. Code status changed to DNR
-d/w hospitalist, nursing and daughter at bedside
Had detailed conversation with patient's daughter Sabiha and son Clayton at bedside regarding goals of care discussion. They would be open to meet with palliative care/hospice to discuss options.
Progress Note - Content Publisher
Subjective
Date of Service: May 03, 2024
Patient seen and examined. Patient lying in bed and complaining of feeling pain all over. He denies shortness of breath but admits he was dizzy earlier upon getting out of bed with PT. He denies chest pain
Objective
Labs:
05/03/24 03:02
05/03/24 03:02
Labs
Hgb 9.6 g/dL (13.0-18.0) L 05/03/24 03:02
Hct 29.7 % (39.0-52.0) L 05/03/24 03:02
Plt Count 150 10^3/uL (130-400) 05/03/24 03:02
PT 21.1 Sec (11.4-14.6) H 05/03/24 03:02
INR 1.84 05/03/24 03:02
APTT 92.8 Sec (23.4-35.0) H 05/03/24 03:02
Sodium 131 mmol/L (135-145) L 05/03/24 03:02
Potassium 3.0 mmol/L (3.5-5.1) L 05/03/24 03:02
BUN 59 mg/dl (9-20) H 05/03/24 03:02
Creatinine 2.0 mg/dL (0.7-1.3) H 05/03/24 03:02
Glucose 126 mg/dl (70-99) H 05/03/24 03:02
Digoxin < 0.4 ng/ml (0.8-2.0) L 04/25/24 13:09
Vital Signs and I&O:
Vital Signs
Temp Pulse Resp BP Pulse Ox
97.9 F 81 18 100/52 98
05/03/24 07:19 05/03/24 06:00 05/03/24 07:19 05/03/24 08:14 05/03/24 07:19
Vital Signs
Temp Pulse Resp BP Pulse Ox
97.9 F 81 18 100/52 98
05/03/24 07:19 05/03/24 06:00 05/03/24 07:19 05/03/24 08:14 05/03/24 07:19
Intake & Output
05/01/24 05/02/24 05/03/24 05/04/24
06:59 06:59 06:59 06:59
Intake Total 840 / 840 489 / 489 720 / 720
Output Total 425 / 425 1000 / 1000 1600 / 1600
Balance 415 / 415 -511 / -511 -880 / -880
Physical Exam
Physical Exam
GEN: Frail and chronically ill-appearing, lying in bed
HEENT: supple, anicteric, mmm
LUNGS: Absent breath sounds at right base approximately a third of the way up, few Scattered crackles at left base, no wheezes/rales; on room air
CV: Irregularly irregular, S1/S2, 2/6 syst LSB murmur, no rubs or gallops
ABD: Distended but soft, BS+, NT
EXT: No edema, clubbing or cyanosis
NEURO: Gross non-focal
SKIN: No rash, warm, dry, pink
[2024-05-03 11:53] LABS: Glucose - Point of Care 275 mg/dl (70-99)
[2024-05-03] MEDS: NOVOLOG FLEXPEN-LOW RESISTANCE 3 UNITS SC (11:57)
--- NOTE | 2024-05-03 14:11 | W.PN.HOSP.TC ---
Today's Communication/Plan
-
While on IV Lasix with addition of metolazone weight had plateau
Respiratory status relatively stable at rest with no evidence of distress supplemental oxygen requirements.
Ongoing goals of care discussion well family considering palliative approach including hospice.
Assessment / Plan
Assessment / Plan
Impression
Acute CHF reduced EF.
Cardiomyopathy.
Recurrent pleural effusion
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
TME, multifactorial
Persistent hypotension
Presentation with falls
Asterixis.
Traumatic posterior 11th rib fracture.
T12/L1 compression fracture.
Conditions prior to admission:
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
Complete heart block status post pacemaker.
Permanent atrial fibrillation
Anticoagulation with Coumadin
Hypertension
Obstructive sleep apnea on CPAP
PAD
And gout/chronic anemia.
Rheumatoid arthritis
History of hepatic injury from [place]
Plan
Acute CHF reduced EF
ECHO 04/26/24: EF 30 to 35%, global hypokinesis, enlarged RV size, severe biatrial enlargement, TMVR with peak/mean gradient 8/4 mmHg, no MR, mild , peak/mean gradient 21/30 mmHg, mild AR, moderate TR, PAP 45 to 50 mmHg, small pericardial effusion,
pleural effusion present.
RHC 04/29:
Significantly elevated right and left-sided filling pressures with severe pulmonary hypertension and normal cardiac output
Initiate IV diuresis with Lasix 80 mg twice daily with addition of metolazone
Follow renal function, daily weights.
Standing dose of midodrine to support blood pressure. May require vasopressors
RIGOBERTO on CKD with azotemia
Metabolic acidosis
Suspect cardiorenal state.
Baseline creatinine 1.5.
Monitor with diuresis
Hyperkalemia treated with Lokelma
Hyponatremia suspect due to volume overload. Monitor with diuresis. Free water restriction.
Pleural effusion
Suspect secondary to CHF
Ultrasound chest with mod effusion
s/p IR thora 04/27 with 1100 cc removal; Appears exudative by LDH however appears pseudoexudate; cx so far neg;
Low clinical suspicion for infection. Antibiotics/Zosyn discontinued on 04/29
Permanent atrial fibrillation
Rate control with Coreg. Hold with hypotension.
Digoxin discontinued.
Anticoagulation with Coumadin held on admission with heparin bridge. Will transition back to Coumadin starting on 04/29. Daily INR.
Falls- Likely from orthostatic Hypotension vs mechanical--PT/OT
Orthosis currently negative however blood pressure remains low. Were checked after fluids so not sure if accurate
monitor
TME-Likely from Above. Ammonia normal
bladder scan; hold gabapentin; make percocet PRN with hold if sedated
Asterixis from uremia-ammonia normal
Continue to monitor renal function
Left posterior 11th rib fracture-Traumatic
Pain control, incentive spirometry
Monitor for oversedation while on oxycodone
Stage 1 sacral pressure injury, POA
Elevated TSH-repeat before adding medicines. Normal T4. Repeat .
CODE STATUS. DNR
Discussed with with patient and daughter at the bedside
According to patient wishes not to use any heroic measures and treatment in the with pain and suffering CODE STATUS changed to DNR.
Anticipated Discharge: 24 - 48 hours
Subjective/Interval History
-
Date of Service: May 03, 2024
Objective Data
-
Labs:
Laboratory Results
05/03/24 05/03/24
03:02 16:00
WBC 7.0
Hgb 9.6 L
Hct 29.7 L
Plt Count 150
PT 21.1 H
INR 1.84
APTT 92.8 H
Sodium 131 L Pending
Potassium 3.0 L Pending
Chloride 94 L Pending
Carbon Dioxide 25 Pending
BUN 59 H Pending
Creatinine 2.0 H Pending
Glucose 126 H Pending
Calcium 8.3 L Pending
Vital Signs:
Vital Signs
Temp Pulse Resp BP Pulse Ox
97.5 F 79 18 106/62 98
05/03/24 11:47 05/03/24 11:40 05/03/24 11:47 05/03/24 11:40 05/03/24 11:47
I&O
05/02/24 05/03/24 05/04/24
06:59 06:59 06:59
Intake Total 489 / 489 720 / 720
Output Total 1000 / 1000 1600 / 1600
Balance -511 / -511 -880 / -880
Physical Exam
-
General: Appears Chronically Ill
HEENT: Normocephalic, Atraumatic and Other (has CPAP in place)
Respiratory: Clear to Auscultation; Negative Wheezes or Rhonchi
Cardiac: Irregular Rhythm and Murmur
GI: Soft, Nontender, Nondistended and Normal Bowel Sounds
Musculoskeletal: No Clubbing, No Cyanosis and No Edema
Neuro: Awake and Alert
Psych: Calm
--- NOTE | 2024-05-03 15:36 | PTCARENOTE ---
Pt OOB in chair this morning for 2 hrs, kasie well. Assisted back to bed because he requested to take a nap. PT/OT came to work with Pt. He was OOB and walked with PT/OT. Pt also assisted OOB to BSC then back to bed. He is currently c/o dizziness
while lying in bed. BP 123/72, HR=85, O2 sat 97% on RA. Dr Zayas aware.
--- NOTE | 2024-05-03 15:50 | W.PN.NEPH.PH ---
Today's Communication / Plan
-
- continue with diuresis
Assessment/Plan
-
Impression:
CKD 3b with Azotemia
Right pleural effusion
Anemia
Asterixis
Posterior 11th rib fracture
T12 compression fracture
L1 compression fracture
Small to mod pericardial effusion by CT
Hyponatremia
CM, EF 30-35% by echo 03/2024
history of remote mitral valve repair surgery 1992 at [place] with iatrogenic mitral stenosis and recurrent severe MR status post TMVR (Antony valve placement x2) at [facility] 10/29/2022
CHB s/p single chamber Verma PPM placement 10/30/22
permanent atrial fibrillation on chronic Coumadin therapy for 31 years, managed by PCP
hypertension
mild aortic stenosis
chronic right bundle branch block
PAD
MGUS/Chronic anemia
Chronic back pain with lumbar compression fracture, scheduled for upcoming vertebroplasty
Gout
Rheumatoid arthritis
Plan:
RHC with high pressures
continue to diurese slowly with IV lasix
c/w metolazone
follow BMP
Prognosis is guarded
-
-
Date of Service: May 03, 2024
CC / HPI / ROS
-
Chief Complaint:
Acute kidney injury
History of Present Illness:
Cr stable at 2.0
BP stable low on midodrine support
Status post right thoracentesis on 04/27/2024 for approximately 1 L
Na stable 132
Mild metabolic acidosis
Review of Systems:
weights marginally better
No chest pain
some SOB with exertion
awake and oriented
Labs
-
Labs:
WBC 7.0 10^3/uL (4.8-10.8) 05/03/24 03:02
RBC 3.40 10^6/uL (4.70-6.10) L 05/03/24 03:02
Hgb 9.6 g/dL (13.0-18.0) L 05/03/24 03:02
Hct 29.7 % (39.0-52.0) L 05/03/24 03:02
Plt Count 150 10^3/uL (130-400) 05/03/24 03:02
eGFR 31.90 05/03/24 03:02
Ncm-[id number] Pept 6360 pg/ml 04/25/24 09:40
Albumin 3.3 g/dl (3.5-5.0) L 04/29/24 04:38
Physical Exam
-
Vital Signs:
Vital Signs
Temp Pulse Resp BP Pulse Ox
97.6 F 81 18 123/72 98
05/03/24 15:32 05/03/24 15:08 05/03/24 11:47 05/03/24 15:08 05/03/24 11:47
Cardiovascular:: Regular rate and rhythm
Respiratory:: Bilateral: Coarse
Lung Excursion:: Normal
Abdomen:: Nontender and Soft
Bowel Sounds:: Normal
Extremity Edema:: +1: Bilateral:
Mccormick Catheter: No
[2024-05-03] MEDS: TYLENOL 650 MG PO (15:53)
[2024-05-03 17:14] LABS: Blood Urea Nitrogen 59 mg/dl (9-20); Calcium 8.9 mg/dl (8.4-10.2); Carbon Dioxide 26 mmol/L (22-30); Chloride 92 mmol/L (98-107); Estimated Creatinine Clearance 26 ml/min; Glucose 160 mg/dl (70-99); Potassium 3.7 mmol/L (3.5-5.1); Sodium 132 mmol/L (135-145); eGFR 33.93
[2024-05-03] MEDS: COUMADIN 5 MG PO (17:27)
[2024-05-03] MEDS: NOVOLOG FLEXPEN-LOW RESISTANCE 1 UNITS SC (17:28)
[2024-05-03] MEDS: KCL 20 MEQ PO (21:12)
[2024-05-03] MEDS: ATIVAN 0.5 MG PO (21:12)
[2024-05-03 21:35] LABS: Glucose - Point of Care 188 mg/dl (70-99)
--- NOTE | 2024-05-03 22:47 | PTCARENOTE ---
Patient more alert, denies lightheadedness, chronic pain all over. Ortho VS completed, stood on side of bed with rolling walker, unsteady, needs assistance. SUPERINTENDENT PRESSURE, PVC's, BBB. Refusing CPAP, unable to sleep, Ativan given. Scattered bruising all over.
Heparin at 900 units/hr, call larios in reach
[2024-05-04] VITALS (14 sets, daily range): BP systolic 65–129; BP diastolic 61–91; PULSE 83–90; BMI 20.6
[2024-05-04] MEDS: HEPARIN 25000 UNITS/250 ML IV (03:02)
[2024-05-04] MEDS: ATIVAN 0.5 MG PO ×2 (05:01→22:42)
[2024-05-04] MEDS: TYLENOL 650 MG PO ×2 (05:05→22:42)
--- NOTE | 2024-05-04 05:19 | PTCARENOTE ---
Patient uncomfortable, anxious, placed on 2 liter NC for comfort. Pain in back, hands ribs. Medicated with Tylenol and Ativan. repositioned for comfort.
[2024-05-04 05:27] LABS: INR 2.16
[2024-05-04 05:29] LABS: APTT 117.2 Sec (23.4-35.0)
[2024-05-04 05:46] LABS: Blood Urea Nitrogen 57 mg/dl (9-20); Calcium 8.9 mg/dl (8.4-10.2); Carbon Dioxide 25 mmol/L (22-30); Chloride 94 mmol/L (98-107); Estimated Creatinine Clearance 24 ml/min; Glucose 112 mg/dl (70-99); Potassium 3.5 mmol/L (3.5-5.1); Sodium 131 mmol/L (135-145)
[2024-05-04 05:54] LABS: Hematocrit 30.6 % (39.0-52.0); Hemoglobin 9.8 g/dL (13.0-18.0); Mean Corpuscular Hgb 27.8 pg (27.0-31.0); Mean Corpuscular Volume 86.7 fL (80.0-94.0); Mean Platelet Volume 9.9 fL (7.4-10.4); Platelet Count 159 10^3/uL (130-400); Red Blood Cell Count 3.53 10^6/uL (4.70-6.10); Red Cell Dist. Width 24.8 % (11.5-14.5); White Blood Cell Count 6.9 10^3/uL (4.8-10.8)
[2024-05-04 07:00] LABS: Glucose - Point of Care 187 mg/dl (70-99)
[2024-05-04] MEDS: NOVOLOG FLEXPEN-LOW RESISTANCE 1 UNITS SC (08:52)
[2024-05-04] MEDS: CYMBALTA DELAYED RELEASE 30 MG PO (08:53)
[2024-05-04] MEDS: LASIX 80 MG IV ×2 (08:53→17:03)
[2024-05-04] MEDS: OSCAL 500 + D 500 MG PO (08:55)
[2024-05-04] MEDS: ProAmatine 10 MG PO ×3 (08:55→17:02)
[2024-05-04] MEDS: URSO 500 MG PO ×2 (08:56→20:05)
[2024-05-04] MEDS: ZYLOPRIM 450 MG PO (08:56)
[2024-05-04] MEDS: PROTONIX 40 MG PO (08:56)
[2024-05-04] MEDS: LIDOCAINE 4% PATCH 1 PATCH TOPICAL ×2 (08:57→08:58)
[2024-05-04] MEDS: FLUSH (NSS) 1 FLUSH IV (08:58)
--- NOTE | 2024-05-04 09:19 | W.PN.NEPH.PH ---
Today's Communication / Plan
-
GOC discussion
Assessment/Plan
-
Impression:
CKD 3b with Azotemia
Right pleural effusion
Anemia
Asterixis
Posterior 11th rib fracture
T12 compression fracture
L1 compression fracture
Small to mod pericardial effusion by CT
Hyponatremia
CM, EF 30-35% by echo 03/2024
history of remote mitral valve repair surgery 1992 at [place] with iatrogenic mitral stenosis and recurrent severe MR status post TMVR (Antony valve placement x2) at [facility] 10/29/2022
CHB s/p single chamber Verma PPM placement 10/30/22
permanent atrial fibrillation on chronic Coumadin therapy for 31 years, managed by PCP
hypertension
mild aortic stenosis
chronic right bundle branch block
PAD
MGUS/Chronic anemia
Chronic back pain with lumbar compression fracture, scheduled for upcoming vertebroplasty
Gout
Rheumatoid arthritis
Plan:
continue lasix IV for now
for [facility] discussion with his 4 children, possible palliative care
follow BMP
-
-
Date of Service: May 04, 2024
CC / HPI / ROS
-
Chief Complaint:
Acute kidney injury
History of Present Illness:
Cr stable at 2.0
BP stable low on midodrine support
Status post right thoracentesis on 04/27/2024 for approximately 1 L
Na stable 131
weights stable
Review of Systems:
No chest pain
some SOB with exertion
awake and oriented
Labs
-
Labs:
WBC 6.9 10^3/uL (4.8-10.8) 05/04/24 04:06
RBC 3.53 10^6/uL (4.70-6.10) L 05/04/24 04:06
Hgb 9.8 g/dL (13.0-18.0) L 05/04/24 04:06
Hct 30.6 % (39.0-52.0) L 05/04/24 04:06
Plt Count 159 10^3/uL (130-400) 05/04/24 04:06
Sodium 131 mmol/L (135-145) L 05/04/24 04:06
Potassium 3.5 mmol/L (3.5-5.1) 05/04/24 04:06
Chloride 94 mmol/L (98-107) L 05/04/24 04:06
Carbon Dioxide 25 mmol/L (22-30) 05/04/24 04:06
BUN 57 mg/dl (9-20) H 05/04/24 04:06
Creatinine 2.0 mg/dL (0.7-1.3) H 05/04/24 04:06
eGFR 31.90 05/04/24 04:06
Glucose 112 mg/dl (70-99) H 05/04/24 04:06
Calcium 8.9 mg/dl (8.4-10.2) 05/04/24 04:06
Sdm-Q-Jtrslyjtcnt Pept 6360 pg/ml 04/25/24 09:40
Albumin 3.3 g/dl (3.5-5.0) L 04/29/24 04:38
Physical Exam
-
Vital Signs:
Vital Signs
Temp Pulse Resp BP Pulse Ox
97.5 F 82 18 126/69 94
05/04/24 06:54 05/04/24 06:54 05/04/24 06:54 05/04/24 06:54 05/04/24 06:54
Cardiovascular:: Regular rate and rhythm
Respiratory:: Bilateral: Rhonchi
Lung Excursion:: Normal
Abdomen:: Nontender and Soft
Bowel Sounds:: Normal
Extremity Edema:: None: Bilateral:
--- NOTE | 2024-05-04 10:09 | W.PN.CARDCBS ---
Addendum entered and electronically signed by Justino Braden DO 05/04/24 16:01:
I saw and examined the patient.
The Chairman And Chief Executive Officer's note was reviewed and I agree with the note.
Comment:
Plan:
Cont IV lasix
Midodrine for bp support.
Goals of care discussions and hospice.
Reviewed case with pt and family.
Reviewed with pain coordinator, pt to go to [facility] ThursdayMay 06.
IRAD consult for right thoracentesis for comfort
Discussed with family at bedside.
Original Note:
Today's Communication / Plan
-
Talked with patient and family and hospice to talk to them as well
IRAD consult for repeat right thoracentesis
Impression / Plan
-
Primary Final Inspector Balance Wheel: Dr. GERRI Weeks
Assessment:
Presentation 04/25/2024 with falls
Asterixis
Posterior 11th rib fracture
T12 compression fracture
L1 compression fracture
Right pleural effusion
s/p Rt thoracentesis 03/29/24 ~1400 cc clear yellow pleural flu, recurrent by imaging 04/25/24
s/p right thoracentesis on 04/27 for 1150 cc of fluid.
Small to mod pericardial effusion by CT;small on echo 04/26/24
Hyperkalemia
Hyponatremia
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
CM, EF 30-35% by echo 03/2024
history of remote mitral valve repair surgery 1992 at [place] with iatrogenic mitral stenosis and recurrent severe MR status post TMVR (Antony valve placement x2) at [facility] 10/29/2022
CHB s/p single chamber Verma PPM placement 10/30/22
permanent atrial fibrillation on chronic Coumadin therapy for 31 years, managed by PCP
hypertension
mild aortic stenosis
chronic right bundle branch block
PAD
MGUS/Chronic anemia
Osteoarthritis
Chronic back pain with lumbar compression fracture, scheduled for upcoming vertebroplasty
Gout
Rheumatoid arthritis
History of hepatic failure from [facility] with peak bilirubin of 30 08/2023
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
JESSY on CPAP
ECHO 06/25/22: EF 50 to 55%, grade 3 diastolic dysfunction, septal contraction abnormality, severe biatrial enlargement, reduced RV function, status post full mitral annuloplasty ring from 1992, mean mitral gradient at average of 10 mmHg, concern for
possible moderate to severe MS, at least moderate MR noted, moderate to severe TR, severe pulmonary hypertension, PAP 69 mmHg, aortic sclerosis, ascites present
ECHO 01/20/23:�EF 35 to 40%, abnormal septal motion, moderate concentric LVH, enlarged RV size, pacer wire in right ventricle, status post #29 ANTONY mitral valve replacement with peak/mean gradients across valve of / with no MR seen, mild to
moderate eccentric AR, mild with peak mean gradients 23/12 mmHg, mild to moderate TR, PAP 52 mmHg, small ASD/PFO with [id number]-ag-[id number] shunt
Echo 07/09/2023:�EF 40-45%, dilated and hypokinetic RV, severe PAT, s/p� #29 Antony TMVR mean MV grad of 5 mmHg. No MR. Mild with peak/mean AV grad of 33/17 mmHg. Severe TR with dilated TV annulus, Severe PHTN with severely elevated pulmonary
pressures PasP 75-80 mmHg.
Echo 03/28/24: EF 30-35%, Severely biatrial enlargement. S/p #21 Antony TMVR with peak/mean gradients of 13/6 mmHg respectively. No mitral regurgitation. Indexed LA volume is severely abnormal (> 48 mL/m2). Mild aortic stenosis. Peak/mean
gradients 18/9 mmHg respectively. Mild aortic regurgitation. Moderate tricuspid regurgitation. PAP 53 mmHg assuming mmHg
ECHO 04/26/24: EF 30 to 35%, global hypokinesis, enlarged RV size, severe biatrial enlargement, TMVR with peak/mean gradient 8/4 mmHg, no MR, mild , peak/mean gradient 21/30 mmHg, mild AR, moderate TR, PAP 45 to 50 mmHg, small pericardial effusion,
pleural effusion present.
[facility] 04/30/2024: Hemodynamics (mmHg): RA (m) : 23; RV (s/d,m) : 65/14, 23; PA (s/d, m) : 67/31, 43; PCWP (m) : Given significantly dilated right atria despite multiple attempts, and using wire to guide into distal PA, [place]-Nan catheter Prolapsing
within the RA/RV could not be advanced to a wedge position. PA saturation: 53.1% on room air; AO saturation: 97.0% on room air; RA saturation: 51.8% on room air; Cardiac Output : 3.70 L/min
Cardiac Index : 2.0 L/min/m-2; Systemic vascular resistance: 1059 dsc^(-5)
Pulmonary vascular resistance: 3 vasquez unit (calculated using PA diastolic pressure is an estimate of pulmonary capillary wedge pressure); Heart rate: 80 bpm
CONCLUSION: Significantly elevated right and left-sided filling pressures with severe pulmonary hypertension and normal cardiac output
Plan:
-Weight is down 7 lbs this admission with Lasix IV and metolazone. Diuresis limited by RIGOBERTO and hypotension.
-Cont Lasix 80 mg IV BID.
-Nephrology following. Cre stable at 2.0.
-Potassium stable following repletion
-New to midodrine 10 mg TID this admission. HOB restrictions reviewed with family.
-EF stable at 30-35%, but overall this is down compared to last year.
-Long talk with patient and his 4 children in the room. Patient no longer wants to be poked and prodded, he seems to want hospice, but the issue is how to accomplish that. He has long-term care benefits, but the policy has stipulations. If he were
to go to hospice at a facility then he would have to pay room and board, if he were to go home with home health aides then he would need to arrange for that and pay out of pocket. Appreciate help of LU who is arranging for pain coordinator to come and
talk to patient and family today.
-IRAD reconsulted for repeat right thoracentesis based on recurrent small to moderate pleural effusion on CXR from 05/03/24.
-All 4 of his children are involved in the decision making process.
Progress Note - Final Inspector Balance Wheel
Subjective
Date of Service: May 04, 2024
He has back pain
Objective
Labs:
05/04/24 04:06
05/04/24 04:06
Labs
Hgb 9.8 g/dL (13.0-18.0) L 05/04/24 04:06
Hct 30.6 % (39.0-52.0) L 05/04/24 04:06
Plt Count 159 10^3/uL (130-400) 05/04/24 04:06
PT 24.0 Sec (11.4-14.6) H 05/04/24 04:06
INR 2.16 05/04/24 04:06
APTT 117.2 Sec (23.4-35.0) H 05/04/24 04:06
Sodium 131 mmol/L (135-145) L 05/04/24 04:06
Potassium 3.5 mmol/L (3.5-5.1) 05/04/24 04:06
BUN 57 mg/dl (9-20) H 05/04/24 04:06
Creatinine 2.0 mg/dL (0.7-1.3) H 05/04/24 04:06
Glucose 112 mg/dl (70-99) H 05/04/24 04:06
Digoxin < 0.4 ng/ml (0.8-2.0) L 04/25/24 13:09
Vital Signs and I&O:
Vital Signs
Temp Pulse Resp BP Pulse Ox
97.5 F 82 18 126/69 94
05/04/24 06:54 05/04/24 06:54 05/04/24 06:54 05/04/24 06:54 05/04/24 06:54
Vital Signs
Temp Pulse Resp BP Pulse Ox
97.5 F 82 18 126/69 94
05/04/24 06:54 05/04/24 06:54 05/04/24 06:54 05/04/24 06:54 05/04/24 06:54
Intake & Output
05/02/24 05/03/24 05/04/24 05/05/24
06:59 06:59 06:59 06:59
Intake Total 489 / 489 720 / 720
Output Total 1000 / 1000 1600 / 1600 1000 / 1000
Balance -511 / -511 -880 / -880 -1000 / -1000
Physical Exam
Physical Exam
GEN: NAD
HEENT: MMM
LUNGS: No audible
CV: V paced on tele
ABD: ND
EXT: No edema B/L
NEURO: Gross non-focal
SKIN: No rash
--- NOTE | 2024-05-04 10:19 | PTCARENOTE ---
Received patient this morning sitting up in bed, eating his breakfast. Alert and oriented, discussing that he would like to go home and asking to call his son to find out when he would be arriving. Patient assisted oob to the chair by two PCT's.
Patient seen by Dr. Camarillo and then Dr. Zayas in to see the patient and spoke with his one son. Other children in now, discussing discharge planning with there dad, case management notified.
[2024-05-04 12:05] LABS: Glucose - Point of Care 222 mg/dl (70-99)
[2024-05-04] MEDS: NOVOLOG FLEXPEN-LOW RESISTANCE 2 UNITS SC (12:54)
--- NOTE | 2024-05-04 13:26 | HOSPNOTE ---
Spoke with patient and family at length. The plan is for the patient to go to skilled unit at [facility] on hospice services. CM aware and cardiology. I will meet with the patient and family again tomorrow with a final decision. Transport will be
needed and OOH DNR on chart.
--- NOTE | 2024-05-04 13:30 | PTCARENOTE ---
Patient's children are here visiting, spoke at length with cardiology and renal case manager. Hospice nurse in with the patient and family explaining program.
--- NOTE | 2024-05-04 14:10 | CM ---
Reviewed chart. Received consult for Hospice. Met with family and patient to review hospice. Referral sent to [facility]. [facility] Sales Representative Facility Services met with family and patient to review their program. Options reviewed were SNF/Rehab. Hospice in a
senior care and hospice at his home with private caregivers. Family is leaning toward going to [facility]. Telephone call to [facility] Admissions to confirm bed availability. [facility] bed on Thursday05/06/24. [facility] Sales Representative Facility Services will met with patient and family tomorrow to confirm discharge plans. Medical work-up in progress. The discharge plan is to go to [facility] with [facility].
[2024-05-04 16:45] LABS: Glucose - Point of Care 149 mg/dl (70-99)
--- NOTE | 2024-05-04 16:52 | W.PN.HOSP.TC ---
Today's Communication/Plan
-
Thoracentesis
IV diuresis
Midodrine.
Goals of care discussion with plan to transition to home hospice with discharge 05/06.
Off IV heparin to Coumadin. Would consider to discontinue anticoagulation with initiation of hospice
Assessment / Plan
Assessment / Plan
Impression
Acute CHF reduced EF.
Cardiomyopathy.
Recurrent pleural effusion
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
TME, multifactorial
Persistent hypotension
Presentation with falls
Asterixis.
Traumatic posterior 11th rib fracture.
T12/L1 compression fracture.
Conditions prior to admission:
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
Complete heart block status post pacemaker.
Permanent atrial fibrillation
Anticoagulation with Coumadin
Hypertension
Obstructive sleep apnea on CPAP
PAD
And gout/chronic anemia.
Rheumatoid arthritis
History of hepatic injury from [place]
Plan
Acute CHF reduced EF
ECHO 04/26/24: EF 30 to 35%, global hypokinesis, enlarged RV size, severe biatrial enlargement, TMVR with peak/mean gradient 8/4 mmHg, no MR, mild , peak/mean gradient 21/30 mmHg, mild AR, moderate TR, PAP 45 to 50 mmHg, small pericardial effusion,
pleural effusion present.
RHC 04/29:
Significantly elevated right and left-sided filling pressures with severe pulmonary hypertension and normal cardiac output
Initiate IV diuresis with Lasix 80 mg twice daily with addition of metolazone
Follow renal function, daily weights.
Standing dose of midodrine to support blood pressure. May require vasopressors
RIGOBERTO on CKD with azotemia
Metabolic acidosis
Suspect cardiorenal state.
Baseline creatinine 1.5.
Monitor with diuresis
Hyperkalemia treated with Lokelma
Hyponatremia suspect due to volume overload. Monitor with diuresis. Free water restriction.
Pleural effusion
Suspect secondary to CHF
Ultrasound chest with mod effusion
s/p IR thora 04/27 with 1100 cc removal; Appears exudative by LDH however appears pseudoexudate; cx so far neg;
Status post thoracentesis 05/04 950 cc
Low clinical suspicion for infection. Antibiotics/Zosyn discontinued on 04/29
Permanent atrial fibrillation
Rate control with Coreg. Hold with hypotension.
Digoxin discontinued.
Anticoagulation with Coumadin held on admission with heparin bridge. Will transition back to Coumadin starting on 04/29. Daily INR.
Falls- Likely from orthostatic Hypotension vs mechanical--PT/OT
Orthosis currently negative however blood pressure remains low. Were checked after fluids so not sure if accurate
monitor
TME-Likely from Above. Ammonia normal
bladder scan; hold gabapentin; make percocet PRN with hold if sedated
Asterixis from uremia-ammonia normal
Continue to monitor renal function
Left posterior 11th rib fracture-Traumatic
Pain control, incentive spirometry
Monitor for oversedation while on oxycodone
Stage 1 sacral pressure injury, POA
Elevated TSH-repeat before adding medicines. Normal T4. Repeat .
CODE STATUS. DNR
Discussed with with patient and daughter at the bedside
According to patient wishes not to use any heroic measures and treatment in the with pain and suffering CODE STATUS changed to DNR.
Anticipated Discharge: 24 - 48 hours
Subjective/Interval History
-
Date of Service: May 04, 2024
Objective Data
-
Labs:
Laboratory Results
05/04/24 05/04/24
04:06 12:15
WBC 6.9
Hgb 9.8 L
Hct 30.6 L
Plt Count 159
PT 24.0 H
INR 2.16
APTT 117.2 H Cancelled
Sodium 131 L
Potassium 3.5
Chloride 94 L
Carbon Dioxide 25
BUN 57 H
Creatinine 2.0 H
Glucose 112 H
Calcium 8.9
Vital Signs:
Vital Signs
Temp Pulse Resp BP Pulse Ox
97.6 F 83 18 129/72 99
05/04/24 15:47 05/04/24 16:00 05/04/24 15:47 05/04/24 15:50 05/04/24 15:47
I&O
05/03/24 05/04/24 05/05/24
06:59 06:59 06:59
Intake Total 720 / 720
Output Total 1600 / 1600 1000 / 1000 350 / 350
Balance -880 / -880 -1000 / -1000 -350 / -350
Physical Exam
-
General: Appears Chronically Ill
HEENT: Normocephalic, Atraumatic and Other (has CPAP in place)
Respiratory: Clear to Auscultation; Negative Wheezes or Rhonchi
Cardiac: Irregular Rhythm and Murmur
GI: Soft, Nontender, Nondistended and Normal Bowel Sounds
Musculoskeletal: No Clubbing, No Cyanosis and No Edema
Neuro: Awake and Alert
Psych: Calm
[2024-05-04] MEDS: NOVOLOG FLEXPEN-LOW RESISTANCE SC (17:02)
[2024-05-04] MEDS: COUMADIN 5 MG PO (17:02)
--- NOTE | 2024-05-04 17:51 | PTCARENOTE ---
Patient returned from right thoracentesis at 1600. Band aid is dry and intact right back. Assisted patient to bed to rest but now oob in the chair eating his dinner. Children in visiting, call larios in reach.
[2024-05-05] VITALS (10 sets, daily range): BP systolic 90–129; BP diastolic 50–78; PULSE 81–85; BMI 20.6
--- NOTE | 2024-05-05 01:09 | PTCARENOTE ---
Patient having a few runs of wide complex tachycardia, he was sleeping. Labs collected, MG added
[2024-05-05 01:17] LABS: Hematocrit 30.7 % (39.0-52.0); Mean Corp Hgb Conc. 32.6 g/dL (33.0-37.0); Mean Corpuscular Hgb 28.8 pg (27.0-31.0); Mean Corpuscular Volume 88.5 fL (80.0-94.0); Mean Platelet Volume 10.3 fL (7.4-10.4); Platelet Count 159 10^3/uL (130-400); Red Blood Cell Count 3.47 10^6/uL (4.70-6.10); Red Cell Dist. Width 24.4 % (11.5-14.5); White Blood Cell Count 7.1 10^3/uL (4.8-10.8)
[2024-05-05 01:25] LABS: INR 2.37; PT 26.2 Sec (11.4-14.6)
[2024-05-05 01:34] LABS: Blood Urea Nitrogen 55 mg/dl (9-20); Carbon Dioxide 27 mmol/L (22-30); Chloride 91 mmol/L (98-107); Estimated Creatinine Clearance 29 ml/min; Glucose 118 mg/dl (70-99); Magnesium 1.9 mg/dl (1.6-2.3); Potassium 3.2 mmol/L (3.5-5.1); Sodium 129 mmol/L (135-145); eGFR 38.78
[2024-05-05] MEDS: KLOR-CON 40 MEQ PO (01:54)
--- NOTE | 2024-05-05 02:07 | PTCARENOTE ---
K 3.2, Mg 1.9. 40 MEQ K-Dur given and Mag bolus ordered. Repositioned for comfort, placed on oxygen at 2 liters NC. Mccormick emptied for 900 cc of yellow urine
[2024-05-05] MEDS: MAGNESIUM SULFATE 102 GRAMS IV (02:40)
--- NOTE | 2024-05-05 03:48 | PTCARENOTE ---
Patient restless overnight, forgetful, mildly anxious. Repositioned several times. Assited to the commode, soft brown bowel movement. IV site leaking removed, replaced #22 right arm. Call larios in reach
[2024-05-05 07:39] LABS: Glucose - Point of Care 173 mg/dl (70-99)
[2024-05-05] MEDS: NOVOLOG FLEXPEN-LOW RESISTANCE 1 UNITS SC (08:06)
[2024-05-05] MEDS: CYMBALTA DELAYED RELEASE 30 MG PO (08:09)
[2024-05-05] MEDS: LASIX 80 MG IV (08:09)
[2024-05-05] MEDS: LIDOCAINE 4% PATCH 1 PATCH TOPICAL ×2 (08:11→08:12)
[2024-05-05] MEDS: OSCAL 500 + D 500 MG PO (08:12)
[2024-05-05] MEDS: URSO 500 MG PO ×2 (08:13→20:25)
[2024-05-05] MEDS: PROTONIX 40 MG PO (08:13)
[2024-05-05] MEDS: ProAmatine 10 MG PO ×2 (08:13→17:02)
[2024-05-05] MEDS: ZYLOPRIM 450 MG PO (08:14)
[2024-05-05] MEDS: FLUSH (NSS) 2 FLUSH IV (08:15)
--- NOTE | 2024-05-05 09:59 | W.PN.CARDCBS ---
Today's Communication / Plan
-
hospice tomorrow
Impression / Plan
-
Primary Hat Blocking Operator: Dr. GERRI Weeks
Assessment:
Presentation 04/25/2024 with falls
Asterixis
Posterior 11th rib fracture
T12 compression fracture
L1 compression fracture
Right pleural effusion
s/p Rt thoracentesis 03/29/24 ~1400 cc clear yellow pleural flu, recurrent by imaging 04/25/24
s/p right thoracentesis on 04/27 for 1150 cc of fluid.
Small to mod pericardial effusion by CT;small on echo 04/26/24
Hyperkalemia
Hyponatremia
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
CM, EF 30-35% by echo 03/2024
history of remote mitral valve repair surgery 1992 at [place] with iatrogenic mitral stenosis and recurrent severe MR status post TMVR (Antony valve placement x2) at [facility] 10/29/2022
CHB s/p single chamber Verma PPM placement 10/30/22
permanent atrial fibrillation on chronic Coumadin therapy for 31 years, managed by PCP
hypertension
mild aortic stenosis
chronic right bundle branch block
PAD
MGUS/Chronic anemia
Osteoarthritis
Chronic back pain with lumbar compression fracture, scheduled for upcoming vertebroplasty
Gout
Rheumatoid arthritis
History of hepatic failure from [facility] with peak bilirubin of 30 08/2023
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
JESSY on CPAP
ECHO 06/25/22: EF 50 to 55%, grade 3 diastolic dysfunction, septal contraction abnormality, severe biatrial enlargement, reduced RV function, status post full mitral annuloplasty ring from 1992, mean mitral gradient at average of 10 mmHg, concern for
possible moderate to severe MS, at least moderate MR noted, moderate to severe TR, severe pulmonary hypertension, PAP 69 mmHg, aortic sclerosis, ascites present
ECHO 01/20/23:�EF 35 to 40%, abnormal septal motion, moderate concentric LVH, enlarged RV size, pacer wire in right ventricle, status post #29 ANTONY mitral valve replacement with peak/mean gradients across valve of 11/5 with no MR seen, mild to
moderate eccentric AR, mild with peak mean gradients 23/12 mmHg, mild to moderate TR, PAP 52 mmHg, small ASD/PFO with [id number] shunt
Echo 07/09/2023:�EF 40-45%, dilated and hypokinetic RV, severe PAT, s/p� #29 Antony TMVR mean MV grad of 5 mmHg. No MR. Mild with peak/mean AV grad of 33/17 mmHg. Severe TR with dilated TV annulus, Severe PHTN with severely elevated pulmonary
pressures PasP 75-80 mmHg.
Echo 03/28/24: EF 30-35%, Severely biatrial enlargement. S/p #21 Antony TMVR with peak/mean gradients of 13/6 mmHg respectively. No mitral regurgitation. Indexed LA volume is severely abnormal (> 48 mL/m2). Mild aortic stenosis. Peak/mean
gradients 18/9 mmHg respectively. Mild aortic regurgitation. Moderate tricuspid regurgitation. PAP 53 mmHg assuming mmHg
ECHO 04/26/24: EF 30 to 35%, global hypokinesis, enlarged RV size, severe biatrial enlargement, TMVR with peak/mean gradient 8/4 mmHg, no MR, mild , peak/mean gradient 21/30 mmHg, mild AR, moderate TR, PAP 45 to 50 mmHg, small pericardial effusion,
pleural effusion present.
[facility] 04/30/2024: Hemodynamics (mmHg): RA (m) : 23; RV (s/d,m) : 65/14, 23; PA (s/d, m) : 67/31, 43; PCWP (m) : Given significantly dilated right atria despite multiple attempts, and using wire to guide into distal PA, [place]-Nan catheter Prolapsing
within the RA/RV could not be advanced to a wedge position. PA saturation: 53.1% on room air; AO saturation: 97.0% on room air; RA saturation: 51.8% on room air; Cardiac Output : 3.70 L/min
Cardiac Index : 2.0 L/min/m-2; Systemic vascular resistance: 1059 dsc^(-5)
Pulmonary vascular resistance: 3 vasquez unit (calculated using PA diastolic pressure is an estimate of pulmonary capillary wedge pressure); Heart rate: 80 bpm
CONCLUSION: Significantly elevated right and left-sided filling pressures with severe pulmonary hypertension and normal cardiac output
Plan:
s/p thoracentesis with 950 cc out
Cr slightly improved. Nephrology following.
Cont IV lasix
Cont midodrine for bp support.
EF 30-35% is down from last yr.
Discussed with hospice.
Family and pt agreed to hospice and he will be going to [facility] ThursdayMay 06.
Discussed with family at bedside.
Progress Note - Hat Blocking Operator
Subjective
Date of Service: May 05, 2024
Pt seen and examined. No complaints. No chest pain or shortness of breath.
Objective
Labs:
05/05/24 01:05
05/05/24 01:05
Labs
Hgb 10.0 g/dL (13.0-18.0) L 05/05/24 01:05
Hct 30.7 % (39.0-52.0) L 05/05/24 01:05
Plt Count 159 10^3/uL (130-400) 05/05/24 01:05
PT 26.2 Sec (11.4-14.6) H 05/05/24 01:05
INR 2.37 05/05/24 01:05
APTT Cancelled 05/04/24 12:15
Sodium 129 mmol/L (135-145) L 05/05/24 01:05
Potassium 3.2 mmol/L (3.5-5.1) L 05/05/24 01:05
BUN 55 mg/dl (9-20) H 05/05/24 01:05
Creatinine 1.7 mg/dL (0.7-1.3) H 05/05/24 01:05
Glucose 118 mg/dl (70-99) H 05/05/24 01:05
Digoxin < 0.4 ng/ml (0.8-2.0) L 04/25/24 13:09
Vital Signs and I&O:
Vital Signs
Temp Pulse Resp BP Pulse Ox
98.3 F 90 16 98/59 93
05/05/24 08:10 05/05/24 08:09 05/05/24 08:10 05/05/24 08:09 05/05/24 08:10
Vital Signs
Temp Pulse Resp BP Pulse Ox
98.3 F 90 16 98/59 93
05/05/24 08:10 05/05/24 08:09 05/05/24 08:10 05/05/24 08:09 05/05/24 08:10
Intake & Output
05/03/24 05/04/24 05/05/24 05/06/24
06:59 06:59 06:59 06:59
Intake Total 720 / 720 200 / 200
Output Total 1600 / 1600 1000 / 1000 1800 / 1800
Balance -880 / -880 -1000 / -1000 -1600 / -1600
Physical Exam
Physical Exam
General: No acute distress, awake and alert
Neck: Negative JVD
Heart: Regular, Negative S3 positive S1/S2, Negative S4, No murmur
Lungs: CTA b/l, negative wheezes/rales/rhonchi
Abd: Positive BS, NT/ND, neg rebound/rigidity/guarding
Ext: Negative cyanosis/clubbing/edema
Neuro: nonfocal
--- NOTE | 2024-05-05 10:30 | PTCARENOTE ---
Received patient this morning sitting oob in the chair. Had a good appetite at breakfast and then assisted back to bed. Bed alarm in place.
--- NOTE | 2024-05-05 10:38 | W.PN.NEPH.PH ---
Today's Communication / Plan
-
hospice
Assessment/Plan
-
Impression:
CKD 3b with Azotemia
Right pleural effusion
Anemia
Asterixis
Posterior 11th rib fracture
T12 compression fracture
L1 compression fracture
Small to mod pericardial effusion by CT
Hyponatremia
CM, EF 30-35% by echo 03/2024
history of remote mitral valve repair surgery 1992 at [place] with iatrogenic mitral stenosis and recurrent severe MR status post TMVR (Antony valve placement x2) at [facility] 10/29/2022
CHB s/p single chamber Verma PPM placement 10/30/22
permanent atrial fibrillation on chronic Coumadin therapy for 31 years, managed by PCP
hypertension
mild aortic stenosis
chronic right bundle branch block
PAD
MGUS/Chronic anemia
Chronic back pain with lumbar compression fracture, scheduled for upcoming vertebroplasty
Gout
Rheumatoid arthritis
Plan:
continue lasix IV for now
for hospice tomorrow
-
-
Date of Service: May 05, 2024
CC / HPI / ROS
-
Chief Complaint:
Acute kidney injury
History of Present Illness:
Cr stable at 1.7
BP stable low on midodrine support
Status post right thoracentesis on 04/27/2024 for approximately 1 L
Na stable
weights stable
Review of Systems:
No chest pain
some SOB with exertion
awake and oriented
no supplemental O2
Labs
-
Labs:
WBC 7.1 10^3/uL (4.8-10.8) 05/05/24 01:05
RBC 3.47 10^6/uL (4.70-6.10) L 05/05/24 01:05
Hgb 10.0 g/dL (13.0-18.0) L 05/05/24 01:05
Hct 30.7 % (39.0-52.0) L 05/05/24 01:05
Plt Count 159 10^3/uL (130-400) 05/05/24 01:05
Sodium 129 mmol/L (135-145) L 05/05/24 01:05
Potassium 3.2 mmol/L (3.5-5.1) L 05/05/24 01:05
Chloride 91 mmol/L (98-107) L 05/05/24 01:05
Carbon Dioxide 27 mmol/L (22-30) 05/05/24 01:05
BUN 55 mg/dl (9-20) H 05/05/24 01:05
Creatinine 1.7 mg/dL (0.7-1.3) H 05/05/24 01:05
eGFR 38.78 05/05/24 01:05
Glucose 118 mg/dl (70-99) H 05/05/24 01:05
Calcium 9.0 mg/dl (8.4-10.2) 05/05/24 01:05
Rcn-L-Muicynqmhtv Pept 6360 pg/ml 04/25/24 09:40
Albumin 3.3 g/dl (3.5-5.0) L 04/29/24 04:38
Physical Exam
-
Vital Signs:
Vital Signs
Temp Pulse Resp BP Pulse Ox
98.3 F 90 16 98/59 93
05/05/24 08:10 05/05/24 08:09 05/05/24 08:10 05/05/24 08:09 05/05/24 08:10
Cardiovascular:: Regular rate and rhythm
Respiratory:: Bilateral: Coarse
Lung Excursion:: Normal
Abdomen:: Nontender and Soft
Bowel Sounds:: Normal
Extremity Edema:: None: Bilateral:
--- NOTE | 2024-05-05 11:29 | HOSPNOTE ---
Met with patient and family and the plan is to discharge to [facility] tomorrow with hospice. [facility] was called and in agreement/ Transport will be needed via ambulance OOH DNR will be needed on chart. Attending aware and will also order pain
medication today. Once patient arrives at [facility] we will admit onto hospice services.
--- NOTE | 2024-05-05 11:31 | CM ---
Reviewed chart. Spoke with Sabrina.HKathy [employer] Walker. Family and patient have decided to go to [facility] on [address]. [facility] can accept him on Thursday05/06/24. Telephone call to transport to make tentative ambulance arrangement for
a 11:00 a.m. pick-up. Medical work-up in progress. The discharge pln is to go to [facility] on [address] when medically stable.
[2024-05-05] MEDS: NOVOLOG FLEXPEN-LOW RESISTANCE SC ×2 (11:51→16:58)
--- NOTE | 2024-05-05 11:56 | W.PN.HOSP.TC ---
Today's Communication/Plan
-
DC on hospice to [facility] tomorrow
Start on medication for comfort including morphine and Ativan as needed.
Assessment / Plan
Assessment / Plan
Impression
Acute CHF reduced EF.
Cardiomyopathy -end stage
Recurrent pleural effusion
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
TME, multifactorial
Persistent hypotension
Presentation with falls
Asterixis.
Traumatic posterior 11th rib fracture.
T12/L1 compression fracture.
Conditions prior to admission:
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
Complete heart block status post pacemaker.
Permanent atrial fibrillation
Anticoagulation with Coumadin
Hypertension
Obstructive sleep apnea on CPAP
PAD
And gout/chronic anemia.
Rheumatoid arthritis
History of hepatic injury from [facility]
Plan
Acute CHF reduced EF
ECHO 04/26/24: EF 30 to 35%, global hypokinesis, enlarged RV size, severe biatrial enlargement, TMVR with peak/mean gradient 8/4 mmHg, no MR, mild , peak/mean gradient 21/30 mmHg, mild AR, moderate TR, PAP 45 to 50 mmHg, small pericardial effusion,
pleural effusion present.
RHC 04/29:
Significantly elevated right and left-sided filling pressures with severe pulmonary hypertension and normal cardiac output
Initiated IV diuresis
Follow renal function, daily weights.
Standing dose of midodrine to support blood pressure.
Did not make much progress with diuresis weight has been pretty much the same.
With poor response and significant heart failure there were discussions with the family before today and there was agreement including patient for hospice. The plan is to go to [facility] for inpatient hospice there.
RIGOBERTO on CKD with azotemia
Metabolic acidosis
Suspect cardiorenal state.
Baseline creatinine 1.5.
Monitor with diuresis
Hyperkalemia treated with Lokelma
Hyponatremia suspect due to volume overload. Monitor with diuresis. Free water restriction.
Pleural effusion
Suspect secondary to CHF
Ultrasound chest with mod effusion
s/p IR thora 04/27 with 1100 cc removal; Appears exudative by LDH however appears pseudoexudate; cx so far neg;
Status post thoracentesis 05/04 950 cc
Low clinical suspicion for infection. Antibiotics/Zosyn discontinued on 04/29
Permanent atrial fibrillation
Rate control with Coreg. Hold with hypotension.
Digoxin discontinued.
Anticoagulation with Coumadin held on admission with heparin bridge. Will hold further anticoagulation and the goals of care is hospice
Falls- Likely from orthostatic Hypotension vs mechanical-
Orthosis currently negative however blood pressure remains low.
TME-Likely from Above. Ammonia normal
bladder scan; hold gabapentin; make percocet PRN with hold if sedated
Asterixis from uremia-ammonia normal
Continue to monitor renal function
Left posterior 11th rib fracture-Traumatic
Pain control, incentive spirometry
Monitor for oversedation while on oxycodone
Stage 1 sacral pressure injury, POA
Elevated TSH-repeat before adding medicines. Normal T4. Repeat .
CODE STATUS. DNR
Discussed with with patient , daughter and 2 sons at the bedside - Goals of care going forward is comfort . They had earlier discussions on hospice and would want inpatient hospice at [facility].
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
Anticipated Discharge: Within 24 hours
Subjective/Interval History
-
Date of Service: May 05, 2024
Had some chest pain post Thoracentesis yesterday but denies any today. I did make him cough and despite that he did not have any chest pain. Breathing okay. Cough with some phlegm.
No nausea vomiting.
Objective Data
-
Labs:
Laboratory Results
05/05/24
01:05
WBC 7.1
Hgb 10.0 L
Hct 30.7 L
Plt Count 159
PT 26.2 H
INR 2.37
Sodium 129 L
Potassium 3.2 L
Chloride 91 L
Carbon Dioxide 27
BUN 55 H
Creatinine 1.7 H
Glucose 118 H
Calcium 9.0
Vital Signs:
Vital Signs
Temp Pulse Resp BP Pulse Ox
98.3 F 90 16 98/59 93
05/05/24 08:10 05/05/24 08:09 05/05/24 08:10 05/05/24 08:09 05/05/24 08:10
I&O
05/04/24 05/05/24 05/06/24
06:59 06:59 06:59
Intake Total 200 / 200 480 / 480
Output Total 1000 / 1000 1800 / 1800
Balance -1000 / -1000 -1600 / -1600 480 / 480
Review of Systems
-
Constitutional: Denies Fever
Respiratory: Reports Cough; Denies Trouble Breathing
Cardiac: Denies Chest Pain
Abdomen/GI: Denies Nausea or Vomiting
Neuro: Denies Dizzy
Physical Exam
-
General: No Apparent Distress
HEENT: Moist Mucous Membranes
Respiratory: Clear to Auscultation (anteriorly)
Cardiac: Regular Rhythm and S1/S2
Neuro: AO x 3
Psych: Calm
Data Reviewed
-
Labs: Labs Reviewed by me
[2024-05-05] MEDS: MORPHINE SULFATE 2 MG IV ×5 (12:26→22:16)
--- NOTE | 2024-05-05 12:33 | PTCARENOTE ---
Daughter at the bedside, patient seen by Dr. Larios and hospice nurse. Patient having increased rib pain and RITTER. Given dose of IV morphine as ordered. Patient prefers to lie in bed, refusing accu checks.
[2024-05-05] MEDS: ProAmatine PO (13:00)
[2024-05-05] MEDS: LASIX IV (17:02)
--- NOTE | 2024-05-05 19:52 | PTCARENOTE ---
[id number] care of patient at 1900, vs downloaded by me prior to that time were from previous shift.
--- NOTE | 2024-05-06 01:20 | PTCARENOTE ---
Medicated x 2 with morphine IV for c/o of pain. Restless at times and can be forgetful. Condom cath in use, voiding clear yellow urine.
[2024-05-06] MEDS: MORPHINE SULFATE 2 MG IV ×4 (03:20→12:15)
[2024-05-06 04:54] VITALS: BP 135/73
[2024-05-06 07:01] VITALS: BP 109/74
[2024-05-06] MEDS: ZYLOPRIM 450 MG PO (07:30)
[2024-05-06] MEDS: PROTONIX 40 MG PO (07:31)
[2024-05-06] MEDS: URSO 500 MG PO (07:31)
[2024-05-06] MEDS: ProAmatine 10 MG PO (07:31)
[2024-05-06] MEDS: CYMBALTA DELAYED RELEASE 30 MG PO (07:31)
[2024-05-06] MEDS: OSCAL 500 + D 500 MG PO (07:32)
[2024-05-06] MEDS: LIDOCAINE 4% PATCH 1 PATCH TOPICAL ×2 (07:41→07:58)
--- NOTE | 2024-05-06 08:19 | W.DS.TRANS ---
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
-
Discharge Instructions:
Discharge Diagnosis/Procedures Acute CHFrEF ; end stage cardiac disease; RIGOBERTO on
CKD ; Recurrent pleural effusion;cardiac
catheterization
Diet Regular
Activity As tolerated
Driving Restrictions No driving
Other Services Hospice
Instructions:
Stand-Alone Forms: DC Instructions- Cath/EP Lab
Changes to Home Medications: Yes
Discharge Medications:
DC Medications w/original date entered in [employer]
allopurinol 100 mg tablet 450 mg PO DAILY Gout 07/08/23
pantoprazole 40 mg tablet,delayed release 40 mg PO DAILY #30 tabs 07/20/23
docusate sodium 100 mg capsule (Colace) 100 mg PO DAILYPRN PRN constipation 09/02/23
melatonin 5 mg tablet 5 mg PO HSPRN PRN sleep 10/05/23
ursodiol 500 mg tablet 500 mg PO BID #60 tabs 10/10/23
duloxetine 30 mg capsule,delayed release (Cymbalta) 30 mg PO DAILY Mental Health/Anxiety 03/24/24
polyethylene glycol 3350 17 gram oral powder packet (Miralax) 17 g PO DAILYPRN PRN constipation 03/24/24
potassium chloride 20 mEq tablet,extended release 40 meq PO DAILY Supplement 03/24/24
sodium chloride 0.65 % nasal spray aerosol 1 spray intranasal DAILYPRN PRN dry nose 03/24/24
torsemide 20 mg tablet 20 mg PO BID #60 tabs 03/31/24
acetaminophen 325 mg tablet 650 mg (2 x 325 mg) PO Q4HPRN PRN mild pain/INIGUEZ/temp> 100.4F #1 tab 05/06/24
lorazepam 0.5 mg tablet 0.5 mg PO Q8HPRN PRN ANXIETY #12 tabs 05/06/24
midodrine 5 mg tablet 10 mg (2 x 5 mg) PO TID@0800,1300,1800 #1 tab 05/06/24
oxycodone-acetaminophen 5 mg-325 mg tablet 1 tab PO TID PRN severe pain #12 tabs 05/06/24
Home Medication Changes
Change in meds- discontinued Coreg, dig, Jardiance
New med - midodrine
Pending Results: No
--- NOTE | 2024-05-06 09:11 | W.PN.CARDCBS ---
Addendum entered and electronically signed by Flower Barger DO 05/06/24 12:42:
I saw and examined the patient.
The Flat Surfacer's note was reviewed and I agree with the note.
Comment: Seen and examined with son at bedside. Plan to d/c to Hospice at 11 am.
Plan:
Family and pt agreed to hospice and he will be going to [facility] today. Will update Dr. Weeks
-weight is down 7 lbs admission with Lasix IV and several doses of metolazone.
-Cr improved to 1.7. Nephrology following.
-K+ 3.2 will replete
-s/p repeat right thoracentesis 05/04/2024 with 950 cc out
-Cont diuresis
-Cont midodrine for bp support.
-EF 30-35% is down from last yr.
Original Note:
Today's Communication / Plan
-
Replete K_+
Plan for [facility] today
Continue midodrine for BP support
Impression / Plan
-
Primary Territory Representative: Dr. GERRI Weeks
Assessment:
Presentation 04/25/2024 with falls
Asterixis
Posterior 11th rib fracture
T12 compression fracture
L1 compression fracture
Right pleural effusion
s/p Rt thoracentesis 03/29/24 ~1400 cc clear yellow pleural flu, recurrent by imaging 04/25/24
s/p right thoracentesis on 04/27 for 1150 cc of fluid.
s/p right thoracentesis 05/04 for 950 ml
Small to mod pericardial effusion by CT;small on echo 04/26/24
Hyperkalemia
Hyponatremia
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
CM, EF 30-35% by echo 03/2024
history of remote mitral valve repair surgery 1992 at [place] with iatrogenic mitral stenosis and recurrent severe MR status post TMVR (Antony valve placement x2) at [facility] 10/29/2022
CHB s/p single chamber Verma PPM placement 10/30/22
permanent atrial fibrillation on chronic Coumadin therapy for 31 years, managed by PCP
hypertension
mild aortic stenosis
chronic right bundle branch block
PAD
MGUS/Chronic anemia
Osteoarthritis
Chronic back pain with lumbar compression fracture, scheduled for upcoming vertebroplasty
Gout
Rheumatoid arthritis
History of hepatic failure from [facility] with peak bilirubin of 30 08/2023
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
JESSY on CPAP
ECHO 06/25/22: EF 50 to 55%, grade 3 diastolic dysfunction, septal contraction abnormality, severe biatrial enlargement, reduced RV function, status post full mitral annuloplasty ring from 1992, mean mitral gradient at average of 10 mmHg, concern for
possible moderate to severe MS, at least moderate MR noted, moderate to severe TR, severe pulmonary hypertension, PAP 69 mmHg, aortic sclerosis, ascites present
ECHO 01/20/23:�EF 35 to 40%, abnormal septal motion, moderate concentric LVH, enlarged RV size, pacer wire in right ventricle, status post #29 ANTONY mitral valve replacement with peak/mean gradients across valve of 08/23 with no MR seen, mild to
moderate eccentric AR, mild with peak mean gradients 23/12 mmHg, mild to moderate TR, PAP 52 mmHg, small ASD/PFO with [id number] shunt
Echo 07/09/2023:�EF 40-45%, dilated and hypokinetic RV, severe PAT, s/p� #29 Antony TMVR mean MV grad of 5 mmHg. No MR. Mild with peak/mean AV grad of 33/17 mmHg. Severe TR with dilated TV annulus, Severe PHTN with severely elevated pulmonary
pressures PasP 75-80 mmHg.
Echo 03/28/24: EF 30-35%, Severely biatrial enlargement. S/p #21 Antony TMVR with peak/mean gradients of 13/6 mmHg respectively. No mitral regurgitation. Indexed LA volume is severely abnormal (> 48 mL/m2). Mild aortic stenosis. Peak/mean
gradients 18/9 mmHg respectively. Mild aortic regurgitation. Moderate tricuspid regurgitation. PAP 53 mmHg assuming mmHg
ECHO 04/26/24: EF 30 to 35%, global hypokinesis, enlarged RV size, severe biatrial enlargement, TMVR with peak/mean gradient 8/4 mmHg, no MR, mild , peak/mean gradient 21/30 mmHg, mild AR, moderate TR, PAP 45 to 50 mmHg, small pericardial effusion,
pleural effusion present.
RHC 04/30/2024: Hemodynamics (mmHg): RA (m) : 23; RV (s/d,m) : 65/14, 23; PA (s/d, m) : 67/31, 43; PCWP (m) : Given significantly dilated right atria despite multiple attempts, and using wire to guide into distal PA, [place] catheter Prolapsing
within the RA/RV could not be advanced to a wedge position. PA saturation: 53.1% on room air; AO saturation: 97.0% on room air; RA saturation: 51.8% on room air; Cardiac Output : 3.70 L/min
Cardiac Index : 2.0 L/min/m-2; Systemic vascular resistance: 1059 dsc^(-5)
Pulmonary vascular resistance: 3 vasquez unit (calculated using PA diastolic pressure is an estimate of pulmonary capillary wedge pressure); Heart rate: 80 bpm
CONCLUSION: Significantly elevated right and left-sided filling pressures with severe pulmonary hypertension and normal cardiac output
Plan:
weight is down 7 lbs admission with Lasix IV and several doses of metolazone.
Cr improved to 1.7. Nephrology following.
K+ 3.2 will replete, give 40 meq now stat and if still here at 2 pm would give an additional 40 meq
s/p repeat right thoracentesis 05/04/2024 with 950 cc out
Cont diuresis
Cont midodrine for bp support.
EF 30-35% is down from last yr.
Family and pt agreed to hospice and he will be going to [facility] hospice today
Progress Note - Territory Representative
Subjective
Date of Service: May 06, 2024
Patient seen and examined. Sitting in bed eating breakfast. Denies SOB but complains of ongoing back pain.
Objective
Labs:
05/05/24 01:05
05/05/24 01:05
Labs
Hgb 10.0 g/dL (13.0-18.0) L 05/05/24 01:05
Hct 30.7 % (39.0-52.0) L 05/05/24 01:05
Plt Count 159 10^3/uL (130-400) 05/05/24 01:05
PT 26.2 Sec (11.4-14.6) H 05/05/24 01:05
INR 2.37 05/05/24 01:05
APTT Cancelled 05/04/24 12:15
Sodium 129 mmol/L (135-145) L 05/05/24 01:05
Potassium 3.2 mmol/L (3.5-5.1) L 05/05/24 01:05
BUN 55 mg/dl (9-20) H 05/05/24 01:05
Creatinine 1.7 mg/dL (0.7-1.3) H 05/05/24 01:05
Glucose 118 mg/dl (70-99) H 05/05/24 01:05
Digoxin < 0.4 ng/ml (0.8-2.0) L 04/25/24 13:09
Vital Signs and I&O:
Vital Signs
Temp Pulse Resp BP Pulse Ox
97.9 F 97 18 109/74 93
05/06/24 07:03 05/06/24 07:31 05/06/24 07:03 05/06/24 07:31 05/06/24 07:03
Vital Signs
Temp Pulse Resp BP Pulse Ox
97.9 F 97 18 109/74 93
05/06/24 07:03 05/06/24 07:31 05/06/24 07:03 05/06/24 07:31 05/06/24 07:03
Intake & Output
05/04/24 05/05/24 05/06/24 05/07/24
06:59 06:59 06:59 06:59
Intake Total 200 / 200 480 / 480
Output Total 1000 / 1000 1800 / 1800 1150 / 1150
Balance -1000 / -1000 -1600 / -1600 -670 / -670
Physical Exam
Physical Exam
GEN: Frail and chronically ill-appearing, lying in bed
HEENT: supple, anicteric, mmm
LUNGS: CTA anteriorly, no wheezes, rales, rhonchi; RA
CV: Irregularly irregular, S1/S2, 2/6 syst LSB murmur, no rubs or gallops
ABD: Distended but soft, BS+, NT
EXT: No edema, clubbing or cyanosis
NEURO: Gross non-focal
SKIN: No rash, warm, dry, pink
[2024-05-06] MEDS: LASIX 80 MG IV (09:24)
[2024-05-06 09:26] VITALS: BP 109/59
[2024-05-06] MEDS: KCL 40 MEQ PO (09:27)
[2024-05-06] MEDS: NOVOLOG FLEXPEN-LOW RESISTANCE SC (09:28)
--- NOTE | 2024-05-06 10:33 | W.PN.HOSP.TC ---
Today's Communication/Plan
-
DC
Assessment / Plan
Assessment / Plan
Impression
Acute CHF reduced EF.
Cardiomyopathy -end stage
Recurrent pleural effusion
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
TME, multifactorial
Persistent hypotension
Hypokalemia
Presentation with falls
Asterixis.
Traumatic posterior 11th rib fracture.
T12/L1 compression fracture.
Conditions prior to admission:
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
Complete heart block status post pacemaker.
Permanent atrial fibrillation
Anticoagulation with Coumadin
Hypertension
Obstructive sleep apnea on CPAP
PAD
And gout/chronic anemia.
Rheumatoid arthritis
History of hepatic injury from [facility]
Plan
Acute CHF reduced EF
ECHO 04/26/24: EF 30 to 35%, global hypokinesis, enlarged RV size, severe biatrial enlargement, TMVR with peak/mean gradient 8/4 mmHg, no MR, mild , peak/mean gradient 21/30 mmHg, mild AR, moderate TR, PAP 45 to 50 mmHg, small pericardial effusion,
pleural effusion present.
RHC 04/29:
Significantly elevated right and left-sided filling pressures with severe pulmonary hypertension and normal cardiac output
Initiated IV diuresis
Standing dose of midodrine to support blood pressure.
Did not make much progress in weight with diuresis ,weight has been pretty much the same.
With poor response and significant heart failure there were discussions with the family before today and there was agreement including patient for hospice. The plan is to go to [facility] for inpatient hospice there.
RIGOBERTO on CKD with azotemia
Metabolic acidosis
Suspect cardiorenal state.
Baseline creatinine 1.5.
Hyperkalemia treated with Lokelma
Hyponatremia suspect due to volume overload. Free water restriction as able.
Pleural effusion
Suspect secondary to CHF
Ultrasound chest with mod effusion
s/p IR thora 04/27 with 1100 cc removal; Appears exudative by LDH however appears pseudoexudate; cx so far neg;
Status post thoracentesis 05/04 950 cc
Low clinical suspicion for infection. Antibiotics/Zosyn discontinued on 04/29
Permanent atrial fibrillation
Rate control with Coreg. Hold with hypotension.
Digoxin discontinued.
Anticoagulation with Coumadin held on admission with heparin bridge. Will hold further anticoagulation as the goals of care is hospice
Falls- Likely from orthostatic Hypotension vs mechanical-
Orthosis currently negative however blood pressure remains low.
TME-Likely from Above. Ammonia normal
bladder scan; hold gabapentin; make percocet PRN with hold if sedated
Asterixis from uremia-ammonia normal
Continue to monitor renal function
Left posterior 11th rib fracture-Traumatic
Pain control, incentive spirometry
Monitor for oversedation while on oxycodone
Stage 1 sacral pressure injury, POA
Elevated TSH-repeat before adding medicines. Normal T4. Repeat .
CODE STATUS. DNR
Discussed with with patient , daughter and 2 sons at the bedside 05/05 - Goals of care going forward is comfort . They had earlier discussions on hospice and would want inpatient hospice at [facility].
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
DW pt and son at bedside , all in agreement in hospice at [facility].
Will cw diuresis for symptom control and midodrine;GDMT meds not tolerating and have been discontinued.
DC today
Total time of dc 35 min
Anticipated Discharge: Today
Subjective/Interval History
-
Date of Service: May 06, 2024
Feels ok
Not SOB at rest . No CP.
Objective Data
-
Vital Signs:
Vital Signs
Temp Pulse Resp BP Pulse Ox
97.9 F 92 18 109/59 93
05/06/24 07:03 05/06/24 09:24 05/06/24 07:03 05/06/24 09:24 05/06/24 07:03
I&O
05/05/24 05/06/24 05/07/24
06:59 06:59 06:59
Intake Total 200 / 200 480 / 480
Output Total 1800 / 1800 1150 / 1150
Balance -1600 / -1600 -670 / -670
Review of Systems
-
Constitutional: Denies Fever or Chills
Abdomen/GI: Denies Abdominal Pain, Nausea or Vomiting
Neuro: Denies Dizzy
Physical Exam
-
General: No Apparent Distress
HEENT: Moist Mucous Membranes
Respiratory: Non Labored Respirations; Negative Accessory Resp Muscle Use
Cardiac: S1/S2 and Irregular Rhythm; Negative Tachycardic
GI: Soft
Neuro: AO x 3
Data Reviewed
-
Labs: Labs Reviewed by me
--- NOTE | 2024-05-06 11:05 | CM ---
Reviewed chart. [facility] states they are having computer problems and may not be able to accept today. Received call back from [facility] who states they can accept today. Asking me to email to and
discharge instructions . Emailed information to them. Set up the Acute Ambulance at 12:30 p.m. Updated family, patient, [facility] and [facility]. Medical work-up in progress. The discharge plan is to go to [facility] with [facility] when medically stable.
[2024-05-06 11:18] VITALS: BP 112/86
--- NOTE | 2024-05-06 12:42 | PTCARENOTE ---
Discharge instructions copied and sent to [facility]. Report called to Marylou at 1200. IV and tele monitor removed. Belongings from room and educational packets sent with family. Morphine given prior to transport for whole body pain 03/28. Family
updated on plan of care, family verbalized understanding. 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
== END 2024-05-06 12:44 | DRG 682 ==
LOC: IVU 18:58
PROVIDERS: Clinical Nurse Specialist Family Health; Internal Medicine; Internal Medicine Interventional Cardiology; Physician Assistant; Physician Assistant Medical; Radiology Diagnostic Radiology; Radiology Vascular & Interventional Radiology; Specialist; ADMITTING PHYSICIAN Hospitalist; ATTENDING PHYSICIAN Internal Medicine; CONSULT PHYSICIAN Internal Medicine Critical Care Medicine; CONSULT PHYSICIAN Specialist; EMERGENCY PHYSICIAN Emergency Medicine; FAMILY PHYSICIAN Family Medicine; OTHER PHYSICIAN Internal Medicine Cardiovascular Disease
PROC: 5A09357 Assistance with Respiratory Ventilation, Less than 24 Consecutive Hours, Continuous Positive Airway Pressure (ICD-10-PCS; 2024-04-25)
PROC: 4B02XSZ Measurement of Cardiac Pacemaker, External Approach (ICD-10-PCS; 2024-04-27)
PROC: 0W993ZX Drainage of Right Pleural Cavity, Percutaneous Approach, Diagnostic (ICD-10-PCS; 2024-04-27)
PROC: B2141ZZ Fluoroscopy of Right Heart using Low Osmolar Contrast (ICD-10-PCS; 2024-04-29)
PROC: 4A023N6 Measurement of Cardiac Sampling and Pressure, Right Heart, Percutaneous Approach (ICD-10-PCS; 2024-04-29)
PROC: 0W993ZZ Drainage of Right Pleural Cavity, Percutaneous Approach (ICD-10-PCS; 2024-05-04)
DX: N17.9 Acute kidney failure, unspecified (principal); G92.8 Other toxic encephalopathy; J96.01 Acute respiratory failure with hypoxia; I50.23 Acute on chronic systolic (congestive) heart failure; J18.9 Pneumonia, unspecified organism; I13.0 Hypertensive heart and chronic kidney disease with heart failure and stage 1 through stage 4 chronic kidney disease, or unspecified chronic kidney disease; E87.20 Acidosis, unspecified; S22.32XA Fracture of one rib, left side, initial encounter for closed fracture; I31.39 Other pericardial effusion (noninflammatory); J90 Pleural effusion, not elsewhere classified; I48.21 Permanent atrial fibrillation; E87.1 Hypo-osmolality and hyponatremia; F05 Delirium due to known physiological condition; F11.20 Opioid dependence, uncomplicated; J98.11 Atelectasis; I95.1 Orthostatic hypotension; R62.7 Adult failure to thrive; R29.6 Repeated falls; M06.9 Rheumatoid arthritis, unspecified; I27.20 Pulmonary hypertension, unspecified; M10.9 Gout, unspecified; G89.29 Other chronic pain; M54.50 Low back pain, unspecified; I34.0 Nonrheumatic mitral (valve) insufficiency; F41.9 Anxiety disorder, unspecified; F32.A Depression, unspecified; D47.2 Monoclonal gammopathy; E87.5 Hyperkalemia; I45.10 Unspecified right bundle-branch block; M19.90 Unspecified osteoarthritis, unspecified site; E11.51 Type 2 diabetes mellitus with diabetic peripheral angiopathy without gangrene; G31.84 Mild cognitive impairment of uncertain or unknown etiology; G47.00 Insomnia, unspecified; K21.9 Gastro-esophageal reflux disease without esophagitis; E11.42 Type 2 diabetes mellitus with diabetic polyneuropathy; R27.8 Other lack of coordination; I35.0 Nonrheumatic aortic (valve) stenosis; L89.151 Pressure ulcer of sacral region, stage 1; E11.22 Type 2 diabetes mellitus with diabetic chronic kidney disease; N18.32 Chronic kidney disease, stage 3b; W19.XXXA Unspecified fall, initial encounter; Y93.9 Activity, unspecified; Y92.009 Unspecified place in unspecified non-institutional (private) residence as the place of occurrence of the external cause; Z66 Do not resuscitate; Z60.2 Problems related to living alone; Z68.20 Body mass index [BMI] 20.0-20.9, adult; Z95.0 Presence of cardiac pacemaker; Z85.46 Personal history of malignant neoplasm of prostate; Z79.01 Long term (current) use of anticoagulants; Z95.3 Presence of xenogenic heart valve; Z95.1 Presence of aortocoronary bypass graft
CPT/HCPCS: 88305; 93308; 32555; 70450; 71045; 71046; 71250; 73502; 74176; 76604; 80048; 80053; 80061; 80162; 81003; 81015; 82140; 82150; 82533; 82570; 82607; 82728; 82805; 82945; 82962; 83550; 83615; 83735; 83880; 83930; 83935; 83986; 84157; 84300; 84439; 84443; 84478; 84484; 84550; 85025; 85027; 85610; 85730; 87015; 87070; 87086; 87205; 88112; 88341; 88342; 89051; 92610; 93005; 93321; 93325; 93451; 94660; 97116; 97167; 97530; 97535; C1769; C1894